=== PATIENT | female | born 1960 | race American Indian/Alaskan Native ===

== ENCOUNTER 2016-12-20 12:32 | Inpatient (IN) | payer MEDICAID ==
[2016-12-15 09:45] VITALS: BMI 27.6
[2016-12-20] MEDS: Insulin Regular 100 units/ml SC SCH (21:01)
[2016-12-20 22:29] VITALS: RESP 20
[2016-12-21] MEDS: Insulin Regular 100 units/ml SC SCH ×4 (06:30→22:24)
[2016-12-21] MEDS: Pantoprazole 20 mg EC Tab PO SCH (09:33)
[2016-12-21] MEDS: Cholestyramine 4 gm/Pkt UD PO SCH ×2 (09:34→16:59)
[2016-12-22] MEDS: Insulin Regular 100 units/ml SC SCH ×4 (07:07→21:48)
[2016-12-22] MEDS: Pantoprazole 20 mg EC Tab PO SCH (09:09)
[2016-12-22] MEDS: Cholestyramine 4 gm/Pkt UD PO SCH ×2 (09:10→17:00)
[2016-12-23] MEDS: Insulin Regular 100 units/ml SC SCH ×4 (07:02→21:55)
[2016-12-23] MEDS: Pantoprazole 20 mg EC Tab PO SCH (09:22)
[2016-12-23] MEDS: Cholestyramine 4 gm/Pkt UD PO SCH ×2 (09:22→17:02)
[2016-12-23 19:57] VITALS: O2SAT 100
[2016-12-24] MEDS: Insulin Regular 100 units/ml SC SCH ×4 (06:38→21:37)
[2016-12-24] MEDS: Pantoprazole 20 mg EC Tab PO SCH (08:13)
[2016-12-24] MEDS: Cholestyramine 4 gm/Pkt UD PO SCH ×2 (08:13→16:28)
--- NOTE | 2016-12-24 09:26 | CP.PCM.HP ---
History of Present Illness - History of Present Illness History of Present Illness: pt admitted for phys therapy for waekness secondary to hep c cirrhosis and high ammonia. at present. sitting up in bed w/o complaints, asking to be dc home. no f/c, n/v/d. Present on Admission - Present on Admission Any Indicators Present on Admission: Yes History of Uncontrolled Diabetes: Yes Past Patient History - Past Medical History & Family History Past Medical History?: Yes - Past Social History Smoking Status: Heavy Smoker > 10 Cigarettes Daily - CARDIAC Hx Hypercholesterolemia: Yes Hx Hypertension: Yes - PULMONARY Hx Chronic Obstructive Pulmonary Disease (COPD): Yes Other/Comment: Heavy smoker X 2 packs / da - NEUROLOGICAL Hx Neurological Disorder: No - HEENT Hx HEENT Problems: No Other/Comment: Wears corrective Lenses - RENAL Hx Chronic Kidney Disease: Yes ("RENAL INSUFFICENCY") Hx Dialysis: No - ENDOCRINE/METABOLIC Hx Diabetes Mellitus Type 2: Yes - HEMATOLOGICAL/ONCOLOGICAL Hx Blood Disorders: No Hx AIDS: No Hx Human Immunodeficiency Virus (HIV): No - INTEGUMENTARY Hx Dermatological Problems: Yes Other/Comment: "RASH DUE TO LIVER DISEASE" - MUSCULOSKELETAL/RHEUMATOLOGICAL Hx Musculoskeletal Disorders: No Hx Falls: No - GASTROINTESTINAL Hx Gastrointestinal Disorders: Yes ("LIVER DISEASE") Hx Liver Failure: Yes (Hep C, Liver Cirrhosis) Other/Comment: 09/09/14-EGD DONE-POST DX: ESOPHAGEAL VARICES - GENITOURINARY/GYNECOLOGICAL Hx Genitourinary Disorders: No Hx Urinary Tract Infection: Yes - PSYCHIATRIC Hx Emotional Abuse: No Hx Physical Abuse: No Hx Substance Use: No - SURGICAL HISTORY Hx Surgeries: Yes Other/Comment: RIGHT EYE STYE , Colonoscopy - ANESTHESIA Hx Anesthesia: Yes Hx Anesthesia Reactions: No Hx Malignant Hyperthermia: No Meds Allergies/Adverse Reactions: Allergies Allergy/AdvReac Type Severity Reaction Status Date / Time No Known Allergies Allergy Verified 12/20/16 18:41 Physical Exam - Constitutional Appears: Well, Non-toxic, No Acute Distress - Head Exam Head Exam: ATRAUMATIC, NORMAL INSPECTION, NORMOCEPHALIC - Eye Exam Eye Exam: EOMI, Normal appearance, PERRL Pupil Exam: NORMAL ACCOMODATION, PERRL - ENT Exam ENT Exam: Mucous Membranes Moist, Normal Exam - Neck Exam Neck exam: Positive for: Normal Inspection - Respiratory Exam Respiratory Exam: Clear to Auscultation Bilateral, NORMAL BREATHING PATTERN - Cardiovascular Exam Cardiovascular Exam: REGULAR RHYTHM - GI/Abdominal Exam GI & Abdominal Exam: Normal Bowel Sounds, Soft. absent: Tenderness - Extremities Exam Extremities exam: Positive for: full ROM, normal capillary refill, normal inspection, pedal pulses present - Back Exam Back exam: NORMAL INSPECTION - Neurological Exam Neurological exam: Alert, CN II-XII Intact, Normal Gait, Oriented x3, Reflexes Normal - Psychiatric Exam Psychiatric exam: Normal Affect, Normal Mood - Skin Skin Exam: Dry, Intact, Normal Color, Warm Results - Vital Signs Recent Vital Signs: Last Vital Signs Temp 97.7 F 12/24/16 08:26 Pulse 85 12/24/16 08:26 Resp 20 12/24/16 08:26 BP 100/40 L 12/24/16 08:26 Pulse Ox 100 12/24/16 08:26 - Labs Labs: Laboratory Results - last 24 hr 12/23/16 12/23/16 12/23/16 11:34 16:16 20:37 POC Glucose (mg/dL) 198 H 144 H 193 H 12/24/16 05:24 POC Glucose (mg/dL) 95 Assessment & Plan (1) Ieqvy-bh-yjbevhl kidney injury Assessment and Plan: f/u b/w cont meds chronic condition control Status: Acute (2) DVT prophylaxis Assessment and Plan: scd and ae hose reeval pt/ptt/inr before any anticoag Status: Acute (3) Hepatorenal syndrome Assessment and Plan: cont meds, consults appriciated Status: Acute (4) Liver cirrhosis Assessment and Plan: cont meds, check ammonia and hep panel today xifaxin Status: Acute (5) Weakness Assessment and Plan: tcu admission pt/ot improving Status: Acute Decision To Admit - Pt Status Changed To: Hospital Disposition Of: Inpatient - Admit Certification Admit to Inpatient:: After my assessment, the patient will require hospitalization for at least two midnights. This is because of the severity of symptoms shown, intensity of services needed, and/or the medical risk in this patient being treated as an outpatient. - . Bed Request Type: Transitional Care Unit Admitting Physician: Emelyn Veras
[2016-12-24 10:27] LABS: BASO # 0.1 K/uL (0.0-0.2); BASO % 0.9 % (0.0-2.0); EOS # 0.1 K/uL (0.0-0.7); EOS % 1.6 % (0.0-4.0); HEMATOCRIT 28.6 % (34.0-47.0); LYMPH # 1.5 K/uL (1.0-4.3); LYMPH % 25.5 % (20.0-40.0); MEAN CELL VOLUME 94.5 fl (81.0-99.0); MEAN CORPUSCULAR HEMOGLOBIN 32.1 pg (27.0-31.0); MEAN PLATELET VOLUME 10.2 fl (7.2-11.7); MONO # 0.9 K/uL (0.0-0.8); MONO % 15.5 % (0.0-10.0); NEUT # 3.3 K/uL (1.8-7.0); NEUT % 56.5 % (50.0-75.0); NRBC % 0.1 % (0.0-0.0); RED CELL DISTRIBUTION WIDTH 21.6 % (11.5-14.5); WHITE BLOOD COUNT 5.9 K/uL (4.8-10.8)
[2016-12-24 10:33] LABS: PARTIAL THROMBOPLASTIN TIME 41.3 Seconds (25.6-37.1)
[2016-12-24 12:10] LABS: ALB/GLOB RATIO 0.5 (1.0-2.1); CALCIUM 8.7 mg/dL (8.4-10.2); POTASSIUM 3.8 MMOL/L (3.6-5.0); TOTAL PROTEIN 8.8 G/DL (6.3-8.2)
[2016-12-25] MEDS: Insulin Regular 100 units/ml SC SCH ×4 (06:46→22:00)
[2016-12-25] MEDS: Pantoprazole 20 mg EC Tab PO SCH (10:09)
[2016-12-25] MEDS: Cholestyramine 4 gm/Pkt UD PO SCH ×2 (10:11→16:53)
[2016-12-26] MEDS: Insulin Regular 100 units/ml SC SCH ×4 (06:49→21:40)
--- NOTE | 2016-12-26 07:49 | CP.PCM.PN ---
Subjective - Date & Time of Evaluation Date of Evaluation: 12/26/16 Time of Evaluation: 07:48 - Subjective Subjective: pt in bed, no compalints/distress/weakness. per rn pt was weak and "didn't feel good yesterday" pt denies these complaints at present. no f/c, n/v/d. bp noted to be low normal. Objective - Vital Signs/Intake and Output Vital Signs (last 24 hours): Temp Pulse Resp BP Pulse Ox 97.7 F 95 H 20 97/53 L 100 12/25/16 20:10 12/25/16 20:10 12/25/16 20:10 12/25/16 20:10 12/25/16 20:10 - Medications Medications: Current Medications Cholestyramine Resin (Questran) 4 gm PO BID [facility] Last Admin: 12/25/16 16:53 Dose: 4 gm Famotidine (Pepcid) 20 mg PO Q12 [facility] Last Admin: 12/25/16 21:17 Dose: 20 mg Hydroxyzine HCl (Atarax) 25 mg PO Q6 PRN PRN Reason: Itching / Pruritus Last Admin: 12/26/16 06:50 Dose: 25 mg Insulin Human Regular (Humulin R) 0 units SC ACHS [facility] PRN Reason: Protocol Last Admin: 12/26/16 06:49 Dose: Not Given Lactulose (Enulose) 20 gm PO TID [facility] Last Admin: 12/25/16 16:55 Dose: Not Given Nicotine (Nicoderm Cq) 1 patch TD DAILY [facility] Last Admin: 12/25/16 10:11 Dose: 1 patch Pantoprazole Sodium (Protonix Ec Tab) 20 mg PO DAILY [facility] Last Admin: 12/25/16 10:09 Dose: 20 mg Rifaximin (Xifaxan) 550 mg PO BID [facility] PRN Reason: Protocol Last Admin: 12/25/16 16:53 Dose: 550 mg Sodium Bicarbonate (Sodium Bicarbonate Tab) 1,300 mg PO BID [facility] Last Admin: 12/25/16 16:53 Dose: 1,300 mg Ursodiol (Actigall) 300 mg PO BID [facility] Last Admin: 12/25/16 16:56 Dose: 300 mg Zinc Sulfate (Zinc Sulfate 220 Mg Cap) 220 mg PO DAILY [facility] Last Admin: 12/25/16 10:11 Dose: 220 mg Zolpidem Tartrate (Ambien) 5 mg PO HS PRN PRN Reason: Insomnia Last Admin: 12/24/16 00:11 Dose: 5 mg - Labs Labs: 12/24/16 09:40 12/24/16 09:40 PT 20.1 Seconds (9.8-13.1) H 12/24/16 09:40 INR 1.8 (0.9-1.2) H 12/24/16 09:40 APTT 41.3 Seconds (25.6-37.1) H 12/24/16 09:40 - Constitutional Appears: Well, Non-toxic, No Acute Distress - Head Exam Head Exam: ATRAUMATIC, NORMAL INSPECTION, NORMOCEPHALIC - Eye Exam Eye Exam: EOMI, Normal appearance, PERRL Pupil Exam: NORMAL ACCOMODATION, PERRL - ENT Exam ENT Exam: Mucous Membranes Moist, Normal Exam - Neck Exam Neck Exam: Full ROM, Normal Inspection. absent: Lymphadenopathy - Respiratory Exam Respiratory Exam: Clear to Ausculation Bilateral, NORMAL BREATHING PATTERN - Cardiovascular Exam Cardiovascular Exam: REGULAR RHYTHM, RRR, +S1, +S2. absent: Murmur - GI/Abdominal Exam GI & Abdominal Exam: Soft, Normal Bowel Sounds. absent: Tenderness - Extremities Exam Extremities Exam: Full ROM, Normal Capillary Refill, Normal Inspection. absent : Joint Swelling, Pedal Edema - Back Exam Back Exam: NORMAL INSPECTION - Neurological Exam Neurological Exam: Alert, Awake, CN II-XII Intact, Normal Gait, Oriented x3 - Psychiatric Exam Psychiatric exam: Normal Affect, Normal Mood - Skin Skin Exam: Dry, Intact, Normal Color, Warm Assessment and Plan (1) Xzdjb-du-eyxslwm kidney injury Status: Acute (2) DVT prophylaxis Status: Acute (3) Hepatorenal syndrome Status: Acute (4) Liver cirrhosis Status: Acute (5) Weakness Status: Acute - Assessment and Plan (Free Text) Assessment: (1) Hnevk-an-pbvuebk kidney injury Assessment and Plan: f/u b/w cont meds chronic condition control Status: Acute (2) DVT prophylaxis Assessment and Plan: scd and ae hose reeval pt/ptt/inr before any anticoag Status: Acute (3) Hepatorenal syndrome Assessment and Plan: cont meds, consults appriciated Status: Acute (4) Liver cirrhosis Assessment and Plan: cont meds, check ammonia and hep panel today xifaxin Status: Acute (5) Weakness Assessment and Plan: tcu admission pt/ot improving Status: Acute 6-low bp ?? r/t immobility, advise pt oob, work w/ pt/ot. will monitor pt for dc tomorrow.
[2016-12-26] MEDS: Cholestyramine 4 gm/Pkt UD PO SCH ×2 (09:30→16:40)
[2016-12-26] MEDS: Pantoprazole 20 mg EC Tab PO SCH (09:30)
[2016-12-27] MEDS: Insulin Regular 100 units/ml SC SCH (07:59)
[2016-12-27 08:13] VITALS: BP 97/53; PULSE 95; TEMP 97.2
[2016-12-27] MEDS: Pantoprazole 20 mg EC Tab PO SCH (09:37)
[2016-12-27] MEDS: Cholestyramine 4 gm/Pkt UD PO SCH (09:38)
--- NOTE | 2016-12-30 10:44 | CP.PCM.DIS ---
Provider - Provider Date of Admission: 12/20/16 18:41 Attending physician: Emelyn Veras MD Time Spent in preparation of Discharge (in minutes): 15 Diagnosis - Discharge Diagnosis (1) Ccxjo-dm-sxeqvvl kidney injury Status: Acute (2) DVT prophylaxis Status: Acute (3) Hepatorenal syndrome Status: Acute (4) Liver cirrhosis Status: Acute (5) Weakness Status: Acute Hospital Course - Lab Results Lab Results: Most Recent Lab Values WBC 5.9 K/uL (4.8-10.8) 12/24/16 09:40 RBC 3.03 Mil/uL (3.80-5.20) L 12/24/16 09:40 Hgb 9.7 g/dL (12.0-16.0) L 12/24/16 09:40 Hct 28.6 % (34.0-47.0) L 12/24/16 09:40 MCV 94.5 fl (81.0-99.0) 12/24/16 09:40 MCH 32.1 pg (27.0-31.0) H 12/24/16 09:40 MCHC 34.0 g/dL (33.0-37.0) 12/24/16 09:40 RDW 21.6 % (11.5-14.5) H 12/24/16 09:40 Plt Count 114 K/uL (130-400) L 12/24/16 09:40 MPV 10.2 fl (7.2-11.7) 12/24/16 09:40 Neut % (Auto) 56.5 % (50.0-75.0) 12/24/16 09:40 Lymph % (Auto) 25.5 % (20.0-40.0) 12/24/16 09:40 [place] % (Auto) 15.5 % (0.0-10.0) H 12/24/16 09:40 Eos % (Auto) 1.6 % (0.0-4.0) 12/24/16 09:40 Baso % (Auto) 0.9 % (0.0-2.0) 12/24/16 09:40 Neut # 3.3 K/uL (1.8-7.0) 12/24/16 09:40 Lymph # 1.5 K/uL (1.0-4.3) 12/24/16 09:40 [place] # 0.9 K/uL (0.0-0.8) H 12/24/16 09:40 Eos # 0.1 K/uL (0.0-0.7) 12/24/16 09:40 Baso # 0.1 K/uL (0.0-0.2) 12/24/16 09:40 PT 20.1 Seconds (9.8-13.1) H 12/24/16 09:40 INR 1.8 (0.9-1.2) H 12/24/16 09:40 APTT 41.3 Seconds (25.6-37.1) H 12/24/16 09:40 Sodium 140 mmol/l (132-148) 12/24/16 09:40 Potassium 3.8 MMOL/L (3.6-5.0) 12/24/16 09:40 Chloride 114 mmol/L (98-107) H 12/24/16 09:40 Carbon Dioxide 15 mmol/L (22-30) L 12/24/16 09:40 Anion Gap 15 (10-20) 12/24/16 09:40 BUN 29 mg/dl (7-17) H 12/24/16 09:40 Creatinine 2.8 mg/dL (0.7-1.2) H 12/24/16 09:40 Est GFR ( Amer) 21 12/24/16 09:40 Est GFR (Non-Af Amer) 17 12/24/16 09:40 POC Glucose (mg/dL) 162 mg/dL (65-110) H 12/27/16 10:43 Random Glucose 193 mg/dL (65-105) H 12/24/16 09:40 Calcium 8.7 mg/dL (8.4-10.2) 12/24/16 09:40 Total Bilirubin 21.0 mg/dl (0.2-1.3) H 12/24/16 09:40 AST 97 U/L (14-36) H 12/24/16 09:40 ALT 67 U/L (9-52) H 12/24/16 09:40 Alkaline Phosphatase 318 U/L (38-126) H 12/24/16 09:40 Ammonia 71 umo/L (11-51) H D 12/24/16 09:40 Total Protein 8.8 G/DL (6.3-8.2) H 12/24/16 09:40 Albumin 3.0 g/dL (3.5-5.0) L 12/24/16 09:40 Globulin 5.8 gm/dL (2.2-3.9) H 12/24/16 09:40 Albumin/Globulin Ratio 0.5 (1.0-2.1) L 12/24/16 09:40 Hepatitis C Antibody Negative (NEGATIVE) 12/24/16 09:40 HCV RNA (PCR) IUs/ml <15 not detected IU/mL (<15) 12/24/16 09:40 HCV RNA PCR log IUs/ml <1.18 not detected Log IU/mL (<1.18) 12/24/16 09:40 Discharge Exam - Head Exam Head Exam: ATRAUMATIC, NORMAL INSPECTION, NORMOCEPHALIC Discharge Plan - Discharge Medications Prescriptions: Cholestyramine [Questran] 4 gm PO BID #60 packet Famotidine [Pepcid] 20 mg PO BID #60 tab hydrOXYzine HCl [Atarax] 25 mg PO Q6 PRN #60 tab PRN Reason: Itching / Pruritus Lactulose [Enulose] 20 gm PO QID #250 ml Sodium Bicarbonate Tab 1,300 mg PO BID #30 tab Ursodiol [Actigall] 1 cap PO BID #60 cap Zinc [Zinc Sulfate 220 mg Cap] 220 mg PO DAILY #30 cap - Follow Up Plan Condition: GOOD Disposition: HOME/ ROUTINE Instructions: Cirrhosis (DC), Chronic Kidney Disease (DC), Fall Prevention (DC) Additional Instructions: discharge patient home today. followup with pmd in one week, call for appointment. final dx-acute on chronic liver and kidney disease, weakness f/u rmg, rted prn, meds pe rmed rec
== END 2016-12-27 12:10 | disposition home or self-care (01) | DRG 316 ==
LOC: H.TCU 18:41
PROVIDERS: ADMIT Family Medicine; ATTEND Family Medicine
PROC: F07Z9FZ Gait Training/Functional Ambulation Treatment using Assistive, Adaptive, Supportive or Protective Equipment (ICD-10-PCS; principal; 2016-12-20)
PROC: F08Z4FZ Home Management Treatment using Assistive, Adaptive, Supportive or Protective Equipment (ICD-10-PCS; 2016-12-20)
PROC: F07M6FZ Therapeutic Exercise Treatment of Musculoskeletal System - Whole Body using Assistive, Adaptive, Supportive or Protective Equipment (ICD-10-PCS; 2016-12-20)
DX: N17.9 Acute kidney failure, unspecified (principal); K76.7 Hepatorenal syndrome; E11.22 Type 2 diabetes mellitus with diabetic chronic kidney disease; K74.60 Unspecified cirrhosis of liver; B19.20 Unspecified viral hepatitis C without hepatic coma; N18.4 Chronic kidney disease, stage 4 (severe); I12.9 Hypertensive chronic kidney disease with stage 1 through stage 4 chronic kidney disease, or unspecified chronic kidney disease; R53.1 Weakness; J44.9 Chronic obstructive pulmonary disease, unspecified; E78.00 Pure hypercholesterolemia, unspecified; F17.210 Nicotine dependence, cigarettes, uncomplicated; Z87.440 Personal history of urinary (tract) infections

== ENCOUNTER 2017-01-04 14:12 | Inpatient (IN) | payer MEDICAID ==
[2017-01-04 14:12] VITALS: BMI 27.6
[2017-01-04 15:26] LABS: BASO % 0.3 % (0.0-2.0); EOS # 0.1 K/uL (0.0-0.7); EOS % 0.9 % (0.0-4.0); HEMATOCRIT 27.1 % (34.0-47.0); LYMPH # 1.5 K/uL (1.0-4.3); LYMPH % 15.7 % (20.0-40.0); MEAN CELL VOLUME 94.8 fl (81.0-99.0); MEAN CORPUSCULAR HEMOGLOBIN 32.4 pg (27.0-31.0); MEAN CORPUSCULAR HGB CONC 34.2 g/dL (33.0-37.0); MEAN PLATELET VOLUME 10.5 fl (7.2-11.7); MONO # 1.4 K/uL (0.0-0.8); MONO % 15.2 % (0.0-10.0); NEUT # 6.4 K/uL (1.8-7.0); NEUT % 67.9 % (50.0-75.0); NRBC % 0.7 % (0.0-0.0); RED CELL DISTRIBUTION WIDTH 21.4 % (11.5-14.5); WHITE BLOOD COUNT 9.5 K/uL (4.8-10.8)
[2017-01-04 15:35] LABS: PARTIAL THROMBOPLASTIN TIME 41.3 Seconds (25.6-37.1)
--- NOTE | 2017-01-04 15:39 | ED PDOC ---
HPI: Altered Mental Status Time Seen by Provider: 01/04/17 14:25 Chief Complaint (Nursing): Altered Mental Status Chief Complaint (Provider): Altered mental status History Per: Patient History/Exam Limitations: None Onset/Duration Of Symptoms: Days (x7) Current Symptoms Are (Timing): Still Present Additional Complaint(s): Jennifer Maxwell is a 56 year old female with a past medical history of altered mental status brought to the ED by family for an evaluation of deteriorating health occurring since her discharge from this hospital last week. The patient' s family state the patient has not been eating and is incoherent. PMD: TBD Past Medical History Reviewed: Historical Data, Nursing Documentation, Vital Signs Vital Signs: Last Vital Signs Temp 98.3 F 01/04/17 14:15 Pulse 89 01/04/17 14:15 Resp 19 01/04/17 14:15 BP 105/42 L 01/04/17 14:15 Pulse Ox 100 01/04/17 14:15 - Medical History PMH: COPD, HTN, Hypercholesterolemia, Chronic Kidney Disease ("RENAL INSUFFICENCY") Denies: HIV - Surgical History Surgical History: Endoscopy - Family History Family History: States: No Known Family Hx - Home Medications Home Medications: Ambulatory Orders Medication Instructions Recorded Sodium Bicarbonate 1,300 mg PO BID 05/16/15 Omeprazole 20 mg PO DAILY 12/15/16 Zinc Sulfate 1 cap PO DAILY 12/15/16 Zolpidem Tartrate 1 tab PO HS PRN 12/15/16 rifAXIMin [Xifaxan] 550 mg PO BID 30 Days tab 12/20/16 Cholestyramine [Questran] 4 gm PO BID #60 packet 12/27/16 Famotidine [Pepcid] 20 mg PO BID #60 tab 12/27/16 Lactulose [Enulose] 20 gm PO QID #250 ml 12/27/16 Sodium Bicarbonate Tab 1,300 mg PO BID #30 tab 12/27/16 Ursodiol [Actigall] 1 cap PO BID #60 cap 12/27/16 Zinc [Zinc Sulfate 220 mg Cap] 220 mg PO DAILY #30 cap 12/27/16 hydrOXYzine HCl [Atarax] 25 mg PO Q6 PRN #60 tab 12/27/16 - Allergies Allergies/Adverse Reactions: Allergies Allergy/AdvReac Type Severity Reaction Status Date / Time No Known Allergies Allergy Verified 12/20/16 18:41 Review of Systems Review Of Systems: ROS cannot be obtained secondary to pt's inabilty to answer questions. (family states patient is not eating and is incoherent. ros cannot be obtained due to patient's clinical condition) Physical Exam - Reviewed Nursing Documentation Reviewed: Yes Vital Signs Reviewed: Yes - Physical Exam Appears: Positive for: Non-toxic Head Exam: Positive for: ATRAUMATIC, NORMOCEPHALIC Skin: Positive for: Normal Color, Warm, Dry Eye Exam: Positive for: Scleral icterus ENT: Positive for: Pharynx Is (mucous membranes are dry) Neck: Positive for: Normal Cardiovascular/Chest: Positive for: Regular Rate, Rhythm, Chest Non Tender Respiratory: Positive for: Normal Breath Sounds. Negative for: Respiratory Distress Gastrointestinal/Abdominal: Positive for: Normal Exam, Soft. Negative for: Tenderness Extremity: Positive for: Normal ROM (patient is able to move all extremities ). Negative for: Deformity Neurologic/Psych: Positive for: Other (patient is nonverbal; opens her eyes to verbal stimuli) - Laboratory Results Result Diagrams: 01/08/17 05:10 01/08/17 05:10 - ECG O2 Sat by Pulse Oximetry: 100 (RA) Pulse Ox Interpretation: Normal - Critical Care Total Time (In Min): 60 Medical Decision Making Medical Decision Making: Time: 14:25 Impression: Progressive altered mental status Plan: * ED EKG * Ammonia * CMP * Troponin I * CBC (With differential) * PTT * Prothrombin Time * Glucose, Blood, POC * Urinalysis * CT Head w/o contrast * [RAD] Chest Portable * Reevaluation Accession No. : [id number] Patient Name / ID : GRIFFIN MUSA E / [id number] Exam Date : 01/04/2017 16:46:27 ( Approved ) Study Comment : Sex / Age : F / 56Y Creator : Shoaib Jordan MD Dictator : Shoaib Jordan MD Palletizer Operator : Family Services Assistant : Shoaib Jordan MD Approver2 : Report Date : 01/05/2017 07:06:20 My Comment : HISTORY: AMS COMPARISON: No prior. FINDINGS: LUNGS: Limited by body habitus. No gross consolidation. PLEURA: No significant pleural effusion identified, no pneumothorax apparent. CARDIOVASCULAR: Normal. OSSEOUS STRUCTURES: No significant abnormalities. VISUALIZED UPPER ABDOMEN: Normal. OTHER FINDINGS: None. IMPRESSION: Limited by body habitus. No gross consolidation. Accession No. : [id number] Patient Name / ID : GRIFFIN MUSA E / [id number] Exam Date : 01/04/2017 15:47:21 ( Approved ) Study Comment : Sex / Age : F / 56Y Creator : Shoaib Jordan MD Dictator : Shoaib Joradn MD Palletizer Operator : Family Services Assistant : Shoaib Jordan MD Approver2 : Report Date : 01/04/2017 16:29:49 My Comment : PROCEDURE: CT HEAD WITHOUT CONTRAST. HISTORY: AMS COMPARISON: None available. TECHNIQUE: Axial computed tomography images were obtained through the head/brain without intravenous contrast. Radiation dose: Total exam DLP = 1713 mGy-cm. This CT exam was performed using one or more of the following dose reduction techniques: Automated exposure control, adjustment of the mA and/or kV according to patient size, and/or use of iterative reconstruction technique. FINDINGS: HEMORRHAGE: No intracranial hemorrhage. BRAIN: No mass effect or edema. No atrophy or chronic microvascular ischemic changes. VENTRICLES: Unremarkable. No hydrocephalus. CALVARIUM: Unremarkable. PARANASAL SINUSES: Unremarkable as visualized. No significant inflammatory changes. MASTOID AIR CELLS: Unremarkable as visualized. No inflammatory changes. OTHER FINDINGS: None. IMPRESSION: Normal CT of the Head. Scribe Attestation: Documented by Iwona Mcdermott, acting as a scribe for Nadeen Moreira MD. Provider Scribe Attestation: All medical record entries made by the Scribe were at my direction and personally dictated by me. I have reviewed the chart and agree that the record accurately reflects my personal performance of the history, physical exam, medical decision making, and the department course for this patient. I have also personally directed, reviewed, and agree with the discharge instructions and disposition. Disposition - Clinical Impression Clinical Impression: ARF (acute renal failure), Dehydration, Cirrhosis - Patient ED Disposition Is Patient to be Admitted: Yes - Disposition Disposition Time: 19:16 Condition: CRITICAL - Pt Status Changed To: Hospital Disposition Of: Inpatient - Admit Certification Admit to Inpatient:: After my assessment, the patient will require hospitalization for at least two midnights. This is because of the severity of symptoms shown, intensity of services needed, and/or the medical risk in this patient being treated as an outpatient. - POA Present On Arrival: None
[2017-01-04 15:54] LABS: TROPONIN I 0.028 ng/mL (0.00-0.120)
[2017-01-04 16:21] LABS: ALB/GLOB RATIO 0.5 (1.0-2.1); BILIRUBIN,TOTAL 21.3 mg/dl (0.2-1.3); CALCIUM 8.5 mg/dL (8.4-10.2); POTASSIUM 4.8 MMOL/L (3.6-5.0); TOTAL PROTEIN 8.7 G/DL (6.3-8.2)
--- NOTE | 2017-01-04 16:31 | CT ---
PROCEDURE: CT HEAD WITHOUT CONTRAST. HISTORY: AMS COMPARISON: None available. TECHNIQUE: Axial computed tomography images were obtained through the head/brain without intravenous contrast. Radiation dose: Total exam DLP = 1713 mGy-cm. This CT exam was performed using one or more of the following dose reduction techniques: Automated exposure control, adjustment of the mA and/or kV according to patient size, and/or use of iterative reconstruction technique. FINDINGS: HEMORRHAGE: No intracranial hemorrhage. BRAIN: No mass effect or edema. No atrophy or chronic microvascular ischemic changes. VENTRICLES: Unremarkable. No hydrocephalus. CALVARIUM: Unremarkable. PARANASAL SINUSES: Unremarkable as visualized. No significant inflammatory changes. MASTOID AIR CELLS: Unremarkable as visualized. No inflammatory changes. OTHER FINDINGS: None. IMPRESSION: Normal CT of the Head.
[2017-01-04] MEDS ORDERED: Sodium Chloride 0.9% 1,000 ML IV STA (16:57)
[2017-01-04 17:14] LABS: ABG ALLEN TEST YES; ARTERIAL BLOOD GAS PH 7.31 (7.35-7.45); ARTERIAL BLOOD GAS PO2 113 mm/Hg (80-100)
--- NOTE | 2017-01-04 18:59 | CP.PCM.CON ---
History of Present Illness - History of Present Illness History of Present Illness: Initial Nephrology Consultation: Assessment: critical Acute Kidney Injury (N17.9) possible causes include type 1 hepato-renal syndrome , ATN Anemia, liver failure, jaundice, coagulopathy, hepatosplenomegaly lactic acidosis, HAGMA acute hepatic +uremic metabolic encephalopathy Obesity left adrenal nodule Hypernatremia Plan renal replacement therapy indicated at this time. d/w family and they agreed. discussed pros/cons, risks involved. Will plan for HD today as ordered. d/w ER, to obtain temp dialysis access Hypertension control with meds as ordered. No ACEI/ARB due to GEGE Monitor Input/Output, daily weights and renal function with basic metabolic panel consider transfer to tertiary care center for liver evaluation will start empiric treatment with octreotide SQ and midodrine (PO) or Vasopressin (IV) Check urine analysis, spot protein/creatinine renal sonogram. CPK, uric acid. Dose meds/antibiotics for reduced GFR<10. Avoid fleets enema/magnesium based laxatives. Avoid nephrotoxins/NSAIDs/ iodinated contrast (unless needed emergently) Glycemic control Further work up/management as per primary team prognosis poor Thanks for allowing me to participate in care of your patient. Will follow patient with you. Please call if any Qs. d/w family and team Dr Narayan Sanchez Office: [phone] Chief Complaint; AMS HPI: Pt is a 56 y/o F with hx of hypertension, chronic liver disease and cirrhosis, recently admitted for hepatic enceph also found to have cr 2.5-2.8 was brought back to hospital for AMS x couple of days and found to have severe GEGE and hepatic dysfunction with bilirubin 21 pt unable to provide any hx. ROS: unable to obtain from pt Physical Examination: General Appearance: ill appearing, AMS Vitals reviewed and noted as below Head; Atraumatic, normocephalic ENT: no ulcers no thrush. Tongue is midline/dry. Oropharynx: no rash or ulcers. EYES: Pupils are equal, round and sluggish to light accommodation. Eye muscles and extraocular movement intact. Sclera is anicteric. Neck; supple no lymphadenopathy, no thyromegaly or bruit Lungs: Normal respiratory rate/effort. Breath sounds bilateral equal and clear anteriorly Heart: Normal rate. s1s2 normal. No rub or gallop. Extremities: no edema. No varicose veins Neurological: Patient is not communicating and comatose Skin: Warm and dry. Normal turgor. No rash. Palpitation: Normal elasticity for age Abdomen: Abdomen is soft. Bowel sounds +. There is no abdominal tenderness, no guarding/rigidity no organomegaly appreciated as she is obese Psych: unable MSK: no joint tenderness or swelling. Digits and nails normal, no deformity : kidney or bladder not palpable Labs/imaging/EKG reviewed. Past medical history, past surgical history, family history, social history, allergy reviewed and noted as below Family hx: no hx of CKD. Rest non-contributory Past Patient History - Infectious Disease Hx of Infectious Diseases: None - Past Medical History & Family History Past Medical History?: Yes - Past Social History Smoking Status: Heavy Smoker > 10 Cigarettes Daily - CARDIAC Hx Hypercholesterolemia: Yes Hx Hypertension: Yes - PULMONARY Hx Chronic Obstructive Pulmonary Disease (COPD): Yes - NEUROLOGICAL Hx Neurological Disorder: No - HEENT Hx HEENT Problems: No Other/Comment: Wears corrective Lenses - RENAL Hx Chronic Kidney Disease: Yes ("RENAL INSUFFICENCY") - ENDOCRINE/METABOLIC Hx Diabetes Mellitus Type 2: Yes - HEMATOLOGICAL/ONCOLOGICAL Hx Human Immunodeficiency Virus (HIV): No - INTEGUMENTARY Hx Dermatological Problems: Yes Other/Comment: "RASH DUE TO LIVER DISEASE" - MUSCULOSKELETAL/RHEUMATOLOGICAL Hx Musculoskeletal Disorders: No Hx Falls: No - GASTROINTESTINAL Hx Gastrointestinal Disorders: Yes ("LIVER DISEASE") Hx Liver Failure: Yes (Hep C, Liver Cirrhosis) Other/Comment: 09/09/14-EGD DONE-POST DX: ESOPHAGEAL VARICES - GENITOURINARY/GYNECOLOGICAL Hx Genitourinary Disorders: No Hx Urinary Tract Infection: Yes - PSYCHIATRIC Hx Emotional Abuse: No Hx Physical Abuse: No Hx Substance Use: No - SURGICAL HISTORY Hx Surgeries: Yes Other/Comment: RIGHT EYE STYE , Colonoscopy - ANESTHESIA Hx Anesthesia: Yes Hx Anesthesia Reactions: No Hx Malignant Hyperthermia: No Meds Allergies/Adverse Reactions: Allergies Allergy/AdvReac Type Severity Reaction Status Date / Time No Known Allergies Allergy Verified 12/20/16 18:41 - Medications Medications: Current Medications Cholestyramine Resin (Questran) 4 gm PO BID HUDSON Famotidine (Pepcid) 20 mg PO BID HUDSON Hydroxyzine HCl (Atarax) 25 mg PO Q6 PRN PRN Reason: Itching / Pruritus Sodium Chloride (Sodium Chloride 0.9%) 1,000 mls @ 125 mls/hr IV .Q8H STA Stop: 01/05/17 00:56 Last Admin: 01/04/17 17:00 Dose: 125 mls/hr Sodium Chloride (Sodium Chloride 0.9%) 1,000 mls @ 100 mls/hr IV .Q10H HUDSON Stop: 01/05/17 18:40 Lactulose (Enulose) 20 gm PO QID HUDSON Pantoprazole Sodium (Protonix Ec Tab) 40 mg PO DAILY HUDSON Rifaximin (Xifaxan) 550 mg PO BID HUDSON PRN Reason: Protocol Sodium Bicarbonate (Sodium Bicarbonate Tab) 1,300 mg PO BID HUDSON Ursodiol (Actigall) 300 mg PO BID HUDSON Zinc Sulfate (Zinc Sulfate 220 Mg Cap) 220 mg PO DAILY HUDSON Results - Vital Signs Recent Vital Signs: Last Vital Signs Temp 98.3 F 01/04/17 14:15 Pulse 89 01/04/17 14:15 Resp 19 01/04/17 14:15 BP 105/42 L 01/04/17 14:15 Pulse Ox 100 01/04/17 15:43 - Labs Result Diagrams: 01/04/17 15:15 01/04/17 15:15 Labs: Laboratory Results - last 24 hr 01/04/17 01/04/17 01/04/17 15:15 15:15 15:15 WBC 9.5 D RBC 2.85 L Hgb 9.3 L Hct 27.1 L MCV 94.8 MCH 32.4 H MCHC 34.2 RDW 21.4 H Plt Count 147 MPV 10.5 Neut % (Auto) 67.9 Lymph % (Auto) 15.7 L [place] % (Auto) 15.2 H Eos % (Auto) 0.9 Baso % (Auto) 0.3 Neut # 6.4 Lymph # 1.5 [place] # 1.4 H Eos # 0.1 Baso # 0.0 PT INR APTT pCO2 pO2 HCO3 ABG pH ABG Total CO2 ABG O2 Saturation ABG Base Excess [place] Test ABG Potassium A-a O2 Difference Glucose Lactate FiO2 Sodium 148 Potassium 4.8 Chloride 119 H Carbon Dioxide 12 L Anion Gap 22 H BUN 83 H Creatinine 9.0 H* Est GFR ( Amer) 5 Est GFR (Non-Af Amer) 5 Random Glucose 101 Calcium 8.5 Total Bilirubin 21.3 H AST 83 H ALT 61 H Alkaline Phosphatase 268 H Ammonia 100 H* D Troponin I 0.0280 Total Protein 8.7 H Albumin 3.0 L Globulin 5.7 H Albumin/Globulin Ratio 0.5 L Arterial Blood Potassium 01/04/17 01/04/17 15:15 16:26 WBC RBC Hgb Hct MCV MCH MCHC RDW Plt Count MPV Neut % (Auto) Lymph % (Auto) [place] % (Auto) Eos % (Auto) Baso % (Auto) Neut # Lymph # [place] # Eos # Baso # PT 24.1 H INR 2.1 H APTT 41.3 H pCO2 24 L pO2 113 H HCO3 15.0 L ABG pH 7.31 L ABG Total CO2 12.8 L ABG O2 Saturation 100.0 H ABG Base Excess -12.7 L [place] Test Yes ABG Potassium 4.2 A-a O2 Difference 7.0 Glucose 99 Lactate 3.4 H FiO2 21.0 Sodium 143.0 Potassium Chloride 118.0 H Carbon Dioxide Anion Gap BUN Creatinine Est GFR ( Amer) Est GFR (Non-Af Amer) Random Glucose Calcium Total Bilirubin AST ALT Alkaline Phosphatase Ammonia Troponin I Total Protein Albumin Globulin Albumin/Globulin Ratio Arterial Blood Potassium 4.2
--- NOTE | 2017-01-04 19:17 | PCM.SURG1 ---
Surgeon's Initial Post Op Note - Surgeon's Notes Surgeon: Dr Cannon (Dr Moreira) Bread Racker: none Type of Anesthesia: Local Pre-Operative Diagnosis: renal failure Operative Findings: open patent right femoral vein Post-Operative Diagnosis: as above Operation Performed: insertion of right femoral dialysis catheter under ultrasound guidance Specimen/Specimens Removed: none Estimated Blood Loss: EBL {In ML}: 10 Blood Products Given: N/A Drains Used: No Drains Post-Op Condition: Fair Date of Surgery/Procedure: 01/04/17 Time of Surgery/Procedure: 19:17
--- NOTE | 2017-01-04 19:51 | CP.PCM.CON ---
History of Present Illness - History of Present Illness History of Present Illness: CC/Reason for ICU: acute on chronic kidney and liver failure; requiring urgent HD History largely from ER staff and family as patient AMS HPI: This is a 56 y/o female with CKD (baseline Cr appears to be ~2.8) and liver disease who was just discharged from the hospital last Friday; she had previously been in for confusion and weakness. She is brought back by her family members today who say that she has become progressively weaker and more confused again over the past 3-4 days. They deny f/c/n/v/d. Patient is not able to provide much history. ROS: cannot be performed is confused MHx: Hep C/liver disease, HTN, DM2, HLD, CKD SHx: cannot obtain Allergies: NKDA Medications: As per med rec Family Hx: Prior documentation shows kidney disease in family Social Hx: Lives at home, smokes tobacco -- likely 1 ppd, no significant EtOH use noted Surrogate: Son, Hakeem Maxwell Past Patient History - Infectious Disease Hx of Infectious Diseases: None - Past Medical History & Family History Past Medical History?: Yes - Past Social History Smoking Status: Heavy Smoker > 10 Cigarettes Daily - CARDIAC Hx Hypercholesterolemia: Yes Hx Hypertension: Yes - PULMONARY Hx Chronic Obstructive Pulmonary Disease (COPD): Yes - NEUROLOGICAL Hx Neurological Disorder: No - HEENT Hx HEENT Problems: No Other/Comment: Wears corrective Lenses - RENAL Hx Chronic Kidney Disease: Yes ("RENAL INSUFFICENCY") - ENDOCRINE/METABOLIC Hx Diabetes Mellitus Type 2: Yes - HEMATOLOGICAL/ONCOLOGICAL Hx Human Immunodeficiency Virus (HIV): No - INTEGUMENTARY Hx Dermatological Problems: Yes Other/Comment: "RASH DUE TO LIVER DISEASE" - MUSCULOSKELETAL/RHEUMATOLOGICAL Hx Musculoskeletal Disorders: No Hx Falls: No - GASTROINTESTINAL Hx Gastrointestinal Disorders: Yes ("LIVER DISEASE") Hx Liver Failure: Yes (Hep C, Liver Cirrhosis) Other/Comment: 09/09/14-EGD DONE-POST DX: ESOPHAGEAL VARICES - GENITOURINARY/GYNECOLOGICAL Hx Genitourinary Disorders: No Hx Urinary Tract Infection: Yes - PSYCHIATRIC Hx Emotional Abuse: No Hx Physical Abuse: No Hx Substance Use: No - SURGICAL HISTORY Hx Surgeries: Yes Other/Comment: RIGHT EYE STYE , Colonoscopy - ANESTHESIA Hx Anesthesia: Yes Hx Anesthesia Reactions: No Hx Malignant Hyperthermia: No Meds Allergies/Adverse Reactions: Allergies Allergy/AdvReac Type Severity Reaction Status Date / Time No Known Allergies Allergy Verified 12/20/16 18:41 - Medications Medications: Current Medications Cholestyramine Resin (Questran) 4 gm PO BID HUDSON Famotidine (Pepcid) 20 mg PO BID HUDSON Hydroxyzine HCl (Atarax) 25 mg PO Q6 PRN PRN Reason: Itching / Pruritus Sodium Chloride (Sodium Chloride 0.9%) 1,000 mls @ 125 mls/hr IV .Q8H STA Stop: 01/05/17 00:56 Last Admin: 01/04/17 17:00 Dose: 125 mls/hr Sodium Chloride (Sodium Chloride 0.9%) 1,000 mls @ 100 mls/hr IV .Q10H HUDSON Stop: 01/05/17 18:40 Lactulose (Enulose) 20 gm PO QID HUDSON Midodrine (Proamatine) 10 mg PO TID HUDSON Octreotide Acetate (Sandostatin) 20 mcg SC Q8 HUDSON Pantoprazole Sodium (Protonix Ec Tab) 40 mg PO DAILY HUDSON Rifaximin (Xifaxan) 550 mg PO BID HUDSON PRN Reason: Protocol Sodium Bicarbonate (Sodium Bicarbonate Tab) 1,300 mg PO BID HUDSON Ursodiol (Actigall) 300 mg PO BID HUDSON Zinc Sulfate (Zinc Sulfate 220 Mg Cap) 220 mg PO DAILY HUDSON Physical Exam - Constitutional Appears: No Acute Distress - Head Exam Head Exam: ATRAUMATIC, NORMOCEPHALIC - Eye Exam Eye Exam: EOMI, PERRL Additional comments: b/l scleral icterus - ENT Exam ENT Exam: Mucous Membranes Moist - Neck Exam Neck exam: Positive for: Full Rom - Respiratory Exam Respiratory Exam: Clear to Auscultation Bilateral, NORMAL BREATHING PATTERN - Cardiovascular Exam Cardiovascular Exam: REGULAR RHYTHM, +S1, +S2 - GI/Abdominal Exam GI & Abdominal Exam: Normal Bowel Sounds, Soft - Extremities Exam Extremities exam: Positive for: pedal edema - Neurological Exam Additional comments: Confused, can move all limbs spontaneously - Skin Skin Exam: Dry, Warm Results - Vital Signs Recent Vital Signs: Last Vital Signs Temp 98.3 F 01/04/17 14:15 Pulse 82 01/04/17 18:10 Resp 14 01/04/17 18:10 BP 101/62 01/04/17 18:10 Pulse Ox 97 01/04/17 18:10 - Labs Result Diagrams: 01/04/17 15:15 01/04/17 15:15 Labs: Laboratory Results - last 24 hr 01/04/17 01/04/17 01/04/17 15:15 15:15 15:15 WBC 9.5 D RBC 2.85 L Hgb 9.3 L Hct 27.1 L MCV 94.8 MCH 32.4 H MCHC 34.2 RDW 21.4 H Plt Count 147 MPV 10.5 Neut % (Auto) 67.9 Lymph % (Auto) 15.7 L [place] % (Auto) 15.2 H Eos % (Auto) 0.9 Baso % (Auto) 0.3 Neut # 6.4 Lymph # 1.5 [place] # 1.4 H Eos # 0.1 Baso # 0.0 PT INR APTT pCO2 pO2 HCO3 ABG pH ABG Total CO2 ABG O2 Saturation ABG Base Excess [place] Test ABG Potassium A-a O2 Difference Glucose Lactate FiO2 Sodium 148 Potassium 4.8 Chloride 119 H Carbon Dioxide 12 L Anion Gap 22 H BUN 83 H Creatinine 9.0 H* Est GFR ( Amer) 5 Est GFR (Non-Af Amer) 5 Random Glucose 101 Calcium 8.5 Total Bilirubin 21.3 H AST 83 H ALT 61 H Alkaline Phosphatase 268 H Ammonia 100 H* D Troponin I 0.0280 Total Protein 8.7 H Albumin 3.0 L Globulin 5.7 H Albumin/Globulin Ratio 0.5 L Arterial Blood Potassium 01/04/17 01/04/17 15:15 16:26 WBC RBC Hgb Hct MCV MCH MCHC RDW Plt Count MPV Neut % (Auto) Lymph % (Auto) [place] % (Auto) Eos % (Auto) Baso % (Auto) Neut # Lymph # [place] # Eos # Baso # PT 24.1 H INR 2.1 H APTT 41.3 H pCO2 24 L pO2 113 H HCO3 15.0 L ABG pH 7.31 L ABG Total CO2 12.8 L ABG O2 Saturation 100.0 H ABG Base Excess -12.7 L [place] Test Yes ABG Potassium 4.2 A-a O2 Difference 7.0 Glucose 99 Lactate 3.4 H FiO2 21.0 Sodium 143.0 Potassium Chloride 118.0 H Carbon Dioxide Anion Gap BUN Creatinine Est GFR ( Amer) Est GFR (Non-Af Amer) Random Glucose Calcium Total Bilirubin AST ALT Alkaline Phosphatase Ammonia Troponin I Total Protein Albumin Globulin Albumin/Globulin Ratio Arterial Blood Potassium 4.2 - EKG Data EKG comments: Pending - Imaging and Cardiology CT scan - head Status: Image reviewed by me (WNL), Report reviewed by me Chest x-ray Status: Image reviewed by me (Poor quality film, appears to have vol o/l) US - abdomen Status: Report reviewed by me (Patient with no acute findings; chronic findings as per report) Assessment & Plan (1) Ojhkx-[id number] kidney injury Assessment and Plan: 56 y/o female with multiple chronic conditions being admitted for acute worsening of CKD with likely uremic encephalopathy and worsening liver function , likely HRS1. 1) AoCKD -Consult done by nephrology -Line placed, and plan for HD this evening -Continue renal medications -Dose medications renally -Patient started on octreotide and midodrine as per renal 2) Hepatic failure/enceph -Continue to trend liver function -Consider imaging to check for signs of obstruction -Continue Rifaximin and other liver medications 3) DM2 -- does not appear to be on any medications; accucheck q6h only for now, SSI as necessary 4) DVT PPx -- SCDs only for now given coagulopathy and recent procedure (line placement) Status: Acute (2) Hepatorenal syndrome Status: Acute (3) Liver cirrhosis Status: Acute (4) Weakness Status: Acute (5) DM2 (diabetes mellitus, type 2) Status: Acute (6) DVT prophylaxis Status: Acute
--- NOTE | 2017-01-04 20:23 | US ---
EXAM: US Retroperitoneal Limited, Renal CLINICAL HISTORY: 56 years old, female; Pain; Abdominal pain; Additional info: [place] TECHNIQUE: Real-time ultrasound of the retroperitoneum (limited) with image documentation. COMPARISON: US - RENAL 2016-12-16 11:55 FINDINGS: Right kidney: Normal echogenicity. No mass. No calculi. No hydronephrosis. Left kidney: Normal echogenicity. No mass. No calculi. No hydronephrosis. Bladder: Unremarkable. Free fluid: Small free fluid within abdomen and pelvis. IMPRESSION: 1.No acute findings. 2.Non-acute findings are described above.
[2017-01-04 22:02] LABS: RBC URINE 547 /hpf (0-3); TRANSITIONAL EPITHIAL 7 /hpf (0-3); URINE BACTERIA MANY (<OCC); URINE BILIRUBIN MODERATE (NEGATIVE); URINE COLOR RED (YELLOW); URINE GLUCOSE (UA) NEG (Normal); URINE KETONE NEGATIVE (NEGATIVE); URINE PROTEIN 100 mg/dL (NEGATIVE); WBC CLUMPS MANY /hpf; WBC URINE 3534 /hpf (0-5)
[2017-01-04 22:03] LABS: URINE BLOOD LARGE (NEGATIVE)
[2017-01-04 22:04] LABS: URINE LEUKOCYTE ESTERASE LARGE Leu/uL (Negative)
[2017-01-04 23:33] LABS: URIC ACID 11.8 mg/Dl (2.2-7.5)
[2017-01-05] MEDS: Sodium Chloride 0.9% 1,000 ML IV SCH ×2 (00:45→06:02)
[2017-01-05] MEDS ORDERED: Sodium Chloride 0.9% 250 ML IV ONE (02:33)
[2017-01-05] MEDS ORDERED: Sodium Chloride 0.9% 500 ML IV ONE (06:13)
[2017-01-05 06:14] LABS: BASO % 0.5 % (0.0-2.0); EOS # 0.1 K/uL (0.0-0.7); EOS % 1.6 % (0.0-4.0); HEMATOCRIT 25.1 % (34.0-47.0); LYMPH # 1.4 K/uL (1.0-4.3); LYMPH % 21.6 % (20.0-40.0); MEAN CELL VOLUME 94.5 fl (81.0-99.0); MEAN CORPUSCULAR HGB CONC 33.9 g/dL (33.0-37.0); MONO # 0.9 K/uL (0.0-0.8); MONO % 13.8 % (0.0-10.0); NEUT # 4.2 K/uL (1.8-7.0); NEUT % 62.5 % (50.0-75.0); NRBC % 1.7 % (0.0-0.0); WHITE BLOOD COUNT 6.7 K/uL (4.8-10.8)
[2017-01-05] MEDS ORDERED: Sodium Chloride 0.9% 1,000 ML IV SCH (06:15)
[2017-01-05 06:29] LABS: ALB/GLOB RATIO 0.5 (1.0-2.1); BILIRUBIN,TOTAL 18.8 mg/dl (0.2-1.3); CALCIUM 7.8 mg/dL (8.4-10.2); MAGNESIUM 2.5 MG/DL (1.6-2.3); PHOSPHOROUS 6.5 mg/dl (2.5-4.5); POTASSIUM 4.1 MMOL/L (3.6-5.0); TOTAL PROTEIN 7.6 G/DL (6.3-8.2)
[2017-01-05] MEDS: Dextrose 5%/0.45% NS 1,000 ML IV SCH (06:41)
--- NOTE | 2017-01-05 07:07 | RAD ---
HISTORY: AMS COMPARISON: No prior. FINDINGS: LUNGS: Limited by body habitus. No gross consolidation. PLEURA: No significant pleural effusion identified, no pneumothorax apparent. CARDIOVASCULAR: Normal. OSSEOUS STRUCTURES: No significant abnormalities. VISUALIZED UPPER ABDOMEN: Normal. OTHER FINDINGS: None. IMPRESSION: Limited by body habitus. No gross consolidation.
--- NOTE | 2017-01-05 07:41 | CP.CCUPN ---
CCU Subjective - Physician Review Events Since Last Encounter (Free Text): 01/05/17 07:38 Patient awake, lethargic, no fever, no vomiting, no pressors, events reviewed CCU Objective - Vital Signs / Intake & Output Vital Signs (Last 4 hours): Vital Signs Pulse Resp BP Pulse Ox 01/05/17 05:00 85 12 91/49 L 100 01/05/17 04:00 79 14 114/52 L 100 Intake and Output (Last 8hrs): Intake & Output 01/04/17 01/05/17 01/05/17 22:59 06:59 14:59 Intake Total 500 Balance 500 Intake: IV 250 Intake, Piggyback 250 Oral 0 - Physical Exam Head: Positive for: Atraumatic, Normocephalic Pupils: Positive for: PERRL Conjunctiva: Positive for: Normal Mouth: Positive for: Moist Mucous Membranes Nose (External): Positive for: Atraumatic Nose (Internal): Positive for: Normal Inspection Neck: Positive for: Normal Range of Motion Respiratory/Chest: Positive for: Clear to Auscultation Cardiovascular: Positive for: Regular Rate and Rhythm Abdomen: Positive for: Normal Bowel Sounds Upper Extremity: Positive for: Normal Inspection Lower Extremity: Positive for: Normal Inspection Neurological: Positive for: Other (lethargic) - Medications Active Medications: Active Medications Generic Name Dose Route Start Last Admin Trade Name Freq PRN Reason Stop Dose Admin Cholestyramine Resin 4 gm 01/05/17 09:00 Questran PO BID HUDSON Famotidine 20 mg 01/05/17 09:00 Pepcid PO BID HUDSON Hydroxyzine HCl 25 mg 01/04/17 18:38 Atarax PO Q6 PRN Itching / Pruritus Dextrose/Sodium Chloride 1,000 mls @ 60 mls/hr 01/05/17 06:15 01/05/17 06:41 Dextrose 5%/0.45% Ns 1000 Ml IV 01/06/17 06:14 60 mls/hr .[id number] HUDSON Administration Sodium Chloride 1,000 mls @ 40 mls/hr 01/05/17 06:15 01/05/17 06:45 Sodium Chloride 0.9% IV 01/05/17 18:40 40 mls/hr .[id number] HUDSON Administration Lactulose 20 gm 01/04/17 22:00 01/04/17 22:55 Enulose PO Not Given QID [facility] Midodrine 10 mg 01/04/17 20:00 01/04/17 20:45 Proamatine PO 10 mg TID HUDSON Administration Octreotide Acetate 20 mcg 01/04/17 19:00 01/05/17 01:02 Sandostatin SC 20 mcg Q8 HUDSON Administration Pantoprazole Sodium 40 mg 01/05/17 09:00 Protonix Ec Tab PO DAILY [facility] Rifaximin 550 mg 01/05/17 09:00 Xifaxan PO BID [facility] Protocol Sodium Bicarbonate 1,300 mg 01/05/17 09:00 Sodium Bicarbonate Tab PO BID [facility] Ursodiol 300 mg 01/05/17 09:00 Actigall PO BID [facility] Zinc Sulfate 220 mg 01/05/17 09:00 Zinc Sulfate 220 Mg Cap PO DAILY [facility] - Patient Studies Lab Studies: Lab Studies 01/05/17 01/05/17 01/05/17 Range/Units 06:08 05:30 05:30 WBC (4.8-10.8) K/uL RBC (3.80-5.20) Mil/uL Hgb (12.0-16.0) g/dL Hct (34.0-47.0) % MCV (81.0-99.0) fl MCH (27.0-31.0) pg MCHC (33.0-37.0) g/dL RDW (11.5-14.5) % Plt Count (130-400) K/uL MPV (7.2-11.7) fl Neut % (Auto) (50.0-75.0) % Lymph % (Auto) (20.0-40.0) % Petroleum % (Auto) (0.0-10.0) % Eos % (Auto) (0.0-4.0) % Baso % (Auto) (0.0-2.0) % Neut # (1.8-7.0) K/uL Lymph # (1.0-4.3) K/uL Petroleum # (0.0-0.8) K/uL Eos # (0.0-0.7) K/uL Baso # (0.0-0.2) K/uL PT (9.8-13.1) Seconds INR (0.9-1.2) APTT (25.6-37.1) Seconds pCO2 (35-45) mm/Hg pO2 (80-100) mm/Hg HCO3 (21-28) mmol/L ABG pH (7.35-7.45) ABG Total CO2 (22-28) mmol/L ABG O2 Saturation (95-98) % ABG Base Excess (-2.0-3.0) mmol/L [place] Test ABG Potassium (3.6-5.2) mmol/L A-a O2 Difference mm/Hg Glucose (65-105) mg/dL Lactate (0.7-2.1) mmol/L FiO2 % Sodium (132-148) mmol/l Potassium (3.6-5.0) MMOL/L Chloride (98-107) mmol/L Carbon Dioxide (22-30) mmol/L Anion Gap (10-20) BUN (7-17) mg/dl Creatinine (0.7-1.2) mg/dl Est GFR ( Amer) Est GFR (Non-Af Amer) POC Glucose (mg/dL) 56 L (65-110) mg/dL Random Glucose (65-105) mg/dL Lactic Acid 2.7 H (0.7-2.1) MMOL/L Uric Acid (2.2-7.5) mg/Dl Calcium (8.4-10.2) mg/dL Phosphorus (2.5-4.5) mg/dl Magnesium (1.6-2.3) MG/DL Total Bilirubin (0.2-1.3) mg/dl AST (14-36) U/L ALT (9-52) U/L Alkaline Phosphatase (38-126) U/L Ammonia 100 H* (11-51) umo/L Total Creatine Kinase (30-135) U/L Troponin I (0.00-0.120) ng/mL Total Protein (6.3-8.2) G/DL Albumin (3.5-5.0) g/dL Globulin (2.2-3.9) gm/dL Albumin/Globulin Ratio (1.0-2.1) Arterial Blood Potassium (3.6-5.2) mmol/L Urine Color (YELLOW) Urine Clarity (Clear) Urine pH (5.0-8.0) Ur Specific [place] (1.003-1.030) Urine Protein (NEGATIVE) mg/dL Urine Glucose (UA) (Normal) mg/dL Urine Ketones (NEGATIVE) mg/dL Urine Blood (NEGATIVE) Urine Nitrate (NEGATIVE) Urine Bilirubin (NEGATIVE) Urine Urobilinogen (0.2-1.0) mg/dL Ur Leukocyte Esterase (Negative) Jorge/uL Urine RBC (Auto) (0-3) /hpf Urine WBC Clumps (Auto) (NONE) /hpf Urine Microscopic WBC (0-5) /hpf Ur Squamous Epith Cells (0-5) /hpf Ur Transition Epith Cell (0-3) /hpf Urine Bacteria (<OCC) 01/05/17 01/05/17 01/04/17 Range/Units 05:30 05:30 23:10 WBC 6.7 (4.8-10.8) K/uL RBC 2.65 L (3.80-5.20) Mil/uL Hgb 8.5 L (12.0-16.0) g/dL Hct 25.1 L (34.0-47.0) % MCV 94.5 (81.0-99.0) fl MCH 32.0 H (27.0-31.0) pg MCHC 33.9 (33.0-37.0) g/dL RDW 21.0 H (11.5-14.5) % Plt Count (130-400) K/uL MPV 9.0 (7.2-11.7) fl Neut % (Auto) 62.5 (50.0-75.0) % Lymph % (Auto) 21.6 (20.0-40.0) % Petroleum % (Auto) 13.8 H (0.0-10.0) % Eos % (Auto) 1.6 (0.0-4.0) % Baso % (Auto) 0.5 (0.0-2.0) % Neut # 4.2 (1.8-7.0) K/uL Lymph # 1.4 (1.0-4.3) K/uL Petroleum # 0.9 H (0.0-0.8) K/uL Eos # 0.1 (0.0-0.7) K/uL Baso # 0.0 (0.0-0.2) K/uL PT (9.8-13.1) Seconds INR (0.9-1.2) APTT (25.6-37.1) Seconds pCO2 (35-45) mm/Hg pO2 (80-100) mm/Hg HCO3 (21-28) mmol/L ABG pH (7.35-7.45) ABG Total CO2 (22-28) mmol/L ABG O2 Saturation (95-98) % ABG Base Excess (-2.0-3.0) mmol/L [place] Test ABG Potassium (3.6-5.2) mmol/L A-a O2 Difference mm/Hg Glucose (65-105) mg/dL Lactate (0.7-2.1) mmol/L FiO2 % Sodium 147 (132-148) mmol/l Potassium 4.1 (3.6-5.0) MMOL/L Chloride 115 H (98-107) mmol/L Carbon Dioxide 18 L (22-30) mmol/L Anion Gap 18 (10-20) BUN 63 H (7-17) mg/dl Creatinine 7.2 H (0.7-1.2) mg/dl Est GFR ( Amer) 7 Est GFR (Non-Af Amer) 6 POC Glucose (mg/dL) (65-110) mg/dL Random Glucose 64 L (65-105) mg/dL Lactic Acid (0.7-2.1) MMOL/L Uric Acid 11.8 H (2.2-7.5) mg/Dl Calcium 7.8 L (8.4-10.2) mg/dL Phosphorus 6.5 H (2.5-4.5) mg/dl Magnesium 2.5 H (1.6-2.3) MG/DL Total Bilirubin 18.8 H (0.2-1.3) mg/dl AST 81 H (14-36) U/L ALT 62 H (9-52) U/L Alkaline Phosphatase 222 H (38-126) U/L Ammonia (11-51) umo/L Total Creatine Kinase 500 H (30-135) U/L Troponin I (0.00-0.120) ng/mL Total Protein 7.6 (6.3-8.2) G/DL Albumin 2.5 L (3.5-5.0) g/dL Globulin 5.1 H (2.2-3.9) gm/dL Albumin/Globulin Ratio 0.5 L (1.0-2.1) Arterial Blood Potassium (3.6-5.2) mmol/L Urine Color (YELLOW) Urine Clarity (Clear) Urine pH (5.0-8.0) Ur Specific [place] (1.003-1.030) Urine Protein (NEGATIVE) mg/dL Urine Glucose (UA) (Normal) mg/dL Urine Ketones (NEGATIVE) mg/dL Urine Blood (NEGATIVE) Urine Nitrate (NEGATIVE) Urine Bilirubin (NEGATIVE) Urine Urobilinogen (0.2-1.0) mg/dL Ur Leukocyte Esterase (Negative) Jorge/uL Urine RBC (Auto) (0-3) /hpf Urine WBC Clumps (Auto) (NONE) /hpf Urine Microscopic WBC (0-5) /hpf Ur Squamous Epith Cells (0-5) /hpf Ur Transition Epith Cell (0-3) /hpf Urine Bacteria (<OCC) 01/04/17 01/04/17 01/04/17 Range/Units 21:48 16:26 15:15 WBC (4.8-10.8) K/uL RBC (3.80-5.20) Mil/uL Hgb (12.0-16.0) g/dL Hct (34.0-47.0) % MCV (81.0-99.0) fl MCH (27.0-31.0) pg MCHC (33.0-37.0) g/dL RDW (11.5-14.5) % Plt Count (130-400) K/uL MPV (7.2-11.7) fl Neut % (Auto) (50.0-75.0) % Lymph % (Auto) (20.0-40.0) % Petroleum % (Auto) (0.0-10.0) % Eos % (Auto) (0.0-4.0) % Baso % (Auto) (0.0-2.0) % Neut # (1.8-7.0) K/uL Lymph # (1.0-4.3) K/uL Petroleum # (0.0-0.8) K/uL Eos # (0.0-0.7) K/uL Baso # (0.0-0.2) K/uL PT 24.1 H (9.8-13.1) Seconds INR 2.1 H (0.9-1.2) APTT 41.3 H (25.6-37.1) Seconds pCO2 24 L (35-45) mm/Hg pO2 113 H (80-100) mm/Hg HCO3 15.0 L (21-28) mmol/L ABG pH 7.31 L (7.35-7.45) ABG Total CO2 12.8 L (22-28) mmol/L ABG O2 Saturation 100.0 H (95-98) % ABG Base Excess -12.7 L (-2.0-3.0) mmol/L [place] Test Yes ABG Potassium 4.2 (3.6-5.2) mmol/L A-a O2 Difference 7.0 mm/Hg Glucose 99 (65-105) mg/dL Lactate 3.4 H (0.7-2.1) mmol/L FiO2 21.0 % Sodium 143.0 (132-148) mmol/l Potassium (3.6-5.0) MMOL/L Chloride 118.0 H (98-107) mmol/L Carbon Dioxide (22-30) mmol/L Anion Gap (10-20) BUN (7-17) mg/dl Creatinine (0.7-1.2) mg/dl Est GFR ( Amer) Est GFR (Non-Af Amer) POC Glucose (mg/dL) (65-110) mg/dL Random Glucose (65-105) mg/dL Lactic Acid (0.7-2.1) MMOL/L Uric Acid (2.2-7.5) mg/Dl Calcium (8.4-10.2) mg/dL Phosphorus (2.5-4.5) mg/dl Magnesium (1.6-2.3) MG/DL Total Bilirubin (0.2-1.3) mg/dl AST (14-36) U/L ALT (9-52) U/L Alkaline Phosphatase (38-126) U/L Ammonia (11-51) umo/L Total Creatine Kinase (30-135) U/L Troponin I (0.00-0.120) ng/mL Total Protein (6.3-8.2) G/DL Albumin (3.5-5.0) g/dL Globulin (2.2-3.9) gm/dL Albumin/Globulin Ratio (1.0-2.1) Arterial Blood Potassium 4.2 (3.6-5.2) mmol/L Urine Color Red (YELLOW) Urine Clarity Turbid (Clear) Urine pH 5.0 (5.0-8.0) Ur Specific [place] 1.015 (1.003-1.030) Urine Protein 100 (NEGATIVE) mg/dL Urine Glucose (UA) Neg (Normal) mg/dL Urine Ketones Negative (NEGATIVE) mg/dL Urine Blood Large (NEGATIVE) Urine Nitrate Negative (NEGATIVE) Urine Bilirubin Moderate (NEGATIVE) Urine Urobilinogen 4.0 H (0.2-1.0) mg/dL Ur Leukocyte Esterase Large (Negative) Jorge/uL Urine RBC (Auto) 547 H (0-3) /hpf Urine WBC Clumps (Auto) Many H (NONE) /hpf Urine Microscopic WBC 3534 H (0-5) /hpf Ur Squamous Epith Cells 2 (0-5) /hpf Ur Transition Epith Cell 7 H (0-3) /hpf Urine Bacteria Many H (<OCC) 01/04/17 01/04/17 01/04/17 Range/Units 15:15 15:15 15:15 WBC 9.5 D (4.8-10.8) K/uL RBC 2.85 L (3.80-5.20) Mil/uL Hgb 9.3 L (12.0-16.0) g/dL Hct 27.1 L (34.0-47.0) % MCV 94.8 (81.0-99.0) fl MCH 32.4 H (27.0-31.0) pg MCHC 34.2 (33.0-37.0) g/dL RDW 21.4 H (11.5-14.5) % Plt Count 147 (130-400) K/uL MPV 10.5 (7.2-11.7) fl Neut % (Auto) 67.9 (50.0-75.0) % Lymph % (Auto) 15.7 L (20.0-40.0) % Petroleum % (Auto) 15.2 H (0.0-10.0) % Eos % (Auto) 0.9 (0.0-4.0) % Baso % (Auto) 0.3 (0.0-2.0) % Neut # 6.4 (1.8-7.0) K/uL Lymph # 1.5 (1.0-4.3) K/uL Petroleum # 1.4 H (0.0-0.8) K/uL Eos # 0.1 (0.0-0.7) K/uL Baso # 0.0 (0.0-0.2) K/uL PT (9.8-13.1) Seconds INR (0.9-1.2) APTT (25.6-37.1) Seconds pCO2 (35-45) mm/Hg pO2 (80-100) mm/Hg HCO3 (21-28) mmol/L ABG pH (7.35-7.45) ABG Total CO2 (22-28) mmol/L ABG O2 Saturation (95-98) % ABG Base Excess (-2.0-3.0) mmol/L [place] Test ABG Potassium (3.6-5.2) mmol/L A-a O2 Difference mm/Hg Glucose (65-105) mg/dL Lactate (0.7-2.1) mmol/L FiO2 % Sodium 148 (132-148) mmol/l Potassium 4.8 (3.6-5.0) MMOL/L Chloride 119 H (98-107) mmol/L Carbon Dioxide 12 L (22-30) mmol/L Anion Gap 22 H (10-20) BUN 83 H (7-17) mg/dl Creatinine 9.0 H* (0.7-1.2) mg/dl Est GFR ( Amer) 5 Est GFR (Non-Af Amer) 5 POC Glucose (mg/dL) (65-110) mg/dL Random Glucose 101 (65-105) mg/dL Lactic Acid (0.7-2.1) MMOL/L Uric Acid (2.2-7.5) mg/Dl Calcium 8.5 (8.4-10.2) mg/dL Phosphorus (2.5-4.5) mg/dl Magnesium (1.6-2.3) MG/DL Total Bilirubin 21.3 H (0.2-1.3) mg/dl AST 83 H (14-36) U/L ALT 61 H (9-52) U/L Alkaline Phosphatase 268 H (38-126) U/L Ammonia 100 H* D (11-51) umo/L Total Creatine Kinase (30-135) U/L Troponin I 0.0280 (0.00-0.120) ng/mL Total Protein 8.7 H (6.3-8.2) G/DL Albumin 3.0 L (3.5-5.0) g/dL Globulin 5.7 H (2.2-3.9) gm/dL Albumin/Globulin Ratio 0.5 L (1.0-2.1) Arterial Blood Potassium (3.6-5.2) mmol/L Urine Color (YELLOW) Urine Clarity (Clear) Urine pH (5.0-8.0) Ur Specific [place] (1.003-1.030) Urine Protein (NEGATIVE) mg/dL Urine Glucose (UA) (Normal) mg/dL Urine Ketones (NEGATIVE) mg/dL Urine Blood (NEGATIVE) Urine Nitrate (NEGATIVE) Urine Bilirubin (NEGATIVE) Urine Urobilinogen (0.2-1.0) mg/dL Ur Leukocyte Esterase (Negative) Jorge/uL Urine RBC (Auto) (0-3) /hpf Urine WBC Clumps (Auto) (NONE) /hpf Urine Microscopic WBC (0-5) /hpf Ur Squamous Epith Cells (0-5) /hpf Ur Transition Epith Cell (0-3) /hpf Urine Bacteria (<OCC) 01/04/ Range/Units 15:01 WBC (4.8-10.8) K/uL RBC (3.80-5.20) Mil/uL Hgb (12.0-16.0) g/dL Hct (34.0-47.0) % MCV (81.0-99.0) fl MCH (27.0-31.0) pg MCHC (33.0-37.0) g/dL RDW (11.5-14.5) % Plt Count (130-400) K/uL MPV (7.2-11.7) fl Neut % (Auto) (50.0-75.0) % Lymph % (Auto) (20.0-40.0) % Petroleum % (Auto) (0.0-10.0) % Eos % (Auto) (0.0-4.0) % Baso % (Auto) (0.0-2.0) % Neut # (1.8-7.0) K/uL Lymph # (1.0-4.3) K/uL Petroleum # (0.0-0.8) K/uL Eos # (0.0-0.7) K/uL Baso # (0.0-0.2) K/uL PT (9.8-13.1) Seconds INR (0.9-1.2) APTT (25.6-37.1) Seconds pCO2 (35-45) mm/Hg pO2 (80-100) mm/Hg HCO3 (21-28) mmol/L ABG pH (7.35-7.45) ABG Total CO2 (22-28) mmol/L ABG O2 Saturation (95-98) % ABG Base Excess (-2.0-3.0) mmol/L [place] Test ABG Potassium (3.6-5.2) mmol/L A-a O2 Difference mm/Hg Glucose (65-105) mg/dL Lactate (0.7-2.1) mmol/L FiO2 % Sodium (132-148) mmol/l Potassium (3.6-5.0) MMOL/L Chloride (98-107) mmol/L Carbon Dioxide (22-30) mmol/L Anion Gap (10-20) BUN (7-17) mg/dl Creatinine (0.7-1.2) mg/dl Est GFR ( Amer) Est GFR (Non-Af Amer) POC Glucose (mg/dL) 99 (65-110) mg/dL Random Glucose (65-105) mg/dL Lactic Acid (0.7-2.1) MMOL/L Uric Acid (2.2-7.5) mg/Dl Calcium (8.4-10.2) mg/dL Phosphorus (2.5-4.5) mg/dl Magnesium (1.6-2.3) MG/DL Total Bilirubin (0.2-1.3) mg/dl AST (14-36) U/L ALT (9-52) U/L Alkaline Phosphatase (38-126) U/L Ammonia (11-51) umo/L Total Creatine Kinase (30-135) U/L Troponin I (0.00-0.120) ng/mL Total Protein (6.3-8.2) G/DL Albumin (3.5-5.0) g/dL Globulin (2.2-3.9) gm/dL Albumin/Globulin Ratio (1.0-2.1) Arterial Blood Potassium (3.6-5.2) mmol/L Urine Color (YELLOW) Urine Clarity (Clear) Urine pH (5.0-8.0) Ur Specific [place] (1.003-1.030) Urine Protein (NEGATIVE) mg/dL Urine Glucose (UA) (Normal) mg/dL Urine Ketones (NEGATIVE) mg/dL Urine Blood (NEGATIVE) Urine Nitrate (NEGATIVE) Urine Bilirubin (NEGATIVE) Urine Urobilinogen (0.2-1.0) mg/dL Ur Leukocyte Esterase (Negative) Jorge/uL Urine RBC (Auto) (0-3) /hpf Urine WBC Clumps (Auto) (NONE) /hpf Urine Microscopic WBC (0-5) /hpf Ur Squamous Epith Cells (0-5) /hpf Ur Transition Epith Cell (0-3) /hpf Urine Bacteria (<OCC) Laboratory Results - last 24 hr 01/04/17 01/04/17 01/04/17 15:01 15:15 15:15 WBC 9.5 D RBC 2.85 L Hgb 9.3 L Hct 27.1 L MCV 94.8 MCH 32.4 H MCHC 34.2 RDW 21.4 H Plt Count 147 MPV 10.5 Neut % (Auto) 67.9 Lymph % (Auto) 15.7 L Petroleum % (Auto) 15.2 H Eos % (Auto) 0.9 Baso % (Auto) 0.3 Neut # 6.4 Lymph # 1.5 Petroleum # 1.4 H Eos # 0.1 Baso # 0.0 PT INR APTT pCO2 pO2 HCO3 ABG pH ABG Total CO2 ABG O2 Saturation ABG Base Excess [place] Test ABG Potassium A-a O2 Difference Glucose Lactate FiO2 Sodium Potassium Chloride Carbon Dioxide Anion Gap BUN Creatinine Est GFR ( Amer) Est GFR (Non-Af Amer) POC Glucose (mg/dL) 99 Random Glucose Lactic Acid Uric Acid Calcium Phosphorus Magnesium Total Bilirubin AST ALT Alkaline Phosphatase Ammonia 100 H* D Total Creatine Kinase Troponin I Total Protein Albumin Globulin Albumin/Globulin Ratio Arterial Blood Potassium Urine Color Urine Clarity Urine pH Ur Specific [place] Urine Protein Urine Glucose (UA) Urine Ketones Urine Blood Urine Nitrate Urine Bilirubin Urine Urobilinogen Ur Leukocyte Esterase Urine RBC (Auto) Urine WBC Clumps (Auto) Urine Microscopic WBC Ur Squamous Epith Cells Ur Transition Epith Cell Urine Bacteria 01/04/17 01/04/17 01/04/17 15:15 15:15 16:26 WBC RBC Hgb Hct MCV MCH MCHC RDW Plt Count MPV Neut % (Auto) Lymph % (Auto) Petroleum % (Auto) Eos % (Auto) Baso % (Auto) Neut # Lymph # Petroleum # Eos # Baso # PT 24.1 H INR 2.1 H APTT 41.3 H pCO2 24 L pO2 113 H HCO3 15.0 L ABG pH 7.31 L ABG Total CO2 12.8 L ABG O2 Saturation 100.0 H ABG Base Excess -12.7 L [place] Test Yes ABG Potassium 4.2 A-a O2 Difference 7.0 Glucose 99 Lactate 3.4 H FiO2 21.0 Sodium 148 143.0 Potassium 4.8 Chloride 119 H 118.0 H Carbon Dioxide 12 L Anion Gap 22 H BUN 83 H Creatinine 9.0 H* Est GFR ( Amer) 5 Est GFR (Non-Af Amer) 5 POC Glucose (mg/dL) Random Glucose 101 Lactic Acid Uric Acid Calcium 8.5 Phosphorus Magnesium Total Bilirubin 21.3 H AST 83 H ALT 61 H Alkaline Phosphatase 268 H Ammonia Total Creatine Kinase Troponin I 0.0280 Total Protein 8.7 H Albumin 3.0 L Globulin 5.7 H Albumin/Globulin Ratio 0.5 L Arterial Blood Potassium 4.2 Urine Color Urine Clarity Urine pH Ur Specific [place] Urine Protein Urine Glucose (UA) Urine Ketones Urine Blood Urine Nitrate Urine Bilirubin Urine Urobilinogen Ur Leukocyte Esterase Urine RBC (Auto) Urine WBC Clumps (Auto) Urine Microscopic WBC Ur Squamous Epith Cells Ur Transition Epith Cell Urine Bacteria 01/04/17 01/04/17 01/05/17 21:48 23:10 05:30 WBC 6.7 RBC 2.65 L Hgb 8.5 L Hct 25.1 L MCV 94.5 MCH 32.0 H MCHC 33.9 RDW 21.0 H Plt Count MPV 9.0 Neut % (Auto) 62.5 Lymph % (Auto) 21.6 Petroleum % (Auto) 13.8 H Eos % (Auto) 1.6 Baso % (Auto) 0.5 Neut # 4.2 Lymph # 1.4 Petroleum # 0.9 H Eos # 0.1 Baso # 0.0 PT INR APTT pCO2 pO2 HCO3 ABG pH ABG Total CO2 ABG O2 Saturation ABG Base Excess [place] Test ABG Potassium A-a O2 Difference Glucose Lactate FiO2 Sodium Potassium Chloride Carbon Dioxide Anion Gap BUN Creatinine Est GFR ( Amer) Est GFR (Non-Af Amer) POC Glucose (mg/dL) Random Glucose Lactic Acid Uric Acid 11.8 H Calcium Phosphorus Magnesium Total Bilirubin AST ALT Alkaline Phosphatase Ammonia Total Creatine Kinase 500 H Troponin I Total Protein Albumin Globulin Albumin/Globulin Ratio Arterial Blood Potassium Urine Color Red Urine Clarity Turbid Urine pH 5.0 Ur Specific [place] 1.015 Urine Protein 100 Urine Glucose (UA) Neg Urine Ketones Negative Urine Blood Large Urine Nitrate Negative Urine Bilirubin Moderate Urine Urobilinogen 4.0 H Ur Leukocyte Esterase Large Urine RBC (Auto) 547 H Urine WBC Clumps (Auto) Many H Urine Microscopic WBC 3534 H Ur Squamous Epith Cells 2 Ur Transition Epith Cell 7 H Urine Bacteria Many H 01/05/17 01/05/17 01/05/17 05:30 05:30 05:30 WBC RBC Hgb Hct MCV MCH MCHC RDW Plt Count MPV Neut % (Auto) Lymph % (Auto) Petroleum % (Auto) Eos % (Auto) Baso % (Auto) Neut # Lymph # Petroleum # Eos # Baso # PT INR APTT pCO2 pO2 HCO3 ABG pH ABG Total CO2 ABG O2 Saturation ABG Base Excess [place] Test ABG Potassium A-a O2 Difference Glucose Lactate FiO2 Sodium 147 Potassium 4.1 Chloride 115 H Carbon Dioxide 18 L Anion Gap 18 BUN 63 H Creatinine 7.2 H Est GFR ( Amer) 7 Est GFR (Non-Af Amer) 6 POC Glucose (mg/dL) Random Glucose 64 L Lactic Acid 2.7 H Uric Acid Calcium 7.8 L Phosphorus 6.5 H Magnesium 2.5 H Total Bilirubin 18.8 H AST 81 H ALT 62 H Alkaline Phosphatase 222 H Ammonia 100 H* Total Creatine Kinase Troponin I Total Protein 7.6 Albumin 2.5 L Globulin 5.1 H Albumin/Globulin Ratio 0.5 L Arterial Blood Potassium Urine Color Urine Clarity Urine pH Ur Specific [place] Urine Protein Urine Glucose (UA) Urine Ketones Urine Blood Urine Nitrate Urine Bilirubin Urine Urobilinogen Ur Leukocyte Esterase Urine RBC (Auto) Urine WBC Clumps (Auto) Urine Microscopic WBC Ur Squamous Epith Cells Ur Transition Epith Cell Urine Bacteria 01/05/17 06:08 WBC RBC Hgb Hct MCV MCH MCHC RDW Plt Count MPV Neut % (Auto) Lymph % (Auto) Petroleum % (Auto) Eos % (Auto) Baso % (Auto) Neut # Lymph # Petroleum # Eos # Baso # PT INR APTT pCO2 pO2 HCO3 ABG pH ABG Total CO2 ABG O2 Saturation ABG Base Excess [place] Test ABG Potassium A-a O2 Difference Glucose Lactate FiO2 Sodium Potassium Chloride Carbon Dioxide Anion Gap BUN Creatinine Est GFR ( Amer) Est GFR (Non-Af Amer) POC Glucose (mg/dL) 56 L Random Glucose Lactic Acid Uric Acid Calcium Phosphorus Magnesium Total Bilirubin AST ALT Alkaline Phosphatase Ammonia Total Creatine Kinase Troponin I Total Protein Albumin Globulin Albumin/Globulin Ratio Arterial Blood Potassium Urine Color Urine Clarity Urine pH Ur Specific [place] Urine Protein Urine Glucose (UA) Urine Ketones Urine Blood Urine Nitrate Urine Bilirubin Urine Urobilinogen Ur Leukocyte Esterase Urine RBC (Auto) Urine WBC Clumps (Auto) Urine Microscopic WBC Ur Squamous Epith Cells Ur Transition Epith Cell Urine Bacteria EKG/Cardiology Studies: Cardiology / EKG Studies 01/04/17 15:01 EKG [ELECTROCARDIOGRAM] Stat Comment: Mode Of Transportation: PORTABLE Reason For Exam: SOB Fingerstick Blood Sugar Results: 56 Critical Care Progress Note - Nutrition Nutrition: Nutrition Category Date Time Status NPO Diet [DIET] Diets 01/04/17 Dinner Active Assessment/Plan - Assessment and Plan (Free Text) Assessment: A/P Respiratory failure, renal failure, liver cirrhosis/failure, encephalopathy, DM , COPD, anemia - O2 supplement - Pulmonary toilets - Dialysis as per renal - GI follow up - Continue meds - Poor prognosis critical care 40 min
[2017-01-05] MEDS ORDERED: Chlorhexidine Gluconate 1 APPL/PKT TP ONE (07:59)
[2017-01-05] MEDS ORDERED: Cholestyramine 4 gm/Pkt UD PO SCH (09:00)
[2017-01-05] MEDS ORDERED: Pantoprazole 40 mg EC Tab PO SCH (09:00)
[2017-01-05 09:41] LABS: ABG ALLEN TEST YES; ARTERIAL BLOOD GAS HCO3 17.8 mmol/L (21-28); ARTERIAL BLOOD GAS O2 CAPACITY 11.2 mL/dL (16-24); ARTERIAL BLOOD GAS O2 CONTENT 10.4 ML/dL (15-23); ARTERIAL BLOOD GAS PH 7.29 (7.35-7.45); ARTERIAL BLOOD GAS PO2 55 mm/Hg (80-100); CARBOXYHEMOGLOBIN 3.4 % (0.5-1.5); HHB 6.8 % (0.0-5.0); METHEMOGLOBIN 0.8 % (0.0-3.0)
--- NOTE | 2017-01-05 09:44 | RAD ---
PROCEDURE: CHEST RADIOGRAPH, 1 VIEW HISTORY: ng placement COMPARISON: None available. FINDINGS: LUNGS: Mild bilateral interstitial infiltrates. PLEURA: No pneumothorax or pleural fluid seen. CARDIOVASCULAR: Normal. OSSEOUS STRUCTURES: No significant abnormalities. VISUALIZED UPPER ABDOMEN: Normal. OTHER FINDINGS: NG tube tip below the diaphragm. IMPRESSION: NG tube tip below the diaphragm. Bilateral infiltrates.
--- NOTE | 2017-01-05 10:16 | CP.PCM.HP ---
History of Present Illness - History of Present Illness History of Present Illness: pt admitted for ams, lethargy, acute on ckd, liver failure. all labs and imaging noted. case d/c w/ dr pagan. pt is lethargic and nonresponsive at present. no f/c, n/v/d. minimal brown urine in gr case d/c w/ daughter/son for approx 45 min. they want to thinka bout code status and dc w/ all family. blood and urine c/s ordered. anbx to be startedby icu attending nephro conslut appriciated. gi consult ordered. Present on Admission - Present on Admission Any Indicators Present on Admission: Yes History of Uncontrolled Diabetes: Yes Review of Systems - Review of Systems Systems not reviewed;Unavailable: Acuity of Condition, Altered Mental Status Past Patient History - Infectious Disease Hx of Infectious Diseases: None - Past Medical History & Family History Past Medical History?: Yes - Past Social History Smoking Status: Heavy Smoker > 10 Cigarettes Daily - CARDIAC Hx Hypercholesterolemia: Yes Hx Hypertension: Yes - PULMONARY Hx Chronic Obstructive Pulmonary Disease (COPD): Yes - NEUROLOGICAL Hx Neurological Disorder: No - HEENT Hx HEENT Problems: No - RENAL Hx Chronic Kidney Disease: Yes ("RENAL INSUFFICENCY") - ENDOCRINE/METABOLIC Hx Diabetes Mellitus Type 2: Yes - HEMATOLOGICAL/ONCOLOGICAL Hx Human Immunodeficiency Virus (HIV): No - INTEGUMENTARY Hx Dermatological Problems: Yes - MUSCULOSKELETAL/RHEUMATOLOGICAL Hx Musculoskeletal Disorders: No Hx Falls: No - GASTROINTESTINAL Hx Gastrointestinal Disorders: Yes ("LIVER DISEASE") Hx Liver Failure: Yes (Hep C, Liver Cirrhosis) Other/Comment: 09/09/14-EGD DONE-POST DX: ESOPHAGEAL VARICES - GENITOURINARY/GYNECOLOGICAL Hx Genitourinary Disorders: No - PSYCHIATRIC Hx Emotional Abuse: No Hx Physical Abuse: No Hx Substance Use: No - SURGICAL HISTORY Hx Surgeries: Yes Other/Comment: RIGHT EYE STYE , Colonoscopy - ANESTHESIA Hx Anesthesia: Yes Hx Anesthesia Reactions: No Hx Malignant Hyperthermia: No Meds Allergies/Adverse Reactions: Allergies Allergy/AdvReac Type Severity Reaction Status Date / Time No Known Allergies Allergy Verified 12/20/16 18:41 Physical Exam - Constitutional Appears: No Acute Distress, Older Than Stated Age, Chronically Ill - Head Exam Head Exam: ATRAUMATIC, NORMAL INSPECTION, NORMOCEPHALIC - Eye Exam Eye Exam: EOMI, Normal appearance, PERRL Pupil Exam: NORMAL ACCOMODATION, PERRL - ENT Exam ENT Exam: Mucous Membranes Moist, Normal Exam - Neck Exam Neck exam: Positive for: Normal Inspection - Respiratory Exam Respiratory Exam: Clear to Auscultation Bilateral, NORMAL BREATHING PATTERN - Cardiovascular Exam Cardiovascular Exam: REGULAR RHYTHM, RRR, +S1, +S2 - GI/Abdominal Exam GI & Abdominal Exam: Normal Bowel Sounds, Soft. absent: Tenderness - Extremities Exam Extremities exam: Positive for: full ROM, normal capillary refill, normal inspection, pedal pulses present - Back Exam Back exam: NORMAL INSPECTION - Neurological Exam Neurological exam: Abnormal Gait, Reflexes Normal - Skin Skin Exam: Dry, Intact, Normal Color, Warm Results - Vital Signs Recent Vital Signs: Last Vital Signs Temp 98.9 F 01/05/17 08:00 Pulse 74 01/05/17 10:00 Resp 21 01/05/17 10:00 BP 120/56 L 01/05/17 10:00 Pulse Ox 100 01/05/17 10:00 - Labs Result Diagrams: 01/05/17 05:30 01/05/17 05:30 Labs: Laboratory Results - last 24 hr 01/04/17 01/04/17 01/04/17 15:01 15:15 15:15 WBC 9.5 D RBC 2.85 L Hgb 9.3 L Hct 27.1 L MCV 94.8 MCH 32.4 H MCHC 34.2 RDW 21.4 H Plt Count 147 MPV 10.5 Neut % (Auto) 67.9 Lymph % (Auto) 15.7 L [place] % (Auto) 15.2 H Eos % (Auto) 0.9 Baso % (Auto) 0.3 Neut # 6.4 Lymph # 1.5 [place] # 1.4 H Eos # 0.1 Baso # 0.0 PT INR APTT pCO2 pO2 HCO3 ABG pH ABG Total CO2 ABG O2 Saturation ABG O2 Content ABG Base Excess ABG Hemoglobin ABG Carboxyhemoglobin POC ABG HHb (Measured) ABG Methemoglobin ABG O2 Capacity [place] Test ABG Potassium A-a O2 Difference Hgb O2 Saturation Glucose Lactate FiO2 Sodium Potassium Chloride Carbon Dioxide Anion Gap BUN Creatinine Est GFR ( Amer) Est GFR (Non-Af Amer) POC Glucose (mg/dL) 99 Random Glucose Lactic Acid Uric Acid Calcium Phosphorus Magnesium Total Bilirubin AST ALT Alkaline Phosphatase Ammonia 100 H* D Total Creatine Kinase Troponin I Total Protein Albumin Globulin Albumin/Globulin Ratio Arterial Blood Potassium Urine Color Urine Clarity Urine pH Ur Specific [place] Urine Protein Urine Glucose (UA) Urine Ketones Urine Blood Urine Nitrate Urine Bilirubin Urine Urobilinogen Ur Leukocyte Esterase Urine RBC (Auto) Urine WBC Clumps (Auto) Urine Microscopic WBC Ur Squamous Epith Cells Ur Transition Epith Cell Urine Bacteria 01/04/17 01/04/17 01/04/17 15:15 15:15 16:26 WBC RBC Hgb Hct MCV MCH MCHC RDW Plt Count MPV Neut % (Auto) Lymph % (Auto) [place] % (Auto) Eos % (Auto) Baso % (Auto) Neut # Lymph # [place] # Eos # Baso # PT 24.1 H INR 2.1 H APTT 41.3 H pCO2 24 L pO2 113 H HCO3 15.0 L ABG pH 7.31 L ABG Total CO2 12.8 L ABG O2 Saturation 100.0 H ABG O2 Content ABG Base Excess -12.7 L ABG Hemoglobin ABG Carboxyhemoglobin POC ABG HHb (Measured) ABG Methemoglobin ABG O2 Capacity [place] Test Yes ABG Potassium 4.2 A-a O2 Difference 7.0 Hgb O2 Saturation Glucose 99 Lactate 3.4 H FiO2 21.0 Sodium 148 143.0 Potassium 4.8 Chloride 119 H 118.0 H Carbon Dioxide 12 L Anion Gap 22 H BUN 83 H Creatinine 9.0 H* Est GFR ( Amer) 5 Est GFR (Non-Af Amer) 5 POC Glucose (mg/dL) Random Glucose 101 Lactic Acid Uric Acid Calcium 8.5 Phosphorus Magnesium Total Bilirubin 21.3 H AST 83 H ALT 61 H Alkaline Phosphatase 268 H Ammonia Total Creatine Kinase Troponin I 0.0280 Total Protein 8.7 H Albumin 3.0 L Globulin 5.7 H Albumin/Globulin Ratio 0.5 L Arterial Blood Potassium 4.2 Urine Color Urine Clarity Urine pH Ur Specific [place] Urine Protein Urine Glucose (UA) Urine Ketones Urine Blood Urine Nitrate Urine Bilirubin Urine Urobilinogen Ur Leukocyte Esterase Urine RBC (Auto) Urine WBC Clumps (Auto) Urine Microscopic WBC Ur Squamous Epith Cells Ur Transition Epith Cell Urine Bacteria 01/04/17 01/04/17 01/05/17 21:48 23:10 05:30 WBC 6.7 RBC 2.65 L Hgb 8.5 L Hct 25.1 L MCV 94.5 MCH 32.0 H MCHC 33.9 RDW 21.0 H Plt Count 100 L D MPV 9.0 Neut % (Auto) 62.5 Lymph % (Auto) 21.6 [place] % (Auto) 13.8 H Eos % (Auto) 1.6 Baso % (Auto) 0.5 Neut # 4.2 Lymph # 1.4 [place] # 0.9 H Eos # 0.1 Baso # 0.0 PT INR APTT pCO2 pO2 HCO3 ABG pH ABG Total CO2 ABG O2 Saturation ABG O2 Content ABG Base Excess ABG Hemoglobin ABG Carboxyhemoglobin POC ABG HHb (Measured) ABG Methemoglobin ABG O2 Capacity [place] Test ABG Potassium A-a O2 Difference Hgb O2 Saturation Glucose Lactate FiO2 Sodium Potassium Chloride Carbon Dioxide Anion Gap BUN Creatinine Est GFR ( Amer) Est GFR (Non-Af Amer) POC Glucose (mg/dL) Random Glucose Lactic Acid Uric Acid 11.8 H Calcium Phosphorus Magnesium Total Bilirubin AST ALT Alkaline Phosphatase Ammonia Total Creatine Kinase 500 H Troponin I Total Protein Albumin Globulin Albumin/Globulin Ratio Arterial Blood Potassium Urine Color Red Urine Clarity Turbid Urine pH 5.0 Ur Specific [place] 1.015 Urine Protein 100 Urine Glucose (UA) Neg Urine Ketones Negative Urine Blood Large Urine Nitrate Negative Urine Bilirubin Moderate Urine Urobilinogen 4.0 H Ur Leukocyte Esterase Large Urine RBC (Auto) 547 H Urine WBC Clumps (Auto) Many H Urine Microscopic WBC 3534 H Ur Squamous Epith Cells 2 Ur Transition Epith Cell 7 H Urine Bacteria Many H 01/05/17 01/05/17 01/05/17 05:30 05:30 05:30 WBC RBC Hgb Hct MCV MCH MCHC RDW Plt Count MPV Neut % (Auto) Lymph % (Auto) [place] % (Auto) Eos % (Auto) Baso % (Auto) Neut # Lymph # [place] # Eos # Baso # PT INR APTT pCO2 pO2 HCO3 ABG pH ABG Total CO2 ABG O2 Saturation ABG O2 Content ABG Base Excess ABG Hemoglobin ABG Carboxyhemoglobin POC ABG HHb (Measured) ABG Methemoglobin ABG O2 Capacity [place] Test ABG Potassium A-a O2 Difference Hgb O2 Saturation Glucose Lactate FiO2 Sodium 147 Potassium 4.1 Chloride 115 H Carbon Dioxide 18 L Anion Gap 18 BUN 63 H Creatinine 7.2 H Est GFR ( Amer) 7 Est GFR (Non-Af Amer) 6 POC Glucose (mg/dL) Random Glucose 64 L Lactic Acid 2.7 H Uric Acid Calcium 7.8 L Phosphorus 6.5 H Magnesium 2.5 H Total Bilirubin 18.8 H AST 81 H ALT 62 H Alkaline Phosphatase 222 H Ammonia 100 H* Total Creatine Kinase Troponin I Total Protein 7.6 Albumin 2.5 L Globulin 5.1 H Albumin/Globulin Ratio 0.5 L Arterial Blood Potassium Urine Color Urine Clarity Urine pH Ur Specific [place] Urine Protein Urine Glucose (UA) Urine Ketones Urine Blood Urine Nitrate Urine Bilirubin Urine Urobilinogen Ur Leukocyte Esterase Urine RBC (Auto) Urine WBC Clumps (Auto) Urine Microscopic WBC Ur Squamous Epith Cells Ur Transition Epith Cell Urine Bacteria 01/05/17 01/05/17 06:08 09:36 WBC RBC Hgb Hct MCV MCH MCHC RDW Plt Count MPV Neut % (Auto) Lymph % (Auto) [place] % (Auto) Eos % (Auto) Baso % (Auto) Neut # Lymph # [place] # Eos # Baso # PT INR APTT pCO2 35 pO2 55 L HCO3 17.8 L ABG pH 7.29 L ABG Total CO2 17.9 L ABG O2 Saturation 92.9 L ABG O2 Content 10.4 L ABG Base Excess -9.0 L ABG Hemoglobin 8.3 L ABG Carboxyhemoglobin 3.4 H POC ABG HHb (Measured) 6.8 H ABG Methemoglobin 0.8 ABG O2 Capacity 11.2 L [place] Test Yes ABG Potassium A-a O2 Difference 51.0 Hgb O2 Saturation 89.0 L Glucose Lactate FiO2 21.0 Sodium Potassium Chloride Carbon Dioxide Anion Gap BUN Creatinine Est GFR ( Amer) Est GFR (Non-Af Amer) POC Glucose (mg/dL) 56 L Random Glucose Lactic Acid Uric Acid Calcium Phosphorus Magnesium Total Bilirubin AST ALT Alkaline Phosphatase Ammonia Total Creatine Kinase Troponin I Total Protein Albumin Globulin Albumin/Globulin Ratio Arterial Blood Potassium Urine Color Urine Clarity Urine pH Ur Specific [place] Urine Protein Urine Glucose (UA) Urine Ketones Urine Blood Urine Nitrate Urine Bilirubin Urine Urobilinogen Ur Leukocyte Esterase Urine RBC (Auto) Urine WBC Clumps (Auto) Urine Microscopic WBC Ur Squamous Epith Cells Ur Transition Epith Cell Urine Bacteria Assessment & Plan (1) [id number] kidney injury Assessment and Plan: neprho dialysis started in er bicarb Status: Acute (2) DVT prophylaxis Assessment and Plan: scd nad ae hose no anticoag r/t liver dz Status: Acute (3) Hepatorenal syndrome Assessment and Plan: nephro/gi consult hypotension noted dialysis as per nephro Status: Acute (4) Liver cirrhosis Assessment and Plan: gi will d/c possible xfer w/ liver transfer w/ fellow at [facility] Status: Acute (5) UTI (urinary tract infection) Assessment and Plan: zosyn ?? sepsis contributing to ams. pending urine and blood c/s Status: Acute (6) Hypotension Assessment and Plan: levophed and vasopressin ivf support icu care Status: Acute - Assessment and Plan (Free Text) Assessment: approx 45 min spent in direct care of patient nad d/c care plan w/ family family unsure of code status at is time aware of poor prognosis and grave situation case d/c w/ abdulkadir reynolds Decision To Admit - Pt Status Changed To: Hospital Disposition Of: Inpatient - Admit Certification Admit to Inpatient:: After my assessment, the patient will require hospitalization for at least two midnights. This is because of the severity of symptoms shown, intensity of services needed, and/or the medical risk in this patient being treated as an outpatient. - . Bed Request Type: Intensive Care Admitting Physician: Emelyn Veras
--- NOTE | 2017-01-05 14:17 | CARD ---
APPROVED REPORT EKG Measurement Heart [id number] [id number] <Conclusion> Accelerated Junctional rhythm Prolonged QT Abnormal ECG
--- NOTE | 2017-01-05 16:29 | CP.PCM.PN ---
Subjective - Date & Time of Evaluation Date of Evaluation: 01/05/17 Time of Evaluation: 16:25 - Subjective Subjective: Follow up Nephrology Consultation: Assessment: critical Acute Kidney Injury (N17.9) possible causes include type 1 hepato-renal syndrome , ATN Shock Anemia, liver failure, jaundice, coagulopathy, hepatosplenomegaly lactic acidosis, HAGMA acute hepatic +uremic metabolic encephalopathy Obesity left adrenal nodule Hypernatremia Plan dialysis done 01/04 and 01/05 done but complicated by hypotension. pt not tolerating dialysis so far. she is on levophed. will re-assess tomorrow and then decide on further dialysis. No ACEI/ARB due to GEGE. maintain hemodynamics stable Monitor Input/Output, daily weights and renal function with basic metabolic panel suggest transfer to tertiary care center for liver evaluation/management continue with treatment with octreotide SQ and switch midodrine (PO) to Vasopressin (IV) Dose meds/antibiotics for reduced GFR<10. Avoid fleets enema/magnesium based laxatives. Avoid nephrotoxins/NSAIDs/ iodinated contrast (unless needed emergently) Glycemic control Further work up/management as per primary team prognosis poor Thanks for allowing me to participate in care of your patient. Will follow patient with you. Please call if any Qs. d/w family and team Dr Narayan Sanchez Office: [phone] Chief Complaint; AMS HPI: Pt is a 56 y/o F with hx of hypertension, chronic liver disease and cirrhosis, recently admitted for hepatic enceph also found to have cr 2.5-2.8 was brought back to hospital for AMS x couple of days and found to have severe GEGE and hepatic dysfunction with bilirubin 21 pt unable to provide any hx. ROS: unable to obtain from pt Physical Examination: General Appearance: ill appearing, AMS Vitals reviewed and noted as below Head; Atraumatic, normocephalic ENT: no ulcers no thrush. Tongue is midline/dry. Oropharynx: no rash or ulcers. EYES: Pupils are equal, round and sluggish to light accommodation. Eye muscles and extraocular movement intact. Sclera is anicteric. Neck; supple no lymphadenopathy, no thyromegaly or bruit Lungs: Normal respiratory rate/effort. Breath sounds bilateral equal and clear anteriorly Heart: Normal rate. s1s2 normal. No rub or gallop. Extremities: no edema. No varicose veins Neurological: Patient is not communicating and comatose Skin: Warm and dry. Normal turgor. No rash. Palpitation: Normal elasticity for age Abdomen: Abdomen is soft. Bowel sounds +. There is no abdominal tenderness, no guarding/rigidity no organomegaly appreciated as she is obese Psych: unable MSK: no joint tenderness or swelling. Digits and nails normal, no deformity : kidney or bladder not palpable Labs/imaging/EKG reviewed. Past medical history, past surgical history, family history, social history, allergy reviewed and noted as below Family hx: no hx of CKD. Rest non-contributory Objective - Vital Signs/Intake and Output Vital Signs (last 24 hours): Temp Pulse Resp BP Pulse Ox 96.1 F L 83 14 76/30 L 100 01/05/17 12:00 01/05/17 15:00 01/05/17 15:00 01/05/17 15:00 01/05/17 15:00 Intake and Output: 01/05/17 01/05/17 06:59 18:59 Intake Total 1100 1724 Balance 1100 1724 - Medications Medications: Current Medications Hydroxyzine HCl (Atarax) 25 mg PO Q6 PRN PRN Reason: Itching / Pruritus Dextrose/Sodium Chloride (Dextrose 5%/0.45% Ns 1000 Ml) 1,000 mls @ 60 mls/hr IV [id number] [facility] Stop: 01/06/17 06:14 Last Admin: 01/05/17 06:41 Dose: 60 mls/hr Sodium Chloride (Sodium Chloride 0.9%) 1,000 mls @ 40 mls/hr IV .Q24H [facility] Stop: 01/05/17 18:40 Last Admin: 01/05/17 06:45 Dose: 40 mls/hr Piperacillin Sod/Tazobactam (Sod 2.25 gm/ Sodium Chloride) 100 mls @ 100 mls/ hr IVPB Q8 [facility] PRN Reason: Protocol Last Admin: 01/05/17 15:05 Dose: 100 mls/hr Norepinephrine Bitartrate 4 mg (/ Dextrose) 254 mls @ 9.52 mls/hr IV .Q24H [facility] ; 2.5 MCG/MIN PRN Reason: Protocol Last Titration: 01/05/17 15:35 Dose: 5 mcg/min, 19.05 mls/hr Vasopressin 100 units/ Sodium (Chloride) 105 mls @ 1.89 mls/hr IV .Q24H [facility]; 0.03 UNITS/MIN PRN Reason: Protocol Lactulose (Enulose) 20 gm PO QID [facility] Last Admin: 01/05/17 12:41 Dose: 20 gm Octreotide Acetate (Sandostatin) 20 mcg SC Q8 [facility] Last Admin: 01/05/17 10:23 Dose: 20 mcg Pantoprazole Sodium (Protonix Inj) 40 mg IVP DAILY [facility] Rifaximin (Xifaxan) 550 mg PO BID [facility] PRN Reason: Protocol Last Admin: 01/05/17 09:47 Dose: 550 mg Sodium Bicarbonate (Sodium Bicarbonate Tab) 1,300 mg PO BID [facility] Last Admin: 01/05/17 09:47 Dose: 1,300 mg Ursodiol (Actigall) 300 mg PO BID [facility] Last Admin: 01/05/17 09:54 Dose: 300 mg Zinc Sulfate (Zinc Sulfate 220 Mg Cap) 220 mg PO DAILY [facility] Last Admin: 01/05/17 09:52 Dose: 220 mg - Labs Labs: 01/05/17 05:30 01/05/17 05:30 PT 24.1 Seconds (9.8-13.1) H 01/04/17 15:15 INR 2.1 (0.9-1.2) H 01/04/17 15:15 APTT 41.3 Seconds (25.6-37.1) H 01/04/17 15:15
[2017-01-06] MEDS: Dextrose 5%/0.45% NS 1,000 ML IV SCH (02:22)
[2017-01-06 06:02] LABS: ALB/GLOB RATIO 0.5 (1.0-2.1); POTASSIUM 4.4 MMOL/L (3.6-5.0); TOTAL PROTEIN 8.3 G/DL (6.3-8.2)
[2017-01-06 06:29] LABS: BASO % 0.2 % (0.0-2.0); EOS # 0.1 K/uL (0.0-0.7); EOS % 0.8 % (0.0-4.0); HEMATOCRIT 27.2 % (34.0-47.0); LYMPH # 1.5 K/uL (1.0-4.3); LYMPH % 14.6 % (20.0-40.0); MEAN CORPUSCULAR HEMOGLOBIN 32.7 pg (27.0-31.0); MEAN CORPUSCULAR HGB CONC 34.4 g/dL (33.0-37.0); MEAN PLATELET VOLUME 10.1 fl (7.2-11.7); MONO # 1.5 K/uL (0.0-0.8); MONO % 15.1 % (0.0-10.0); NEUT # 7.1 K/uL (1.8-7.0); NEUT % 69.3 % (50.0-75.0); NRBC % 3.5 % (0.0-0.0); RED CELL DISTRIBUTION WIDTH 21.5 % (11.5-14.5); WHITE BLOOD COUNT 10.3 K/uL (4.8-10.8)
--- NOTE | 2017-01-06 08:20 | CP.PCM.PN ---
Subjective - Date & Time of Evaluation Date of Evaluation: 01/06/17 Time of Evaluation: 08:19 - Subjective Subjective: pt still obtunded but opens eyes to name. on vasopressin/levophed. tolerated 500ml of dialysis last night. no f/c, n/v/d. wbc today 10. case d/c w/ dr mata today. d/c w/ son and updated on condition. Objective - Vital Signs/Intake and Output Vital Signs (last 24 hours): Temp Pulse Resp BP Pulse Ox 98.7 F 89 16 123/83 100 01/06/17 04:00 01/06/17 08:00 01/06/17 08:00 01/06/17 08:00 01/06/17 08:00 Intake and Output: 01/06/17 01/06/17 06:59 18:59 Intake Total 548 Balance 548 - Medications Medications: Current Medications Hydroxyzine HCl (Atarax) 25 mg PO Q6 PRN PRN Reason: Itching / Pruritus Norepinephrine Bitartrate 4 mg (/ Dextrose) 254 mls @ 9.52 mls/hr IV .Q24H [facility] ; 2.5 MCG/MIN PRN Reason: Protocol Last Titration: 01/06/17 06:11 Dose: 24.61 mcg/min, 93.8 mls/hr Vasopressin 100 units/ Sodium (Chloride) 105 mls @ 1.89 mls/hr IV .Q24H [facility]; 0.03 UNITS/MIN PRN Reason: Protocol Last Admin: 01/05/17 17:16 Dose: 0.03 units/min, 1.89 mls/hr Piperacillin Sod/Tazobactam (Sod 2.25 gm/ Sodium Chloride) 100 mls @ 100 mls/ hr IVPB Q8@0700,1500,2300 [facility] PRN Reason: Protocol Last Admin: 01/06/17 06:09 Dose: 100 mls/hr Lactulose (Enulose) 20 gm PO QID [facility] Last Admin: 01/05/17 21:00 Dose: 20 gm Octreotide Acetate (Sandostatin) 20 mcg SC Q8 [facility] Last Admin: 01/06/17 01:41 Dose: 20 mcg Pantoprazole Sodium (Protonix Inj) 40 mg IVP DAILY [facility] Rifaximin (Xifaxan) 550 mg PO BID [facility] PRN Reason: Protocol Last Admin: 01/05/17 16:40 Dose: 550 mg Sodium Bicarbonate (Sodium Bicarbonate Tab) 1,300 mg PO BID [facility] Last Admin: 01/05/17 16:40 Dose: 1,300 mg Ursodiol (Actigall) 300 mg PO BID [facility] Last Admin: 01/05/17 16:41 Dose: 300 mg Zinc Sulfate (Zinc Sulfate 220 Mg Cap) 220 mg PO DAILY [facility] Last Admin: 01/05/17 09:52 Dose: 220 mg - Labs Labs: 01/06/17 04:30 01/06/17 04:30 PT 24.1 Seconds (9.8-13.1) H 01/04/17 15:15 INR 2.1 (0.9-1.2) H 01/04/17 15:15 APTT 41.3 Seconds (25.6-37.1) H 01/04/17 15:15 - Constitutional Appears: Well, Non-toxic, No Acute Distress - Head Exam Head Exam: ATRAUMATIC, NORMAL INSPECTION, NORMOCEPHALIC - Eye Exam Eye Exam: EOMI, Normal appearance, PERRL Pupil Exam: NORMAL ACCOMODATION, PERRL - ENT Exam ENT Exam: Mucous Membranes Moist, Normal Exam - Neck Exam Neck Exam: Full ROM, Normal Inspection. absent: Lymphadenopathy - Respiratory Exam Respiratory Exam: Clear to Ausculation Bilateral, NORMAL BREATHING PATTERN - Cardiovascular Exam Cardiovascular Exam: REGULAR RHYTHM, RRR, +S1, +S2. absent: Murmur - GI/Abdominal Exam GI & Abdominal Exam: Soft, Normal Bowel Sounds. absent: Tenderness - Extremities Exam Extremities Exam: Full ROM, Normal Capillary Refill, Normal Inspection. absent : Joint Swelling, Pedal Edema - Back Exam Back Exam: NORMAL INSPECTION - Neurological Exam Neurological Exam: Alert, Awake, CN II-XII Intact, Normal Gait, Oriented x3 - Psychiatric Exam Psychiatric exam: Normal Affect, Normal Mood - Skin Skin Exam: Dry, Intact, Normal Color, Warm Assessment and Plan (1) [id number] kidney injury Status: Acute (2) DVT prophylaxis Status: Acute (3) Hepatorenal syndrome Status: Acute (4) Liver cirrhosis Status: Acute (5) UTI (urinary tract infection) Status: Acute (6) Hypotension Status: Acute - Assessment and Plan (Free Text) Assessment: (1) [id number] kidney injury Assessment and Plan: neprho dialysis started in er bicarb Status: Acute (2) DVT prophylaxis Assessment and Plan: scd nad ae hose no anticoag r/t liver dz Status: Acute (3) Hepatorenal syndrome Assessment and Plan: nephro/gi consult hypotension noted dialysis as per nephro Status: Acute (4) Liver cirrhosis Assessment and Plan: gi will d/c possible xfer w/ [facility] transfer w[facility] Status: Acute (5) UTI (urinary tract infection) Assessment and Plan: zosyn ?? sepsis contributing to ams. pending urine and blood c/s ID consult Status: Acute (6) Hypotension Assessment and Plan: levophed and vasopressin ivf support icu care prognosis poor 30 min spent w/ pt/family
--- NOTE | 2017-01-06 09:08 | CP.PCM.PN ---
Subjective - Date & Time of Evaluation Date of Evaluation: 01/06/17 Time of Evaluation: 09:06 - Subjective Subjective: Patient is obtunded no history could be taken. Patient had short dialysis yesterday with difficulties because of the low blood pressure despite vasopressors. Lab review old. Intake and output noted. Objective - Vital Signs/Intake and Output Vital Signs (last 24 hours): Temp Pulse Resp BP Pulse Ox 99.3 F 87 16 89/88 L 99 01/06/17 08:00 01/06/17 08:00 01/06/17 08:00 01/06/17 08:00 01/06/17 08:00 Intake and Output: 01/06/17 01/06/17 06:59 18:59 Intake Total 548 Balance 548 - Medications Medications: Current Medications Hydroxyzine HCl (Atarax) 25 mg PO Q6 PRN PRN Reason: Itching / Pruritus Norepinephrine Bitartrate 4 mg (/ Dextrose) 254 mls @ 9.52 mls/hr IV .Q24H [facility] ; 2.5 MCG/MIN PRN Reason: Protocol Last Titration: 01/06/17 06:11 Dose: 24.61 mcg/min, 93.8 mls/hr Vasopressin 100 units/ Sodium (Chloride) 105 mls @ 1.89 mls/hr IV .Q24H [facility]; 0.03 UNITS/MIN PRN Reason: Protocol Last Admin: 01/05/17 17:16 Dose: 0.03 units/min, 1.89 mls/hr Piperacillin Sod/Tazobactam (Sod 2.25 gm/ Sodium Chloride) 100 mls @ 100 mls/ hr IVPB Q8@0700,1500,2300 [facility] PRN Reason: Protocol Last Admin: 01/06/17 06:09 Dose: 100 mls/hr Lactulose (Enulose) 20 gm PO QID [facility] Last Admin: 01/06/17 08:34 Dose: 20 gm Octreotide Acetate (Sandostatin) 20 mcg SC Q8 [facility] Last Admin: 01/06/17 08:36 Dose: 20 mcg Pantoprazole Sodium (Protonix Inj) 40 mg IVP DAILY [facility] Last Admin: 01/06/17 08:35 Dose: 40 mg Rifaximin (Xifaxan) 550 mg PO BID [facility] PRN Reason: Protocol Last Admin: 01/06/17 08:43 Dose: 550 mg Sodium Bicarbonate (Sodium Bicarbonate Tab) 1,300 mg PO BID [facility] Last Admin: 01/06/17 08:38 Dose: 1,300 mg Ursodiol (Actigall) 300 mg PO BID [facility] Last Admin: 01/06/17 08:34 Dose: 300 mg Zinc Sulfate (Zinc Sulfate 220 Mg Cap) 220 mg PO DAILY [facility] Last Admin: 01/06/17 08:43 Dose: 220 mg - Labs Labs: 01/06/17 04:30 01/06/17 04:30 PT 24.1 Seconds (9.8-13.1) H 01/04/17 15:15 INR 2.1 (0.9-1.2) H 01/04/17 15:15 APTT 41.3 Seconds (25.6-37.1) H 01/04/17 15:15 - Constitutional Appears: Confused, Chronically Ill - Eye Exam Eye Exam: Scleral icterus - ENT Exam ENT Exam: Mucous Membranes Moist - Respiratory Exam Respiratory Exam: NORMAL BREATHING PATTERN. absent: Chest Wall Tenderness, Rales - Cardiovascular Exam Cardiovascular Exam: absent: JVD, Rubs - GI/Abdominal Exam GI & Abdominal Exam: Soft, Normal Bowel Sounds - Extremities Exam Extremities Exam: absent: Calf Tenderness - Back Exam Back Exam: absent: CVA tenderness (L), CVA tenderness (R) - Neurological Exam Neurological Exam: Altered Assessment and Plan (1) DM2 (diabetes mellitus, type 2) Status: Acute (2) Hypotension Status: Acute (3) Bbemh-iy-okwhucc kidney injury Assessment & Plan: Acute Kidney Injury (N17.9) possible causes include type 1 hepato-renal syndrome , ATN Shock Anemia, liver failure, jaundice, coagulopathy, hepatosplenomegaly lactic acidosis, acute hepatic +uremic metabolic encephalopathy Obesity left adrenal nodule Hypernatremia corrected serum sodium 141 today. Serum creatinine 5.9 We will schedule for dialysis for tomorrow since she has dialysis yesterday with a great difficulties because of the hypotension Serum bilirubin rising up to 20+ Liver function worsening. Prognosis critical Continue vasopressors. Status: Acute (4) Hepatorenal syndrome Status: Acute (5) Liver cirrhosis Status: Acute
--- NOTE | 2017-01-06 12:49 | CP.PCM.CON ---
History of Present Illness - History of Present Illness History of Present Illness: 56 y/o female with CKD (baseline Cr appears to be ~2.8) and liver disease who was just discharged from the hospital last Friday; she had previously been in for confusion and weakness. She is brought back by her family members today who say that she has become progressively weaker and more confused again over the past 3-4 days. They deny f/c/n/v/d. Referred for ID eval currently in hepato-renal failure ROS: cannot be performed is confused MHx: Hep C/liver disease, HTN, DM2, HLD, CKD SHx: cannot obtain Allergies: NKDA Medications: As per med rec Family Hx: kidney disease in family Social Hx: Lives at home, smokes tobacco -- likely 1 ppd, no significant EtOH use noted Review of Systems - Review of Systems Systems not reviewed;Unavailable: Altered Mental Status - Constitutional Constitutional: As Per HPI - EENT Eyes: As Per HPI Ears: As Per HPI Nose/Mouth/Throat: As Per HPI - Breasts Breasts: As Per HPI - Cardiovascular Cardiovascular: As Per HPI - Respiratory Respiratory: As Per HPI - Gastrointestinal Gastrointestinal: As Per HPI - Genitourinary Genitourinary: As Per HPI - Reproductive: Female Reproductive:Female: As Per HPI - Menstruation Menstruation: As Per HPI - Musculoskeletal Musculoskeletal: As Per HPI - Integumentary Integumentary: As Per HPI - Neurological Neurological: As Per HPI - Psychiatric Psychiatric: As Per HPI - Endocrine Endocrine: As Per HPI - Hematologic/Lymphatic Hematologic: As Per HPI Past Patient History - Infectious Disease Hx of Infectious Diseases: None - Past Medical History & Family History Past Medical History?: Yes - Past Social History Smoking Status: Heavy Smoker > 10 Cigarettes Daily - CARDIAC Hx Hypercholesterolemia: Yes Hx Hypertension: Yes - PULMONARY Hx Chronic Obstructive Pulmonary Disease (COPD): Yes - NEUROLOGICAL Hx Neurological Disorder: No - HEENT Hx HEENT Problems: No - RENAL Hx Chronic Kidney Disease: Yes ("RENAL INSUFFICENCY") - ENDOCRINE/METABOLIC Hx Diabetes Mellitus Type 2: Yes - HEMATOLOGICAL/ONCOLOGICAL Hx Human Immunodeficiency Virus (HIV): No - INTEGUMENTARY Hx Dermatological Problems: Yes - MUSCULOSKELETAL/RHEUMATOLOGICAL Hx Musculoskeletal Disorders: No Hx Falls: No - GASTROINTESTINAL Hx Gastrointestinal Disorders: Yes ("LIVER DISEASE") Hx Liver Failure: Yes (Hep C, Liver Cirrhosis) Other/Comment: 09/09/14-EGD DONE-POST DX: ESOPHAGEAL VARICES - GENITOURINARY/GYNECOLOGICAL Hx Genitourinary Disorders: No - PSYCHIATRIC Hx Emotional Abuse: No Hx Physical Abuse: No Hx Substance Use: No - SURGICAL HISTORY Hx Surgeries: Yes Other/Comment: RIGHT EYE STYE , Colonoscopy - ANESTHESIA Hx Anesthesia: Yes Hx Anesthesia Reactions: No Hx Malignant Hyperthermia: No Meds Allergies/Adverse Reactions: Allergies Allergy/AdvReac Type Severity Reaction Status Date / Time No Known Allergies Allergy Verified 12/20/16 18:41 - Medications Medications: Current Medications Hydroxyzine HCl (Atarax) 25 mg PO Q6 PRN PRN Reason: Itching / Pruritus Norepinephrine Bitartrate 4 mg (/ Dextrose) 254 mls @ 9.52 mls/hr IV .Q24H [facility] ; 2.5 MCG/MIN PRN Reason: Protocol Last Titration: 01/06/17 06:11 Dose: 24.61 mcg/min, 93.8 mls/hr Vasopressin 100 units/ Sodium (Chloride) 105 mls @ 1.89 mls/hr IV .Q24H [facility]; 0.03 UNITS/MIN PRN Reason: Protocol Last Admin: 01/05/17 17:16 Dose: 0.03 units/min, 1.89 mls/hr Piperacillin Sod/Tazobactam (Sod 2.25 gm/ Sodium Chloride) 100 mls @ 100 mls/ hr IVPB Q8@0700,1500,2300 [facility] PRN Reason: Protocol Last Admin: 01/06/17 06:09 Dose: 100 mls/hr Lactulose (Enulose) 20 gm PO QID [facility] Last Admin: 01/06/17 08:34 Dose: 20 gm Octreotide Acetate (Sandostatin) 20 mcg SC Q8 [facility] Last Admin: 01/06/17 08:36 Dose: 20 mcg Pantoprazole Sodium (Protonix Inj) 40 mg IVP DAILY [facility] Last Admin: 01/06/17 08:35 Dose: 40 mg Rifaximin (Xifaxan) 550 mg PO BID [facility] PRN Reason: Protocol Last Admin: 01/06/17 08:43 Dose: 550 mg Sodium Bicarbonate (Sodium Bicarbonate Tab) 1,300 mg PO BID [facility] Last Admin: 01/06/17 08:38 Dose: 1,300 mg Ursodiol (Actigall) 300 mg PO BID [facility] Last Admin: 01/06/17 08:34 Dose: 300 mg Zinc Sulfate (Zinc Sulfate 220 Mg Cap) 220 mg PO DAILY [facility] Last Admin: 01/06/17 08:43 Dose: 220 mg Physical Exam - Constitutional Appears: Confused, Chronically Ill - Head Exam Head Exam: NORMOCEPHALIC - Eye Exam Eye Exam: Conjunctival injection, PERRL, Scleral icterus Pupil Exam: NORMAL ACCOMODATION - ENT Exam ENT Exam: Mucous Membranes Dry, Normal External Ear Exam - Neck Exam Neck exam: Negative for: Lymphadenopathy - Respiratory Exam Respiratory Exam: Decreased Breath Sounds, Rhonchi - Cardiovascular Exam Cardiovascular Exam: REGULAR RHYTHM, +S1, +S2 - GI/Abdominal Exam GI & Abdominal Exam: Diminished Bowel Sounds, Soft. absent: Tenderness - Rectal Exam Rectal Exam: Deferred - Exam Exam: NORMAL INSPECTION - Extremities Exam Extremities exam: Positive for: pedal edema, pedal pulses present. Negative for : calf tenderness, tenderness - Back Exam Back exam: absent: CVA tenderness (L), CVA tenderness (R), paraspinal tenderness - Neurological Exam Neurological exam: Altered - Psychiatric Exam Psychiatric exam: Depressed - Skin Skin Exam: Dry Results - Vital Signs Recent Vital Signs: Last Vital Signs Temp 97.3 F L 01/06/17 12:00 Pulse 85 01/06/17 12:00 Resp 17 01/06/17 12:00 BP 85/46 L 01/06/17 12:00 Pulse Ox 100 01/06/17 12:00 - Labs Result Diagrams: 01/06/17 04:30 01/06/17 04:30 Labs: Laboratory Results - last 24 hr 01/04/17 01/04/17 01/05/17 23:10 23:10 16:53 WBC RBC Hgb Hct MCV MCH MCHC RDW Plt Count MPV Neut % (Auto) Lymph % (Auto) [place] % (Auto) Eos % (Auto) Baso % (Auto) Neut # Lymph # [place] # Eos # Baso # Sodium Potassium Chloride Carbon Dioxide Anion Gap BUN Creatinine Est GFR ( Amer) Est GFR (Non-Af Amer) POC Glucose (mg/dL) 86 Random Glucose Lactic Acid Calcium Total Bilirubin AST ALT Alkaline Phosphatase Total Protein Albumin Globulin Albumin/Globulin Ratio Hep Bs Antigen Negative Hep Bs Antibody Positive 01/06/17 01/06/17 01/06/17 04:30 04:30 04:30 WBC 10.3 D RBC 2.86 L Hgb 9.4 L Hct 27.2 L MCV 95.0 MCH 32.7 H MCHC 34.4 RDW 21.5 H Plt Count 101 L MPV 10.1 Neut % (Auto) 69.3 Lymph % (Auto) 14.6 L [place] % (Auto) 15.1 H Eos % (Auto) 0.8 Baso % (Auto) 0.2 Neut # 7.1 H Lymph # 1.5 [place] # 1.5 H Eos # 0.1 Baso # 0.0 Sodium 141 Potassium 4.4 Chloride 109 H Carbon Dioxide 19 L Anion Gap 17 BUN 44 H Creatinine 5.9 H Est GFR ( Amer) 9 Est GFR (Non-Af Amer) 7 POC Glucose (mg/dL) Random Glucose 155 H Lactic Acid 3.2 H Calcium 8.0 L Total Bilirubin 20.0 H AST 119 H D ALT 74 H Alkaline Phosphatase 243 H Total Protein 8.3 H Albumin 2.8 L Globulin 5.5 H Albumin/Globulin Ratio 0.5 L Hep Bs Antigen Hep Bs Antibody 01/06/17 01/06/17 05:16 11:16 WBC RBC Hgb Hct MCV MCH MCHC RDW Plt Count MPV Neut % (Auto) Lymph % (Auto) [place] % (Auto) Eos % (Auto) Baso % (Auto) Neut # Lymph # [place] # Eos # Baso # Sodium Potassium Chloride Carbon Dioxide Anion Gap BUN Creatinine Est GFR ( Amer) Est GFR (Non-Af Amer) POC Glucose (mg/dL) 174 H 193 H Random Glucose Lactic Acid Calcium Total Bilirubin AST ALT Alkaline Phosphatase Total Protein Albumin Globulin Albumin/Globulin Ratio Hep Bs Antigen Hep Bs Antibody Assessment & Plan (1) DM2 (diabetes mellitus, type 2) Status: Acute (2) Hypotension Status: Acute (3) UTI (urinary tract infection) Status: Acute (4) Ccoot-hb-yepcuwk kidney injury Status: Acute (5) Hepatorenal syndrome Status: Acute (6) Liver cirrhosis Status: Acute - Assessment and Plan (Free Text) Assessment: hepatorenal syndrome uti r/o pyelo cirrhosis poor prognosis
[2017-01-06] MEDS: Cefepime 1 GM in Sodium Chloride 0.9% 100 ML IVPB SCH (13:39)
--- NOTE | 2017-01-06 19:16 | PN ---
DATE: 01/06/2017 CRITICAL CARE PROGRESS NOTE LOCATION: Patient in room 426, ICU. TIME SPENT: 35 minutes. SUBJECTIVE: Patient is seen, examined at the bedside. Case discussed in multidisciplinary ICU team. Events since admission noted. A 56-year-old female with history significant for [id number] chronic liver disease/cirrhosis; chronic kidney disease; diabetes type 2; anemia of chronic disease; status post hemodialysis x2 days; reduced blood pressure, on vasopressin and Levophed; remains lethargic, but opens eyes on calling her name; not able to sustain in conversation. PHYSICAL EXAMINATION: VITAL SIGNS: Temperature 97.3, heart rate 85, blood pressure 85/46, respiratory rate 20, saturating 100% on 2 L nasal cannula. HEAD, EYES, EARS, NOSE AND THROAT: Pupils are reactive. Sclerae are icteric. Conjunctivae pale. NECK: Supple, short. HEART: Rhythm are regular. S1, S2 normal. ABDOMEN: Bowel sounds present x4 quadrants, distended. No tenderness. EXTREMITIES: Trace edema. NEUROLOGIC: Lethargic. Moves all 4 extremities. LABORATORY DATA: WBC 10.3, hemoglobin 9.4, hematocrit 27.2, platelet count 101, neutrophils 69, lymphocytes 14.6, monocytes 15.1. PT 24.1, INR 2.1, PTT 41.3. ABG: pH 7.29, pCO2 of 35, pO2 of 35, oxygen saturation 92.9% on FiO2 of 21%, currently on 2 L nasal cannula. SMA-7: Sodium 141, potassium 4.4, chloride 109, CO2 of 19, blood urea nitrogen 44, creatinine 5.9, random glucose 155, lactic acid at 3.2, calcium 8. Total bilirubin 20, AST 119, ALT 74, alkaline phosphatase 243, total protein 8.3, albumin 2.8. Urinalysis: Wbc many, rbc 547, microscopic wbc 3534. Serology: Hepatitis B surface antigen negative. Hepatitis B surface antibody positive. MICROBIOLOGY: Urine culture positive for gram-negative rods. IMAGING: Chest x-ray: NG tube below the diaphragm. Bilateral infiltrates. IMPRESSION AND PLAN: 1. Neurologic: Hepatic metabolic septic encephalopathy, but wakeful. CT head negative for any acute event. 2. Pulmonary: Bilateral infiltrates, suspect volume overload versus pneumonia. 3. Cardiac: Hypotension, on vasopressin and Levophed, IV hydration. 4. Gastrointestinal: Suspected hepatorenal syndrome, status post dialysis x2 days. Appreciate renal followup. Dialysis is complicated with hypotension. 5. Infectious Disease: Urinary tract infection. Suspected pneumonia in the lung. Antibiotic as per Infectious Disease consult. 6. Renal: Worsening renal function, lactic acid 3.2. 7. Endocrine: Hyperglycemia, improved. Continue with cefepime 1 g IV daily, Atarax 25 mg p.o. q. 6 p.r.n., lactulose 20 g p.o. q.i.d., norepinephrine 4 mg in 54 mL at 2.5 mcg per minute, Sandostatin 20 _mcg subcu q. 8 hours, Protonix 40 IV daily, Zosyn at 2.25 g IV q. 8 hours, Xifaxan 550 mg NGT b.i.d., sodium bicarbonate 1300 mg_ p.o./NGT b.i.d., Actigall 300 mg p.o. b.i.d., vasopressin 100 units in 105 at 1.89 mL per hour, zinc sulfate 220 mg p.o. daily. Prognosis remains guarded. Discussed with Dr. Carranza. Dr. Carranza is trying to get in touch with Gastrointestinal fellow at [facility] for possible transfer to consider about the liver transplant. Chico Vazquez MD MTDD
[2017-01-06] MEDS: Norepinephrine 8 MG in Dextrose 5% In Water 500 ML IV SCH (21:54)
[2017-01-07 07:05] LABS: BASO % 0.4 % (0.0-2.0); EOS # 0.2 K/uL (0.0-0.7); EOS % 1.8 % (0.0-4.0); HEMATOCRIT 25.4 % (34.0-47.0); LYMPH # 1.3 K/uL (1.0-4.3); LYMPH % 11.2 % (20.0-40.0); MEAN CELL VOLUME 95.2 fl (81.0-99.0); MEAN CORPUSCULAR HEMOGLOBIN 32.1 pg (27.0-31.0); MEAN CORPUSCULAR HGB CONC 33.7 g/dL (33.0-37.0); MEAN PLATELET VOLUME 10.2 fl (7.2-11.7); MONO % 17.9 % (0.0-10.0); NEUT # 7.8 K/uL (1.8-7.0); NEUT % 68.7 % (50.0-75.0); NRBC % 8.5 % (0.0-0.0); RED CELL DISTRIBUTION WIDTH 21.3 % (11.5-14.5); WHITE BLOOD COUNT 11.3 K/uL (4.8-10.8)
[2017-01-07 07:39] LABS: ALB/GLOB RATIO 0.5 (1.0-2.1); BILIRUBIN,TOTAL 20.2 mg/dl (0.2-1.3); CALCIUM 7.7 mg/dL (8.4-10.2); POTASSIUM 4.1 MMOL/L (3.6-5.0); TOTAL PROTEIN 7.8 G/DL (6.3-8.2)
--- NOTE | 2017-01-07 07:59 | CP.PCM.PN ---
Subjective - Date & Time of Evaluation Date of Evaluation: 01/07/17 Time of Evaluation: 07:56 - Subjective Subjective: pt remains obtunded. opens eyes to name but immediately closes them. no f/c, n/v /d. wbc now 11. all labs noted. excessive time spent yesterday d/c case w/ multiple specialists for possible transfer. remains on levophed/vasopressin. all consults appriciated Objective - Vital Signs/Intake and Output Vital Signs (last 24 hours): Temp Pulse Resp BP Pulse Ox 98.6 F 86 21 92/43 L 100 01/07/17 04:00 01/07/17 06:00 01/07/17 06:00 01/07/17 06:00 01/07/17 06:00 Intake and Output: 01/07/17 01/07/17 06:59 18:59 Intake Total 508 Output Total 0 Balance 508 - Medications Medications: Current Medications Hydroxyzine HCl (Atarax) 25 mg PO Q6 PRN PRN Reason: Itching / Pruritus Vasopressin 100 units/ Sodium (Chloride) 105 mls @ 1.89 mls/hr IV .Q24H [facility]; 0.03 UNITS/MIN PRN Reason: Protocol Last Admin: 01/06/17 17:14 Dose: 0.03 units/min, 1.89 mls/hr Piperacillin Sod/Tazobactam (Sod 2.25 gm/ Sodium Chloride) 100 mls @ 100 mls/ hr IVPB Q8@0700,1500,2300 [facility] PRN Reason: Protocol Last Admin: 01/07/17 06:26 Dose: 100 mls/hr Cefepime HCl 1 gm/ Sodium (Chloride) 100 mls @ 100 mls/hr IVPB DAILY [facility] PRN Reason: Protocol Last Admin: 01/06/17 13:39 Dose: 100 mls/hr Norepinephrine Bitartrate 8 mg (/ Dextrose) 508 mls @ 9.52 mls/hr IV .Q24H [facility] ; 2.5 MCG/MIN PRN Reason: Protocol Last Titration: 01/07/17 02:34 Dose: Infused Lactulose (Enulose) 20 gm PO QID [facility] Last Admin: 01/06/17 21:56 Dose: 20 gm Octreotide Acetate (Sandostatin) 20 mcg SC Q8 [facility] Last Admin: 01/07/17 00:51 Dose: 20 mcg Pantoprazole Sodium (Protonix Inj) 40 mg IVP DAILY [facility] Last Admin: 01/06/17 08:35 Dose: 40 mg Rifaximin (Xifaxan) 550 mg PO BID [facility] PRN Reason: Protocol Last Admin: 01/06/17 17:15 Dose: 550 mg Sodium Bicarbonate (Sodium Bicarbonate Tab) 1,300 mg PO BID [facility] Last Admin: 01/06/17 17:14 Dose: 1,300 mg Ursodiol (Actigall) 300 mg PO BID [facility] Last Admin: 01/06/17 17:12 Dose: 300 mg Zinc Sulfate (Zinc Sulfate 220 Mg Cap) 220 mg PO DAILY [facility] Last Admin: 01/06/17 08:43 Dose: 220 mg - Labs Labs: 01/07/17 06:55 01/07/17 06:55 PT 24.1 Seconds (9.8-13.1) H 01/04/17 15:15 INR 2.1 (0.9-1.2) H 01/04/17 15:15 APTT 41.3 Seconds (25.6-37.1) H 01/04/17 15:15 - Constitutional Appears: Non-toxic, No Acute Distress, Confused, Chronically Ill - Head Exam Head Exam: ATRAUMATIC, NORMAL INSPECTION, NORMOCEPHALIC - Eye Exam Eye Exam: EOMI, Normal appearance, PERRL Pupil Exam: NORMAL ACCOMODATION, PERRL - ENT Exam ENT Exam: Mucous Membranes Moist, Normal Exam - Neck Exam Neck Exam: Full ROM, Normal Inspection. absent: Lymphadenopathy - Respiratory Exam Respiratory Exam: Clear to Ausculation Bilateral, NORMAL BREATHING PATTERN - Cardiovascular Exam Cardiovascular Exam: REGULAR RHYTHM, RRR, +S1, +S2. absent: Murmur - GI/Abdominal Exam GI & Abdominal Exam: Soft, Normal Bowel Sounds. absent: Tenderness - Extremities Exam Extremities Exam: Full ROM, Normal Capillary Refill, Normal Inspection. absent : Joint Swelling, Pedal Edema - Back Exam Back Exam: NORMAL INSPECTION - Neurological Exam Neurological Exam: CN II-XII Intact - Psychiatric Exam Psychiatric exam: Normal Affect, Normal Mood - Skin Skin Exam: Dry, Intact, Normal Color, Warm Assessment and Plan (1) [id number] kidney injury Status: Acute (2) DVT prophylaxis Status: Acute (3) Hepatorenal syndrome Status: Acute (4) Liver cirrhosis Status: Acute (5) UTI (urinary tract infection) Status: Acute (6) Hypotension Status: Acute - Assessment and Plan (Free Text) Assessment: (1) Chpaj-yw-jftzaln kidney injury Assessment and Plan: neprho dialysis started in er bicarb Status: Acute (2) DVT prophylaxis Assessment and Plan: scd nad ae hose no anticoag r/t liver dz Status: Acute (3) Hepatorenal syndrome Assessment and Plan: nephro/gi consult hypotension noted dialysis as per nephro Status: Acute (4) Liver cirrhosis Assessment and Plan: gi will d/c possible xfer w/ liver transfer w/ fellow at [facility], excessive time spentyester01/07 dc care w/ all specialist and team at [facility] Status: Acute (5) UTI (urinary tract infection) Assessment and Plan: zosyn ?? sepsis contributing to ams. pending urine and blood c/s ID consult Status: Acute (6) Hypotension Assessment and Plan: levophed and vasopressin ivf support icu care prognosis poor
[2017-01-07] MEDS ORDERED: Chlorhexidine Gluconate 1 APPL/PKT TP ONE (08:47)
--- NOTE | 2017-01-07 09:09 | CON ---
REFERRING PHYSICIAN: Dr. Veras, specifically the PADillon CHIEF COMPLAINT: This is an unfortunate 56-year-old -British woman with a known history of liver disease and cirrhosis who was readmitted last night with increasing somnolence and unresponsiveness who was referred for GI evaluation. At the time of evaluation, she was lying in the ICU receiving hemodialysis for the first time and the patient is not responsive to verbal stimuli at all; however, she is responsive to tactile or painful stimuli. Her course had deteriorated recently. She is deeply jaundiced and has an elevated ammonia level. MEDICATIONS: Her medications were all reviewed here in the chart. ALLERGIES: SHE HAS NO KNOWN DRUG ALLERGIES. PAST MEDICAL HISTORY: Liver disease, specifically cirrhosis and obesity. SURGICAL HISTORY: Unknown. FAMILY HISTORY: Noncontributory. SOCIAL HISTORY: Unknown at this time to me. PHYSICAL EXAMINATION: GENERAL: She is a well-developed, obese black woman who was responsive only to tactile and painful stimuli. VITAL SIGNS: Right now her blood pressure is systolic in the 70s with a diastolic in the low 40s. Her heart rate is 81. Her oxygen saturations is 100%. Respiratory rate is about 16. She has an NG tube in place. ABDOMEN: Soft, obese with good bowel sounds. There is no appreciable tenderness. She did not respond any type of pressure or palpation. LABORATORY DATA: Her labs were reviewed. She has marked abnormalities with diminished platelet count, elevated INR. Bilirubin 20 and abnormal BUN and creatinine. IMPRESSION AND PLAN: An unfortunate 56-year-old woman who is cirrhotic, who appears to have liver failure now with markedly elevated bilirubin, abnormal hepatic enzymes, increasing BUN and creatinine, seems consistent with hepatorenal syndrome on top of hepatic encephalopathy with ammonia of over 100. At this point in time, we would continue with the lactulose through the NG tube. I have discontinued the Pepcid and the Protonix orally, just started her on Protonix 40 mg intravenous once daily. I know that Dillon Marx is trying to contact the transplant team at the [facility] where this patient has been seen in the past to question whether or not she is a candidate for transportation and if so for transfer to that. In the meantime, we will continue with the present care. If she continues to deteriorate, we will need to intubate the patient. Of note is that she was just started on Levophed during dialysis and she is maintaining her blood pressure where it was but still quite low at 70/42. We will follow along with you and give her as much supportive care as we can at this point in time. Desmond Simpson, MDDD: 01/05/2017 13:45:38
--- NOTE | 2017-01-07 09:41 | CP.PCM.PN ---
Subjective - Date & Time of Evaluation Date of Evaluation: 01/07/17 Time of Evaluation: 09:39 - Subjective Subjective: Patient remained obtunded and jaundice Vital sign noted with the low blood pressure in the range of less than 100 systolic. Objective - Vital Signs/Intake and Output Vital Signs (last 24 hours): Temp Pulse Resp BP Pulse Ox 98.1 F 90 17 97/39 L 98 01/07/17 08:00 01/07/17 08:00 01/07/17 08:00 01/07/17 08:00 01/07/17 08:00 Intake and Output: 01/07/17 01/07/17 06:59 18:59 Intake Total 508 Output Total 0 Balance 508 - Medications Medications: Current Medications Hydroxyzine HCl (Atarax) 25 mg PO Q6 PRN PRN Reason: Itching / Pruritus Vasopressin 100 units/ Sodium (Chloride) 105 mls @ 1.89 mls/hr IV .Q24H [facility]; 0.03 UNITS/MIN PRN Reason: Protocol Last Admin: 01/06/17 17:14 Dose: 0.03 units/min, 1.89 mls/hr Piperacillin Sod/Tazobactam (Sod 2.25 gm/ Sodium Chloride) 100 mls @ 100 mls/ hr IVPB Q8@0700,1500,2300 [facility] PRN Reason: Protocol Last Admin: 01/07/17 06:26 Dose: 100 mls/hr Cefepime HCl 1 gm/ Sodium (Chloride) 100 mls @ 100 mls/hr IVPB DAILY [facility] PRN Reason: Protocol Last Admin: 01/06/17 13:39 Dose: 100 mls/hr Norepinephrine Bitartrate 8 mg (/ Dextrose) 508 mls @ 9.52 mls/hr IV .Q24H [facility] ; 2.5 MCG/MIN PRN Reason: Protocol Last Titration: 01/07/17 02:34 Dose: Infused Lactulose (Enulose) 20 gm PO QID [facility] Last Admin: 01/06/17 21:56 Dose: 20 gm Octreotide Acetate (Sandostatin) 20 mcg SC Q8 [facility] Last Admin: 01/07/17 00:51 Dose: 20 mcg Pantoprazole Sodium (Protonix Inj) 40 mg IVP DAILY [facility] Last Admin: 01/06/17 08:35 Dose: 40 mg Rifaximin (Xifaxan) 550 mg PO BID [facility] PRN Reason: Protocol Last Admin: 01/06/17 17:15 Dose: 550 mg Sodium Bicarbonate (Sodium Bicarbonate Tab) 1,300 mg PO BID [facility] Last Admin: 01/06/17 17:14 Dose: 1,300 mg Ursodiol (Actigall) 300 mg PO BID [facility] Last Admin: 01/06/17 17:12 Dose: 300 mg Zinc Sulfate (Zinc Sulfate 220 Mg Cap) 220 mg PO DAILY [facility] Last Admin: 01/06/17 08:43 Dose: 220 mg - Labs Labs: 01/07/17 06:55 01/07/17 06:55 PT 24.1 Seconds (9.8-13.1) H 01/04/17 15:15 INR 2.1 (0.9-1.2) H 01/04/17 15:15 APTT 41.3 Seconds (25.6-37.1) H 01/04/17 15:15 - Constitutional Appears: No Acute Distress - ENT Exam ENT Exam: Mucous Membranes Moist - Respiratory Exam Respiratory Exam: NORMAL BREATHING PATTERN. absent: Chest Wall Tenderness - Cardiovascular Exam Cardiovascular Exam: absent: JVD, Rubs - GI/Abdominal Exam GI & Abdominal Exam: Soft, Normal Bowel Sounds - Extremities Exam Extremities Exam: absent: Calf Tenderness - Back Exam Back Exam: absent: CVA tenderness (L), CVA tenderness (R) - Neurological Exam Neurological Exam: Altered - Psychiatric Exam Psychiatric exam: Flat Affect - Skin Skin Exam: absent: Cyanosis Assessment and Plan (1) DM2 (diabetes mellitus, type 2) Status: Acute (2) Hypotension Status: Acute (3) Cuxij-gd-ahlnqfh kidney injury Assessment & Plan: Acute kidney failure superimposed on chronic kidney disease perhaps related to hepatorenal syndrome. Patient remained jaundice although serum ammonia level decreasing. Liver enzyme noted. Patient scheduled to have dialysis shortly Arrangement has been made Order was given To support blood pressure albumin if needed. Also vasopressor. Continue monitoring Discussed with the primary care team. Status: Acute (4) Hepatorenal syndrome Status: Acute (5) Liver cirrhosis Status: Acute
[2017-01-07] MEDS: Cefepime 1 GM in Sodium Chloride 0.9% 100 ML IVPB SCH (09:58)
[2017-01-07] MEDS ORDERED: Albumin Human 25% (12.5 gm/50 ml) IV ONE (10:32)
[2017-01-07] MEDS: Dextrose 5%/0.45% NS 1,000 ML IV SCH (10:45)
--- NOTE | 2017-01-07 11:06 | CP.PCM.PN ---
Subjective - Date & Time of Evaluation Date of Evaluation: 01/07/17 Time of Evaluation: 08:00 - Subjective Subjective: obtunded on pressors unresponsive afebrile Objective - Vital Signs/Intake and Output Vital Signs (last 24 hours): Temp Pulse Resp BP Pulse Ox 98.1 F 90 17 97/39 L 98 01/07/17 08:00 01/07/17 08:00 01/07/17 08:00 01/07/17 08:00 01/07/17 08:00 Intake and Output: 01/07/17 01/07/17 06:59 18:59 Intake Total 508 Output Total 0 Balance 508 - Medications Medications: Current Medications Albumin Human (Albumin Human 25% (12.5 Gm/50 Ml)) 12.5 gm IV ONCE ONE Stop: 01/07/17 10:33 Hydroxyzine HCl (Atarax) 25 mg PO Q6 PRN PRN Reason: Itching / Pruritus Vasopressin 100 units/ Sodium (Chloride) 105 mls @ 1.89 mls/hr IV .Q24H [facility]; 0.03 UNITS/MIN PRN Reason: Protocol Last Admin: 01/06/17 17:14 Dose: 0.03 units/min, 1.89 mls/hr Piperacillin Sod/Tazobactam (Sod 2.25 gm/ Sodium Chloride) 100 mls @ 100 mls/ hr IVPB Q8@0700,1500,2300 [facility] PRN Reason: Protocol Last Admin: 01/07/17 06:26 Dose: 100 mls/hr Cefepime HCl 1 gm/ Sodium (Chloride) 100 mls @ 100 mls/hr IVPB DAILY [facility] PRN Reason: Protocol Last Admin: 01/07/17 09:58 Dose: 100 mls/hr Norepinephrine Bitartrate 8 mg (/ Dextrose) 508 mls @ 9.52 mls/hr IV .Q24H [facility] ; 2.5 MCG/MIN PRN Reason: Protocol Last Titration: 01/07/17 02:34 Dose: Infused Dextrose/Sodium Chloride (Dextrose 5%/0.45% Ns 1000 Ml) 1,000 mls @ 60 mls/hr IV .[id number] [facility] Stop: 01/08/17 10:34 Lactulose (Enulose) 20 gm PO QID [facility] Last Admin: 01/07/17 10:00 Dose: 20 gm Octreotide Acetate (Sandostatin) 20 mcg SC Q8 [facility] Last Admin: 01/07/17 10:01 Dose: 20 mcg Pantoprazole Sodium (Protonix Inj) 40 mg IVP DAILY [facility] Last Admin: 01/07/17 10:01 Dose: 40 mg Rifaximin (Xifaxan) 550 mg PO BID [facility] PRN Reason: Protocol Last Admin: 01/07/17 10:00 Dose: 550 mg Sodium Bicarbonate (Sodium Bicarbonate Tab) 1,300 mg PO BID [facility] Last Admin: 01/07/17 10:00 Dose: 1,300 mg Ursodiol (Actigall) 300 mg PO BID [facility] Last Admin: 01/07/17 10:00 Dose: 300 mg Zinc Sulfate (Zinc Sulfate 220 Mg Cap) 220 mg PO DAILY [facility] Last Admin: 01/07/17 10:01 Dose: 220 mg - Labs Labs: 01/07/17 06:55 01/07/17 06:55 PT 24.1 Seconds (9.8-13.1) H 01/04/17 15:15 INR 2.1 (0.9-1.2) H 01/04/17 15:15 APTT 41.3 Seconds (25.6-37.1) H 01/04/17 15:15 - Constitutional Appears: Non-toxic, Chronically Ill - Head Exam Head Exam: NORMOCEPHALIC - Eye Exam Eye Exam: Scleral icterus - ENT Exam ENT Exam: Mucous Membranes Dry - Neck Exam Neck Exam: absent: Lymphadenopathy - Respiratory Exam Respiratory Exam: Decreased Breath Sounds, Rhonchi - Cardiovascular Exam Cardiovascular Exam: REGULAR RHYTHM - GI/Abdominal Exam GI & Abdominal Exam: Distended, Soft - Rectal Exam Rectal Exam: Deferred - Exam Exam: NORMAL INSPECTION Assessment and Plan (1) DM2 (diabetes mellitus, type 2) Status: Acute (2) Hypotension Status: Acute (3) UTI (urinary tract infection) Status: Acute (4) Udzwm-jo-iqkpyhu kidney injury Status: Acute (5) Hepatorenal syndrome Status: Acute (6) Liver cirrhosis Status: Acute
--- NOTE | 2017-01-07 12:41 | PCM.SURG1 ---
Surgeon's Initial Post Op Note - Surgeon's Notes Surgeon: Dr Zhang PGY1 Protein Specialist: Dr Cannon PGY3 Type of Anesthesia: Local Pre-Operative Diagnosis: renal failure, hypotension Operative Findings: see below Post-Operative Diagnosis: as above Operation Performed: attempted right IJ insertion (unable to pass guidewire). left femoral TLC insertion. both procedures w/ ultrasound guidance Specimen/Specimens Removed: none Estimated Blood Loss: EBL {In ML}: 15 Blood Products Given: N/A Drains Used: No Drains Post-Op Condition: Poor Date of Surgery/Procedure: 01/07/17 Time of Surgery/Procedure: 12:41
[2017-01-07] MEDS: Norepinephrine 8 MG in Dextrose 5% In Water 500 ML IV SCH ×2 (13:11→23:02)
--- NOTE | 2017-01-07 13:13 | CP.PCM.PN ---
Subjective - Date & Time of Evaluation Date of Evaluation: 01/06/17 Time of Evaluation: 16:30 - Subjective Subjective: still lethargic Objective - Vital Signs/Intake and Output Vital Signs (last 24 hours): Temp Pulse Resp BP Pulse Ox 99.1 F 87 15 111/47 L 100 01/07/17 12:00 01/07/17 12:00 01/07/17 12:00 01/07/17 12:00 01/07/17 12:00 Intake and Output: 01/07/17 01/07/17 06:59 18:59 Intake Total 508 Output Total 0 Balance 508 - Medications Medications: Current Medications Hydroxyzine HCl (Atarax) 25 mg PO Q6 PRN PRN Reason: Itching / Pruritus Vasopressin 100 units/ Sodium (Chloride) 105 mls @ 1.89 mls/hr IV .Q24H [facility]; 0.03 UNITS/MIN PRN Reason: Protocol Last Admin: 01/06/17 17:14 Dose: 0.03 units/min, 1.89 mls/hr Piperacillin Sod/Tazobactam (Sod 2.25 gm/ Sodium Chloride) 100 mls @ 100 mls/ hr IVPB Q8@0700,1500,2300 [facility] PRN Reason: Protocol Last Admin: 01/07/17 06:26 Dose: 100 mls/hr Cefepime HCl 1 gm/ Sodium (Chloride) 100 mls @ 100 mls/hr IVPB DAILY [facility] PRN Reason: Protocol Last Admin: 01/07/17 09:58 Dose: 100 mls/hr Norepinephrine Bitartrate 8 mg (/ Dextrose) 508 mls @ 9.52 mls/hr IV .Q24H [facility] ; 2.5 MCG/MIN PRN Reason: Protocol Last Titration: 01/07/17 02:34 Dose: Infused Dextrose/Sodium Chloride (Dextrose 5%/0.45% Ns 1000 Ml) 1,000 mls @ 60 mls/hr IV .[id number] [facility] Stop: 01/08/17 10:34 Lactulose (Enulose) 20 gm PO BID PRN PRN Reason: Constipation Octreotide Acetate (Sandostatin) 20 mcg SC Q8 [facility] Last Admin: 01/07/17 10:01 Dose: 20 mcg Pantoprazole Sodium (Protonix Inj) 40 mg IVP DAILY [facility] Last Admin: 01/07/17 10:01 Dose: 40 mg Rifaximin (Xifaxan) 550 mg PO BID [facility] PRN Reason: Protocol Last Admin: 01/07/17 10:00 Dose: 550 mg Sodium Bicarbonate (Sodium Bicarbonate Tab) 1,300 mg PO BID [facility] Last Admin: 01/07/17 10:00 Dose: 1,300 mg Ursodiol (Actigall) 300 mg PO BID [facility] Last Admin: 01/07/17 10:00 Dose: 300 mg Zinc Sulfate (Zinc Sulfate 220 Mg Cap) 220 mg PO DAILY [facility] Last Admin: 01/07/17 10:01 Dose: 220 mg - Labs Labs: 01/07/17 06:55 01/07/17 06:55 PT 24.1 Seconds (9.8-13.1) H 01/04/17 15:15 INR 2.1 (0.9-1.2) H 01/04/17 15:15 APTT 41.3 Seconds (25.6-37.1) H 01/04/17 15:15 - Respiratory Exam Respiratory Exam: NORMAL BREATHING PATTERN - Cardiovascular Exam Cardiovascular Exam: REGULAR RHYTHM - GI/Abdominal Exam GI & Abdominal Exam: Soft, Normal Bowel Sounds Assessment and Plan - Assessment and Plan (Free Text) Assessment: 56 yo female with hepatic encephalopathy renal function worse, concern for HRS continue lactulose and xifaxan robles culture to look for source of infection [facility] notified prognosis guarded
[2017-01-07 13:16] LABS: ABG ALLEN TEST YES; ARTERIAL BLOOD GAS HCO3 19.4 mmol/L (21-28); ARTERIAL BLOOD GAS O2 CAPACITY 11.9 mL/dL (16-24); ARTERIAL BLOOD GAS PO2 72 mm/Hg (80-100); ARTERIAL BLOOD HGB O2 SAT 96.1 % (95.0-98.0); CARBOXYHEMOGLOBIN 3.6 % (0.5-1.5); HHB -0.7 % (0.0-5.0)
--- NOTE | 2017-01-07 13:33 | CP.PCM.PN ---
Subjective - Date & Time of Evaluation Date of Evaluation: 01/07/17 Time of Evaluation: 13:30 - Subjective Subjective: responds to name Objective - Vital Signs/Intake and Output Vital Signs (last 24 hours): Temp Pulse Resp BP Pulse Ox 99.1 F 87 15 111/47 L 100 01/07/17 12:00 01/07/17 12:00 01/07/17 12:00 01/07/17 12:00 01/07/17 12:00 Intake and Output: 01/07/17 01/07/17 06:59 18:59 Intake Total 508 Output Total 0 Balance 508 - Medications Medications: Current Medications Hydroxyzine HCl (Atarax) 25 mg PO Q6 PRN PRN Reason: Itching / Pruritus Vasopressin 100 units/ Sodium (Chloride) 105 mls @ 1.89 mls/hr IV .Q24H [facility]; 0.03 UNITS/MIN PRN Reason: Protocol Last Admin: 01/06/17 17:14 Dose: 0.03 units/min, 1.89 mls/hr Piperacillin Sod/Tazobactam (Sod 2.25 gm/ Sodium Chloride) 100 mls @ 100 mls/ hr IVPB Q8@0700,1500,2300 [facility] PRN Reason: Protocol Last Admin: 01/07/17 06:26 Dose: 100 mls/hr Cefepime HCl 1 gm/ Sodium (Chloride) 100 mls @ 100 mls/hr IVPB DAILY [facility] PRN Reason: Protocol Last Admin: 01/07/17 09:58 Dose: 100 mls/hr Norepinephrine Bitartrate 8 mg (/ Dextrose) 508 mls @ 9.52 mls/hr IV .Q24H [facility] ; 2.5 MCG/MIN PRN Reason: Protocol Last Admin: 01/07/17 13:11 Dose: 30 mcg/min, 114.3 mls/hr Dextrose/Sodium Chloride (Dextrose 5%/0.45% Ns 1000 Ml) 1,000 mls @ 60 mls/hr IV .[id number] [facility] Stop: 01/08/17 10:34 Last Admin: 01/07/17 10:45 Dose: 60 mls/hr Lactulose (Enulose) 20 gm PO BID [facility] Octreotide Acetate (Sandostatin) 20 mcg SC Q8 [facility] Last Admin: 01/07/17 10:01 Dose: 20 mcg Pantoprazole Sodium (Protonix Inj) 40 mg IVP DAILY [facility] Last Admin: 01/07/17 10:01 Dose: 40 mg Rifaximin (Xifaxan) 550 mg PO BID [facility] PRN Reason: Protocol Last Admin: 01/07/17 10:00 Dose: 550 mg Sodium Bicarbonate (Sodium Bicarbonate Tab) 1,300 mg PO BID [facility] Last Admin: 01/07/17 10:00 Dose: 1,300 mg Ursodiol (Actigall) 300 mg PO BID [facility] Last Admin: 01/07/17 10:00 Dose: 300 mg Zinc Sulfate (Zinc Sulfate 220 Mg Cap) 220 mg PO DAILY [facility] Last Admin: 01/07/17 10:01 Dose: 220 mg - Labs Labs: 01/07/17 06:55 01/07/17 06:55 PT 24.1 Seconds (9.8-13.1) H 01/04/17 15:15 INR 2.1 (0.9-1.2) H 01/04/17 15:15 APTT 41.3 Seconds (25.6-37.1) H 01/04/17 15:15 - Respiratory Exam Respiratory Exam: NORMAL BREATHING PATTERN - Cardiovascular Exam Cardiovascular Exam: REGULAR RHYTHM - GI/Abdominal Exam GI & Abdominal Exam: Soft, Normal Bowel Sounds Assessment and Plan - Assessment and Plan (Free Text) Assessment: 56 yo female with decompesated cirrhosis/hepatic encephalopathy more responsive today continue lactulose and xifaxan UTI
--- NOTE | 2017-01-07 14:47 | RAD ---
PROCEDURE: CHEST RADIOGRAPH, 1 VIEW HISTORY: attempted right IJ placement COMPARISON: Portable chest 01/05/2017. FINDINGS: LUNGS: Opacification of the bilateral feels is felt on the basis of worsening pulmonary venous congestion rather than interstitial or alveolar infiltrates. Alveolar-type infiltrate or atelectasis not excluded the right base medially. None is clearly identified on the left. Cardiac size remains enlarged but is stable. PLEURA: No pneumothorax or pleural fluid seen. CARDIOVASCULAR: Normal. OSSEOUS STRUCTURES: No significant abnormalities. VISUALIZED UPPER ABDOMEN: Nasogastric tube is identified placed terminating at the stomach and coiling back to the esophagogastric junction. OTHER FINDINGS: None. IMPRESSION: Persistent CHF potentially slightly increased. Underlying patchy density at the right base is not completely excluded medially. No additional definite infiltrate.
--- NOTE | 2017-01-07 19:57 | PN ---
DATE: 01/07/2017 CRITICAL CARE PROGRESS NOTE LOCATION: Patient in ICU, bed 426. TIME SPENT: 45 minutes. SUBJECTIVE: Patient is seen and evaluated at the bedside. Case discussed in multidisciplinary ICU team rounds. Events since admission are noted. A 56-year-old female with history significant for hepatitis C-related to chronic liver disease/cirrhosis, chronic kidney disease, diabetes mellitus type 2, anemia of chronic disease status post hemodialysis x 3. Hypotensive, on vasopressin and Levophed. Remains lethargic, but opens eyes on calling her name. Not able to sustain in conversation. PHYSICAL EXAMINATION: VITAL SIGNS: Temperature 99.1, heart rate 87, respiratory rate 18, on oxygen 2 liters nasal cannula, saturating 100%. Blood pressure 94/40, on vasopressin and Levophed. HEAD, EYES, EARS, NOSE AND THROAT: Pupils 2 to 3 mm midline, reactive to light and accommodation. Sclerae icteric. NECK: Supple. HEART: Rhythm regular. S1, S2 normal. ABDOMEN: Bowel sounds present times all 4 quadrants. Distended. No tenderness. EXTREMITIES: With trace edema. NEUROLOGIC: Lethargic. Moves all 4 extremities. LABORATORY DATA: WBC 11.3, hemoglobin 8.6, hematocrit 25.4, platelet count 92. Neutrophils 68.7, lymphocytes 11.2, monocytes 17.9. PT 24.1, INR 2.1, PTT 41.3. ABG: pH of 7.30, pCO2 of 38, pO2 of 72, saturation 100.7, on FiO2 at 28%, 2 liters nasal cannula. SMA-7: Sodium 137, potassium 4.1, chloride 105, CO2 of 20, blood urea nitrogen 51, creatinine 7.1, estimated GFR about 7, random glucose 142, calcium 7.7; total bilirubin 20.2, AST 113, ALT 80, alkaline phosphatase 215. Ammonia level 30. Total protein 7.8, albumin 2.5. Microbiology: Urine culture positive for E-coli. Chest x-ray: Done this morning, persistent CHF potentially slightly increased, underlying patchy density at the right base, not completely excluded. IMPRESSION: 1. Neurological: Metabolic septic encephalopathy, but wakeful. Initial CT negative for any acute event. 2. Pulmonary: Bilateral infiltrates, suspected volume overload versus pneumonia. Saturating over 94% on 2 liters nasal cannula. Continue to monitor respiratory status. 3. Cardiac: Hypertension, on vasopressin and Levophed. Continue IV hydration as per renal consult. 4. Gastrointestinal: Suspected hepatorenal syndrome, renal failure status post dialysis today. Dialysis is challenged by persistent hypotension. 6. Infectious disease: Urinary tract infection with Escherichia coli. Suspected pneumonia in the lung. Antibiotic as per Infectious Disease consult, on cefepime 1 g IV daily, Zosyn 2.25 g IV q. 8 hours,Xifaxan 550 mg p.o. daily. 7. Renal: Severe metabolic acidosis, on sodium bicarbonate. 8. Continue deep venous thrombosis prophylaxis with sequential compression device. 9. Status post left femoral triple-lumen catheter, uncomplicated and no blood loss, both lines infusing well. Chico Vazquez MD
[2017-01-08] MEDS: Norepinephrine 8 MG in Dextrose 5% In Water 500 ML IV SCH ×5 (03:52→22:25)
[2017-01-08] MEDS: Dextrose 5%/0.45% NS 1,000 ML IV SCH (03:57)
[2017-01-08 06:00] LABS: BASO % 0.4 % (0.0-2.0); EOS # 0.2 K/uL (0.0-0.7); EOS % 1.8 % (0.0-4.0); HEMATOCRIT 23.2 % (34.0-47.0); LYMPH # 1.1 K/uL (1.0-4.3); LYMPH % 10.9 % (20.0-40.0); MEAN CELL VOLUME 95.7 fl (81.0-99.0); MEAN CORPUSCULAR HEMOGLOBIN 32.8 pg (27.0-31.0); MEAN CORPUSCULAR HGB CONC 34.3 g/dL (33.0-37.0); MEAN PLATELET VOLUME 10.7 fl (7.2-11.7); MONO # 2.1 K/uL (0.0-0.8); MONO % 20.7 % (0.0-10.0); NEUT # 6.8 K/uL (1.8-7.0); NEUT % 66.2 % (50.0-75.0); NRBC % 7.5 % (0.0-0.0); PLATELET COUNT 76 K/uL (130-400); RED CELL DISTRIBUTION WIDTH 20.6 % (11.5-14.5); WHITE BLOOD COUNT 10.3 K/uL (4.8-10.8)
[2017-01-08 06:03] LABS: ALB/GLOB RATIO 0.5 (1.0-2.1); BILIRUBIN,TOTAL 21.8 mg/dl (0.2-1.3); CALCIUM 7.6 mg/dL (8.4-10.2); POTASSIUM 3.4 MMOL/L (3.6-5.0); TOTAL PROTEIN 7.5 G/DL (6.3-8.2)
--- NOTE | 2017-01-08 08:02 | CP.PCM.PN ---
Subjective - Date & Time of Evaluation Date of Evaluation: 01/08/17 Time of Evaluation: 08:00 - Subjective Subjective: pt more awake/alert. per family answering simple questions. lowgrade temp noted. no n/v/d. bw noted. wbc 10. cmp/bili elevated levophed/vasopressin cont. e coli in urine, bc negative. case d/c w/ dr rosales Objective - Vital Signs/Intake and Output Vital Signs (last 24 hours): Temp Pulse Resp BP Pulse Ox 100.5 F H 96 H 18 106/58 L 97 01/08/17 04:00 01/08/17 06:00 01/08/17 06:00 01/08/17 06:00 01/08/17 06:00 Intake and Output: 01/08/17 01/08/17 06:59 18:59 Intake Total 2608 Output Total 1800 Balance 808 - Medications Medications: Current Medications Hydroxyzine HCl (Atarax) 25 mg PO Q6 PRN PRN Reason: Itching / Pruritus Vasopressin 100 units/ Sodium (Chloride) 105 mls @ 1.89 mls/hr IV .Q24H [facility]; 0.03 UNITS/MIN PRN Reason: Protocol Last Admin: 01/06/17 17:14 Dose: 0.03 units/min, 1.89 mls/hr Piperacillin Sod/Tazobactam (Sod 2.25 gm/ Sodium Chloride) 100 mls @ 100 mls/ hr IVPB Q8@0700,1500,2300 [facility] PRN Reason: Protocol Last Admin: 01/08/17 06:23 Dose: 100 mls/hr Cefepime HCl 1 gm/ Sodium (Chloride) 100 mls @ 100 mls/hr IVPB DAILY [facility] PRN Reason: Protocol Last Admin: 01/07/17 09:58 Dose: 100 mls/hr Dextrose/Sodium Chloride (Dextrose 5%/0.45% Ns 1000 Ml) 1,000 mls @ 60 mls/hr IV .[id number] [facility] Stop: 01/08/17 10:34 Last Admin: 01/08/17 03:57 Dose: 60 mls/hr Norepinephrine Bitartrate 8 mg (/ Dextrose) 508 mls @ 114.3 mls/hr IV .[id number] [facility]; 30 MCG/MIN PRN Reason: Protocol Last Admin: 01/08/17 03:52 Dose: 30 mcg/min, 114.3 mls/hr Lactulose (Enulose) 20 gm PO BID [facility] Last Admin: 01/07/17 17:22 Dose: 20 gm Octreotide Acetate (Sandostatin) 20 mcg SC Q8 [facility] Last Admin: 01/08/17 00:18 Dose: 20 mcg Pantoprazole Sodium (Protonix Inj) 40 mg IVP DAILY [facility] Last Admin: 01/07/17 10:01 Dose: 40 mg Rifaximin (Xifaxan) 550 mg PO BID [facility] PRN Reason: Protocol Last Admin: 01/07/17 17:22 Dose: 550 mg Sodium Bicarbonate (Sodium Bicarbonate Tab) 1,300 mg PO BID [facility] Last Admin: 01/07/17 17:21 Dose: 1,300 mg Ursodiol (Actigall) 300 mg PO BID [facility] Last Admin: 01/07/17 17:22 Dose: 300 mg Zinc Sulfate (Zinc Sulfate 220 Mg Cap) 220 mg PO DAILY [facility] Last Admin: 01/07/17 10:01 Dose: 220 mg - Labs Labs: 01/08/17 05:10 01/08/17 05:10 PT 24.1 Seconds (9.8-13.1) H 01/04/17 15:15 INR 2.1 (0.9-1.2) H 01/04/17 15:15 APTT 41.3 Seconds (25.6-37.1) H 01/04/17 15:15 - Constitutional Appears: Non-toxic, No Acute Distress, Chronically Ill - Head Exam Head Exam: ATRAUMATIC, NORMAL INSPECTION, NORMOCEPHALIC - Eye Exam Eye Exam: EOMI, Normal appearance, PERRL Pupil Exam: NORMAL ACCOMODATION, PERRL - ENT Exam ENT Exam: Mucous Membranes Moist, Normal Exam - Neck Exam Neck Exam: Full ROM, Normal Inspection. absent: Lymphadenopathy - Respiratory Exam Respiratory Exam: Clear to Ausculation Bilateral, NORMAL BREATHING PATTERN - Cardiovascular Exam Cardiovascular Exam: REGULAR RHYTHM, RRR, +S1, +S2. absent: Murmur - GI/Abdominal Exam GI & Abdominal Exam: Soft, Normal Bowel Sounds. absent: Tenderness - Extremities Exam Extremities Exam: Full ROM, Normal Capillary Refill, Normal Inspection. absent : Joint Swelling, Pedal Edema - Back Exam Back Exam: NORMAL INSPECTION - Neurological Exam Neurological Exam: Alert, Altered, Awake, CN II-XII Intact - Psychiatric Exam Psychiatric exam: Normal Affect, Normal Mood - Skin Skin Exam: Dry, Intact, Normal Color, Warm Assessment and Plan (1) [id number] kidney injury Status: Acute (2) DVT prophylaxis Status: Acute (3) Hepatorenal syndrome Status: Acute (4) Liver cirrhosis Status: Acute (5) UTI (urinary tract infection) Status: Acute (6) Hypotension Status: Acute - Assessment and Plan (Free Text) Assessment: (1) Zffht-fl-gyoxgxj kidney injury Assessment and Plan: neprho dialysis started in er bicarb Status: Acute (2) DVT prophylaxis Assessment and Plan: scd nad ae hose no anticoag r/t liver dz Status: Acute (3) Hepatorenal syndrome Assessment and Plan: nephro/gi consult hypotension noted dialysis as per nephro Status: Acute (4) Liver cirrhosis Assessment and Plan: gi will d/c possible xfer w/ liver transfer w/ fellow at [facility], excessive time spentyester01/07 dc care w/ all specialist and team at [facility] Status: Acute (5) UTI (urinary tract infection) Assessment and Plan: zosyn ?? sepsis contributing to ams. pending urine and blood c/s ID consult now febrile. c/s noted. case d/cw/ ID who will adjust anbx Status: Acute (6) Hypotension Assessment and Plan: levophed and vasopressin ivf support icu care prognosis poor
[2017-01-08] MEDS: Cefepime 1 GM in Sodium Chloride 0.9% 100 ML IVPB SCH (08:58)
[2017-01-08] MEDS ORDERED: Lidocaine 1% Inj (20ml) ONE (09:45)
--- NOTE | 2017-01-08 11:30 | CP.PCM.PN ---
Subjective - Date & Time of Evaluation Date of Evaluation: 01/08/17 Time of Evaluation: 11:28 - Subjective Subjective: Patient is more awake. Patient asking for food today. Family member at the bedside Review lab. Objective - Vital Signs/Intake and Output Vital Signs (last 24 hours): Temp Pulse Resp BP Pulse Ox 98.5 F 80 20 96/44 L 90 L 01/08/17 08:00 01/08/17 08:00 01/08/17 08:00 01/08/17 08:00 01/08/17 08:00 Intake and Output: 01/08/17 01/08/17 06:59 18:59 Intake Total 2608 701 Output Total 1800 Balance 808 701 - Medications Medications: Current Medications Hydroxyzine HCl (Atarax) 25 mg PO Q6 PRN PRN Reason: Itching / Pruritus Vasopressin 100 units/ Sodium (Chloride) 105 mls @ 1.89 mls/hr IV .Q24H [facility]; 0.03 UNITS/MIN PRN Reason: Protocol Last Admin: 01/06/17 17:14 Dose: 0.03 units/min, 1.89 mls/hr Piperacillin Sod/Tazobactam (Sod 2.25 gm/ Sodium Chloride) 100 mls @ 100 mls/ hr IVPB Q8@0700,1500,2300 [facility] PRN Reason: Protocol Last Admin: 01/08/17 06:23 Dose: 100 mls/hr Cefepime HCl 1 gm/ Sodium (Chloride) 100 mls @ 100 mls/hr IVPB DAILY [facility] PRN Reason: Protocol Last Admin: 01/08/17 08:58 Dose: 100 mls/hr Norepinephrine Bitartrate 8 mg (/ Dextrose) 508 mls @ 114.3 mls/hr IV .Q4H27M [facility]; 30 MCG/MIN PRN Reason: Protocol Last Admin: 01/08/17 08:55 Dose: 30 mcg/min, 114.3 mls/hr Lactulose (Enulose) 20 gm PO BID [facility] Last Admin: 01/08/17 08:53 Dose: 20 gm Octreotide Acetate (Sandostatin) 20 mcg SC Q8 [facility] Last Admin: 01/08/17 00:18 Dose: 20 mcg Pantoprazole Sodium (Protonix Inj) 40 mg IVP DAILY [facility] Last Admin: 01/08/17 08:59 Dose: 40 mg Rifaximin (Xifaxan) 550 mg PO BID [facility] PRN Reason: Protocol Last Admin: 01/08/17 09:01 Dose: 550 mg Sodium Bicarbonate (Sodium Bicarbonate Tab) 1,300 mg PO BID [facility] Last Admin: 01/08/17 09:00 Dose: 1,300 mg Ursodiol (Actigall) 300 mg PO BID [facility] Last Admin: 01/08/17 08:54 Dose: 300 mg Zinc Sulfate (Zinc Sulfate 220 Mg Cap) 220 mg PO DAILY [facility] Last Admin: 01/07/17 10:01 Dose: 220 mg - Labs Labs: 01/08/17 05:10 01/08/17 05:10 PT 24.1 Seconds (9.8-13.1) H 01/04/17 15:15 INR 2.1 (0.9-1.2) H 01/04/17 15:15 APTT 41.3 Seconds (25.6-37.1) H 01/04/17 15:15 - Constitutional Appears: No Acute Distress - Eye Exam Eye Exam: Scleral icterus - ENT Exam ENT Exam: Mucous Membranes Moist - Neck Exam Neck Exam: absent: Lymphadenopathy - Respiratory Exam Respiratory Exam: NORMAL BREATHING PATTERN. absent: Chest Wall Tenderness, Rales - Cardiovascular Exam Cardiovascular Exam: absent: JVD, Rubs - GI/Abdominal Exam GI & Abdominal Exam: Soft, Normal Bowel Sounds - Extremities Exam Extremities Exam: absent: Calf Tenderness - Back Exam Back Exam: absent: CVA tenderness (L), CVA tenderness (R) - Neurological Exam Neurological Exam: Altered - Skin Skin Exam: absent: Cyanosis Assessment and Plan (1) DM2 (diabetes mellitus, type 2) Status: Acute (2) Hypotension Status: Acute (3) [id number] kidney injury Assessment & Plan: Acute kidney injury with hepatorenal syndrome. Patient is requiring dialysis she completed dialysis yesterday afternoon . Serum bilirubin continued to rise about over 21. Liver enzyme abnormalities Patient still have right femoral catheter data. And we are trying to remove the femoral catheter to be replaced with subclavian permacath or temporal artery catheter for dialysis however because of the coagulopathy patient need fresh frozen plasma before the procedures to be done on the subclavian. Hypokalemia we will give potassium chloride 1 dose now. Hepatic encephalopathy improving. I spoke to the family member on her condition. Continual hemodialysis for tomorrow. And to give albumin on dialysis. Status: Acute (4) Hepatorenal syndrome Status: Acute (5) Liver cirrhosis Status: Acute
[2017-01-08 12:07] LABS: EOSINOPHIL 1 % (0-7); NEUTROPHIL 69 % (42-75); NUCLEATED RED BLOOD CELL 6 % (0-0); TOTAL CELLS COUNTED 100
[2017-01-08] MEDS: Potassium CL 10 MEQ/50 ML 50 ML IVPB SCH ×2 (13:03→15:00)
[2017-01-08] MEDS ORDERED: Sodium Chloride 3% for Inhalation 4 ML VIAL.NEB IH PRN (13:59)
--- NOTE | 2017-01-08 14:00 | CP.PCM.PN ---
Subjective - Date & Time of Evaluation Date of Evaluation: 01/08/17 Time of Evaluation: 09:00 - Subjective Subjective: MORE ALERT LESS SOB LOW GRADE FEVER Objective - Vital Signs/Intake and Output Vital Signs (last 24 hours): Temp Pulse Resp BP Pulse Ox 98.3 F 91 H 15 113/75 95 01/08/17 12:00 01/08/17 12:00 01/08/17 12:00 01/08/17 12:00 01/08/17 12:00 Intake and Output: 01/08/17 01/08/17 06:59 18:59 Intake Total 2608 1209 Output Total 1800 Balance 808 1209 - Medications Medications: Current Medications Hydroxyzine HCl (Atarax) 25 mg PO Q6 PRN PRN Reason: Itching / Pruritus Vasopressin 100 units/ Sodium (Chloride) 105 mls @ 1.89 mls/hr IV .Q24H [facility]; 0.03 UNITS/MIN PRN Reason: Protocol Last Admin: 01/06/17 17:14 Dose: 0.03 units/min, 1.89 mls/hr Piperacillin Sod/Tazobactam (Sod 2.25 gm/ Sodium Chloride) 100 mls @ 100 mls/ hr IVPB Q8@0700,1500,2300 [facility] PRN Reason: Protocol Last Admin: 01/08/17 06:23 Dose: 100 mls/hr Cefepime HCl 1 gm/ Sodium (Chloride) 100 mls @ 100 mls/hr IVPB DAILY [facility] PRN Reason: Protocol Last Admin: 01/08/17 08:58 Dose: 100 mls/hr Norepinephrine Bitartrate 8 mg (/ Dextrose) 508 mls @ 114.3 mls/hr IV .Q4H27M [facility]; 30 MCG/MIN PRN Reason: Protocol Last Admin: 01/08/17 13:09 Dose: 30 mcg/min, 114.3 mls/hr Potassium Chloride (Potassium Cl 10meq/50ml Sterile Water) 50 mls @ 50 mls/hr IVPB Q1 [facility] Stop: 01/08/17 13:59 Last Admin: 01/08/17 13:03 Dose: 50 mls/hr Lactulose (Enulose) 20 gm PO BID [facility] Last Admin: 01/08/17 08:53 Dose: 20 gm Octreotide Acetate (Sandostatin) 20 mcg SC Q8 [facility] Last Admin: 01/08/17 00:18 Dose: 20 mcg Pantoprazole Sodium (Protonix Inj) 40 mg IVP DAILY [facility] Last Admin: 01/08/17 08:59 Dose: 40 mg Rifaximin (Xifaxan) 550 mg PO BID [facility] PRN Reason: Protocol Last Admin: 01/08/17 09:01 Dose: 550 mg Sodium Bicarbonate (Sodium Bicarbonate Tab) 1,300 mg PO BID [facility] Last Admin: 01/08/17 09:00 Dose: 1,300 mg Ursodiol (Actigall) 300 mg PO BID [facility] Last Admin: 01/08/17 08:54 Dose: 300 mg Zinc Sulfate (Zinc Sulfate 220 Mg Cap) 220 mg PO DAILY [facility] Last Admin: 01/07/17 10:01 Dose: 220 mg - Labs Labs: 01/08/17 05:10 01/08/17 05:10 PT 24.1 Seconds (9.8-13.1) H 01/04/17 15:15 INR 2.1 (0.9-1.2) H 01/04/17 15:15 APTT 41.3 Seconds (25.6-37.1) H 01/04/17 15:15 - Constitutional Appears: Non-toxic, Confused, Chronically Ill - Head Exam Head Exam: NORMOCEPHALIC - Eye Exam Eye Exam: absent: Scleral icterus - ENT Exam ENT Exam: Mucous Membranes Dry - Neck Exam Neck Exam: absent: Lymphadenopathy - Respiratory Exam Respiratory Exam: Decreased Breath Sounds, Rhonchi - Cardiovascular Exam Cardiovascular Exam: REGULAR RHYTHM, +S1, +S2 - GI/Abdominal Exam GI & Abdominal Exam: Distended, Soft - Rectal Exam Rectal Exam: Deferred - Exam Exam: NORMAL INSPECTION - Extremities Exam Extremities Exam: Pedal Edema. absent: Calf Tenderness, Tenderness - Back Exam Back Exam: absent: CVA tenderness (L), CVA tenderness (R) - Neurological Exam Neurological Exam: Alert, Altered, Awake, CN II-XII Intact Neuro motor strength exam: Left Upper Extremity: 3, Right Upper Extremity: 3, Left Lower Extremity: 3, Right Lower Extremity: 3 - Psychiatric Exam Psychiatric exam: Depressed - Skin Skin Exam: Dry Assessment and Plan (1) DM2 (diabetes mellitus, type 2) Status: Acute (2) Hypotension Status: Acute (3) UTI (urinary tract infection) Status: Acute (4) [id number] kidney injury Status: Acute (5) Hepatorenal syndrome Status: Acute (6) Liver cirrhosis Status: Acute - Assessment and Plan (Free Text) Assessment: RECULTURED STAT VANCO GIVEN X 1
--- NOTE | 2017-01-08 14:47 | CP.CCUPN ---
CCU Subjective - Physician Review Subjective (Free Text): Events reviewed, definitively more awake today and responsive to simple commands. Remains on Levophed at 30 mcg/min and Vasopressin infusion. Underwent 3rd course of HD (1.5L removed) overnight. PICC line cancelled today by IR due to presence of advanced stage CKD. Other vitals and I/O's reviewed. Low grade fever spike to 100.5F overnight. No urine output noted. ROS: No other pertinent negs or positives on 10+ system review. PMSFH: All Nursing and physician documentation reviewed to date; no new pertinent info noted relevant to current medical problems. IMPRESSION / MAJOR PROBLEMS NOW: 1. Acute Resp insuff 2 RML Pneumonia 2. Cirrhosis with hepatic encephalopathy 3. GEGE 2 ATN / Hepatorenal syndrome, now HD-dependent 4. Chronic disease Anemia / Thrombocytopenia PLAN: 1. Improved neuromental status may have precluded need for oral intubation for airway protection. 2. Empiric abx coverage noted with Cefepime / Zosyn / Vanco. So far, urine growth with E.coli. 3. Levophed weans as BP tolerates. Vasopressin at fixed dose. 4. On Octreotide 20 mcg SQ Q8h: will increase to 100mcg q8h, add Midodrine and Albumin now. 5. As per Dr. Marx: [facility] will not take patient unless weaned off vasopressors. CCU Objective - Vital Signs / Intake & Output Vital Signs (Last 4 hours): Vital Signs Temp Pulse Resp BP Pulse Ox 01/08/17 12:00 98.3 F 91 H 15 113/75 95 Intake and Output (Last 8hrs): Intake & Output 01/07/17 01/08/17 01/08/17 22:59 06:59 14:59 Intake Total 1500 1908 1209 Output Total 125 1800 Balance 1544 356 9940 Weight 258 lb Intake: IV 992 256 3897 Intake, Piggyback 1020 920 Output: Urine 0 Urine, Voided 0 Stool 125 400 Ultrafiltrate 1400 - Physical Exam Physical Exam Limitations: Positive for: Altered Mental Status Head: Positive for: Atraumatic, Normocephalic Pupils: Positive for: PERRL Conjunctiva: Positive for: Normal, Icteric Mouth: Positive for: Moist Mucous Membranes Neck: Positive for: Normal Range of Motion. Negative for: JVD Respiratory/Chest: Positive for: Clear to Auscultation, Decreased Breath Sounds Cardiovascular: Positive for: Regular Rate and Rhythm Abdomen: Positive for: Distention, Normal Bowel Sounds. Negative for: Tenderness, Mass/Organomegaly Lower Extremity: Positive for: NORMAL PULSES. Negative for: CALF TENDERNESS, Cyanosis Neurological: Positive for: Motor Func Grossly Intact, Normal Sensory Function Skin: Positive for: Warm, Dry. Negative for: Rashes Psychiatric: Positive for: Lethargic - Medications Active Medications: Active Medications Generic Name Dose Route Start Last Admin Trade Name Freq PRN Reason Stop Dose Admin Albumin Human 25 gm 01/08/17 16:00 Albumin Human 25% (12.5 Gm/50 Ml) IV 01/09/17 10:01 Q6 [facility] Hydroxyzine HCl 25 mg 01/04/17 18:38 Atarax PO Q6 PRN Itching / Pruritus Vasopressin 100 units/ Sodium 105 mls @ 1.89 mls/hr 01/05/17 16:30 01/06/17 17:14 Chloride IV 0.03 units/min .Q24H [facility] 1.89 mls/hr Protocol Administration 0.03 UNITS/MIN Piperacillin Sod/Tazobactam 100 mls @ 100 mls/hr 01/05/17 23:00 01/08/17 06: 23 Sod 2.25 gm/ Sodium Chloride IVPB 100 mls/hr Q8@0700,1500,2300 [facility] Administration Protocol Cefepime HCl 1 gm/ Sodium 100 mls @ 100 mls/hr 01/06/17 13:00 01/08/17 08:58 Chloride IVPB 100 mls/hr DAILY [facility] Administration Protocol Norepinephrine Bitartrate 8 mg 508 mls @ 114.3 mls/hr 01/07/17 22:45 13:09 / Dextrose IV 30 mcg/min .Q4H27M [facility] 114.3 mls/hr Protocol Administration 30 MCG/MIN Vancomycin HCl 1 gm/ Sodium 250 mls @ 166.667 mls/hr 01/08/17 14:30 Chloride IVPB 01/08/17 15:59 ONCE ONE Protocol Lactulose 20 gm 01/07/17 17:00 01/08/17 08:53 Enulose PO 20 gm BID [facility] Administration Midodrine 7.5 mg 01/08/17 17:00 Proamatine PO TID [facility] Octreotide Acetate 100 mcg 01/08/17 14:45 Sandostatin SC Q8 [facility] Pantoprazole Sodium 40 mg 01/06/17 09:00 01/08/17 08:59 Protonix Inj IVP 40 mg DAILY [facility] Administration Rifaximin 550 mg 01/05/17 09:00 01/08/17 09:01 Xifaxan PO 550 mg BID [facility] Administration Protocol Sodium Bicarbonate 1,300 mg 01/05/17 09:00 01/08/17 09:00 Sodium Bicarbonate Tab PO 1,300 mg BID [facility] Administration Zinc Sulfate 220 mg 01/05/17 09:00 01/07/17 10:01 Zinc Sulfate 220 Mg Cap PO 220 mg DAILY [facility] Administration - Patient Studies Lab Studies: Microbiology Studies 01/05/17 10:30 Blood Culture - Preliminary Blood NO GROWTH AFTER 3 DAYS Lab Studies 01/08/17 01/08/17 01/08/17 Range/Units 11:39 05:10 05:10 WBC 10.3 (4.8-10.8) K/uL RBC 2.43 L (3.80-5.20) Mil/uL Hgb 8.0 L (12.0-16.0) g/dL Hct 23.2 L (34.0-47.0) % MCV 95.7 (81.0-99.0) fl MCH 32.8 H (27.0-31.0) pg MCHC 34.3 (33.0-37.0) g/dL RDW 20.6 H (11.5-14.5) % Plt Count 76 L (130-400) K/uL MPV 10.7 (7.2-11.7) fl Neut % (Auto) 66.2 (50.0-75.0) % Lymph % (Auto) 10.9 L (20.0-40.0) % [place] % (Auto) 20.7 H (0.0-10.0) % Eos % (Auto) 1.8 (0.0-4.0) % Baso % (Auto) 0.4 (0.0-2.0) % Neut # 6.8 (1.8-7.0) K/uL Lymph # 1.1 (1.0-4.3) K/uL [place] # 2.1 H (0.0-0.8) K/uL Eos # 0.2 (0.0-0.7) K/uL Baso # 0.0 (0.0-0.2) K/uL Neutrophils % (Manual) 69 (42-75) % Lymphocytes % (Manual) 14 L (20-50) % Monocytes % (Manual) 16 H (0-10) % Eosinophils % (Manual) 1 (0-7) % Nucleated RBC % 6 H (0-0) % Toxic Granulation Present Platelet Estimate Decreased L (NORMAL) Hypochromasia (manual) Slight Anisocytosis (manual) Moderate Sodium 133 (132-148) mmol/l Potassium 3.4 L (3.6-5.0) MMOL/L Chloride 98 (98-107) mmol/L Carbon Dioxide 22 (22-30) mmol/L Anion Gap 16 (10-20) BUN 34 H (7-17) mg/dl Creatinine 5.4 H (0.7-1.2) mg/dl Est GFR ( Amer) 10 Est GFR (Non-Af Amer) 8 POC Glucose (mg/dL) 157 H (65-110) mg/dL Random Glucose 152 H (65-105) mg/dL Calcium 7.6 L (8.4-10.2) mg/dL Total Bilirubin 21.8 H (0.2-1.3) mg/dl AST 129 H (14-36) U/L ALT 71 H (9-52) U/L Alkaline Phosphatase 190 H (38-126) U/L Total Protein 7.5 (6.3-8.2) G/DL Albumin 2.6 L (3.5-5.0) g/dL Globulin 5.0 H (2.2-3.9) gm/dL Albumin/Globulin Ratio 0.5 L (1.0-2.1) 01/08/17 01/07/17 01/07/17 Range/Units 04:29 21:51 17:11 WBC (4.8-10.8) K/uL RBC (3.80-5.20) Mil/uL Hgb (12.0-16.0) g/dL Hct (34.0-47.0) % MCV (81.0-99.0) fl MCH (27.0-31.0) pg MCHC (33.0-37.0) g/dL RDW (11.5-14.5) % Plt Count (130-400) K/uL MPV (7.2-11.7) fl Neut % (Auto) (50.0-75.0) % Lymph % (Auto) (20.0-40.0) % [place] % (Auto) (0.0-10.0) % Eos % (Auto) (0.0-4.0) % Baso % (Auto) (0.0-2.0) % Neut # (1.8-7.0) K/uL Lymph # (1.0-4.3) K/uL [place] # (0.0-0.8) K/uL Eos # (0.0-0.7) K/uL Baso # (0.0-0.2) K/uL Neutrophils % (Manual) (42-75) % Lymphocytes % (Manual) (20-50) % Monocytes % (Manual) (0-10) % Eosinophils % (Manual) (0-7) % Nucleated RBC % (0-0) % Toxic Granulation Platelet Estimate (NORMAL) Hypochromasia (manual) Anisocytosis (manual) Sodium (132-148) mmol/l Potassium (3.6-5.0) MMOL/L Chloride (98-107) mmol/L Carbon Dioxide (22-30) mmol/L Anion Gap (10-20) BUN (7-17) mg/dl Creatinine (0.7-1.2) mg/dl Est GFR ( Amer) Est GFR (Non-Af Amer) POC Glucose (mg/dL) 172 H 156 H 183 H (65-110) mg/dL Random Glucose (65-105) mg/dL Calcium (8.4-10.2) mg/dL Total Bilirubin (0.2-1.3) mg/dl AST (14-36) U/L ALT (9-52) U/L Alkaline Phosphatase (38-126) U/L Total Protein (6.3-8.2) G/DL Albumin (3.5-5.0) g/dL Globulin (2.2-3.9) gm/dL Albumin/Globulin Ratio (1.0-2.1) Laboratory Results - last 24 hr 01/07/17 01/07/17 01/08/17 17:11 21:51 04:29 WBC RBC Hgb Hct MCV MCH MCHC RDW Plt Count MPV Neut % (Auto) Lymph % (Auto) [place] % (Auto) Eos % (Auto) Baso % (Auto) Neut # Lymph # [place] # Eos # Baso # Neutrophils % (Manual) Lymphocytes % (Manual) Monocytes % (Manual) Eosinophils % (Manual) Nucleated RBC % Toxic Granulation Platelet Estimate Hypochromasia (manual) Anisocytosis (manual) Sodium Potassium Chloride Carbon Dioxide Anion Gap BUN Creatinine Est GFR ( Amer) Est GFR (Non-Af Amer) POC Glucose (mg/dL) 183 H 156 H 172 H Random Glucose Calcium Total Bilirubin AST ALT Alkaline Phosphatase Total Protein Albumin Globulin Albumin/Globulin Ratio 01/08/17 01/08/17 01/08/17 05:10 05:10 11:39 WBC 10.3 RBC 2.43 L Hgb 8.0 L Hct 23.2 L MCV 95.7 MCH 32.8 H MCHC 34.3 RDW 20.6 H Plt Count 76 L MPV 10.7 Neut % (Auto) 66.2 Lymph % (Auto) 10.9 L [place] % (Auto) 20.7 H Eos % (Auto) 1.8 Baso % (Auto) 0.4 Neut # 6.8 Lymph # 1.1 [place] # 2.1 H Eos # 0.2 Baso # 0.0 Neutrophils % (Manual) 69 Lymphocytes % (Manual) 14 L Monocytes % (Manual) 16 H Eosinophils % (Manual) 1 Nucleated RBC % 6 H Toxic Granulation Present Platelet Estimate Decreased L Hypochromasia (manual) Slight Anisocytosis (manual) Moderate Sodium 133 Potassium 3.4 L Chloride 98 Carbon Dioxide 22 Anion Gap 16 BUN 34 H Creatinine 5.4 H Est GFR ( Amer) 10 Est GFR (Non-Af Amer) 8 POC Glucose (mg/dL) 157 H Random Glucose 152 H Calcium 7.6 L Total Bilirubin 21.8 H AST 129 H ALT 71 H Alkaline Phosphatase 190 H Total Protein 7.5 Albumin 2.6 L Globulin 5.0 H Albumin/Globulin Ratio 0.5 L Fingerstick Blood Sugar Results: 172 Review of Systems - Review of Systems All systems: reviewed and no additional remarkable complaints except (as above) Critical Care Progress Note - Nutrition Nutrition: Nutrition Category Date Time Status Liquid Diet [DIET] Diets 01/08/17 Lunch Active
--- NOTE | 2017-01-08 15:07 | PCM.IRP ---
Chief Complaint: IR consulted to place permacath. Tunneled catheters should not be placed in patients in the ICU due to increased infection risk. If there are concerns about infection with respect to the temporary groin HD cath, a new non-tunneled HD cath can be placed in the contralateral groin or via either jugular vein until the patient is transferred out of the ICU and does not display signs of active/ongoing infection. Please call IR with any questions. Objective - Vital Signs/Intake and Output Vital Signs (last 24 hours): Vital Signs - 24 hr 01/07/17 01/07/17 01/07/17 16:00 17:00 18:00 Temperature 97.2 F L Pulse Rate 87 90 83 Respiratory 15 17 17 Rate Blood Pressure 97/45 L 107/50 L 101/69 O2 Sat by Pulse 100 100 100 Oximetry 01/07/17 01/07/17 01/07/17 20:00 21:00 22:00 Temperature 97.2 F L Pulse Rate 87 94 H 93 H Respiratory 17 18 19 Rate Blood Pressure 106/44 L 99/64 L 94/54 L O2 Sat by Pulse 100 100 100 Oximetry 01/07/17 01/08/17 01/08/17 23:00 00:00 01:00 Temperature 98.5 F Pulse Rate 94 H 91 H 97 H Respiratory 19 22 20 Rate Blood Pressure 106/45 L 109/45 L 106/51 L O2 Sat by Pulse 100 100 100 Oximetry 01/08/17 01/08/17 01/08/17 02:00 03:00 04:00 Temperature 100.5 F H Pulse Rate 94 H 92 H 93 H Respiratory 18 21 17 Rate Blood Pressure 99/45 L 104/45 L 101/41 L O2 Sat by Pulse 100 100 98 Oximetry 01/08/17 01/08/17 01/08/17 05:00 06:00 08:00 Temperature 98.5 F Pulse Rate 89 96 H 80 Respiratory 20 18 20 Rate Blood Pressure 107/42 L 106/58 L 96/44 L O2 Sat by Pulse 94 L 97 90 L Oximetry 01/08/17 12:00 Temperature 98.3 F Pulse Rate 91 H Respiratory 15 Rate Blood Pressure 113/75 O2 Sat by Pulse 95 Oximetry Intake and Output (last 12 hours): Intake & Output 01/07/17 01/08/17 01/08/17 18:59 06:59 18:59 Intake Total 2300 2608 1209 Output Total 125 1800 Balance 2175 808 1209 Weight 258 lb 4.8 oz 258 lb Intake: IV 720 1228 1209 Intake, Piggyback 1580 1380 Output: Urine 0 Urine, Voided 0 Stool 125 400 Ultrafiltrate 1400 - Medications Medications: Current Medications Albumin Human (Albumin Human 25% (12.5 Gm/50 Ml)) 25 gm IV Q6 [facility] Stop: 01/09/17 10:01 Hydroxyzine HCl (Atarax) 25 mg PO Q6 PRN PRN Reason: Itching / Pruritus Vasopressin 100 units/ Sodium (Chloride) 105 mls @ 1.89 mls/hr IV .Q24H [facility]; 0.03 UNITS/MIN PRN Reason: Protocol Last Admin: 01/06/17 17:14 Dose: 0.03 units/min, 1.89 mls/hr Piperacillin Sod/Tazobactam (Sod 2.25 gm/ Sodium Chloride) 100 mls @ 100 mls/ hr IVPB Q8@0700,1500,2300 [facility] PRN Reason: Protocol Last Admin: 01/08/17 06:23 Dose: 100 mls/hr Cefepime HCl 1 gm/ Sodium (Chloride) 100 mls @ 100 mls/hr IVPB DAILY [facility] PRN Reason: Protocol Last Admin: 01/08/17 08:58 Dose: 100 mls/hr Norepinephrine Bitartrate 8 mg (/ Dextrose) 508 mls @ 114.3 mls/hr IV .Q4H27M [facility]; 30 MCG/MIN PRN Reason: Protocol Last Admin: 01/08/17 13:09 Dose: 30 mcg/min, 114.3 mls/hr Vancomycin HCl 1 gm/ Sodium (Chloride) 250 mls @ 166.667 mls/hr IVPB ONCE ONE PRN Reason: Protocol Stop: 01/08/17 15:59 Lactulose (Enulose) 20 gm PO BID [facility] Last Admin: 01/08/17 08:53 Dose: 20 gm Midodrine (Proamatine) 7.5 mg PO TID [facility] Octreotide Acetate (Sandostatin) 100 mcg SC Q8 [facility] Pantoprazole Sodium (Protonix Inj) 40 mg IVP DAILY [facility] Last Admin: 01/08/17 08:59 Dose: 40 mg Rifaximin (Xifaxan) 550 mg PO BID [facility] PRN Reason: Protocol Last Admin: 01/08/17 09:01 Dose: 550 mg Sodium Bicarbonate (Sodium Bicarbonate Tab) 1,300 mg PO BID [facility] Last Admin: 01/08/17 09:00 Dose: 1,300 mg Zinc Sulfate (Zinc Sulfate 220 Mg Cap) 220 mg PO DAILY [facility] Last Admin: 01/07/17 10:01 Dose: 220 mg - Labs Labs (last 24 hours): Laboratory Results - last 24 hr 01/07/17 01/07/17 01/08/17 17:11 21:51 04:29 WBC RBC Hgb Hct MCV MCH MCHC RDW Plt Count MPV Neut % (Auto) Lymph % (Auto) [place] % (Auto) Eos % (Auto) Baso % (Auto) Neut # Lymph # [place] # Eos # Baso # Neutrophils % (Manual) Lymphocytes % (Manual) Monocytes % (Manual) Eosinophils % (Manual) Nucleated RBC % Toxic Granulation Platelet Estimate Hypochromasia (manual) Anisocytosis (manual) Sodium Potassium Chloride Carbon Dioxide Anion Gap BUN Creatinine Est GFR ( Amer) Est GFR (Non-Af Amer) POC Glucose (mg/dL) 183 H 156 H 172 H Random Glucose Calcium Total Bilirubin AST ALT Alkaline Phosphatase Total Protein Albumin Globulin Albumin/Globulin Ratio 01/08/17 01/08/17 01/08/17 05:10 05:10 11:39 WBC 10.3 RBC 2.43 L Hgb 8.0 L Hct 23.2 L MCV 95.7 MCH 32.8 H MCHC 34.3 RDW 20.6 H Plt Count 76 L MPV 10.7 Neut % (Auto) 66.2 Lymph % (Auto) 10.9 L Carbon % (Auto) 20.7 H Eos % (Auto) 1.8 Baso % (Auto) 0.4 Neut # 6.8 Lymph # 1.1 Carbon # 2.1 H Eos # 0.2 Baso # 0.0 Neutrophils % (Manual) 69 Lymphocytes % (Manual) 14 L Monocytes % (Manual) 16 H Eosinophils % (Manual) 1 Nucleated RBC % 6 H Toxic Granulation Present Platelet Estimate Decreased L Hypochromasia (manual) Slight Anisocytosis (manual) Moderate Sodium 133 Potassium 3.4 L Chloride 98 Carbon Dioxide 22 Anion Gap 16 BUN 34 H Creatinine 5.4 H Est GFR ( Amer) 10 Est GFR (Non-Af Amer) 8 POC Glucose (mg/dL) 157 H Random Glucose 152 H Calcium 7.6 L Total Bilirubin 21.8 H AST 129 H ALT 71 H Alkaline Phosphatase 190 H Total Protein 7.5 Albumin 2.6 L Globulin 5.0 H Albumin/Globulin Ratio 0.5 L
[2017-01-08] MEDS: Albumin Human 25% (12.5 gm/50 ml) IV SCH ×2 (16:35→21:44)
[2017-01-08] MEDS ORDERED: Dextrose 5%/0.45% NS 1,000 ML IV SCH (22:45)
[2017-01-09] MEDS ORDERED: HYDROmorphone 0.5 mg/0.5 ml ISec IVP STA (02:17)
[2017-01-09] MEDS: Albumin Human 25% (12.5 gm/50 ml) IV SCH ×2 (03:39→09:02)
[2017-01-09 06:17] LABS: BASO # 0.1 K/uL (0.0-0.2); BASO % 0.5 % (0.0-2.0); EOS # 0.3 K/uL (0.0-0.7); EOS % 2.4 % (0.0-4.0); LYMPH # 1.6 K/uL (1.0-4.3); LYMPH % 14.3 % (20.0-40.0); MEAN CORPUSCULAR HEMOGLOBIN 32.8 pg (27.0-31.0); MEAN CORPUSCULAR HGB CONC 34.1 g/dL (33.0-37.0); MEAN PLATELET VOLUME 10.9 fl (7.2-11.7); MONO # 2.3 K/uL (0.0-0.8); MONO % 20.7 % (0.0-10.0); NEUT # 6.9 K/uL (1.8-7.0); NEUT % 62.1 % (50.0-75.0); NRBC % 1.9 % (0.0-0.0); RED CELL DISTRIBUTION WIDTH 20.9 % (11.5-14.5); WHITE BLOOD COUNT 11.1 K/uL (4.8-10.8)
[2017-01-09 06:44] LABS: ALB/GLOB RATIO 0.6 (1.0-2.1); BILIRUBIN,TOTAL 27.8 mg/dl (0.2-1.3); MAGNESIUM 1.9 MG/DL (1.6-2.3); PHOSPHOROUS 5.3 mg/dl (2.5-4.5); POTASSIUM 3.5 MMOL/L (3.6-5.0); TOTAL PROTEIN 7.9 G/DL (6.3-8.2)
[2017-01-09 06:52] LABS: PARTIAL THROMBOPLASTIN TIME 67.2 Seconds (25.6-37.1)
[2017-01-09] MEDS ORDERED: Phytonadione 10 mg/ml Inj (Adult) IVPB ONE (07:37)
--- NOTE | 2017-01-09 08:20 | CP.PCM.PN ---
Subjective - Date & Time of Evaluation Date of Evaluation: 01/09/17 Time of Evaluation: 08:18 - Subjective Subjective: Patient is more awake. Patient started to eat liquid diet. Multiple responsive The sister at the bedside. Objective - Vital Signs/Intake and Output Vital Signs (last 24 hours): Temp Pulse Resp BP Pulse Ox 98.6 F 85 18 95/36 L 100 01/09/17 04:00 01/09/17 06:00 01/09/17 06:00 01/09/17 05:00 01/09/17 06:00 Intake and Output: 01/09/17 01/09/17 06:59 18:59 Intake Total 2160 254 Output Total 10 Balance 2150 254 - Medications Medications: Current Medications Albumin Human (Albumin Human 25% (12.5 Gm/50 Ml)) 25 gm IV Q6 [facility] Stop: 01/09/17 10:01 Last Admin: 01/09/17 03:39 Dose: 25 gm Hydroxyzine HCl (Atarax) 25 mg PO Q6 PRN PRN Reason: Itching / Pruritus Vasopressin 100 units/ Sodium (Chloride) 105 mls @ 1.89 mls/hr IV .Q24H [facility]; 0.03 UNITS/MIN PRN Reason: Protocol Last Admin: 01/06/17 17:14 Dose: 0.03 units/min, 1.89 mls/hr Piperacillin Sod/Tazobactam (Sod 2.25 gm/ Sodium Chloride) 100 mls @ 100 mls/ hr IVPB Q8@0700,1500,2300 [facility] PRN Reason: Protocol Last Admin: 01/09/17 06:03 Dose: 100 mls/hr Cefepime HCl 1 gm/ Sodium (Chloride) 100 mls @ 100 mls/hr IVPB DAILY [facility] PRN Reason: Protocol Last Admin: 01/08/17 08:58 Dose: 100 mls/hr Norepinephrine Bitartrate 4 mg (/ Dextrose) 254 mls @ 114.3 mls/hr IV .Q2H14M [facility]; 30 MCG/MIN PRN Reason: Protocol Last Admin: 01/09/17 07:28 Dose: 30 mcg/min, 114.3 mls/hr Lactulose (Enulose) 20 gm PO BID [facility] Last Admin: 01/08/17 16:54 Dose: 20 gm Midodrine (Proamatine) 7.5 mg PO TID [facility] Last Admin: 01/08/17 16:55 Dose: 7.5 mg Octreotide Acetate (Sandostatin) 100 mcg SC Q8 [facility] Last Admin: 01/09/17 00:25 Dose: 100 mcg Pantoprazole Sodium (Protonix Inj) 40 mg IVP DAILY [facility] Last Admin: 01/08/17 08:59 Dose: 40 mg Phytonadione (Vitamin K Inj) 10 mg IVPB ONCE ONE Stop: 01/09/17 07:38 Rifaximin (Xifaxan) 550 mg PO BID [facility] PRN Reason: Protocol Last Admin: 01/08/17 18:05 Dose: 550 mg Sodium Bicarbonate (Sodium Bicarbonate Tab) 1,300 mg PO BID [facility] Last Admin: 01/08/17 18:04 Dose: 1,300 mg Zinc Sulfate (Zinc Sulfate 220 Mg Cap) 220 mg PO DAILY [facility] Last Admin: 01/08/17 18:05 Dose: 220 mg - Labs Labs: 01/09/17 05:00 01/09/17 05:00 PT 52.4 Seconds (9.8-13.1) H* 01/09/17 05:00 INR 4.6 (0.9-1.2) H 01/09/17 05:00 APTT 67.2 Seconds (25.6-37.1) H 01/09/17 05:00 - Constitutional Appears: No Acute Distress - ENT Exam ENT Exam: Mucous Membranes Moist - Respiratory Exam Respiratory Exam: NORMAL BREATHING PATTERN. absent: Chest Wall Tenderness, Rhonchi - Cardiovascular Exam Cardiovascular Exam: REGULAR RHYTHM. absent: JVD, Rubs - GI/Abdominal Exam GI & Abdominal Exam: Soft, Normal Bowel Sounds - Extremities Exam Extremities Exam: absent: Calf Tenderness - Back Exam Back Exam: absent: CVA tenderness (L), CVA tenderness (R) - Neurological Exam Neurological Exam: Awake - Psychiatric Exam Additional comments: She is much better awake and conscious Assessment and Plan (1) DM2 (diabetes mellitus, type 2) Status: Acute (2) Hypotension Status: Acute (3) [id number] kidney injury Status: Acute (4) Hepatorenal syndrome Assessment & Plan: Patient with hepatorenal syndrome and acute renal failure. Requiring hemodialysis. Scheduled to have it shortly. Hyponatremia serum sodium coming down to 129. DC IV fluids Anemia hemoglobin 7.2 suggestive gave one unit of blood transfusion on dialysis. Hypotension continue to give midodrine and also the blood transfusion on dialysis as we mentioned above and also albumin on dialysis if need to be. Discussed with the ICU nurse. Dialysis orders are in place. Status: Acute (5) Liver cirrhosis Status: Acute
--- NOTE | 2017-01-09 08:33 | CP.PCM.PN ---
Subjective - Date & Time of Evaluation Date of Evaluation: 01/09/17 Time of Evaluation: 08:27 - Subjective Subjective: pt more alert, asking for food. sbp 100-105. max dose of vasopressin/levophed. d/c case at length w/ sister in person and daughter via phone. bw noted, hgb now 7.2, inr 4.2 na 129, k 3.5. dn not willing to accept at this time r/t 2x pressors. no f/c,n/v/d. no obv bleeding. resps evena nd unlabored. Objective - Vital Signs/Intake and Output Vital Signs (last 24 hours): Temp Pulse Resp BP Pulse Ox 97.9 F 86 19 100/51 L 100 01/09/17 08:00 01/09/17 08:00 01/09/17 08:00 01/09/17 08:00 01/09/17 08:00 Intake and Output: 01/09/17 01/09/17 06:59 18:59 Intake Total 2160 254 Output Total 10 Balance 2150 254 - Medications Medications: Current Medications Albumin Human (Albumin Human 25% (12.5 Gm/50 Ml)) 25 gm IV Q6 [facility] Stop: 01/09/17 10:01 Last Admin: 01/09/17 03:39 Dose: 25 gm Hydroxyzine HCl (Atarax) 25 mg PO Q6 PRN PRN Reason: Itching / Pruritus Vasopressin 100 units/ Sodium (Chloride) 105 mls @ 1.89 mls/hr IV .Q24H [facility]; 0.03 UNITS/MIN PRN Reason: Protocol Last Admin: 01/06/17 17:14 Dose: 0.03 units/min, 1.89 mls/hr Piperacillin Sod/Tazobactam (Sod 2.25 gm/ Sodium Chloride) 100 mls @ 100 mls/ hr IVPB Q8@0700,1500,2300 [facility] PRN Reason: Protocol Last Admin: 01/09/17 06:03 Dose: 100 mls/hr Cefepime HCl 1 gm/ Sodium (Chloride) 100 mls @ 100 mls/hr IVPB DAILY [facility] PRN Reason: Protocol Last Admin: 01/08/17 08:58 Dose: 100 mls/hr Norepinephrine Bitartrate 4 mg (/ Dextrose) 254 mls @ 114.3 mls/hr IV .Q2H14M [facility]; 30 MCG/MIN PRN Reason: Protocol Last Admin: 01/09/17 07:28 Dose: 30 mcg/min, 114.3 mls/hr Lactulose (Enulose) 20 gm PO BID [facility] Last Admin: 01/08/17 16:54 Dose: 20 gm Midodrine (Proamatine) 7.5 mg PO TID [facility] Last Admin: 01/08/17 16:55 Dose: 7.5 mg Octreotide Acetate (Sandostatin) 100 mcg SC Q8 [facility] Last Admin: 01/09/17 00:25 Dose: 100 mcg Pantoprazole Sodium (Protonix Inj) 40 mg IVP DAILY [facility] Last Admin: 01/08/17 08:59 Dose: 40 mg Phytonadione (Vitamin K Inj) 10 mg IVPB ONCE ONE Stop: 01/09/17 07:38 Rifaximin (Xifaxan) 550 mg PO BID [facility] PRN Reason: Protocol Last Admin: 01/08/17 18:05 Dose: 550 mg Sodium Bicarbonate (Sodium Bicarbonate Tab) 1,300 mg PO BID [facility] Last Admin: 01/08/17 18:04 Dose: 1,300 mg Zinc Sulfate (Zinc Sulfate 220 Mg Cap) 220 mg PO DAILY [facility] Last Admin: 01/08/17 18:05 Dose: 220 mg - Labs Labs: 01/09/17 05:00 01/09/17 05:00 PT 52.4 Seconds (9.8-13.1) H* 01/09/17 05:00 INR 4.6 (0.9-1.2) H 01/09/17 05:00 APTT 67.2 Seconds (25.6-37.1) H 01/09/17 05:00 - Constitutional Appears: No Acute Distress, Confused, Chronically Ill - Head Exam Head Exam: ATRAUMATIC, NORMAL INSPECTION, NORMOCEPHALIC - Eye Exam Eye Exam: EOMI, Normal appearance, PERRL Pupil Exam: NORMAL ACCOMODATION, PERRL - ENT Exam ENT Exam: Mucous Membranes Moist, Normal Exam - Neck Exam Neck Exam: Full ROM, Normal Inspection. absent: Lymphadenopathy - Respiratory Exam Respiratory Exam: Clear to Ausculation Bilateral, NORMAL BREATHING PATTERN - Cardiovascular Exam Cardiovascular Exam: REGULAR RHYTHM, RRR, +S1, +S2. absent: Murmur - GI/Abdominal Exam GI & Abdominal Exam: Soft, Normal Bowel Sounds. absent: Tenderness - Extremities Exam Extremities Exam: Full ROM, Normal Capillary Refill, Normal Inspection. absent : Joint Swelling, Pedal Edema - Back Exam Back Exam: NORMAL INSPECTION - Neurological Exam Neurological Exam: Alert, Awake, CN II-XII Intact, Normal Gait, Oriented x3 - Psychiatric Exam Psychiatric exam: Normal Affect, Normal Mood - Skin Skin Exam: Dry, Intact, Normal Color, Warm Assessment and Plan (1) [id number] kidney injury Status: Acute (2) DVT prophylaxis Status: Acute (3) Hepatorenal syndrome Status: Acute (4) Liver cirrhosis Status: Acute (5) UTI (urinary tract infection) Status: Acute (6) Hypotension Status: Acute - Assessment and Plan (Free Text) Assessment: (1) Zhyio-kz-zgkrswi kidney injury Assessment and Plan: neprho dialysis started in er bicarb Status: Acute (2) DVT prophylaxis Assessment and Plan: scd nad ae hose no anticoag r/t liver dz inr 4.2 Status: Acute (3) Hepatorenal syndrome Assessment and Plan: nephro/gi consult hypotension noted dialysis as per nephro Status: Acute (4) Liver cirrhosis Assessment and Plan: gi will d/c possible xfer w/ liver transfer w/ fellow at [facility], excessive time spentyester01/07 dc care w/ all specialist and team at [facility] Status: Acute (5) UTI (urinary tract infection) Assessment and Plan: zosyn ?? sepsis contributing to ams. pending urine and blood c/s ID consult now febrile. c/s noted. case d/cw/ ID who will adjust anbx Status: Acute (6) Hypotension Assessment and Plan: levophed and vasopressin ivf support icu care [id number], consent from sister after verbal from daughter Elissa, 2 units prbc 8-coagulopathy r/t liver dz-ffp 2 units q6h x 24h, vit k, heme/onc prognosis poor
[2017-01-09] MEDS ORDERED: Phytonadione 10 MG in Dextrose 5% In Water 50 ML IV ONE (08:45)
[2017-01-09] MEDS ORDERED: Phytonadione 10 MG in Dextrose 5% In Water 50 ML IV SCH (09:00)
--- NOTE | 2017-01-09 09:48 | CP.PCM.CON ---
History of Present Illness - History of Present Illness History of Present Illness: 56 year old female with a history of DM, COPD, CKD, liver cirrhosis complicated by encephelopathy, hepatorenal syndrome, coaguloapthy, anemia and coagulopathy. The patient is slightly confused and further history is per her daughter. She is unaware of abnormal bleeding and bruising in the past. She notes she has been chronically ill and having issues with encephalopathy on and off. Review of her medical records shows her H/H and platelet count are downtrending. Her PT/PTT have continued to prolong. The patient is scheduled for FFP and PRBC transfusion. Past medical history: DM, COPD, CKD, liver cirrhosis complicated by encephelopathy, hepatorenal syndrome, coaguloapthy, anemia and coagulopathy Past surgical history: Foot surgery Family history: Denies hematologic and oncologic problems Social history: Former tobacco abuse, denies alcohol abuse. Allergies: NKA Review of systems: All remaining review of systems including HEENT, cardiovascular, respiratory, gastrointestinal, genitourinary, musculoskeletal, dermatologic, neurologic, and psychiatric are negative unless mentioned in the HPI. Past Patient History - Infectious Disease Hx of Infectious Diseases: None - Past Medical History & Family History Past Medical History?: Yes - Past Social History Smoking Status: Heavy Smoker > 10 Cigarettes Daily - CARDIAC Hx Hypercholesterolemia: Yes Hx Hypertension: Yes - PULMONARY Hx Chronic Obstructive Pulmonary Disease (COPD): Yes - NEUROLOGICAL Hx Neurological Disorder: No - HEENT Hx HEENT Problems: No - RENAL Hx Chronic Kidney Disease: Yes ("RENAL INSUFFICENCY") - ENDOCRINE/METABOLIC Hx Diabetes Mellitus Type 2: Yes - HEMATOLOGICAL/ONCOLOGICAL Hx Human Immunodeficiency Virus (HIV): No - INTEGUMENTARY Hx Dermatological Problems: Yes - MUSCULOSKELETAL/RHEUMATOLOGICAL Hx Musculoskeletal Disorders: No Hx Falls: No - GASTROINTESTINAL Hx Gastrointestinal Disorders: Yes ("LIVER DISEASE") Hx Liver Failure: Yes (Hep C, Liver Cirrhosis) Other/Comment: 09/09/14-EGD DONE-POST DX: ESOPHAGEAL VARICES - GENITOURINARY/GYNECOLOGICAL Hx Genitourinary Disorders: No - PSYCHIATRIC Hx Emotional Abuse: No Hx Physical Abuse: No Hx Substance Use: No - SURGICAL HISTORY Hx Surgeries: Yes Other/Comment: RIGHT EYE STYE , Colonoscopy - ANESTHESIA Hx Anesthesia: Yes Hx Anesthesia Reactions: No Hx Malignant Hyperthermia: No Meds Allergies/Adverse Reactions: Allergies Allergy/AdvReac Type Severity Reaction Status Date / Time No Known Allergies Allergy Verified 12/20/16 18:41 - Medications Medications: Current Medications Albumin Human (Albumin Human 25% (12.5 Gm/50 Ml)) 25 gm IV Q6 [facility] Stop: 01/09/17 10:01 Last Admin: 01/09/17 09:02 Dose: 25 gm Hydroxyzine HCl (Atarax) 25 mg PO Q6 PRN PRN Reason: Itching / Pruritus Vasopressin 100 units/ Sodium (Chloride) 105 mls @ 1.89 mls/hr IV .Q24H [facility]; 0.03 UNITS/MIN PRN Reason: Protocol Last Admin: 01/06/17 17:14 Dose: 0.03 units/min, 1.89 mls/hr Piperacillin Sod/Tazobactam (Sod 2.25 gm/ Sodium Chloride) 100 mls @ 100 mls/ hr IVPB Q8@0700,1500,2300 [facility] PRN Reason: Protocol Last Admin: 01/09/17 06:03 Dose: 100 mls/hr Cefepime HCl 1 gm/ Sodium (Chloride) 100 mls @ 100 mls/hr IVPB DAILY [facility] PRN Reason: Protocol Last Admin: 01/08/17 08:58 Dose: 100 mls/hr Norepinephrine Bitartrate 4 mg (/ Dextrose) 254 mls @ 114.3 mls/hr IV .Q2H14M [facility]; 30 MCG/MIN PRN Reason: Protocol Last Admin: 01/09/17 07:28 Dose: 30 mcg/min, 114.3 mls/hr Lactulose (Enulose) 20 gm PO BID [facility] Last Admin: 01/09/17 08:45 Dose: 20 gm Midodrine (Proamatine) 7.5 mg PO TID [facility] Last Admin: 01/09/17 08:46 Dose: 7.5 mg Octreotide Acetate (Sandostatin) 100 mcg SC Q8 [facility] Last Admin: 01/09/17 00:25 Dose: 100 mcg Pantoprazole Sodium (Protonix Inj) 40 mg IVP DAILY [facility] Last Admin: 01/09/17 08:46 Dose: 40 mg Rifaximin (Xifaxan) 550 mg PO BID [facility] PRN Reason: Protocol Last Admin: 01/09/17 08:46 Dose: 550 mg Sodium Bicarbonate (Sodium Bicarbonate Tab) 1,300 mg PO BID [facility] Last Admin: 01/09/17 08:46 Dose: 1,300 mg Zinc Sulfate (Zinc Sulfate 220 Mg Cap) 220 mg PO DAILY [facility] Last Admin: 01/09/17 08:47 Dose: 220 mg Physical Exam - Head Exam Head Exam: ATRAUMATIC - Eye Exam Eye Exam: Normal appearance - ENT Exam ENT Exam: Mucous Membranes Dry - Respiratory Exam Respiratory Exam: NORMAL BREATHING PATTERN - Cardiovascular Exam Cardiovascular Exam: +S1, +S2 - GI/Abdominal Exam GI & Abdominal Exam: Normal Bowel Sounds - Extremities Exam Extremities exam: Positive for: pedal edema - Neurological Exam Neurological exam: Altered - Psychiatric Exam Psychiatric exam: Flat Affect - Skin Skin Exam: Warm Results - Vital Signs Recent Vital Signs: Last Vital Signs Temp 97.9 F 01/09/17 08:00 Pulse 86 01/09/17 08:00 Resp 19 01/09/17 08:00 BP 100/51 L 01/09/17 08:00 Pulse Ox 100 01/09/17 08:00 - Labs Result Diagrams: 01/09/17 05:00 01/09/17 05:00 Labs: Laboratory Results - last 24 hr 01/08/17 01/08/17 01/08/17 05:10 11:39 17:10 WBC RBC Hgb Hct MCV MCH MCHC RDW Plt Count MPV Neut % (Auto) Lymph % (Auto) Mathews % (Auto) Eos % (Auto) Baso % (Auto) Neut # Lymph # Mathews # Eos # Baso # Neutrophils % (Manual) 69 Lymphocytes % (Manual) 14 L Monocytes % (Manual) 16 H Eosinophils % (Manual) 1 Nucleated RBC % 6 H Toxic Granulation Present Platelet Estimate Decreased L Hypochromasia (manual) Slight Anisocytosis (manual) Moderate PT INR APTT Sodium Potassium Chloride Carbon Dioxide Anion Gap BUN Creatinine Est GFR ( Amer) Est GFR (Non-Af Amer) POC Glucose (mg/dL) 157 H 202 H Random Glucose Serum Osmolality Calcium Phosphorus Magnesium Total Bilirubin AST ALT Alkaline Phosphatase Total Protein Albumin Globulin Albumin/Globulin Ratio Urine Osmolality 01/08/17 01/09/17 01/09/17 21:31 05:00 05:00 WBC 11.1 H RBC 2.19 L Hgb 7.2 L Hct 21.0 L MCV 96.0 MCH 32.8 H MCHC 34.1 RDW 20.9 H Plt Count 72 L MPV 10.9 Neut % (Auto) 62.1 Lymph % (Auto) 14.3 L Mathews % (Auto) 20.7 H Eos % (Auto) 2.4 Baso % (Auto) 0.5 Neut # 6.9 Lymph # 1.6 Mathews # 2.3 H Eos # 0.3 Baso # 0.1 Neutrophils % (Manual) Lymphocytes % (Manual) Monocytes % (Manual) Eosinophils % (Manual) Nucleated RBC % Toxic Granulation Platelet Estimate Hypochromasia (manual) Anisocytosis (manual) PT 52.4 H* INR 4.6 H APTT 67.2 H Sodium Potassium Chloride Carbon Dioxide Anion Gap BUN Creatinine Est GFR ( Amer) Est GFR (Non-Af Amer) POC Glucose (mg/dL) 179 H Random Glucose Serum Osmolality Calcium Phosphorus Magnesium Total Bilirubin AST ALT Alkaline Phosphatase Total Protein Albumin Globulin Albumin/Globulin Ratio Urine Osmolality 01/09/17 01/09/17 01/09/17 05:00 05:00 06:07 WBC RBC Hgb Hct MCV MCH MCHC RDW Plt Count MPV Neut % (Auto) Lymph % (Auto) Mathews % (Auto) Eos % (Auto) Baso % (Auto) Neut # Lymph # Mathews # Eos # Baso # Neutrophils % (Manual) Lymphocytes % (Manual) Monocytes % (Manual) Eosinophils % (Manual) Nucleated RBC % Toxic Granulation Platelet Estimate Hypochromasia (manual) Anisocytosis (manual) PT INR APTT Sodium 129 L Potassium 3.5 L Chloride 96 L Carbon Dioxide 21 L Anion Gap 16 BUN 44 H Creatinine 6.4 H Est GFR ( Amer) 8 Est GFR (Non-Af Amer) 7 POC Glucose (mg/dL) 141 H Random Glucose 153 H Serum Osmolality 284 Calcium 8.0 L Phosphorus 5.3 H Magnesium 1.9 Total Bilirubin 27.8 H AST 95 H D ALT 63 H Alkaline Phosphatase 145 H D Total Protein 7.9 Albumin 3.0 L Globulin 4.9 H Albumin/Globulin Ratio 0.6 L Urine Osmolality 01/09/17 08:40 WBC RBC Hgb Hct MCV MCH MCHC RDW Plt Count MPV Neut % (Auto) Lymph % (Auto) Mathews % (Auto) Eos % (Auto) Baso % (Auto) Neut # Lymph # Mathews # Eos # Baso # Neutrophils % (Manual) Lymphocytes % (Manual) Monocytes % (Manual) Eosinophils % (Manual) Nucleated RBC % Toxic Granulation Platelet Estimate Hypochromasia (manual) Anisocytosis (manual) PT INR APTT Sodium Potassium Chloride Carbon Dioxide Anion Gap BUN Creatinine Est GFR ( Amer) Est GFR (Non-Af Amer) POC Glucose (mg/dL) Random Glucose Serum Osmolality Calcium Phosphorus Magnesium Total Bilirubin AST ALT Alkaline Phosphatase Total Protein Albumin Globulin Albumin/Globulin Ratio Urine Osmolality 286 L Assessment & Plan (1) Coagulopathy Assessment and Plan: liver disease agree with FFP given melanotic stool if worsens, can consider adding cryopercipitate Status: Acute (2) Anemia Assessment and Plan: will check ferritin, retic count, b12, folate to further characterize melanotic stool noted in rectal tube anemia of CKD transfusion support PRN Status: Acute (3) Thrombocytopenia Assessment and Plan: secondary to liver disease splenic sequestration will have platelet dysfunction from uremia Status: Acute (4) Leukocytosis Assessment and Plan: on antibiotics Thank you for this interesting consult. Status: Acute
--- NOTE | 2017-01-09 09:53 | CP.PCM.PN ---
Subjective - Date & Time of Evaluation Date of Evaluation: 01/09/17 Time of Evaluation: 09:48 - Subjective Subjective: Dialysis note Patient was seen again and hemodialysis started. Many mom but over the family at around. Patient is more awake as noted in my progress note Dialysis via catheter in the femoral. Vital sign noted was low blood pressure and 1 unit of packed says to be given shortly on dialysis Ultrafiltration approximately 1500 mL as tolerated Sodium is 138 Potassium bath 2 mEq Bicarbonate 34 Patient is tolerating the treatment Chest no rales Heart no rubs Abdomen soft Extremity no edema Patient is jaundice The impression and plan Continue hemodialysis. Acute kidney injury superimposed on chronic kidney disease with hepatorenal syndrome. See my progress note. Objective - Vital Signs/Intake and Output Vital Signs (last 24 hours): Temp Pulse Resp BP Pulse Ox 97.9 F 86 19 100/51 L 100 01/09/17 08:00 01/09/17 08:00 01/09/17 08:00 01/09/17 08:00 01/09/17 08:00 Intake and Output: 01/09/17 01/09/17 06:59 18:59 Intake Total 2160 254 Output Total 10 Balance 2150 254 - Medications Medications: Current Medications Albumin Human (Albumin Human 25% (12.5 Gm/50 Ml)) 25 gm IV Q6 [facility] Stop: 01/09/17 10:01 Last Admin: 01/09/17 09:02 Dose: 25 gm Hydroxyzine HCl (Atarax) 25 mg PO Q6 PRN PRN Reason: Itching / Pruritus Vasopressin 100 units/ Sodium (Chloride) 105 mls @ 1.89 mls/hr IV .Q24H [facility]; 0.03 UNITS/MIN PRN Reason: Protocol Last Admin: 01/06/17 17:14 Dose: 0.03 units/min, 1.89 mls/hr Piperacillin Sod/Tazobactam (Sod 2.25 gm/ Sodium Chloride) 100 mls @ 100 mls/ hr IVPB Q8@0700,1500,2300 [facility] PRN Reason: Protocol Last Admin: 01/09/17 06:03 Dose: 100 mls/hr Cefepime HCl 1 gm/ Sodium (Chloride) 100 mls @ 100 mls/hr IVPB DAILY [facility] PRN Reason: Protocol Last Admin: 01/08/17 08:58 Dose: 100 mls/hr Norepinephrine Bitartrate 4 mg (/ Dextrose) 254 mls @ 114.3 mls/hr IV .Q2H14M [facility]; 30 MCG/MIN PRN Reason: Protocol Last Admin: 01/09/17 07:28 Dose: 30 mcg/min, 114.3 mls/hr Lactulose (Enulose) 20 gm PO BID [facility] Last Admin: 01/09/17 08:45 Dose: 20 gm Midodrine (Proamatine) 7.5 mg PO TID [facility] Last Admin: 01/09/17 08:46 Dose: 7.5 mg Octreotide Acetate (Sandostatin) 100 mcg SC Q8 [facility] Last Admin: 01/09/17 00:25 Dose: 100 mcg Pantoprazole Sodium (Protonix Inj) 40 mg IVP DAILY [facility] Last Admin: 01/09/17 08:46 Dose: 40 mg Rifaximin (Xifaxan) 550 mg PO BID [facility] PRN Reason: Protocol Last Admin: 01/09/17 08:46 Dose: 550 mg Sodium Bicarbonate (Sodium Bicarbonate Tab) 1,300 mg PO BID [facility] Last Admin: 01/09/17 08:46 Dose: 1,300 mg Zinc Sulfate (Zinc Sulfate 220 Mg Cap) 220 mg PO DAILY [facility] Last Admin: 01/09/17 08:47 Dose: 220 mg - Labs Labs: 01/09/17 05:00 01/09/17 05:00 PT 52.4 Seconds (9.8-13.1) H* 01/09/17 05:00 INR 4.6 (0.9-1.2) H 01/09/17 05:00 APTT 67.2 Seconds (25.6-37.1) H 01/09/17 05:00 Assessment and Plan (1) DM2 (diabetes mellitus, type 2) Status: Acute (2) Hypotension Status: Acute (3) Hliun-yj-iizpqfo kidney injury Status: Acute (4) Hepatorenal syndrome Status: Acute (5) Liver cirrhosis Status: Acute
--- NOTE | 2017-01-09 11:00 | CP.PCM.PN ---
Subjective - Date & Time of Evaluation Date of Evaluation: 01/09/17 Time of Evaluation: 11:00 - Subjective Subjective: almost at baseline mental status Objective - Vital Signs/Intake and Output Vital Signs (last 24 hours): Temp Pulse Resp BP Pulse Ox 97.9 F 86 19 100/51 L 100 01/09/17 08:00 01/09/17 08:00 01/09/17 08:00 01/09/17 08:00 01/09/17 08:00 Intake and Output: 01/09/17 01/09/17 06:59 18:59 Intake Total 2160 508 Output Total 10 Balance 2150 508 - Medications Medications: Current Medications Hydroxyzine HCl (Atarax) 25 mg PO Q6 PRN PRN Reason: Itching / Pruritus Vasopressin 100 units/ Sodium (Chloride) 105 mls @ 1.89 mls/hr IV .Q24H [facility]; 0.03 UNITS/MIN PRN Reason: Protocol Last Admin: 01/06/17 17:14 Dose: 0.03 units/min, 1.89 mls/hr Piperacillin Sod/Tazobactam (Sod 2.25 gm/ Sodium Chloride) 100 mls @ 100 mls/ hr IVPB Q8@0700,1500,2300 [facility] PRN Reason: Protocol Last Admin: 01/09/17 06:03 Dose: 100 mls/hr Cefepime HCl 1 gm/ Sodium (Chloride) 100 mls @ 100 mls/hr IVPB DAILY [facility] PRN Reason: Protocol Last Admin: 01/08/17 08:58 Dose: 100 mls/hr Norepinephrine Bitartrate 4 mg (/ Dextrose) 254 mls @ 114.3 mls/hr IV .Q2H14M [facility]; 30 MCG/MIN PRN Reason: Protocol Last Admin: 01/09/17 10:20 Dose: 30 mcg/min, 114.3 mls/hr Lactulose (Enulose) 20 gm PO BID [facility] Last Admin: 01/09/17 08:45 Dose: 20 gm Midodrine (Proamatine) 7.5 mg PO TID [facility] Last Admin: 01/09/17 08:46 Dose: 7.5 mg Octreotide Acetate (Sandostatin) 100 mcg SC Q8 [facility] Last Admin: 01/09/17 00:25 Dose: 100 mcg Pantoprazole Sodium (Protonix Inj) 40 mg IVP DAILY [facility] Last Admin: 01/09/17 08:46 Dose: 40 mg Rifaximin (Xifaxan) 550 mg PO BID [facility] PRN Reason: Protocol Last Admin: 01/09/17 08:46 Dose: 550 mg Sodium Bicarbonate (Sodium Bicarbonate Tab) 1,300 mg PO BID [facility] Last Admin: 01/09/17 08:46 Dose: 1,300 mg Zinc Sulfate (Zinc Sulfate 220 Mg Cap) 220 mg PO DAILY [facility] Last Admin: 01/09/17 08:47 Dose: 220 mg - Labs Labs: 01/09/17 05:00 01/09/17 05:00 PT 52.4 Seconds (9.8-13.1) H* 01/09/17 05:00 INR 4.6 (0.9-1.2) H 01/09/17 05:00 APTT 67.2 Seconds (25.6-37.1) H 01/09/17 05:00 - Head Exam Head Exam: NORMAL INSPECTION - Eye Exam Eye Exam: Scleral icterus - Respiratory Exam Respiratory Exam: NORMAL BREATHING PATTERN - Cardiovascular Exam Cardiovascular Exam: REGULAR RHYTHM - GI/Abdominal Exam GI & Abdominal Exam: Soft, Normal Bowel Sounds Assessment and Plan - Assessment and Plan (Free Text) Assessment: 56 yo female with decompensated cirrhosis now hepatic encephalopathy, resolving continue lactulose, xifaxan vit K 10 daily for 3 days HD per renal
[2017-01-09] MEDS: Cefepime 1 GM in Sodium Chloride 0.9% 100 ML IVPB SCH (11:31)
--- NOTE | 2017-01-09 14:43 | CP.CCUPN ---
CCU Subjective - Physician Review Subjective (Free Text): Events reviewed, remains awake today and responsive to simple commands. Remains on Levophed at 30 mcg/min and Vasopressin infusion. Undergoing 4th course of HD (1.5L removal ) today. PICC line cancelled today by IR due to presence of advanced stage CKD. No active bleeding noted. Other vitals and I/O's reviewed. No fever spikes overnight. No urine output noted. SBP levels 95 113. MAP still in mid 60s and no sustained higher levels. ROS: No other pertinent negs or positives on 10+ system review. PMSFH: All Nursing and physician documentation reviewed to date; no new pertinent info noted relevant to current medical problems. IMPRESSION / MAJOR PROBLEMS NOW: 1. Acute Resp insuff 2 RML Pneumonia 2. Cirrhosis with hepatic encephalopathy 3. GEGE 2 ATN / Hepatorenal syndrome, now HD-dependent 4. Chronic disease Anemia / Thrombocytopenia/ Coagulopathy PLAN: 1. Improved neuromental status may have precluded need for oral intubation for airway protection. 2. Empiric abx coverage noted with Cefepime / Zosyn / Vanco. So far, urine growth with E.coli. 3. Levophed weans as BP tolerates. Vasopressin at fixed dose. 4. Octreotide increased to 100mcg q8h, added Midodrine and Albumin. 5. As per Dr. Marx: [facility] will not take patient unless weaned off vasopressors. May be losing option to transfer to [facility] as vasopressor weans may be prolonged. 6. FFP today. CCU Objective - Vital Signs / Intake & Output Vital Signs (Last 4 hours): Vital Signs Temp Pulse Resp BP Pulse Ox 01/09/17 13:24 112/55 L 01/09/17 12:00 98.1 F 88 17 105/50 L 90 L Intake and Output (Last 8hrs): Intake & Output 01/08/17 01/09/17 01/09/17 22:59 06:59 14:59 Intake Total 2728 1167 762 Output Total 200 10 Balance 2528 1157 762 Intake: IV 2178 967 762 Intake, Piggyback 250 100 Oral 200 Albumin 100 100 Output: Urine 0 10 Urine, Voided 0 10 Stool 200 - Physical Exam Head: Positive for: Atraumatic, Normocephalic Pupils: Positive for: PERRL Conjunctiva: Positive for: Normal, Icteric Mouth: Positive for: Moist Mucous Membranes Nose (External): Positive for: Atraumatic Nose (Internal): Positive for: Normal Inspection Neck: Positive for: Normal Range of Motion. Negative for: JVD Respiratory/Chest: Positive for: Clear to Auscultation, Decreased Breath Sounds Cardiovascular: Positive for: Regular Rate and Rhythm Abdomen: Positive for: Distention, Normal Bowel Sounds. Negative for: Tenderness, Mass/Organomegaly Upper Extremity: Positive for: Normal Inspection Lower Extremity: Positive for: NORMAL PULSES. Negative for: CALF TENDERNESS, Cyanosis Neurological: Positive for: Motor Func Grossly Intact, Normal Sensory Function Skin: Positive for: Warm, Dry. Negative for: Rashes Psychiatric: Positive for: Lethargic - Medications Active Medications: Active Medications Generic Name Dose Route Start Last Admin Trade Name Freq PRN Reason Stop Dose Admin Hydroxyzine HCl 25 mg 01/04/17 18:38 Atarax PO Q6 PRN Itching / Pruritus Vasopressin 100 units/ Sodium 105 mls @ 1.89 mls/hr 01/05/17 16:30 01/09/17 13:24 Chloride IV 0.03 units/min .Q24H HUDSON 1.89 mls/hr Protocol Administration 0.03 UNITS/MIN Piperacillin Sod/Tazobactam 100 mls @ 100 mls/hr 01/05/17 23:00 01/09/17 06: 03 Sod 2.25 gm/ Sodium Chloride IVPB 100 mls/hr Q8@0700,1500,2300 [facility] Administration Protocol Cefepime HCl 1 gm/ Sodium 100 mls @ 100 mls/hr 01/06/17 13:00 01/09/17 11:31 Chloride IVPB 100 mls/hr DAILY [facility] Administration Protocol Norepinephrine Bitartrate 4 mg 254 mls @ 114.3 mls/hr 01/09/17 02:16 13:21 / Dextrose IV 30 mcg/min .Q2H14M [facility]DSON 114.3 mls/hr Protocol Administration 30 MCG/MIN Phytonadione 10 mg/ Dextrose 51 mls @ 102 mls/hr 01/10/17 09:00 IV 01/12/17 09:29 DAILY [facility] Lactulose 20 gm 01/07/17 17:00 01/09/17 08:45 Enulose PO 20 gm BID [facility] Administration Midodrine 7.5 mg 01/08/17 17:00 01/09/17 13:26 Proamatine PO 7.5 mg TID [facility] Administration Octreotide Acetate 100 mcg 01/08/17 14:45 01/09/17 11:32 Sandostatin SC 100 mcg Q8 [facility] Administration Pantoprazole Sodium 40 mg 01/06/17 09:00 01/09/17 08:46 Protonix Inj IVP 40 mg DAILY [facility] Administration Rifaximin 550 mg 01/05/17 09:00 01/09/17 08:46 Xifaxan PO 550 mg BID [facility] Administration Protocol Sodium Bicarbonate 1,300 mg 01/05/17 09:00 01/09/17 08:46 Sodium Bicarbonate Tab PO 1,300 mg BID [facility] Administration Zinc Sulfate 220 mg 01/05/17 09:00 01/09/17 08:47 Zinc Sulfate 220 Mg Cap PO 220 mg DAILY [facility]ON Administration - Patient Studies Lab Studies: Microbiology Studies 01/05/17 10:30 Blood Culture - Preliminary Blood NO GROWTH AFTER 4 DAYS Lab Studies 01/09/17 01/09/17 01/09/17 Range/Units 11:13 08:40 08:36 WBC (4.8-10.8) K/uL RBC (3.80-5.20) Mil/uL Hgb (12.0-16.0) g/dL Hct (34.0-47.0) % MCV (81.0-99.0) fl MCH (27.0-31.0) pg MCHC (33.0-37.0) g/dL RDW (11.5-14.5) % Plt Count (130-400) K/uL MPV (7.2-11.7) fl Neut % (Auto) (50.0-75.0) % Lymph % (Auto) (20.0-40.0) % Blanco % (Auto) (0.0-10.0) % Eos % (Auto) (0.0-4.0) % Baso % (Auto) (0.0-2.0) % Neut # (1.8-7.0) K/uL Lymph # (1.0-4.3) K/uL Blanco # (0.0-0.8) K/uL Eos # (0.0-0.7) K/uL Baso # (0.0-0.2) K/uL PT (9.8-13.1) Seconds INR (0.9-1.2) APTT (25.6-37.1) Seconds Sodium (132-148) mmol/l Potassium (3.6-5.0) MMOL/L Chloride (98-107) mmol/L Carbon Dioxide (22-30) mmol/L Anion Gap (10-20) BUN (7-17) mg/dl Creatinine (0.7-1.2) mg/dl Est GFR ( Amer) Est GFR (Non-Af Amer) POC Glucose (mg/dL) 139 H (65-110) mg/dL Random Glucose (65-105) mg/dL Serum Osmolality (272-300) mosm/kg Calcium (8.4-10.2) mg/dL Phosphorus (2.5-4.5) mg/dl Magnesium (1.6-2.3) MG/DL Total Bilirubin (0.2-1.3) mg/dl AST (14-36) U/L ALT (9-52) U/L Alkaline Phosphatase (38-126) U/L Total Protein (6.3-8.2) G/DL Albumin (3.5-5.0) g/dL Globulin (2.2-3.9) gm/dL Albumin/Globulin Ratio (1.0-2.1) Urine Osmolality 286 L (300-1000) mosm/kg Blood Type A POSITIVE Antibody Screen Negative Crossmatch See Detail BBK History Checked Patient has bt 01/09/17 01/09/17 01/09/17 Range/Units 06:07 05:00 05:00 WBC (4.8-10.8) K/uL RBC (3.80-5.20) Mil/uL Hgb (12.0-16.0) g/dL Hct (34.0-47.0) % MCV (81.0-99.0) fl MCH (27.0-31.0) pg MCHC (33.0-37.0) g/dL RDW (11.5-14.5) % Plt Count (130-400) K/uL MPV (7.2-11.7) fl Neut % (Auto) (50.0-75.0) % Lymph % (Auto) (20.0-40.0) % Blanco % (Auto) (0.0-10.0) % Eos % (Auto) (0.0-4.0) % Baso % (Auto) (0.0-2.0) % Neut # (1.8-7.0) K/uL Lymph # (1.0-4.3) K/uL Blanco # (0.0-0.8) K/uL Eos # (0.0-0.7) K/uL Baso # (0.0-0.2) K/uL PT (9.8-13.1) Seconds INR (0.9-1.2) APTT (25.6-37.1) Seconds Sodium 129 L (132-148) mmol/l Potassium 3.5 L (3.6-5.0) MMOL/L Chloride 96 L (98-107) mmol/L Carbon Dioxide 21 L (22-30) mmol/L Anion Gap 16 (10-20) BUN 44 H (7-17) mg/dl Creatinine 6.4 H (0.7-1.2) mg/dl Est GFR ( Amer) 8 Est GFR (Non-Af Amer) 7 POC Glucose (mg/dL) 141 H (65-110) mg/dL Random Glucose 153 H (65-105) mg/dL Serum Osmolality 284 (272-300) mosm/kg Calcium 8.0 L (8.4-10.2) mg/dL Phosphorus 5.3 H (2.5-4.5) mg/dl Magnesium 1.9 (1.6-2.3) MG/DL Total Bilirubin 27.8 H (0.2-1.3) mg/dl AST 95 H D (14-36) U/L ALT 63 H (9-52) U/L Alkaline Phosphatase 145 H D (38-126) U/L Total Protein 7.9 (6.3-8.2) G/DL Albumin 3.0 L (3.5-5.0) g/dL Globulin 4.9 H (2.2-3.9) gm/dL Albumin/Globulin Ratio 0.6 L (1.0-2.1) Urine Osmolality (300-1000) mosm/kg Blood Type Antibody Screen Crossmatch BBK History Checked 01/09/17 01/09/17 01/08/17 Range/Units 05:00 05:00 21:31 WBC 11.1 H (4.8-10.8) K/uL RBC 2.19 L (3.80-5.20) Mil/uL Hgb 7.2 L (12.0-16.0) g/dL Hct 21.0 L (34.0-47.0) % MCV 96.0 (81.0-99.0) fl MCH 32.8 H (27.0-31.0) pg MCHC 34.1 (33.0-37.0) g/dL RDW 20.9 H (11.5-14.5) % Plt Count 72 L (130-400) K/uL MPV 10.9 (7.2-11.7) fl Neut % (Auto) 62.1 (50.0-75.0) % Lymph % (Auto) 14.3 L (20.0-40.0) % Blanco % (Auto) 20.7 H (0.0-10.0) % Eos % (Auto) 2.4 (0.0-4.0) % Baso % (Auto) 0.5 (0.0-2.0) % Neut # 6.9 (1.8-7.0) K/uL Lymph # 1.6 (1.0-4.3) K/uL Blanco # 2.3 H (0.0-0.8) K/uL Eos # 0.3 (0.0-0.7) K/uL Baso # 0.1 (0.0-0.2) K/uL PT 52.4 H* (9.8-13.1) Seconds INR 4.6 H (0.9-1.2) APTT 67.2 H (25.6-37.1) Seconds Sodium (132-148) mmol/l Potassium (3.6-5.0) MMOL/L Chloride (98-107) mmol/L Carbon Dioxide (22-30) mmol/L Anion Gap (10-20) BUN (7-17) mg/dl Creatinine (0.7-1.2) mg/dl Est GFR ( Amer) Est GFR (Non-Af Amer) POC Glucose (mg/dL) 179 H (65-110) mg/dL Random Glucose (65-105) mg/dL Serum Osmolality (272-300) mosm/kg Calcium (8.4-10.2) mg/dL Phosphorus (2.5-4.5) mg/dl Magnesium (1.6-2.3) MG/DL Total Bilirubin (0.2-1.3) mg/dl AST (14-36) U/L ALT (9-52) U/L Alkaline Phosphatase (38-126) U/L Total Protein (6.3-8.2) G/DL Albumin (3.5-5.0) g/dL Globulin (2.2-3.9) gm/dL Albumin/Globulin Ratio (1.0-2.1) Urine Osmolality (300-1000) mosm/kg Blood Type Antibody Screen Crossmatch BBK History Checked 01/08/17 Range/Units 17:10 WBC (4.8-10.8) K/uL RBC (3.80-5.20) Mil/uL Hgb (12.0-16.0) g/dL Hct (34.0-47.0) % MCV (81.0-99.0) fl MCH (27.0-31.0) pg MCHC (33.0-37.0) g/dL RDW (11.5-14.5) % Plt Count (130-400) K/uL MPV (7.2-11.7) fl Neut % (Auto) (50.0-75.0) % Lymph % (Auto) (20.0-40.0) % Blanco % (Auto) (0.0-10.0) % Eos % (Auto) (0.0-4.0) % Baso % (Auto) (0.0-2.0) % Neut # (1.8-7.0) K/uL Lymph # (1.0-4.3) K/uL Blanco # (0.0-0.8) K/uL Eos # (0.0-0.7) K/uL Baso # (0.0-0.2) K/uL PT (9.8-13.1) Seconds INR (0.9-1.2) APTT (25.6-37.1) Seconds Sodium (132-148) mmol/l Potassium (3.6-5.0) MMOL/L Chloride (98-107) mmol/L Carbon Dioxide (22-30) mmol/L Anion Gap (10-20) BUN (7-17) mg/dl Creatinine (0.7-1.2) mg/dl Est GFR ( Amer) Est GFR (Non-Af Amer) POC Glucose (mg/dL) 202 H (65-110) mg/dL Random Glucose (65-105) mg/dL Serum Osmolality (272-300) mosm/kg Calcium (8.4-10.2) mg/dL Phosphorus (2.5-4.5) mg/dl Magnesium (1.6-2.3) MG/DL Total Bilirubin (0.2-1.3) mg/dl AST (14-36) U/L ALT (9-52) U/L Alkaline Phosphatase (38-126) U/L Total Protein (6.3-8.2) G/DL Albumin (3.5-5.0) g/dL Globulin (2.2-3.9) gm/dL Albumin/Globulin Ratio (1.0-2.1) Urine Osmolality (300-1000) mosm/kg Blood Type Antibody Screen Crossmatch BBK History Checked Laboratory Results - last 24 hr 01/08/17 01/08/17 01/09/17 17:10 21:31 05:00 WBC 11.1 H RBC 2.19 L Hgb 7.2 L Hct 21.0 L MCV 96.0 MCH 32.8 H MCHC 34.1 RDW 20.9 H Plt Count 72 L MPV 10.9 Neut % (Auto) 62.1 Lymph % (Auto) 14.3 L Blanco % (Auto) 20.7 H Eos % (Auto) 2.4 Baso % (Auto) 0.5 Neut # 6.9 Lymph # 1.6 Blanco # 2.3 H Eos # 0.3 Baso # 0.1 PT INR APTT Sodium Potassium Chloride Carbon Dioxide Anion Gap BUN Creatinine Est GFR ( Amer) Est GFR (Non-Af Amer) POC Glucose (mg/dL) 202 H 179 H Random Glucose Serum Osmolality Calcium Phosphorus Magnesium Total Bilirubin AST ALT Alkaline Phosphatase Total Protein Albumin Globulin Albumin/Globulin Ratio Urine Osmolality Blood Type Antibody Screen Crossmatch BBK History Checked 01/09/17 01/09/17 01/09/17 05:00 05:00 05:00 WBC RBC Hgb Hct MCV MCH MCHC RDW Plt Count MPV Neut % (Auto) Lymph % (Auto) Blanco % (Auto) Eos % (Auto) Baso % (Auto) Neut # Lymph # Blanco # Eos # Baso # PT 52.4 H* INR 4.6 H APTT 67.2 H Sodium 129 L Potassium 3.5 L Chloride 96 L Carbon Dioxide 21 L Anion Gap 16 BUN 44 H Creatinine 6.4 H Est GFR ( Amer) 8 Est GFR (Non-Af Amer) 7 POC Glucose (mg/dL) Random Glucose 153 H Serum Osmolality 284 Calcium 8.0 L Phosphorus 5.3 H Magnesium 1.9 Total Bilirubin 27.8 H AST 95 H D ALT 63 H Alkaline Phosphatase 145 H D Total Protein 7.9 Albumin 3.0 L Globulin 4.9 H Albumin/Globulin Ratio 0.6 L Urine Osmolality Blood Type Antibody Screen Crossmatch BBK History Checked 01/09/17 01/09/17 01/09/17 06:07 08:36 08:40 WBC RBC Hgb Hct MCV MCH MCHC RDW Plt Count MPV Neut % (Auto) Lymph % (Auto) Blanco % (Auto) Eos % (Auto) Baso % (Auto) Neut # Lymph # Blanco # Eos # Baso # PT INR APTT Sodium Potassium Chloride Carbon Dioxide Anion Gap BUN Creatinine Est GFR ( Amer) Est GFR (Non-Af Amer) POC Glucose (mg/dL) 141 H Random Glucose Serum Osmolality Calcium Phosphorus Magnesium Total Bilirubin AST ALT Alkaline Phosphatase Total Protein Albumin Globulin Albumin/Globulin Ratio Urine Osmolality 286 L Blood Type A POSITIVE Antibody Screen Negative Crossmatch See Detail BBK History Checked Patient has bt 01/09/17 11:13 WBC RBC Hgb Hct MCV MCH MCHC RDW Plt Count MPV Neut % (Auto) Lymph % (Auto) Blanco % (Auto) Eos % (Auto) Baso % (Auto) Neut # Lymph # Blanco # Eos # Baso # PT INR APTT Sodium Potassium Chloride Carbon Dioxide Anion Gap BUN Creatinine Est GFR ( Amer) Est GFR (Non-Af Amer) POC Glucose (mg/dL) 139 H Random Glucose Serum Osmolality Calcium Phosphorus Magnesium Total Bilirubin AST ALT Alkaline Phosphatase Total Protein Albumin Globulin Albumin/Globulin Ratio Urine Osmolality Blood Type Antibody Screen Crossmatch BBK History Checked Fingerstick Blood Sugar Results: 141 Review of Systems - Review of Systems Systems not reviewed;Unavailable: Altered Mental Status Critical Care Progress Note - Nutrition Nutrition: Nutrition Category Date Time Status Renal Diet [DIET] Diets 01/09/17 Lunch Active
--- NOTE | 2017-01-09 16:48 | CP.PCM.PN ---
Subjective - Date & Time of Evaluation Date of Evaluation: 01/09/17 Time of Evaluation: 09:00 - Subjective Subjective: bed bound less encephalopathic less sob had HD today- tolerated well Objective - Vital Signs/Intake and Output Vital Signs (last 24 hours): Temp Pulse Resp BP Pulse Ox 97.9 F 83 15 108/45 L 93 L 01/09/17 16:00 01/09/17 16:00 01/09/17 16:00 01/09/17 16:00 01/09/17 16:00 Intake and Output: 01/09/17 01/09/17 06:59 18:59 Intake Total 2265 1098 Output Total 10 Balance 2255 1098 - Medications Medications: Current Medications Hydroxyzine HCl (Atarax) 25 mg PO Q6 PRN PRN Reason: Itching / Pruritus Vasopressin 100 units/ Sodium (Chloride) 105 mls @ 1.89 mls/hr IV .Q24H [facility]ON; 0.03 UNITS/MIN PRN Reason: Protocol Last Admin: 01/09/17 13:24 Dose: 0.03 units/min, 1.89 mls/hr Piperacillin Sod/Tazobactam (Sod 2.25 gm/ Sodium Chloride) 100 mls @ 100 mls/ hr IVPB Q8@0700,1500,2300 [facility] PRN Reason: Protocol Last Admin: 01/09/17 16:35 Dose: 100 mls/hr Cefepime HCl 1 gm/ Sodium (Chloride) 100 mls @ 100 mls/hr IVPB DAILY [facility] PRN Reason: Protocol Last Admin: 01/09/17 11:31 Dose: 100 mls/hr Norepinephrine Bitartrate 4 mg (/ Dextrose) 254 mls @ 114.3 mls/hr IV .Q2H14M [facility]; 30 MCG/MIN PRN Reason: Protocol Last Titration: 01/09/17 14:04 Dose: 25 mcg/min, 95.25 mls/hr Phytonadione 10 mg/ Dextrose 51 mls @ 102 mls/hr IV DAILY [facility] Stop: 01/12/17 09:29 Lactulose (Enulose) 20 gm PO BID [facility] Last Admin: 01/09/17 08:45 Dose: 20 gm Midodrine (Proamatine) 7.5 mg PO TID [facility] Last Admin: 01/09/17 13:26 Dose: 7.5 mg Octreotide Acetate (Sandostatin) 100 mcg SC Q8 [facility] Last Admin: 01/09/17 11:32 Dose: 100 mcg Pantoprazole Sodium (Protonix Inj) 40 mg IVP DAILY [facility] Last Admin: 01/09/17 08:46 Dose: 40 mg Rifaximin (Xifaxan) 550 mg PO BID [facility] PRN Reason: Protocol Last Admin: 01/09/17 08:46 Dose: 550 mg Sodium Bicarbonate (Sodium Bicarbonate Tab) 1,300 mg PO BID [facility] Last Admin: 01/09/17 08:46 Dose: 1,300 mg Zinc Sulfate (Zinc Sulfate 220 Mg Cap) 220 mg PO DAILY [facility] Last Admin: 01/09/17 08:47 Dose: 220 mg - Labs Labs: 01/09/17 05:00 01/09/17 05:00 PT 52.4 Seconds (9.8-13.1) H* 01/09/17 05:00 INR 4.6 (0.9-1.2) H 01/09/17 05:00 APTT 67.2 Seconds (25.6-37.1) H 01/09/17 05:00 - Constitutional Appears: Non-toxic, Chronically Ill - Head Exam Head Exam: NORMOCEPHALIC - Eye Exam Eye Exam: PERRL. absent: Scleral icterus - ENT Exam ENT Exam: Mucous Membranes Dry - Neck Exam Neck Exam: absent: Lymphadenopathy - Respiratory Exam Respiratory Exam: Decreased Breath Sounds - Cardiovascular Exam Cardiovascular Exam: REGULAR RHYTHM - GI/Abdominal Exam GI & Abdominal Exam: Distended, Soft - Rectal Exam Rectal Exam: Deferred - Exam Exam: NORMAL INSPECTION - Extremities Exam Extremities Exam: absent: Pedal Edema - Back Exam Back Exam: absent: CVA tenderness (L), CVA tenderness (R) Assessment and Plan (1) DM2 (diabetes mellitus, type 2) Status: Acute (2) Hypotension Status: Acute (3) UTI (urinary tract infection) Status: Acute (4) [id number] kidney injury Status: Acute (5) Hepatorenal syndrome Status: Acute (6) Liver cirrhosis Status: Acute
[2017-01-09] MEDS ORDERED: Norepinephrine 8 MG in Dextrose 5% In Water 500 ML IV ONE (20:09)
[2017-01-10] MEDS ORDERED: Norepinephrine 8 MG in Dextrose 5% In Water 500 ML IV ONE (01:01)
[2017-01-10 07:33] LABS: HEMATOCRIT 23.3 % (34.0-47.0); MEAN CELL VOLUME 94.3 fl (81.0-99.0); MEAN CORPUSCULAR HEMOGLOBIN 31.6 pg (27.0-31.0); MEAN CORPUSCULAR HGB CONC 33.5 g/dL (33.0-37.0); RED CELL DISTRIBUTION WIDTH 20.3 % (11.5-14.5); WHITE BLOOD COUNT 12.1 K/uL (4.8-10.8)
[2017-01-10 07:34] LABS: ALB/GLOB RATIO 0.7 (1.0-2.1); CALCIUM 8.6 mg/dL (8.4-10.2); POTASSIUM 3.4 MMOL/L (3.6-5.0); TOTAL PROTEIN 8.5 G/DL (6.3-8.2)
[2017-01-10 08:11] LABS: PARTIAL THROMBOPLASTIN TIME 48.8 Seconds (25.6-37.1)
[2017-01-10 08:39] LABS: BILIRUBIN,TOTAL 41.8 mg/dl (0.2-1.3)
[2017-01-10] MEDS ORDERED: Phytonadione 10 mg/ml Inj (Adult) IVPB ONE (09:00)
[2017-01-10] MEDS: Cefepime 1 GM in Sodium Chloride 0.9% 100 ML IVPB SCH (09:28)
--- NOTE | 2017-01-10 09:55 | CP.PCM.PN ---
Subjective - Date & Time of Evaluation Date of Evaluation: 01/10/17 Time of Evaluation: 09:53 - Subjective Subjective: pt remains alert and conversant, marilee small amts of po. no f/c, n/v/d. bw noted. hgb 7.8, plts 50s. pt rec'd prbc and ffp yesterday as well as vit k. melena in stool w/ stool guiac pending. [facility] will not accept while pt on pressors. vasopressin remiains, levophed 25mcg down from 30. family updated on all, approached about hospice, wishes to wait until next week Objective - Vital Signs/Intake and Output Vital Signs (last 24 hours): Temp Pulse Resp BP Pulse Ox 98.4 F 85 15 105/44 L 97 01/10/17 08:00 01/10/17 08:00 01/10/17 08:00 01/10/17 08:00 01/10/17 08:00 Intake and Output: 01/10/17 01/10/17 06:59 18:59 Intake Total 1955 Output Total 5 Balance 1950 - Medications Medications: Current Medications Hydroxyzine HCl (Atarax) 25 mg PO Q6 PRN PRN Reason: Itching / Pruritus Vasopressin 100 units/ Sodium (Chloride) 105 mls @ 1.89 mls/hr IV .Q24H [facility]; 0.03 UNITS/MIN PRN Reason: Protocol Last Admin: 01/09/17 13:24 Dose: 0.03 units/min, 1.89 mls/hr Piperacillin Sod/Tazobactam (Sod 2.25 gm/ Sodium Chloride) 100 mls @ 100 mls/ hr IVPB Q8@0700,1500,2300 [facility] PRN Reason: Protocol Last Admin: 01/10/17 06:10 Dose: 100 mls/hr Cefepime HCl 1 gm/ Sodium (Chloride) 100 mls @ 100 mls/hr IVPB DAILY [facility] PRN Reason: Protocol Last Admin: 01/10/17 09:28 Dose: 100 mls/hr Phytonadione 10 mg/ Dextrose 51 mls @ 102 mls/hr IV DAILY [facility] Stop: 01/12/17 09:29 Lactulose (Enulose) 20 gm PO BID [facility] Last Admin: 01/10/17 09:34 Dose: 20 gm Midodrine (Proamatine) 7.5 mg PO TID [facility] Last Admin: 01/10/17 09:34 Dose: 7.5 mg Octreotide Acetate (Sandostatin) 100 mcg SC Q8 [facility] Last Admin: 01/10/17 09:33 Dose: 100 mcg Pantoprazole Sodium (Protonix Inj) 40 mg IVP DAILY [facility] Last Admin: 01/10/17 09:34 Dose: 40 mg Rifaximin (Xifaxan) 550 mg PO BID [facility] PRN Reason: Protocol Last Admin: 01/10/17 09:35 Dose: 550 mg Sodium Bicarbonate (Sodium Bicarbonate Tab) 1,300 mg PO BID [facility] Last Admin: 01/10/17 09:34 Dose: 1,300 mg Zinc Sulfate (Zinc Sulfate 220 Mg Cap) 220 mg PO DAILY [facility] Last Admin: 01/10/17 09:35 Dose: 220 mg - Labs Labs: 01/10/17 07:07 01/10/17 07:07 PT 21.4 Seconds (9.8-13.1) H D 01/10/17 07:07 INR 1.9 (0.9-1.2) H D 01/10/17 07:07 APTT 48.8 Seconds (25.6-37.1) H D 01/10/17 07:07 - Constitutional Appears: Non-toxic, No Acute Distress, Chronically Ill - Head Exam Head Exam: ATRAUMATIC, NORMAL INSPECTION, NORMOCEPHALIC - Eye Exam Eye Exam: EOMI, PERRL, Scleral icterus Pupil Exam: NORMAL ACCOMODATION, PERRL - ENT Exam ENT Exam: Mucous Membranes Moist, Normal Exam - Neck Exam Neck Exam: Full ROM, Normal Inspection. absent: Lymphadenopathy - Respiratory Exam Respiratory Exam: Clear to Ausculation Bilateral, NORMAL BREATHING PATTERN - Cardiovascular Exam Cardiovascular Exam: REGULAR RHYTHM, RRR, +S1, +S2. absent: Murmur - GI/Abdominal Exam GI & Abdominal Exam: Soft, Normal Bowel Sounds. absent: Tenderness - Extremities Exam Extremities Exam: Full ROM, Normal Capillary Refill, Normal Inspection. absent : Joint Swelling, Pedal Edema - Back Exam Back Exam: NORMAL INSPECTION - Neurological Exam Neurological Exam: Abnormal Gait, Alert, Awake, CN II-XII Intact - Psychiatric Exam Psychiatric exam: Normal Affect, Normal Mood - Skin Skin Exam: Dry, Intact, Normal Color, Warm Assessment and Plan (1) [id number] kidney injury Assessment & Plan: nephro dialysis monitor bw/lytes Status: Acute (2) DVT prophylaxis Assessment & Plan: scd nad ae hose no anticoag r/t coagulopathy from liver dz Status: Acute (3) Hepatorenal syndrome Assessment & Plan: icu care gi, nephro Status: Acute (4) Liver cirrhosis Assessment & Plan: end stage ?? transfert o liver center when off pressors vs hospice Status: Acute (5) UTI (urinary tract infection) Assessment & Plan: cont all anbx-vanco, zosyn, cefepime, ID ?? sepsis Status: Acute (6) Hypotension Assessment & Plan: ?? r/t sepsis vs hepatorenal levophed, vasopressin titrat prn fluid support Status: Acute - Assessment and Plan (Free Text) Assessment: 30 min spent w/ pt/family d/c all care. hospice eval ??
--- NOTE | 2017-01-10 09:57 | CP.PCM.PN ---
Subjective - Date & Time of Evaluation Date of Evaluation: 01/10/17 Time of Evaluation: 09:30 - Subjective Subjective: More alert Objective - Vital Signs/Intake and Output Vital Signs (last 24 hours): Temp Pulse Resp BP Pulse Ox 98.4 F 85 15 105/44 L 97 01/10/17 08:00 01/10/17 08:00 01/10/17 08:00 01/10/17 08:00 01/10/17 08:00 Intake and Output: 01/10/17 01/10/17 06:59 18:59 Intake Total 1955 Output Total 5 Balance 1950 - Medications Medications: Current Medications Hydroxyzine HCl (Atarax) 25 mg PO Q6 PRN PRN Reason: Itching / Pruritus Vasopressin 100 units/ Sodium (Chloride) 105 mls @ 1.89 mls/hr IV .Q24H [facility]; 0.03 UNITS/MIN PRN Reason: Protocol Last Admin: 01/09/17 13:24 Dose: 0.03 units/min, 1.89 mls/hr Piperacillin Sod/Tazobactam (Sod 2.25 gm/ Sodium Chloride) 100 mls @ 100 mls/ hr IVPB Q8@0700,1500,2300 [facility] PRN Reason: Protocol Last Admin: 01/10/17 06:10 Dose: 100 mls/hr Cefepime HCl 1 gm/ Sodium (Chloride) 100 mls @ 100 mls/hr IVPB DAILY [facility] PRN Reason: Protocol Last Admin: 01/10/17 09:28 Dose: 100 mls/hr Phytonadione 10 mg/ Dextrose 51 mls @ 102 mls/hr IV DAILY [facility] Stop: 01/12/17 09:29 Lactulose (Enulose) 20 gm PO BID [facility] Last Admin: 01/10/17 09:34 Dose: 20 gm Midodrine (Proamatine) 7.5 mg PO TID [facility] Last Admin: 01/10/17 09:34 Dose: 7.5 mg Octreotide Acetate (Sandostatin) 100 mcg SC Q8 [facility] Last Admin: 01/10/17 09:33 Dose: 100 mcg Pantoprazole Sodium (Protonix Inj) 40 mg IVP DAILY [facility] Last Admin: 01/10/17 09:34 Dose: 40 mg Rifaximin (Xifaxan) 550 mg PO BID [facility] PRN Reason: Protocol Last Admin: 01/10/17 09:35 Dose: 550 mg Sodium Bicarbonate (Sodium Bicarbonate Tab) 1,300 mg PO BID [facility] Last Admin: 01/10/17 09:34 Dose: 1,300 mg Zinc Sulfate (Zinc Sulfate 220 Mg Cap) 220 mg PO DAILY [facility] Last Admin: 01/10/17 09:35 Dose: 220 mg - Labs Labs: 01/10/17 07:07 01/10/17 07:07 PT 21.4 Seconds (9.8-13.1) H D 01/10/17 07:07 INR 1.9 (0.9-1.2) H D 01/10/17 07:07 APTT 48.8 Seconds (25.6-37.1) H D 01/10/17 07:07 - Head Exam Head Exam: ATRAUMATIC - Eye Exam Eye Exam: Scleral icterus - ENT Exam ENT Exam: Mucous Membranes Dry - Respiratory Exam Respiratory Exam: NORMAL BREATHING PATTERN - Cardiovascular Exam Cardiovascular Exam: +S1, +S2 - GI/Abdominal Exam GI & Abdominal Exam: Normal Bowel Sounds Assessment and Plan (1) Coagulopathy Assessment & Plan: liver diseae, nutritional improved s/p FFP Status: Acute (2) Anemia Assessment & Plan: GI bleeding anemia of CKD; procrit per karli transfusion support PRN Status: Acute (3) Thrombocytopenia Assessment & Plan: liver disease, splenic sequestration Status: Acute (4) Leukocytosis Assessment & Plan: on antibiotics Status: Acute
--- NOTE | 2017-01-10 10:51 | US ---
HISTORY: eval for bile duct obstruction COMPARISON: Correlation made to CT scan of the abdomen pelvis dated 12/15/2016. TECHNIQUE: Sonographic evaluation of the abdomen. FINDINGS: LIVER: Measures 14.6 cm. Normal echogenicity of the liver parenchyma. No mass. No intrahepatic bile duct dilatation. GALLBLADDER: Tiny 4 millimeter echogenic focus adherent to the gallbladder wall, questionable polyp. No gallstones. COMMON BILE DUCT: Measures 4 mm. No stones. No dilatation. PANCREAS: Not well-visualized. RIGHT KIDNEY: Measures 11.6 x 4.6 x 4.5cm. Normal echogenicity. No calculus, mass, or hydronephrosis. LEFT KIDNEY: Measures 11.1 x 4.6 x 5.1cm. Normal echogenicity. No calculus, mass, or hydronephrosis. SPLEEN: Normal in size and contour. No mass. AORTA: No aneurysmal dilatation. IVC: Unremarkable. OTHER FINDINGS: Trace perihepatic ascites. IMPRESSION: No evidence of biliary ductal obstruction. Trace perihepatic ascites.
--- NOTE | 2017-01-10 11:10 | CP.CCUPN ---
CCU Subjective - Physician Review Subjective (Free Text): Events reviewed, remains awake today and responsive to simple commands. Remains on Levophed at 25 mcg/min and Vasopressin infusion. Undergoing another course of HD (1.5L removal ) yesterday. No active bleeding noted. Other vitals and I/O's reviewed. No fever spikes overnight. No urine output noted. Fluid balance 1.9L positive. ROS: No other pertinent negs or positives on 10+ system review. PMSFH: All Nursing and physician documentation reviewed to date; no new pertinent info noted relevant to current medical problems. IMPRESSION / MAJOR PROBLEMS NOW: 1. Acute Resp insuff 2 RML Pneumonia 2. Cirrhosis with hepatic encephalopathy 3. GEGE 2 ATN / Hepatorenal syndrome, now HD-dependent 4. Chronic disease Anemia / Thrombocytopenia/ Coagulopathy PLAN: 1. Check repeat CBC and coags today at 3PM to re-assess need for further PRBCs and FFP. There is black liquid stool coming from the Flexiseal incontinence bag collection sytem. 2. Levophed weans as BP tolerates. Vasopressin at fixed dose. 3. Empiric abx coverage noted with Cefepime / Zosyn / Vanco. So far, urine growth with E.coli. 4. Ongoing Octreotide 100mcg q8h, Midodrine and Albumin. 5. Improved neuromental status may have precluded need for oral intubation for airway protection. 6. As per Dr. Marx: [facility] will not take patient unless weaned off vasopressors. May be losing option to transfer to [facility] as vasopressor weans may be prolonged. CCU Objective - Vital Signs / Intake & Output Vital Signs (Last 4 hours): Vital Signs Temp Pulse Resp BP Pulse Ox 01/10/17 08:00 98.4 F 85 15 105/44 L 97 Intake and Output (Last 8hrs): Intake & Output 01/09/17 01/10/17 01/10/17 22:59 06:59 14:59 Intake Total 1542 1445 Output Total 500 5 Balance 1042 1440 Weight 264 lb Intake: IV 260 562 Intake, Piggyback 932 200 Oral 25 Blood Product 658 Other 350 Output: Urine 50 5 Urethral (Mcgregor) 5 Urine, Voided 50 Stool 450 Other: # Bowel Movements 200 - Physical Exam Head: Positive for: Atraumatic, Normocephalic Pupils: Positive for: PERRL Conjunctiva: Positive for: Normal, Icteric Mouth: Positive for: Moist Mucous Membranes Nose (External): Positive for: Atraumatic Nose (Internal): Positive for: Normal Inspection Neck: Positive for: Normal Range of Motion. Negative for: JVD Respiratory/Chest: Positive for: Clear to Auscultation, Decreased Breath Sounds Cardiovascular: Positive for: Regular Rate and Rhythm Abdomen: Positive for: Distention, Normal Bowel Sounds. Negative for: Tenderness, Mass/Organomegaly Upper Extremity: Positive for: Normal Inspection Lower Extremity: Positive for: NORMAL PULSES. Negative for: CALF TENDERNESS, Cyanosis Neurological: Positive for: Motor Func Grossly Intact, Normal Sensory Function Skin: Positive for: Warm, Dry. Negative for: Rashes Psychiatric: Positive for: Lethargic - Medications Active Medications: Active Medications Generic Name Dose Route Start Last Admin Trade Name Freq PRN Reason Stop Dose Admin Hydroxyzine HCl 25 mg 01/04/17 18:38 Atarax PO Q6 PRN Itching / Pruritus Vasopressin 100 units/ Sodium 105 mls @ 1.89 mls/hr 01/05/17 16:30 01/09/17 13:24 Chloride IV 0.03 units/min .Q24H [facility] 1.89 mls/hr Protocol Administration 0.03 UNITS/MIN Piperacillin Sod/Tazobactam 100 mls @ 100 mls/hr 01/05/17 23:00 01/10/17 06: 10 Sod 2.25 gm/ Sodium Chloride IVPB 100 mls/hr Q8@0700,1500,2300 [facility] Administration Protocol Cefepime HCl 1 gm/ Sodium 100 mls @ 100 mls/hr 01/06/17 13:00 01/10/17 09:28 Chloride IVPB 100 mls/hr DAILY [facility] Administration Protocol Phytonadione 10 mg/ Dextrose 51 mls @ 102 mls/hr 01/10/17 09:00 IV 01/12/17 09:29 DAILY [facility] Lactulose 20 gm 01/07/17 17:00 01/10/17 09:34 Enulose PO 20 gm BID [facility] Administration Midodrine 7.5 mg 01/08/17 17:00 01/10/17 09:34 Proamatine PO 7.5 mg TID [facility] Administration Octreotide Acetate 100 mcg 01/08/17 14:45 01/10/17 09:33 Sandostatin SC 100 mcg Q8 [facility] Administration Pantoprazole Sodium 40 mg 01/06/17 09:00 01/10/17 09:34 Protonix Inj IVP 40 mg DAILY [facility] Administration Rifaximin 550 mg 01/05/17 09:00 01/10/17 09:35 Xifaxan PO 550 mg BID [facility] Administration Protocol Sodium Bicarbonate 1,300 mg 01/05/17 09:00 01/10/17 09:34 Sodium Bicarbonate Tab PO 1,300 mg BID [facility] Administration Zinc Sulfate 220 mg 01/05/17 09:00 01/10/17 09:35 Zinc Sulfate 220 Mg Cap PO 220 mg DAILY [facility] Administration - Patient Studies Lab Studies: Microbiology Studies 01/09/17 Unknown Blood Culture - Preliminary Blood-Thru Central Line NO GROWTH AFTER 24 HOURS 01/05/17 10:30 Blood Culture - Preliminary Blood NO GROWTH AFTER 4 DAYS Lab Studies 01/10/17 01/10/17 01/10/17 Range/Units 07:07 07:07 07:07 WBC 12.1 H (4.8-10.8) K/uL RBC 2.47 L (3.80-5.20) Mil/uL Hgb 7.8 L (12.0-16.0) g/dL Hct 23.3 L (34.0-47.0) % MCV 94.3 (81.0-99.0) fl MCH 31.6 H (27.0-31.0) pg MCHC 33.5 (33.0-37.0) g/dL RDW 20.3 H (11.5-14.5) % Plt Count 52 L D (130-400) K/uL PT 21.4 H D (9.8-13.1) Seconds INR 1.9 H D (0.9-1.2) APTT 48.8 H D (25.6-37.1) Seconds Sodium 133 (132-148) mmol/l Potassium 3.4 L (3.6-5.0) MMOL/L Chloride 94 L (98-107) mmol/L Carbon Dioxide 25 (22-30) mmol/L Anion Gap 17 (10-20) BUN 36 H (7-17) mg/dl Creatinine 5.6 H (0.7-1.2) mg/dl Est GFR ( Amer) 9 Est GFR (Non-Af Amer) 8 POC Glucose (mg/dL) (65-110) mg/dL Random Glucose 153 H (65-105) mg/dL Calcium 8.6 (8.4-10.2) mg/dL Total Bilirubin 41.8 H (0.2-1.3) mg/dl AST 86 H (14-36) U/L ALT 58 H (9-52) U/L Alkaline Phosphatase 161 H (38-126) U/L Total Protein 8.5 H (6.3-8.2) G/DL Albumin 3.6 (3.5-5.0) g/dL Globulin 4.9 H (2.2-3.9) gm/dL Albumin/Globulin Ratio 0.7 L (1.0-2.1) Blood Type Antibody Screen Crossmatch BBK History Checked 01/10/17 01/09/17 01/09/17 Range/Units 05:45 21:31 17:01 WBC (4.8-10.8) K/uL RBC (3.80-5.20) Mil/uL Hgb (12.0-16.0) g/dL Hct (34.0-47.0) % MCV (81.0-99.0) fl MCH (27.0-31.0) pg MCHC (33.0-37.0) g/dL RDW (11.5-14.5) % Plt Count (130-400) K/uL PT (9.8-13.1) Seconds INR (0.9-1.2) APTT (25.6-37.1) Seconds Sodium (132-148) mmol/l Potassium (3.6-5.0) MMOL/L Chloride (98-107) mmol/L Carbon Dioxide (22-30) mmol/L Anion Gap (10-20) BUN (7-17) mg/dl Creatinine (0.7-1.2) mg/dl Est GFR ( Amer) Est GFR (Non-Af Amer) POC Glucose (mg/dL) 175 H 207 H 171 H (65-110) mg/dL Random Glucose (65-105) mg/dL Calcium (8.4-10.2) mg/dL Total Bilirubin (0.2-1.3) mg/dl AST (14-36) U/L ALT (9-52) U/L Alkaline Phosphatase (38-126) U/L Total Protein (6.3-8.2) G/DL Albumin (3.5-5.0) g/dL Globulin (2.2-3.9) gm/dL Albumin/Globulin Ratio (1.0-2.1) Blood Type Antibody Screen Crossmatch BBK History Checked 01/09/17 01/09/17 Range/Units 11:13 08:36 WBC (4.8-10.8) K/uL RBC (3.80-5.20) Mil/uL Hgb (12.0-16.0) g/dL Hct (34.0-47.0) % MCV (81.0-99.0) fl MCH (27.0-31.0) pg MCHC (33.0-37.0) g/dL RDW (11.5-14.5) % Plt Count (130-400) K/uL PT (9.8-13.1) Seconds INR (0.9-1.2) APTT (25.6-37.1) Seconds Sodium (132-148) mmol/l Potassium (3.6-5.0) MMOL/L Chloride (98-107) mmol/L Carbon Dioxide (22-30) mmol/L Anion Gap (10-20) BUN (7-17) mg/dl Creatinine (0.7-1.2) mg/dl Est GFR ( Amer) Est GFR (Non-Af Amer) POC Glucose (mg/dL) 139 H (65-110) mg/dL Random Glucose (65-105) mg/dL Calcium (8.4-10.2) mg/dL Total Bilirubin (0.2-1.3) mg/dl AST (14-36) U/L ALT (9-52) U/L Alkaline Phosphatase (38-126) U/L Total Protein (6.3-8.2) G/DL Albumin (3.5-5.0) g/dL Globulin (2.2-3.9) gm/dL Albumin/Globulin Ratio (1.0-2.1) Blood Type A POSITIVE Antibody Screen Negative Crossmatch See Detail BBK History Checked Patient has bt Laboratory Results - last 24 hr 01/09/17 01/09/17 01/09/17 08:36 11:13 17:01 WBC RBC Hgb Hct MCV MCH MCHC RDW Plt Count PT INR APTT Sodium Potassium Chloride Carbon Dioxide Anion Gap BUN Creatinine Est GFR ( Amer) Est GFR (Non-Af Amer) POC Glucose (mg/dL) 139 H 171 H Random Glucose Calcium Total Bilirubin AST ALT Alkaline Phosphatase Total Protein Albumin Globulin Albumin/Globulin Ratio Blood Type A POSITIVE Antibody Screen Negative Crossmatch See Detail BBK History Checked Patient has bt 01/09/17 01/10/17 01/10/17 21:31 05:45 07:07 WBC 12.1 H RBC 2.47 L Hgb 7.8 L Hct 23.3 L MCV 94.3 MCH 31.6 H MCHC 33.5 RDW 20.3 H Plt Count 52 L D PT INR APTT Sodium Potassium Chloride Carbon Dioxide Anion Gap BUN Creatinine Est GFR ( Amer) Est GFR (Non-Af Amer) POC Glucose (mg/dL) 207 H 175 H Random Glucose Calcium Total Bilirubin AST ALT Alkaline Phosphatase Total Protein Albumin Globulin Albumin/Globulin Ratio Blood Type Antibody Screen Crossmatch BBK History Checked 01/10/17 01/10/17 07:07 07:07 WBC RBC Hgb Hct MCV MCH MCHC RDW Plt Count PT 21.4 H D INR 1.9 H D APTT 48.8 H D Sodium 133 Potassium 3.4 L Chloride 94 L Carbon Dioxide 25 Anion Gap 17 BUN 36 H Creatinine 5.6 H Est GFR ( Amer) 9 Est GFR (Non-Af Amer) 8 POC Glucose (mg/dL) Random Glucose 153 H Calcium 8.6 Total Bilirubin 41.8 H AST 86 H ALT 58 H Alkaline Phosphatase 161 H Total Protein 8.5 H Albumin 3.6 Globulin 4.9 H Albumin/Globulin Ratio 0.7 L Blood Type Antibody Screen Crossmatch BBK History Checked Fingerstick Blood Sugar Results: 175 Review of Systems - Review of Systems All systems: reviewed and no additional remarkable complaints except (as above) Critical Care Progress Note - Nutrition Nutrition: Nutrition Category Date Time Status Renal Diet [DIET] Diets 01/09/17 Lunch Active
--- NOTE | 2017-01-10 11:36 | CARD ---
APPROVED REPORT EXAM: Two-dimensional and M-mode echocardiogram with Doppler and color Doppler. Other Information Quality : GoodRhythm : NSR INDICATION LV Function:SystolicDiastolic 2D DIMENSIONS IVSd1.09 (0.7-1.1cm)LVDd5.11 (3.9-5.9cm) LVOT Diameter2.09 (1.8-2.4cm)PWd1.09 (0.7-1.1cm) IVSs1.63 (0.8-1.2cm)LVDs2.41 (2.5-4.0cm) FS (%) 52.8 %PWs1.54 (0.8-1.2cm) M-Mode DIMENSIONS Left Atrium (MM)4.41 (2.5-4.0cm)IVSd1.06 (0.7-1.1cm) Aortic Root3.22 (2.2-3.7cm)LVDd5.69 (4.0-5.6cm) Aortic Cusp Exc.2.09 (1.5-2.0cm)PWd1.06 (0.7-1.1cm) IVSs1.56 cmFS (%) 52 % LVDs2.72 (2.0-3.8cm)PWs1.59 cm Mitral Valve E/A ratio0.0 TDI E/Lateral E'0.0E/Medial E'0.0 Pulmonary Valve PV Peak [id number]/s Tricuspid Valve TR Peak [id number] [id number] Peak Gr.34mmHg [id number] LEFT VENTRICLE The left ventricle is normal size. There is normal left ventricular wall thickness. The left ventricular function is normal. The left ventricular ejection fraction is within the normal range. The Ejection Fraction is 65-70%. There is normal LV segmental wall motion. The left ventricular diastolic function is normal. RIGHT VENTRICLE The right ventricle is normal size. There is normal right ventricular wall thickness. The right ventricular systolic function is normal. ATRIA The left atrium size is normal. The right atrium size is normal. AORTIC VALVE The aortic valve is normal in structure. No aortic regurgitation is present. There is no aortic valvular stenosis. MITRAL VALVE The mitral valve is normal in structure. There is no mitral valve stenosis. There is no mitral valve regurgitation noted. TRICUSPID VALVE The tricuspid valve is normal in structure. There is no tricuspid valve regurgitation noted. There is no tricuspid valve stenosis. PULMONIC VALVE The pulmonary valve is normal in structure. There is no pulmonic valvular regurgitation. GREAT VESSELS The aortic root is normal in size. The IVC is normal in size and collapses >50% with inspiration. PERICARDIAL EFFUSION The pericardium appears normal. <Conclusion> The left ventricle is normal size. The left ventricular function is normal. The left ventricular ejection fraction is within the normal range. The Ejection Fraction is 65-70%.
--- NOTE | 2017-01-10 12:08 | CP.PCM.PN ---
Subjective - Date & Time of Evaluation Date of Evaluation: 01/10/17 Time of Evaluation: 12:00 - Subjective Subjective: doing well Objective - Vital Signs/Intake and Output Vital Signs (last 24 hours): Temp Pulse Resp BP Pulse Ox 98.4 F 85 15 105/44 L 97 01/10/17 08:00 01/10/17 08:00 01/10/17 08:00 01/10/17 08:00 01/10/17 08:00 Intake and Output: 01/10/17 01/10/17 06:59 18:59 Intake Total 1955 Output Total 5 Balance 1950 - Medications Medications: Current Medications Hydroxyzine HCl (Atarax) 25 mg PO Q6 PRN PRN Reason: Itching / Pruritus Vasopressin 100 units/ Sodium (Chloride) 105 mls @ 1.89 mls/hr IV .Q24H [facility]; 0.03 UNITS/MIN PRN Reason: Protocol Last Admin: 01/09/17 13:24 Dose: 0.03 units/min, 1.89 mls/hr Piperacillin Sod/Tazobactam (Sod 2.25 gm/ Sodium Chloride) 100 mls @ 100 mls/ hr IVPB Q8@0700,1500,2300 [facility] PRN Reason: Protocol Last Admin: 01/10/17 06:10 Dose: 100 mls/hr Cefepime HCl 1 gm/ Sodium (Chloride) 100 mls @ 100 mls/hr IVPB DAILY [facility] PRN Reason: Protocol Last Admin: 01/10/17 09:28 Dose: 100 mls/hr Phytonadione 10 mg/ Dextrose 51 mls @ 102 mls/hr IV DAILY [facility] Stop: 01/12/17 09:29 Lactulose (Enulose) 20 gm PO BID [facility] Last Admin: 01/10/17 09:34 Dose: 20 gm Midodrine (Proamatine) 7.5 mg PO TID [facility] Last Admin: 01/10/17 09:34 Dose: 7.5 mg Octreotide Acetate (Sandostatin) 100 mcg SC Q8 [facility] Last Admin: 01/10/17 09:33 Dose: 100 mcg Pantoprazole Sodium (Protonix Inj) 40 mg IVP DAILY [facility] Last Admin: 01/10/17 09:34 Dose: 40 mg Rifaximin (Xifaxan) 550 mg PO BID [facility] PRN Reason: Protocol Last Admin: 01/10/17 09:35 Dose: 550 mg Sodium Bicarbonate (Sodium Bicarbonate Tab) 1,300 mg PO BID [facility] Last Admin: 01/10/17 09:34 Dose: 1,300 mg Zinc Sulfate (Zinc Sulfate 220 Mg Cap) 220 mg PO DAILY [facility] Last Admin: 01/10/17 09:35 Dose: 220 mg - Labs Labs: 01/10/17 07:07 01/10/17 07:07 PT 21.4 Seconds (9.8-13.1) H D 01/10/17 07:07 INR 1.9 (0.9-1.2) H D 01/10/17 07:07 APTT 48.8 Seconds (25.6-37.1) H D 01/10/17 07:07 - Respiratory Exam Respiratory Exam: NORMAL BREATHING PATTERN - Cardiovascular Exam Cardiovascular Exam: REGULAR RHYTHM - GI/Abdominal Exam GI & Abdominal Exam: Soft, Normal Bowel Sounds Assessment and Plan - Assessment and Plan (Free Text) Assessment: 56 yo female with hepatic encephalopathy doing better titrate lactulose to 3-4 bm daily
--- NOTE | 2017-01-10 12:30 | CP.PCM.PN ---
Subjective - Date & Time of Evaluation Date of Evaluation: 01/10/17 Time of Evaluation: 12:28 - Subjective Subjective: Patient is more awake. Although she is very jaundiced. She reported that eating better. No vomiting or diarrhea. No chest pain reported. No shortness of breath. Objective - Vital Signs/Intake and Output Vital Signs (last 24 hours): Temp Pulse Resp BP Pulse Ox 98.4 F 85 15 105/44 L 97 01/10/17 08:00 01/10/17 08:00 01/10/17 08:00 01/10/17 08:00 01/10/17 08:00 Intake and Output: 01/10/17 01/10/17 06:59 18:59 Intake Total 1955 Output Total 5 Balance 1950 - Medications Medications: Current Medications Hydroxyzine HCl (Atarax) 25 mg PO Q6 PRN PRN Reason: Itching / Pruritus Vasopressin 100 units/ Sodium (Chloride) 105 mls @ 1.89 mls/hr IV .Q24H [facility]; 0.03 UNITS/MIN PRN Reason: Protocol Last Admin: 01/09/17 13:24 Dose: 0.03 units/min, 1.89 mls/hr Piperacillin Sod/Tazobactam (Sod 2.25 gm/ Sodium Chloride) 100 mls @ 100 mls/ hr IVPB Q8@0700,1500,2300 [facility] PRN Reason: Protocol Last Admin: 01/10/17 06:10 Dose: 100 mls/hr Cefepime HCl 1 gm/ Sodium (Chloride) 100 mls @ 100 mls/hr IVPB DAILY [facility] PRN Reason: Protocol Last Admin: 01/10/17 09:28 Dose: 100 mls/hr Phytonadione 10 mg/ Dextrose 51 mls @ 102 mls/hr IV DAILY [facility] Stop: 01/12/17 09:29 Lactulose (Enulose) 20 gm PO BID [facility] Last Admin: 01/10/17 09:34 Dose: 20 gm Midodrine (Proamatine) 7.5 mg PO TID [facility] Last Admin: 01/10/17 09:34 Dose: 7.5 mg Octreotide Acetate (Sandostatin) 100 mcg SC Q8 [facility] Last Admin: 01/10/17 09:33 Dose: 100 mcg Pantoprazole Sodium (Protonix Inj) 40 mg IVP DAILY [facility] Last Admin: 01/10/17 09:34 Dose: 40 mg Rifaximin (Xifaxan) 550 mg PO BID [facility] PRN Reason: Protocol Last Admin: 01/10/17 09:35 Dose: 550 mg Sodium Bicarbonate (Sodium Bicarbonate Tab) 1,300 mg PO BID [facility] Last Admin: 01/10/17 09:34 Dose: 1,300 mg Zinc Sulfate (Zinc Sulfate 220 Mg Cap) 220 mg PO DAILY [facility] Last Admin: 01/10/17 09:35 Dose: 220 mg - Labs Labs: 01/10/17 07:07 01/10/17 07:07 PT 21.4 Seconds (9.8-13.1) H D 01/10/17 07:07 INR 1.9 (0.9-1.2) H D 01/10/17 07:07 APTT 48.8 Seconds (25.6-37.1) H D 01/10/17 07:07 - Constitutional Appears: No Acute Distress - ENT Exam ENT Exam: Mucous Membranes Moist - Respiratory Exam Respiratory Exam: absent: Chest Wall Tenderness - Cardiovascular Exam Cardiovascular Exam: absent: JVD, Rubs - GI/Abdominal Exam GI & Abdominal Exam: Soft, Normal Bowel Sounds - Extremities Exam Extremities Exam: absent: Calf Tenderness - Back Exam Back Exam: absent: CVA tenderness (L), CVA tenderness (R) - Neurological Exam Neurological Exam: Altered - Skin Skin Exam: absent: Cyanosis Assessment and Plan (1) DM2 (diabetes mellitus, type 2) Status: Acute (2) Hypotension Status: Acute (3) [id number] kidney injury Assessment & Plan: Hepatorenal syndrome with acute kidney injury superimposed. Patient receiving dialysis TTS Patient has lobular retinopathy was very high PT PTT Serum bilirubin continued to rise up to 40+ Hyponatremia improving after we discontinue IV fluid yesterday serum sodium up to 133. Patient plan to have dialysis tomorrow also I suggest to discontinue femoral catheter for dialysis and to be switch to subclavian iF possible with the coordination of the hematology regarding the coagulopathy. Anemia patient was transfused hemoglobin still low which she may need more blood transfusion perhaps tomorrow. Prognosis remained guarded. Status: Acute (4) Hepatorenal syndrome Status: Acute (5) Liver cirrhosis Status: Acute
--- NOTE | 2017-01-10 14:05 | CP.PCM.PN ---
Subjective - Date & Time of Evaluation Date of Evaluation: 01/10/17 Time of Evaluation: 08:00 - Subjective Subjective: awake alert responsive afeb nad Objective - Vital Signs/Intake and Output Vital Signs (last 24 hours): Temp Pulse Resp BP Pulse Ox 98.2 F 87 29 H 126/67 96 01/10/17 12:00 01/10/17 12:00 01/10/17 12:00 01/10/17 12:00 01/10/17 12:00 Intake and Output: 01/10/17 01/10/17 06:59 18:59 Intake Total 1955 685 Output Total 5 Balance 1950 685 - Medications Medications: Current Medications Hydroxyzine HCl (Atarax) 25 mg PO Q6 PRN PRN Reason: Itching / Pruritus Vasopressin 100 units/ Sodium (Chloride) 105 mls @ 1.89 mls/hr IV .Q24H [facility]; 0.03 UNITS/MIN PRN Reason: Protocol Last Admin: 01/09/17 13:24 Dose: 0.03 units/min, 1.89 mls/hr Piperacillin Sod/Tazobactam (Sod 2.25 gm/ Sodium Chloride) 100 mls @ 100 mls/ hr IVPB Q8@0700,1500,2300 [facility] PRN Reason: Protocol Last Admin: 01/10/17 06:10 Dose: 100 mls/hr Cefepime HCl 1 gm/ Sodium (Chloride) 100 mls @ 100 mls/hr IVPB DAILY [facility] PRN Reason: Protocol Last Admin: 01/10/17 09:28 Dose: 100 mls/hr Phytonadione 10 mg/ Dextrose 51 mls @ 102 mls/hr IV DAILY [facility] Stop: 01/12/17 09:29 Norepinephrine Bitartrate 8 mg (/ Dextrose) 258 mls @ 4.83 mls/hr IV .Q24H [facility] PRN Reason: 2.5 MCG/MIN Lactulose (Enulose) 20 gm PO BID [facility] Last Admin: 01/10/17 09:34 Dose: 20 gm Midodrine (Proamatine) 7.5 mg PO TID [facility] Last Admin: 01/10/17 09:34 Dose: 7.5 mg Octreotide Acetate (Sandostatin) 100 mcg SC Q8 [facility] Last Admin: 01/10/17 09:33 Dose: 100 mcg Pantoprazole Sodium (Protonix Inj) 40 mg IVP DAILY [facility] Last Admin: 01/10/17 09:34 Dose: 40 mg Rifaximin (Xifaxan) 550 mg PO BID [facility] PRN Reason: Protocol Last Admin: 01/10/17 09:35 Dose: 550 mg Sodium Bicarbonate (Sodium Bicarbonate Tab) 1,300 mg PO BID [facility] Last Admin: 01/10/17 09:34 Dose: 1,300 mg Zinc Sulfate (Zinc Sulfate 220 Mg Cap) 220 mg PO DAILY [facility] Last Admin: 01/10/17 09:35 Dose: 220 mg - Labs Labs: 01/10/17 07:07 01/10/17 07:07 PT 21.4 Seconds (9.8-13.1) H D 01/10/17 07:07 INR 1.9 (0.9-1.2) H D 01/10/17 07:07 APTT 48.8 Seconds (25.6-37.1) H D 01/10/17 07:07 - Constitutional Appears: Non-toxic, No Acute Distress, Chronically Ill - Head Exam Head Exam: ATRAUMATIC - Eye Exam Eye Exam: PERRL - ENT Exam ENT Exam: Mucous Membranes Dry - Neck Exam Neck Exam: absent: Lymphadenopathy - Respiratory Exam Respiratory Exam: Decreased Breath Sounds, Rhonchi - Cardiovascular Exam Cardiovascular Exam: REGULAR RHYTHM, +S1, +S2 - GI/Abdominal Exam GI & Abdominal Exam: Distended, Soft. absent: Tenderness - Rectal Exam Rectal Exam: Deferred - Exam Exam: NORMAL INSPECTION - Extremities Exam Extremities Exam: absent: Pedal Edema - Back Exam Back Exam: absent: CVA tenderness (L), CVA tenderness (R) - Neurological Exam Neurological Exam: Alert, Awake, Oriented x3 - Psychiatric Exam Psychiatric exam: Normal Mood - Skin Skin Exam: Dry Assessment and Plan (1) DM2 (diabetes mellitus, type 2) Status: Acute (2) Hypotension Status: Acute (3) UTI (urinary tract infection) Status: Acute (4) [id number] kidney injury Status: Acute (5) Hepatorenal syndrome Status: Acute (6) Liver cirrhosis Status: Acute
[2017-01-10] MEDS ORDERED: Vancomycin 1 GM in Dextrose 5% In Water 250 ML IVPB ONE (14:06)
[2017-01-10] MEDS: Phytonadione 10 MG in Dextrose 5% In Water 50 ML IV SCH (14:56)
[2017-01-10 16:15] LABS: BASO % 0.4 % (0.0-2.0); EOS # 0.2 K/uL (0.0-0.7); EOS % 1.5 % (0.0-4.0); LYMPH # 1.3 K/uL (1.0-4.3); LYMPH % 10.7 % (20.0-40.0); MEAN CELL VOLUME 93.5 fl (81.0-99.0); MEAN CORPUSCULAR HEMOGLOBIN 32.4 pg (27.0-31.0); MEAN CORPUSCULAR HGB CONC 34.6 g/dL (33.0-37.0); MEAN PLATELET VOLUME 10.2 fl (7.2-11.7); MONO # 3.5 K/uL (0.0-0.8); MONO % 28.7 % (0.0-10.0); NEUT # 7.2 K/uL (1.8-7.0); NEUT % 58.7 % (50.0-75.0); NRBC % 0.2 % (0.0-0.0); RED CELL DISTRIBUTION WIDTH 20.2 % (11.5-14.5); WHITE BLOOD COUNT 12.3 K/uL (4.8-10.8)
[2017-01-10 16:24] LABS: PARTIAL THROMBOPLASTIN TIME 41.9 Seconds (25.6-37.1)
[2017-01-11 07:37] LABS: HEMATOCRIT 22.2 % (34.0-47.0); MEAN CELL VOLUME 93.3 fl (81.0-99.0); MEAN CORPUSCULAR HEMOGLOBIN 33.2 pg (27.0-31.0); MEAN CORPUSCULAR HGB CONC 35.6 g/dL (33.0-37.0); WHITE BLOOD COUNT 12.3 K/uL (4.8-10.8)
[2017-01-11 08:09] LABS: ALB/GLOB RATIO 0.7 (1.0-2.1); CALCIUM 9.1 mg/dL (8.4-10.2); POTASSIUM 3.3 MMOL/L (3.6-5.0); TOTAL PROTEIN 8.4 G/DL (6.3-8.2)
[2017-01-11 08:19] LABS: BILIRUBIN,TOTAL 36.5 mg/dl (0.2-1.3)
[2017-01-11] MEDS: Cefepime 1 GM in Sodium Chloride 0.9% 100 ML IVPB SCH (08:39)
--- NOTE | 2017-01-11 08:40 | CP.CCUPN ---
CCU Subjective - Physician Review Subjective (Free Text): Remains awake today and responsive to simple commands and is interactive and conversant. Remains on Levophed at 25 mcg/min and Vasopressin infusion. Variable MAP levels from 58 to 7 1 over the last 24H. No active bleeding noted. Other vitals and I/O's reviewed. No fever spikes overnight. No urine output noted. Fluid balance 1.9L positive. ROS: No other pertinent negs or positives on 10+ system review. PMSFH: All Nursing and physician documentation reviewed to date; no new pertinent info noted relevant to current medical problems. IMPRESSION / MAJOR PROBLEMS NOW: 1. Acute Resp insuff 2 RML Pneumonia 2. Cirrhosis with hepatic encephalopathy 3. GEGE 2 ATN / Hepatorenal syndrome, now HD-dependent 4. Chronic disease Anemia / Thrombocytopenia/ Coagulopathy PLAN: 1. Slow tolerance to any weans from vasopressors. Levophed weans as BP tolerates. Vasopressin at fixed dose. 2. No overall improvement in renal function despite ongoing treatment with Octreotide 100mcg q8h, Midodrine and Albumin for HRS. 3. Empiric abx coverage noted with Cefepime / Zosyn / Vanco. So far, urine growth with E.coli. 4. HGb not low enough nor is there any active bleeding to warrant repeat PRBCs. 5. Improved neuromental status has precluded need for oral intubation for airway protection. CCU Objective - Vital Signs / Intake & Output Vital Signs (Last 4 hours): Vital Signs Temp Pulse Resp BP Pulse Ox 01/11/17 08:00 98.4 F 88 23 105/46 L 95 01/11/17 07:00 89 18 105/46 L 96 01/11/17 06:00 88 25 H 102/43 L 96 01/11/17 05:00 87 18 91/42 L 94 L Intake and Output (Last 8hrs): Intake & Output 01/10/17 01/11/17 01/11/17 22:59 06:59 14:59 Intake Total 1106 370 258 Output Total 250 Balance 1106 120 258 Weight 266 lb Intake: IV 446 270 258 Intake, Piggyback 150 100 Oral 210 Blood Product 300 Output: Urine 0 Urethral (Mcgregor) 0 Stool 250 - Physical Exam Head: Positive for: Atraumatic, Normocephalic Pupils: Positive for: PERRL Conjunctiva: Positive for: Normal, Icteric Mouth: Positive for: Moist Mucous Membranes Nose (External): Positive for: Atraumatic Nose (Internal): Positive for: Normal Inspection Neck: Positive for: Normal Range of Motion. Negative for: JVD Respiratory/Chest: Positive for: Clear to Auscultation, Decreased Breath Sounds Cardiovascular: Positive for: Regular Rate and Rhythm Abdomen: Positive for: Distention, Normal Bowel Sounds. Negative for: Tenderness, Mass/Organomegaly Upper Extremity: Positive for: Normal Inspection Lower Extremity: Positive for: NORMAL PULSES. Negative for: CALF TENDERNESS, Cyanosis Neurological: Positive for: Motor Func Grossly Intact, Normal Sensory Function Skin: Positive for: Warm, Dry. Negative for: Rashes Psychiatric: Positive for: Lethargic - Medications Active Medications: Active Medications Generic Name Dose Route Start Last Admin Trade Name Freq PRN Reason Stop Dose Admin Hydroxyzine HCl 25 mg 01/04/17 18:38 Atarax PO Q6 PRN Itching / Pruritus Vasopressin 100 units/ Sodium 105 mls @ 1.89 mls/hr 01/05/17 16:30 01/09/17 13:24 Chloride IV 0.03 units/min .Q24H [facility] 1.89 mls/hr Protocol Administration 0.03 UNITS/MIN Cefepime HCl 1 gm/ Sodium 100 mls @ 100 mls/hr 01/06/17 13:00 01/10/17 09:28 Chloride IVPB 100 mls/hr DAILY [facility] Administration Protocol Phytonadione 10 mg/ Dextrose 51 mls @ 102 mls/hr 01/10/17 09:00 01/10/17 14: 56 IV 01/12/17 09:29 102 mls/hr DAILY [facility] Administration Norepinephrine Bitartrate 8 mg 258 mls @ 48.37 mls/hr 01/10/17 20:09 08:34 / Dextrose IV 25 mcg/min .Q5H21M [facility] 48.37 mls/hr Protocol Administration 25 MCG/MIN Lactulose 20 gm 01/07/17 17:00 01/10/17 17:59 Enulose PO 20 gm BID [facility] Administration Midodrine 7.5 mg 01/08/17 17:00 01/10/17 18:00 Proamatine PO 7.5 mg TID [facility] Administration Octreotide Acetate 100 mcg 01/08/17 14:45 01/11/17 00:29 Sandostatin SC 100 mcg Q8 [facility] Administration Pantoprazole Sodium 40 mg 01/06/17 09:00 01/10/17 09:34 Protonix Inj IVP 40 mg DAILY [facility] Administration Rifaximin 550 mg 01/05/17 09:00 01/10/17 18:02 Xifaxan PO 550 mg BID [facility] Administration Protocol Sodium Bicarbonate 1,300 mg 01/05/17 09:00 01/10/17 18:01 Sodium Bicarbonate Tab PO 1,300 mg BID [facility] Administration Zinc Sulfate 220 mg 01/05/17 09:00 01/10/17 09:35 Zinc Sulfate 220 Mg Cap PO 220 mg DAILY [facility] Administration - Patient Studies Lab Studies: Microbiology Studies 01/05/17 10:30 Blood Culture - Final Blood NO GROWTH AFTER 5 DAYS Gram Stain - Final TEST NOT PERFORMED 01/09/17 Unknown Blood Culture - Preliminary Blood-Thru Central Line NO GROWTH AFTER 24 HOURS Lab Studies 01/11/17 01/11/17 01/11/17 Range/Units 05:46 05:20 05:20 WBC 12.3 H (4.8-10.8) K/uL RBC 2.37 L (3.80-5.20) Mil/uL Hgb 7.9 L (12.0-16.0) g/dL Hct 22.2 L (34.0-47.0) % MCV 93.3 (81.0-99.0) fl MCH 33.2 H (27.0-31.0) pg MCHC 35.6 (33.0-37.0) g/dL RDW 20.0 H (11.5-14.5) % Plt Count 51 L (130-400) K/uL MPV (7.2-11.7) fl Neut % (Auto) (50.0-75.0) % Lymph % (Auto) (20.0-40.0) % Roane % (Auto) (0.0-10.0) % Eos % (Auto) (0.0-4.0) % Baso % (Auto) (0.0-2.0) % Neut # (1.8-7.0) K/uL Lymph # (1.0-4.3) K/uL Roane # (0.0-0.8) K/uL Eos # (0.0-0.7) K/uL Baso # (0.0-0.2) K/uL PT (9.8-13.1) Seconds INR (0.9-1.2) APTT (25.6-37.1) Seconds Sodium 133 (132-148) mmol/l Potassium 3.3 L (3.6-5.0) MMOL/L Chloride 94 L (98-107) mmol/L Carbon Dioxide 25 (22-30) mmol/L Anion Gap 17 (10-20) BUN 45 H (7-17) mg/dl Creatinine 6.6 H (0.7-1.2) mg/dl Est GFR ( Amer) 8 Est GFR (Non-Af Amer) 6 POC Glucose (mg/dL) 138 H (65-110) mg/dL Random Glucose 136 H (65-105) mg/dL Calcium 9.1 (8.4-10.2) mg/dL Total Bilirubin 36.5 H (0.2-1.3) mg/dl AST 80 H (14-36) U/L ALT 52 (9-52) U/L Alkaline Phosphatase 160 H (38-126) U/L Total Protein 8.4 H (6.3-8.2) G/DL Albumin 3.4 L (3.5-5.0) g/dL Globulin 5.1 H (2.2-3.9) gm/dL Albumin/Globulin Ratio 0.7 L (1.0-2.1) Ur Random Sodium meq/L Ur Random Potassium mmol/L Stool Occult Blood (NEGATIVE) Random Vancomycin ug/mL 01/11/17 01/10/17 01/10/17 Range/Units 05:20 21:35 16:13 WBC (4.8-10.8) K/uL RBC (3.80-5.20) Mil/uL Hgb (12.0-16.0) g/dL Hct (34.0-47.0) % MCV (81.0-99.0) fl MCH (27.0-31.0) pg MCHC (33.0-37.0) g/dL RDW (11.5-14.5) % Plt Count (130-400) K/uL MPV (7.2-11.7) fl Neut % (Auto) (50.0-75.0) % Lymph % (Auto) (20.0-40.0) % Roane % (Auto) (0.0-10.0) % Eos % (Auto) (0.0-4.0) % Baso % (Auto) (0.0-2.0) % Neut # (1.8-7.0) K/uL Lymph # (1.0-4.3) K/uL Roane # (0.0-0.8) K/uL Eos # (0.0-0.7) K/uL Baso # (0.0-0.2) K/uL PT (9.8-13.1) Seconds INR (0.9-1.2) APTT (25.6-37.1) Seconds Sodium (132-148) mmol/l Potassium (3.6-5.0) MMOL/L Chloride (98-107) mmol/L Carbon Dioxide (22-30) mmol/L Anion Gap (10-20) BUN (7-17) mg/dl Creatinine (0.7-1.2) mg/dl Est GFR ( Amer) Est GFR (Non-Af Amer) POC Glucose (mg/dL) 149 H 154 H (65-110) mg/dL Random Glucose (65-105) mg/dL Calcium (8.4-10.2) mg/dL Total Bilirubin (0.2-1.3) mg/dl AST (14-36) U/L ALT (9-52) U/L Alkaline Phosphatase (38-126) U/L Total Protein (6.3-8.2) G/DL Albumin (3.5-5.0) g/dL Globulin (2.2-3.9) gm/dL Albumin/Globulin Ratio (1.0-2.1) Ur Random Sodium meq/L Ur Random Potassium mmol/L Stool Occult Blood (NEGATIVE) Random Vancomycin 27.1 ug/mL 01/10/17 01/10/17 01/10/17 Range/Units 16:04 16:04 11:43 WBC 12.3 H (4.8-10.8) K/uL RBC 2.35 L (3.80-5.20) Mil/uL Hgb 7.6 L (12.0-16.0) g/dL Hct 22.0 L (34.0-47.0) % MCV 93.5 (81.0-99.0) fl MCH 32.4 H (27.0-31.0) pg MCHC 34.6 (33.0-37.0) g/dL RDW 20.2 H (11.5-14.5) % Plt Count 48 L (130-400) K/uL MPV 10.2 (7.2-11.7) fl Neut % (Auto) 58.7 (50.0-75.0) % Lymph % (Auto) 10.7 L (20.0-40.0) % Roane % (Auto) 28.7 H (0.0-10.0) % Eos % (Auto) 1.5 (0.0-4.0) % Baso % (Auto) 0.4 (0.0-2.0) % Neut # 7.2 H (1.8-7.0) K/uL Lymph # 1.3 (1.0-4.3) K/uL Roane # 3.5 H (0.0-0.8) K/uL Eos # 0.2 (0.0-0.7) K/uL Baso # 0.0 (0.0-0.2) K/uL PT 18.7 H (9.8-13.1) Seconds INR 1.7 H (0.9-1.2) APTT 41.9 H D (25.6-37.1) Seconds Sodium (132-148) mmol/l Potassium (3.6-5.0) MMOL/L Chloride (98-107) mmol/L Carbon Dioxide (22-30) mmol/L Anion Gap (10-20) BUN (7-17) mg/dl Creatinine (0.7-1.2) mg/dl Est GFR ( Amer) Est GFR (Non-Af Amer) POC Glucose (mg/dL) 152 H (65-110) mg/dL Random Glucose (65-105) mg/dL Calcium (8.4-10.2) mg/dL Total Bilirubin (0.2-1.3) mg/dl AST (14-36) U/L ALT (9-52) U/L Alkaline Phosphatase (38-126) U/L Total Protein (6.3-8.2) G/DL Albumin (3.5-5.0) g/dL Globulin (2.2-3.9) gm/dL Albumin/Globulin Ratio (1.0-2.1) Ur Random Sodium meq/L Ur Random Potassium mmol/L Stool Occult Blood (NEGATIVE) Random Vancomycin ug/mL 01/10/17 01/10/17 01/09/17 Range/Units 07:07 07:07 10:35 WBC (4.8-10.8) K/uL RBC (3.80-5.20) Mil/uL Hgb (12.0-16.0) g/dL Hct (34.0-47.0) % MCV (81.0-99.0) fl MCH (27.0-31.0) pg MCHC (33.0-37.0) g/dL RDW (11.5-14.5) % Plt Count (130-400) K/uL MPV (7.2-11.7) fl Neut % (Auto) (50.0-75.0) % Lymph % (Auto) (20.0-40.0) % Roane % (Auto) (0.0-10.0) % Eos % (Auto) (0.0-4.0) % Baso % (Auto) (0.0-2.0) % Neut # (1.8-7.0) K/uL Lymph # (1.0-4.3) K/uL Roane # (0.0-0.8) K/uL Eos # (0.0-0.7) K/uL Baso # (0.0-0.2) K/uL PT (9.8-13.1) Seconds INR (0.9-1.2) APTT (25.6-37.1) Seconds Sodium (132-148) mmol/l Potassium (3.6-5.0) MMOL/L Chloride (98-107) mmol/L Carbon Dioxide (22-30) mmol/L Anion Gap (10-20) BUN (7-17) mg/dl Creatinine (0.7-1.2) mg/dl Est GFR ( Amer) Est GFR (Non-Af Amer) POC Glucose (mg/dL) (65-110) mg/dL Random Glucose (65-105) mg/dL Calcium (8.4-10.2) mg/dL Total Bilirubin 41.8 H (0.2-1.3) mg/dl AST (14-36) U/L ALT (9-52) U/L Alkaline Phosphatase (38-126) U/L Total Protein (6.3-8.2) G/DL Albumin (3.5-5.0) g/dL Globulin (2.2-3.9) gm/dL Albumin/Globulin Ratio (1.0-2.1) Ur Random Sodium 36 meq/L Ur Random Potassium 47.7 mmol/L Stool Occult Blood Positive H (NEGATIVE) Random Vancomycin ug/mL Laboratory Results - last 24 hr 01/09/17 01/10/17 01/10/17 10:35 07:07 07:07 WBC RBC Hgb Hct MCV MCH MCHC RDW Plt Count MPV Neut % (Auto) Lymph % (Auto) Roane % (Auto) Eos % (Auto) Baso % (Auto) Neut # Lymph # Roane # Eos # Baso # PT INR APTT Sodium Potassium Chloride Carbon Dioxide Anion Gap BUN Creatinine Est GFR ( Amer) Est GFR (Non-Af Amer) POC Glucose (mg/dL) Random Glucose Calcium Total Bilirubin 41.8 H AST ALT Alkaline Phosphatase Total Protein Albumin Globulin Albumin/Globulin Ratio Ur Random Sodium 36 Ur Random Potassium 47.7 Stool Occult Blood Positive H Random Vancomycin 01/10/17 01/10/17 01/10/17 11:43 16:04 16:04 WBC 12.3 H RBC 2.35 L Hgb 7.6 L Hct 22.0 L MCV 93.5 MCH 32.4 H MCHC 34.6 RDW 20.2 H Plt Count 48 L MPV 10.2 Neut % (Auto) 58.7 Lymph % (Auto) 10.7 L Roane % (Auto) 28.7 H Eos % (Auto) 1.5 Baso % (Auto) 0.4 Neut # 7.2 H Lymph # 1.3 Roane # 3.5 H Eos # 0.2 Baso # 0.0 PT 18.7 H INR 1.7 H APTT 41.9 H D Sodium Potassium Chloride Carbon Dioxide Anion Gap BUN Creatinine Est GFR ( Amer) Est GFR (Non-Af Amer) POC Glucose (mg/dL) 152 H Random Glucose Calcium Total Bilirubin AST ALT Alkaline Phosphatase Total Protein Albumin Globulin Albumin/Globulin Ratio Ur Random Sodium Ur Random Potassium Stool Occult Blood Random Vancomycin 01/10/17 01/10/17 01/11/17 16:13 21:35 05:20 WBC RBC Hgb Hct MCV MCH MCHC RDW Plt Count MPV Neut % (Auto) Lymph % (Auto) Roane % (Auto) Eos % (Auto) Baso % (Auto) Neut # Lymph # Roane # Eos # Baso # PT INR APTT Sodium Potassium Chloride Carbon Dioxide Anion Gap BUN Creatinine Est GFR ( Amer) Est GFR (Non-Af Amer) POC Glucose (mg/dL) 154 H 149 H Random Glucose Calcium Total Bilirubin AST ALT Alkaline Phosphatase Total Protein Albumin Globulin Albumin/Globulin Ratio Ur Random Sodium Ur Random Potassium Stool Occult Blood Random Vancomycin 27.1 01/11/17 01/11/17 01/11/17 05:20 05:20 05:46 WBC 12.3 H RBC 2.37 L Hgb 7.9 L Hct 22.2 L MCV 93.3 MCH 33.2 H MCHC 35.6 RDW 20.0 H Plt Count 51 L MPV Neut % (Auto) Lymph % (Auto) Roane % (Auto) Eos % (Auto) Baso % (Auto) Neut # Lymph # Roane # Eos # Baso # PT INR APTT Sodium 133 Potassium 3.3 L Chloride 94 L Carbon Dioxide 25 Anion Gap 17 BUN 45 H Creatinine 6.6 H Est GFR ( Amer) 8 Est GFR (Non-Af Amer) 6 POC Glucose (mg/dL) 138 H Random Glucose 136 H Calcium 9.1 Total Bilirubin 36.5 H AST 80 H ALT 52 Alkaline Phosphatase 160 H Total Protein 8.4 H Albumin 3.4 L Globulin 5.1 H Albumin/Globulin Ratio 0.7 L Ur Random Sodium Ur Random Potassium Stool Occult Blood Random Vancomycin Fingerstick Blood Sugar Results: 138 Review of Systems - Review of Systems All systems: reviewed and no additional remarkable complaints except (as above) Critical Care Progress Note - Nutrition Nutrition: Nutrition Category Date Time Status Renal Diet [DIET] Diets 01/09/17 Lunch Active
--- NOTE | 2017-01-11 10:28 | CP.PCM.PN ---
Subjective - Date & Time of Evaluation Date of Evaluation: 01/11/17 Time of Evaluation: 10:27 - Subjective Subjective: more somnolent today, case d/c w/ family at bedside and dr abraham. saima noted. for transfusion w/ dialysis. nof /c n/v/d. levophed now 22.5 mcg, vasopressin remains. Objective - Vital Signs/Intake and Output Vital Signs (last 24 hours): Temp Pulse Resp BP Pulse Ox 98.4 F 88 23 105/46 L 95 01/11/17 08:00 01/11/17 08:00 01/11/17 08:00 01/11/17 08:00 01/11/17 08:00 Intake and Output: 01/11/17 01/11/17 06:59 18:59 Intake Total 684 258 Output Total 250 Balance 434 258 - Medications Medications: Current Medications Albumin Human (Albumin Human 5% (12.5 Gm/250 Ml)) 25 gm IV DAILY [facility] Hydroxyzine HCl (Atarax) 25 mg PO Q6 PRN PRN Reason: Itching / Pruritus Vasopressin 100 units/ Sodium (Chloride) 105 mls @ 1.89 mls/hr IV .Q24H [facility]; 0.03 UNITS/MIN PRN Reason: Protocol Last Admin: 01/09/17 13:24 Dose: 0.03 units/min, 1.89 mls/hr Cefepime HCl 1 gm/ Sodium (Chloride) 100 mls @ 100 mls/hr IVPB DAILY [facility] PRN Reason: Protocol Last Admin: 01/11/17 08:39 Dose: 100 mls/hr Norepinephrine Bitartrate 8 mg (/ Dextrose) 258 mls @ 48.37 mls/hr IV .Q5H21M [facility]; 25 MCG/MIN PRN Reason: Protocol Last Admin: 01/11/17 08:34 Dose: 25 mcg/min, 48.37 mls/hr Lactulose (Enulose) 20 gm PO BID [facility] Last Admin: 01/11/17 08:39 Dose: 20 gm Midodrine (Proamatine) 7.5 mg PO TID [facility] Last Admin: 01/11/17 08:40 Dose: 7.5 mg Octreotide Acetate (Sandostatin) 100 mcg SC Q8 [facility] Last Admin: 01/11/17 08:47 Dose: 100 mcg Pantoprazole Sodium (Protonix Inj) 40 mg IVP DAILY [facility] Last Admin: 01/10/17 09:34 Dose: 40 mg Rifaximin (Xifaxan) 550 mg PO BID [facility] PRN Reason: Protocol Last Admin: 01/11/17 08:42 Dose: 550 mg Sodium Bicarbonate (Sodium Bicarbonate Tab) 1,300 mg PO BID [facility] Last Admin: 01/11/17 08:40 Dose: 1,300 mg Zinc Sulfate (Zinc Sulfate 220 Mg Cap) 220 mg PO DAILY [facility] Last Admin: 01/11/17 08:42 Dose: 220 mg - Labs Labs: 01/11/17 05:20 01/11/17 05:20 PT 18.7 Seconds (9.8-13.1) H 01/10/17 16:04 INR 1.7 (0.9-1.2) H 01/10/17 16:04 APTT 41.9 Seconds (25.6-37.1) H D 01/10/17 16:04 - Constitutional Appears: Non-toxic, No Acute Distress, Chronically Ill - Head Exam Head Exam: ATRAUMATIC, NORMAL INSPECTION, NORMOCEPHALIC - Eye Exam Eye Exam: EOMI, Normal appearance, PERRL Pupil Exam: NORMAL ACCOMODATION, PERRL - ENT Exam ENT Exam: Mucous Membranes Moist, Normal Exam - Neck Exam Neck Exam: Full ROM, Normal Inspection. absent: Lymphadenopathy - Respiratory Exam Respiratory Exam: Clear to Ausculation Bilateral, NORMAL BREATHING PATTERN - Cardiovascular Exam Cardiovascular Exam: REGULAR RHYTHM, RRR, +S1, +S2. absent: Murmur - GI/Abdominal Exam GI & Abdominal Exam: Soft, Normal Bowel Sounds. absent: Tenderness - Extremities Exam Extremities Exam: Full ROM, Normal Capillary Refill, Normal Inspection. absent : Joint Swelling, Pedal Edema - Back Exam Back Exam: NORMAL INSPECTION - Neurological Exam Neurological Exam: Abnormal Gait, Altered, CN II-XII Intact - Psychiatric Exam Psychiatric exam: Normal Affect, Normal Mood - Skin Skin Exam: Dry, Intact, Normal Color, Warm Assessment and Plan (1) [id number] kidney injury Status: Acute (2) DVT prophylaxis Status: Acute (3) Hepatorenal syndrome Status: Acute (4) Liver cirrhosis Status: Acute (5) UTI (urinary tract infection) Status: Acute (6) Hypotension Status: Acute - Assessment and Plan (Free Text) Assessment: (1) [id number] kidney injury Assessment & Plan: nephro dialysis monitor bw/lytes Status: Acute (2) DVT prophylaxis Assessment & Plan: scd nad ae hose no anticoag r/t coagulopathy from liver dz Status: Acute (3) Hepatorenal syndrome Assessment & Plan: icu care gi, nephro Status: Acute (4) Liver cirrhosis Assessment & Plan: end stage ?? transfert o liver center when off pressors vs hospice Status: Acute (5) UTI (urinary tract infection) Assessment & Plan: cont all anbx-vanco, zosyn, cefepime, ID ?? sepsis Status: Acute (6) Hypotension Assessment & Plan: ?? r/t sepsis vs hepatorenal levophed down to 22.5, vasopressin titrat prn fluid support [id number] dialysis case d/c w/ family at bedside
[2017-01-11] MEDS: Albumin Human 5% (12.5 gm/250 ml) IV SCH (10:33)
--- NOTE | 2017-01-11 13:15 | CP.PCM.PN ---
Subjective - Date & Time of Evaluation Date of Evaluation: 01/11/17 Time of Evaluation: 13:14 - Subjective Subjective: renal follow up note please call us at [phone] if any qs no events overnight Vitals reviewed nad lying in bed icterus + s1s2 present bilateral breath sounds equal abd soft BS+ skin jaundice + awake A&P: jane/HRS/DM/HYpotension/anemia/hypoantremia hd today per schedule lytes reviewed sodium improved anemia: stable, transfuse prn per icu team can discontinue the bicarb tabs now that she is HD dependent Objective - Vital Signs/Intake and Output Vital Signs (last 24 hours): Temp Pulse Resp BP Pulse Ox 97.5 F L 85 21 104/48 L 94 L 01/11/17 12:00 01/11/17 12:00 01/11/17 12:00 01/11/17 12:00 01/11/17 12:00 Intake and Output: 01/11/17 01/11/17 06:59 18:59 Intake Total 684 800 Output Total 250 Balance 434 800 - Medications Medications: Current Medications Albumin Human (Albumin Human 5% (12.5 Gm/250 Ml)) 25 gm IV DAILY [facility] Last Admin: 01/11/17 10:33 Dose: 25 gm Hydroxyzine HCl (Atarax) 25 mg PO Q6 PRN PRN Reason: Itching / Pruritus Vasopressin 100 units/ Sodium (Chloride) 105 mls @ 1.89 mls/hr IV .Q24H [facility]; 0.03 UNITS/MIN PRN Reason: Protocol Last Admin: 01/09/17 13:24 Dose: 0.03 units/min, 1.89 mls/hr Cefepime HCl 1 gm/ Sodium (Chloride) 100 mls @ 100 mls/hr IVPB DAILY [facility] PRN Reason: Protocol Last Admin: 01/11/17 08:39 Dose: 100 mls/hr Norepinephrine Bitartrate 8 mg (/ Dextrose) 258 mls @ 48.37 mls/hr IV .Q5H21M [facility]; 25 MCG/MIN PRN Reason: Protocol Last Admin: 01/11/17 08:34 Dose: 25 mcg/min, 48.37 mls/hr Lactulose (Enulose) 20 gm PO BID [facility] Last Admin: 01/11/17 08:39 Dose: 20 gm Midodrine (Proamatine) 7.5 mg PO TID [facility] Last Admin: 01/11/17 08:40 Dose: 7.5 mg Octreotide Acetate (Sandostatin) 100 mcg SC Q8 [facility] Last Admin: 01/11/17 08:47 Dose: 100 mcg Pantoprazole Sodium (Protonix Inj) 40 mg IVP DAILY [facility] Last Admin: 01/11/17 10:53 Dose: 40 mg Rifaximin (Xifaxan) 550 mg PO BID [facility] PRN Reason: Protocol Last Admin: 01/11/17 08:42 Dose: 550 mg Sodium Bicarbonate (Sodium Bicarbonate Tab) 1,300 mg PO BID [facility] Last Admin: 01/11/17 08:40 Dose: 1,300 mg Zinc Sulfate (Zinc Sulfate 220 Mg Cap) 220 mg PO DAILY [facility] Last Admin: 01/11/17 08:42 Dose: 220 mg - Labs Labs: 01/11/17 05:20 01/11/17 05:20 PT 18.7 Seconds (9.8-13.1) H 01/10/17 16:04 INR 1.7 (0.9-1.2) H 01/10/17 16:04 APTT 41.9 Seconds (25.6-37.1) H D 01/10/17 16:04
[2017-01-11] MEDS: Phytonadione 10 MG in Dextrose 5% In Water 50 ML IV SCH (15:57)
--- NOTE | 2017-01-11 16:56 | CP.PCM.PN ---
Subjective - Date & Time of Evaluation Date of Evaluation: 01/11/17 Time of Evaluation: 16:55 - Subjective Subjective: renal follow up note please call us at [phone] if any qs. Objective - Vital Signs/Intake and Output Vital Signs (last 24 hours): Temp Pulse Resp BP Pulse Ox 97.9 F 86 15 113/52 L 96 01/11/17 16:00 01/11/17 16:00 01/11/17 16:00 01/11/17 16:00 01/11/17 16:00 Intake and Output: 01/11/17 01/11/17 06:59 18:59 Intake Total 684 1550 Output Total 250 Balance 434 1550 - Medications Medications: Current Medications Albumin Human (Albumin Human 5% (12.5 Gm/250 Ml)) 25 gm IV DAILY [facility] Last Admin: 01/11/17 10:33 Dose: 25 gm Hydroxyzine HCl (Atarax) 25 mg PO Q6 PRN PRN Reason: Itching / Pruritus Vasopressin 100 units/ Sodium (Chloride) 105 mls @ 1.89 mls/hr IV .Q24H [facility]; 0.03 UNITS/MIN PRN Reason: Protocol Last Admin: 01/09/17 13:24 Dose: 0.03 units/min, 1.89 mls/hr Cefepime HCl 1 gm/ Sodium (Chloride) 100 mls @ 100 mls/hr IVPB DAILY [facility] PRN Reason: Protocol Last Admin: 01/11/17 08:39 Dose: 100 mls/hr Norepinephrine Bitartrate 8 mg (/ Dextrose) 258 mls @ 48.37 mls/hr IV .Q5H21M [facility]; 25 MCG/MIN PRN Reason: Protocol Last Admin: 01/11/17 16:36 Dose: 12.5 mcg/min, 24.18 mls/hr Lactulose (Enulose) 20 gm PO BID [facility] Last Admin: 01/11/17 16:28 Dose: 20 gm Midodrine (Proamatine) 7.5 mg PO TID [facility] Last Admin: 01/11/17 16:28 Dose: 7.5 mg Octreotide Acetate (Sandostatin) 100 mcg SC Q8 [facility] Last Admin: 01/11/17 16:32 Dose: 100 mcg Pantoprazole Sodium (Protonix Inj) 40 mg IVP DAILY [facility] Last Admin: 01/11/17 10:53 Dose: 40 mg Rifaximin (Xifaxan) 550 mg PO BID [facility] PRN Reason: Protocol Last Admin: 01/11/17 16:29 Dose: 550 mg Sodium Bicarbonate (Sodium Bicarbonate Tab) 1,300 mg PO BID [facility] Last Admin: 01/11/17 16:29 Dose: 1,300 mg Zinc Sulfate (Zinc Sulfate 220 Mg Cap) 220 mg PO DAILY [facility] Last Admin: 01/11/17 08:42 Dose: 220 mg - Labs Labs: 01/11/17 05:20 01/11/17 05:20 PT 18.7 Seconds (9.8-13.1) H 01/10/17 16:04 INR 1.7 (0.9-1.2) H 01/10/17 16:04 APTT 41.9 Seconds (25.6-37.1) H D 01/10/17 16:04
--- NOTE | 2017-01-11 20:35 | CP.PCM.PN ---
Subjective - Date & Time of Evaluation Date of Evaluation: 01/11/17 Time of Evaluation: 17:10 - Subjective Subjective: Appears comfortable Objective - Vital Signs/Intake and Output Vital Signs (last 24 hours): Temp Pulse Resp BP Pulse Ox 97.9 F 79 17 106/54 L 96 01/11/17 16:00 01/11/17 18:00 01/11/17 18:00 01/11/17 18:00 01/11/17 18:00 Intake and Output: 01/11/17 01/12/17 18:59 06:59 Intake Total 1694 Balance 1694 - Medications Medications: Current Medications Albumin Human (Albumin Human 5% (12.5 Gm/250 Ml)) 25 gm IV DAILY [facility] Last Admin: 01/11/17 10:33 Dose: 25 gm Hydroxyzine HCl (Atarax) 25 mg PO Q6 PRN PRN Reason: Itching / Pruritus Vasopressin 100 units/ Sodium (Chloride) 105 mls @ 1.89 mls/hr IV .Q24H [facility]; 0.03 UNITS/MIN PRN Reason: Protocol Last Admin: 01/09/17 13:24 Dose: 0.03 units/min, 1.89 mls/hr Cefepime HCl 1 gm/ Sodium (Chloride) 100 mls @ 100 mls/hr IVPB DAILY [facility] PRN Reason: Protocol Last Admin: 01/11/17 08:39 Dose: 100 mls/hr Norepinephrine Bitartrate 8 mg (/ Dextrose) 258 mls @ 48.37 mls/hr IV .Q5H21M [facility]; 25 MCG/MIN PRN Reason: Protocol Last Admin: 01/11/17 16:36 Dose: 12.5 mcg/min, 24.18 mls/hr Lactulose (Enulose) 20 gm PO BID [facility] Last Admin: 01/11/17 16:28 Dose: 20 gm Midodrine (Proamatine) 7.5 mg PO TID [facility] Last Admin: 01/11/17 16:28 Dose: 7.5 mg Octreotide Acetate (Sandostatin) 100 mcg SC Q8 [facility] Last Admin: 01/11/17 16:32 Dose: 100 mcg Pantoprazole Sodium (Protonix Inj) 40 mg IVP DAILY [facility] Last Admin: 01/11/17 10:53 Dose: 40 mg Rifaximin (Xifaxan) 550 mg PO BID [facility] PRN Reason: Protocol Last Admin: 01/11/17 16:29 Dose: 550 mg Sodium Bicarbonate (Sodium Bicarbonate Tab) 1,300 mg PO BID [facility] Last Admin: 01/11/17 16:29 Dose: 1,300 mg Zinc Sulfate (Zinc Sulfate 220 Mg Cap) 220 mg PO DAILY [facility] Last Admin: 01/11/17 08:42 Dose: 220 mg - Labs Labs: 01/11/17 05:20 01/11/17 05:20 PT 18.7 Seconds (9.8-13.1) H 01/10/17 16:04 INR 1.7 (0.9-1.2) H 01/10/17 16:04 APTT 41.9 Seconds (25.6-37.1) H D 01/10/17 16:04 - Head Exam Head Exam: ATRAUMATIC - Eye Exam Eye Exam: Scleral icterus - ENT Exam ENT Exam: Mucous Membranes Dry - Respiratory Exam Respiratory Exam: Decreased Breath Sounds - Cardiovascular Exam Cardiovascular Exam: +S1, +S2 - GI/Abdominal Exam GI & Abdominal Exam: Normal Bowel Sounds Assessment and Plan (1) Coagulopathy Assessment & Plan: liver disease s/p FFP and vit k Status: Acute (2) Anemia Assessment & Plan: GI bleeding H/H fairly stable transfusion support PRN Status: Acute (3) Thrombocytopenia Assessment & Plan: liver disease, splenic sequestration Status: Acute (4) Leukocytosis Assessment & Plan: on antibiotics Status: Acute
[2017-01-12 06:38] LABS: HEMATOCRIT 22.3 % (34.0-47.0); MEAN CELL VOLUME 95.3 fl (81.0-99.0); MEAN CORPUSCULAR HEMOGLOBIN 33.3 pg (27.0-31.0); MEAN CORPUSCULAR HGB CONC 34.9 g/dL (33.0-37.0); RED CELL DISTRIBUTION WIDTH 19.7 % (11.5-14.5); WHITE BLOOD COUNT 12.2 K/uL (4.8-10.8)
[2017-01-12 06:55] LABS: ALB/GLOB RATIO 0.7 (1.0-2.1); CALCIUM 9.2 mg/dL (8.4-10.2); POTASSIUM 3.4 MMOL/L (3.6-5.0); TOTAL PROTEIN 8.5 G/DL (6.3-8.2)
[2017-01-12 07:00] LABS: BILIRUBIN,TOTAL 37.1 mg/dl (0.2-1.3)
[2017-01-12] MEDS: Albumin Human 5% (12.5 gm/250 ml) IV SCH (09:00)
[2017-01-12] MEDS: Cefepime 1 GM in Sodium Chloride 0.9% 100 ML IVPB SCH (09:32)
--- NOTE | 2017-01-12 12:09 | CP.PCM.PN ---
Subjective - Date & Time of Evaluation Date of Evaluation: 01/12/17 Time of Evaluation: 12:09 - Subjective Subjective: pt very somnolent, c/o diffuse abd pain. no f/c, n/v/d. sbp low 90s, levophed now 12.5mcg, vasopressin 0.03 units. family at bedside. states abd pain started this am. not taking po. bw noted. hgb about the same despite transfusion. Objective - Vital Signs/Intake and Output Vital Signs (last 24 hours): Temp Pulse Resp BP Pulse Ox 97.3 F L 94 H 15 99/76 L 100 01/12/17 08:00 01/12/17 08:00 01/12/17 08:00 01/12/17 08:00 01/12/17 08:00 Intake and Output: 01/12/17 01/12/17 06:59 18:59 Intake Total 385 Output Total 50 Balance 335 - Medications Medications: Current Medications Hydroxyzine HCl (Atarax) 25 mg PO Q6 PRN PRN Reason: Itching / Pruritus Vasopressin 100 units/ Sodium (Chloride) 105 mls @ 1.89 mls/hr IV .Q24H [facility]; 0.03 UNITS/MIN PRN Reason: Protocol Last Admin: 01/11/17 21:20 Dose: 0.03 units/min, 1.89 mls/hr Cefepime HCl 1 gm/ Sodium (Chloride) 100 mls @ 100 mls/hr IVPB DAILY [facility] PRN Reason: Protocol Last Admin: 01/12/17 09:32 Dose: 100 mls/hr Norepinephrine Bitartrate 8 mg (/ Dextrose) 258 mls @ 43.53 mls/hr IV .Q5H56M [facility]; 22.5 MCG/MIN PRN Reason: Protocol Stop: 01/12/17 16:09 Last Admin: 01/12/17 11:22 Dose: 22.5 mcg/min, 43.53 mls/hr Lactulose (Enulose) 20 gm PO BID [facility] Last Admin: 01/12/17 09:32 Dose: 20 gm Midodrine (Proamatine) 7.5 mg PO TID [facility] Last Admin: 01/12/17 09:34 Dose: 7.5 mg Octreotide Acetate (Sandostatin) 100 mcg SC Q8 [facility] Last Admin: 01/12/17 11:23 Dose: 100 mcg Pantoprazole Sodium (Protonix Inj) 40 mg IVP DAILY [facility] Last Admin: 01/12/17 09:34 Dose: 40 mg Rifaximin (Xifaxan) 550 mg PO BID [facility] PRN Reason: Protocol Last Admin: 01/12/17 09:35 Dose: 550 mg Sodium Bicarbonate (Sodium Bicarbonate Tab) 1,300 mg PO BID [facility] Last Admin: 01/12/17 09:35 Dose: 1,300 mg Zinc Sulfate (Zinc Sulfate 220 Mg Cap) 220 mg PO DAILY [facility] Last Admin: 01/12/17 09:36 Dose: 220 mg - Labs Labs: 01/12/17 05:40 01/12/17 05:40 PT 18.7 Seconds (9.8-13.1) H 01/10/17 16:04 INR 1.7 (0.9-1.2) H 01/10/17 16:04 APTT 41.9 Seconds (25.6-37.1) H D 01/10/17 16:04 - Constitutional Appears: Non-toxic, Chronically Ill - Head Exam Head Exam: ATRAUMATIC, NORMAL INSPECTION, NORMOCEPHALIC - Eye Exam Eye Exam: EOMI, Normal appearance, PERRL Pupil Exam: NORMAL ACCOMODATION, PERRL - ENT Exam ENT Exam: Mucous Membranes Moist, Normal Exam - Neck Exam Neck Exam: Full ROM, Normal Inspection. absent: Lymphadenopathy - Respiratory Exam Respiratory Exam: Clear to Ausculation Bilateral, NORMAL BREATHING PATTERN - Cardiovascular Exam Cardiovascular Exam: REGULAR RHYTHM, RRR, +S1, +S2. absent: Murmur - GI/Abdominal Exam GI & Abdominal Exam: Soft, Normal Bowel Sounds. absent: Tenderness - Extremities Exam Extremities Exam: Full ROM, Normal Capillary Refill, Normal Inspection. absent : Joint Swelling, Pedal Edema - Back Exam Back Exam: NORMAL INSPECTION - Neurological Exam Neurological Exam: Alert, Awake, CN II-XII Intact, Normal Gait, Oriented x3 - Psychiatric Exam Psychiatric exam: Normal Affect, Normal Mood - Skin Skin Exam: Dry, Intact, Normal Color, Warm Assessment and Plan (1) Kusoq-ln-uygbnsj kidney injury Status: Acute (2) DVT prophylaxis Status: Acute (3) Hepatorenal syndrome Status: Acute (4) Liver cirrhosis Status: Acute (5) UTI (urinary tract infection) Status: Acute (6) Hypotension Status: Acute - Assessment and Plan (Free Text) Assessment: (1) Pyhae-ih-btmdnob kidney injury Assessment & Plan: nephro dialysis monitor bw/lytes Status: Acute (2) DVT prophylaxis Assessment & Plan: scd nad ae hose no anticoag r/t coagulopathy from liver dz Status: Acute (3) Hepatorenal syndrome Assessment & Plan: icu care gi, nephro Status: Acute (4) Liver cirrhosis Assessment & Plan: end stage ?? transfert o liver center when off pressors vs hospice coagulopathy prsent, pos stool guiac. got vitk, ffp, prbc Status: Acute (5) UTI (urinary tract infection) Assessment & Plan: cont all anbx-vanco, zosyn, cefepime, ID ?? sepsis Status: Acute (6) Hypotension Assessment & Plan: ?? r/t sepsis vs hepatorenal levophed down to 22.5, vasopressin titrat prn fluid support 7-anemia-/p prbc, heme/onc 8-abd pain-abd us, pain control, caution w/ somnolence. case d/c w/ family at bedside
--- NOTE | 2017-01-12 12:18 | CP.PCM.PN ---
Subjective - Date & Time of Evaluation Date of Evaluation: 01/12/17 Time of Evaluation: 09:00 - Subjective Subjective: weak/ lethargic bedridden denies abd pain' no fever Objective - Vital Signs/Intake and Output Vital Signs (last 24 hours): Temp Pulse Resp BP Pulse Ox 97.3 F L 94 H 15 99/76 L 100 01/12/17 08:00 01/12/17 08:00 01/12/17 08:00 01/12/17 08:00 01/12/17 08:00 Intake and Output: 01/12/17 01/12/17 06:59 18:59 Intake Total 385 Output Total 50 Balance 335 - Medications Medications: Current Medications Hydroxyzine HCl (Atarax) 25 mg PO Q6 PRN PRN Reason: Itching / Pruritus Vasopressin 100 units/ Sodium (Chloride) 105 mls @ 1.89 mls/hr IV .Q24H [facility]; 0.03 UNITS/MIN PRN Reason: Protocol Last Admin: 01/11/17 21:20 Dose: 0.03 units/min, 1.89 mls/hr Cefepime HCl 1 gm/ Sodium (Chloride) 100 mls @ 100 mls/hr IVPB DAILY [facility] PRN Reason: Protocol Last Admin: 01/12/17 09:32 Dose: 100 mls/hr Norepinephrine Bitartrate 8 mg (/ Dextrose) 258 mls @ 43.53 mls/hr IV .Q5H56M [facility]; 22.5 MCG/MIN PRN Reason: Protocol Stop: 01/12/17 16:09 Last Admin: 01/12/17 11:22 Dose: 22.5 mcg/min, 43.53 mls/hr Lactulose (Enulose) 20 gm PO BID [facility] Last Admin: 01/12/17 09:32 Dose: 20 gm Midodrine (Proamatine) 7.5 mg PO TID [facility] Last Admin: 01/12/17 09:34 Dose: 7.5 mg Octreotide Acetate (Sandostatin) 100 mcg SC Q8 [facility] Last Admin: 01/12/17 11:23 Dose: 100 mcg Pantoprazole Sodium (Protonix Inj) 40 mg IVP DAILY [facility] Last Admin: 01/12/17 09:34 Dose: 40 mg Rifaximin (Xifaxan) 550 mg PO BID [facility] PRN Reason: Protocol Last Admin: 01/12/17 09:35 Dose: 550 mg Sodium Bicarbonate (Sodium Bicarbonate Tab) 1,300 mg PO BID [facility] Last Admin: 01/12/17 09:35 Dose: 1,300 mg Zinc Sulfate (Zinc Sulfate 220 Mg Cap) 220 mg PO DAILY [facility] Last Admin: 01/12/17 09:36 Dose: 220 mg - Labs Labs: 01/12/17 05:40 01/12/17 05:40 PT 18.7 Seconds (9.8-13.1) H 01/10/17 16:04 INR 1.7 (0.9-1.2) H 01/10/17 16:04 APTT 41.9 Seconds (25.6-37.1) H D 01/10/17 16:04 - Constitutional Appears: Non-toxic, Chronically Ill - Head Exam Head Exam: ATRAUMATIC, NORMAL INSPECTION, NORMOCEPHALIC - Eye Exam Eye Exam: EOMI, PERRL. absent: Scleral icterus - ENT Exam ENT Exam: Mucous Membranes Dry - Neck Exam Neck Exam: absent: Lymphadenopathy - Respiratory Exam Respiratory Exam: Decreased Breath Sounds, Rhonchi - Cardiovascular Exam Cardiovascular Exam: REGULAR RHYTHM, +S1, +S2 - GI/Abdominal Exam GI & Abdominal Exam: Distended, Soft - Rectal Exam Rectal Exam: Deferred - Exam Exam: NORMAL INSPECTION - Extremities Exam Extremities Exam: Pedal Edema - Back Exam Back Exam: absent: CVA tenderness (L), CVA tenderness (R) - Neurological Exam Neurological Exam: Alert, Awake, CN II-XII Intact Assessment and Plan (1) DM2 (diabetes mellitus, type 2) Status: Acute (2) Hypotension Status: Acute (3) UTI (urinary tract infection) Status: Acute (4) Oyukk-lp-ecoysrw kidney injury Status: Acute (5) Hepatorenal syndrome Status: Acute (6) Liver cirrhosis Status: Acute
[2017-01-12 23:23] LABS: ABG ALLEN TEST YES; ARTERIAL BLOOD GAS HCO3 24.1 mmol/L (21-28); ARTERIAL BLOOD GAS O2 CAPACITY 11.2 mL/dL (16-24); ARTERIAL BLOOD GAS PH 7.34 (7.35-7.45); ARTERIAL BLOOD GAS PO2 68 mm/Hg (80-100); ARTERIAL BLOOD HGB O2 SAT 94.5 % (95.0-98.0); CARBOXYHEMOGLOBIN 2.5 % (0.5-1.5); HHB 1.9 % (0.0-5.0); METHEMOGLOBIN 1.1 % (0.0-3.0)
--- NOTE | 2017-01-13 04:44 | PN ---
DATE: 01/12/2017 LOCATION: The patient in ICU bed 426. SUBJECTIVE: Time spent 35 minutes. The patient is seen and evaluated at the bedside. Past medical, surgical, social history all reviewed. Nursing and physician documentation noted. Remains wakeful and responsive, able to follow simple commands. Remains on pressors, vasopressin and Levophed at 20 mcg per minute. PHYSICAL EXAMINATION: VITAL SIGNS: Temperature 98.5, heart rate 79, blood pressure 95/54, mean arterial pressure 67, saturation 100% on oxygen 2 L nasal cannula. Intake 2078, output 50. Positive balance 2028. Weight 263 pounds. HEAD, EYES, EARS, NOSE AND THROAT: Pupils reactive. Conjunctivae pale. Sclerae icteric. NECK: Short, supple. HEART: Rhythm regular. S1, S2 normal. ABDOMEN: Bowel sounds present with mild distention. No tenderness. EXTREMITIES: Trace edema. NEUROLOGIC: Lethargic but more responsive and able to involve in the conversation, moves all four extremities. LABORATORY DATA: WBC 12.2, hemoglobin 7.8, hematocrit 22.3, platelet count 54. PT 18.7, INR 1.7, PTT 41.9. SMA-7, sodium 136, potassium 3.4, chloride 96, CO2 of 26, blood urea nitrogen 32, creatinine 5.3, random glucose 170, calcium 9.2, total bilirubin 37.1, AST 86, ALT 51, alkaline phosphatase 193. Total protein 8.5, albumin 3.5. Stool occult blood positive. Vancomycin trough level 23.9. Serology, hepatitis B surface antibody positive. Microbiology, urine culture positive for E. coli. Echocardiogram done on 01/09, left ventricle is normal in size. Left ventricular function is normal, ventricular ejection fraction within the normal range estimated at 65% to 70%. No pericardial effusion. IMPRESSION: 1. Neurologic. Metabolic septic encephalopathy but more wakeful. Initial CT head negative for any acute event. 2. Pulmonary: Bilateral infiltrates, suspected volume overload versus pneumonia, right middle lobe, saturating over 94% on 2 L nasal cannula. Continue to monitor respiratory status. 3. Cardiac: Hypotension, was present on Levophed. IV hydration as per Renal consult. 4. Gastrointestinal: Hepatorenal syndrome in the setting of liver cirrhosis, hepatitis C infection, renal failure on hemodialysis. 5. Infectious Diseases: Urinary tract infection with Escherichia coli, suspected pneumonia right middle lobe. Continue antibiotic renally adjusted. 6. Renal: Severe metabolic acidosis, on sodium bicarbonate. 7. Deep venous thrombosis and gastrointestinal prophylaxis. Chico Vazquez MD
[2017-01-13 05:08] LABS: BASO % 0.1 % (0.0-2.0); EOS % 0.1 % (0.0-4.0); HEMATOCRIT 23.1 % (34.0-47.0); LYMPH # 0.7 K/uL (1.0-4.3); LYMPH % 6.1 % (20.0-40.0); MEAN CELL VOLUME 95.7 fl (81.0-99.0); MEAN CORPUSCULAR HEMOGLOBIN 32.9 pg (27.0-31.0); MEAN CORPUSCULAR HGB CONC 34.3 g/dL (33.0-37.0); MONO % 8.1 % (0.0-10.0); NEUT # 10.4 K/uL (1.8-7.0); NEUT % 85.6 % (50.0-75.0); NRBC % 0.5 % (0.0-0.0); RED CELL DISTRIBUTION WIDTH 19.9 % (11.5-14.5); WHITE BLOOD COUNT 12.2 K/uL (4.8-10.8)
[2017-01-13 05:10] LABS: PLATELET COUNT 65 K/uL (130-400)
[2017-01-13 05:14] LABS: PARTIAL THROMBOPLASTIN TIME 41.6 Seconds (25.6-37.1)
[2017-01-13 05:22] LABS: ALB/GLOB RATIO 0.7 (1.0-2.1); CALCIUM 9.5 mg/dL (8.4-10.2); POTASSIUM 4.1 MMOL/L (3.6-5.0); TOTAL PROTEIN 8.7 G/DL (6.3-8.2)
[2017-01-13 05:34] LABS: BILIRUBIN,TOTAL 39.1 mg/dl (0.2-1.3)
--- NOTE | 2017-01-13 08:18 | CP.PCM.PN ---
Subjective - Date & Time of Evaluation Date of Evaluation: 01/13/17 Time of Evaluation: 08:16 - Subjective Subjective: somnolent. hgb stable, labs all about the same. levophed had to be incr to 22.5mcg. no f/c, n/v/d. not arousable to tactile stimuli at this time. case d/c w/ dr mata Objective - Vital Signs/Intake and Output Vital Signs (last 24 hours): Temp Pulse Resp BP Pulse Ox 98.1 F 87 16 116/47 L 97 01/13/17 04:00 01/13/17 06:00 01/13/17 06:00 01/13/17 06:00 01/13/17 06:00 Intake and Output: 01/13/17 01/13/17 06:59 18:59 Intake Total 570 Output Total 205 Balance 365 - Medications Medications: Current Medications Hydroxyzine HCl (Atarax) 25 mg PO Q6 PRN PRN Reason: Itching / Pruritus Vasopressin 100 units/ Sodium (Chloride) 105 mls @ 1.89 mls/hr IV .Q24H [facility]; 0.03 UNITS/MIN PRN Reason: Protocol Last Admin: 01/11/17 21:20 Dose: 0.03 units/min, 1.89 mls/hr Cefepime HCl 1 gm/ Sodium (Chloride) 100 mls @ 100 mls/hr IVPB DAILY [facility] PRN Reason: Protocol Last Admin: 01/12/17 09:32 Dose: 100 mls/hr Norepinephrine Bitartrate 8 mg (/ Dextrose) 258 mls @ 48.37 mls/hr IV .Q5H21M [facility]; 25 MCG/MIN PRN Reason: Protocol Stop: 01/13/17 08:25 Lactulose (Enulose) 20 gm PO BID [facility] Last Admin: 01/12/17 20:52 Dose: 20 gm Midodrine (Proamatine) 7.5 mg PO TID [facility] Last Admin: 01/12/17 16:13 Dose: Not Given Octreotide Acetate (Sandostatin) 100 mcg SC Q8 [facility] Last Admin: 01/13/17 00:31 Dose: 100 mcg Pantoprazole Sodium (Protonix Inj) 40 mg IVP DAILY [facility] Last Admin: 01/12/17 09:34 Dose: 40 mg Rifaximin (Xifaxan) 550 mg PO BID [facility] PRN Reason: Protocol Last Admin: 01/12/17 16:14 Dose: Not Given Sodium Bicarbonate (Sodium Bicarbonate Tab) 1,300 mg PO BID [facility] Last Admin: 01/12/17 16:13 Dose: Not Given Zinc Sulfate (Zinc Sulfate 220 Mg Cap) 220 mg PO DAILY [facility] Last Admin: 01/12/17 09:36 Dose: 220 mg - Labs Labs: 01/13/17 04:20 01/13/17 04:20 PT 19.2 Seconds (9.8-13.1) H 01/13/17 04:20 INR 1.7 (0.9-1.2) H 01/13/17 04:20 APTT 41.6 Seconds (25.6-37.1) H 01/13/17 04:20 - Constitutional Appears: No Acute Distress, Chronically Ill - Head Exam Head Exam: ATRAUMATIC, NORMAL INSPECTION, NORMOCEPHALIC - Eye Exam Eye Exam: EOMI, Normal appearance, PERRL Pupil Exam: NORMAL ACCOMODATION, PERRL - ENT Exam ENT Exam: Mucous Membranes Moist, Normal Exam - Neck Exam Neck Exam: Full ROM, Normal Inspection. absent: Lymphadenopathy - Respiratory Exam Respiratory Exam: Clear to Ausculation Bilateral, NORMAL BREATHING PATTERN - Cardiovascular Exam Cardiovascular Exam: REGULAR RHYTHM, RRR, +S1, +S2. absent: Murmur - GI/Abdominal Exam GI & Abdominal Exam: Soft, Normal Bowel Sounds. absent: Tenderness - Extremities Exam Extremities Exam: Full ROM, Normal Capillary Refill, Normal Inspection. absent : Joint Swelling, Pedal Edema - Back Exam Back Exam: NORMAL INSPECTION - Neurological Exam Neurological Exam: Abnormal Gait, CN II-XII Intact - Psychiatric Exam Psychiatric exam: Normal Affect, Normal Mood - Skin Skin Exam: Dry, Intact, Normal Color, Warm Assessment and Plan (1) Xdcsp-[id number] kidney injury Status: Acute (2) DVT prophylaxis Status: Acute (3) Hepatorenal syndrome Status: Acute (4) Liver cirrhosis Status: Acute (5) UTI (urinary tract infection) Status: Acute (6) Hypotension Status: Acute - Assessment and Plan (Free Text) Assessment: (1) Teqqs-ai-apaquca kidney injury Assessment & Plan: nephro dialysis monitor bw/lytes Status: Acute (2) DVT prophylaxis Assessment & Plan: scd nad ae hose no anticoag r/t coagulopathy from liver dz Status: Acute (3) Hepatorenal syndrome Assessment & Plan: icu care gi, nephro Status: Acute (4) Liver cirrhosis Assessment & Plan: end stage ?? transfert o liver center when off pressors vs hospice coagulopathy present, pos stool guiac. got vitk, ffp, prbc no further obv bleeding, hgb stable Status: Acute (5) UTI (urinary tract infection) Assessment & Plan: cont all anbx-vanco, zosyn, cefepime, ID ?? sepsis Status: Acute (6) Hypotension Assessment & Plan: ?? r/t sepsis vs hepatorenal levophed down to 22.5, vasopressin titrat prn fluid support 7-anemia-/p prbc, heme/onc, hgb stable 8-abd pain-abd us, pain control, caution w/ somnolence. no pain at present, will d/c w/ family via phone
--- NOTE | 2017-01-13 09:17 | CP.PCM.PN ---
Subjective - Date & Time of Evaluation Date of Evaluation: 01/13/17 Time of Evaluation: 09:00 - Subjective Subjective: Confused today Objective - Vital Signs/Intake and Output Vital Signs (last 24 hours): Temp Pulse Resp BP Pulse Ox 97.7 F 88 12 97/53 L 97 01/13/17 08:00 01/13/17 08:00 01/13/17 08:00 01/13/17 08:00 01/13/17 08:00 Intake and Output: 01/13/17 01/13/17 06:59 18:59 Intake Total 570 Output Total 205 Balance 365 - Medications Medications: Current Medications Hydroxyzine HCl (Atarax) 25 mg PO Q6 PRN PRN Reason: Itching / Pruritus Vasopressin 100 units/ Sodium (Chloride) 105 mls @ 1.89 mls/hr IV .Q24H [facility]; 0.03 UNITS/MIN PRN Reason: Protocol Last Admin: 01/11/17 21:20 Dose: 0.03 units/min, 1.89 mls/hr Cefepime HCl 1 gm/ Sodium (Chloride) 100 mls @ 100 mls/hr IVPB DAILY [facility] PRN Reason: Protocol Last Admin: 01/12/17 09:32 Dose: 100 mls/hr Lactulose (Enulose) 20 gm PO BID [facility] Last Admin: 01/12/17 20:52 Dose: 20 gm Midodrine (Proamatine) 7.5 mg PO TID [facility] Last Admin: 01/12/17 16:13 Dose: Not Given Octreotide Acetate (Sandostatin) 100 mcg SC Q8 [facility] Last Admin: 01/13/17 00:31 Dose: 100 mcg Rifaximin (Xifaxan) 550 mg PO BID [facility] PRN Reason: Protocol Last Admin: 01/12/17 16:14 Dose: Not Given Zinc Sulfate (Zinc Sulfate 220 Mg Cap) 220 mg PO DAILY [facility] Last Admin: 01/12/17 09:36 Dose: 220 mg - Labs Labs: 01/13/17 04:20 01/13/17 04:20 PT 19.2 Seconds (9.8-13.1) H 01/13/17 04:20 INR 1.7 (0.9-1.2) H 01/13/17 04:20 APTT 41.6 Seconds (25.6-37.1) H 01/13/17 04:20 - Head Exam Head Exam: ATRAUMATIC - Eye Exam Eye Exam: Scleral icterus - ENT Exam ENT Exam: Mucous Membranes Dry - Respiratory Exam Respiratory Exam: NORMAL BREATHING PATTERN - Cardiovascular Exam Cardiovascular Exam: +S1, +S2 - GI/Abdominal Exam GI & Abdominal Exam: Normal Bowel Sounds - Extremities Exam Extremities Exam: Pedal Edema Assessment and Plan (1) Coagulopathy Assessment & Plan: liver disease s/p FFP Status: Acute (2) Anemia Assessment & Plan: GI blood loss anemia of CKD transfusion support PRN Status: Acute (3) Thrombocytopenia Assessment & Plan: secondary to liver disease Status: Acute (4) Leukocytosis Assessment & Plan: on antibiotics Status: Acute
--- NOTE | 2017-01-13 09:21 | CP.PCM.PN ---
Subjective - Date & Time of Evaluation Date of Evaluation: 01/13/17 Time of Evaluation: 09:19 - Subjective Subjective: Patient remained in intensive care unit. Patient is confused. Mental status: altered Very jaundice Objective - Vital Signs/Intake and Output Vital Signs (last 24 hours): Temp Pulse Resp BP Pulse Ox 97.7 F 88 12 97/53 L 97 01/13/17 08:00 01/13/17 08:00 01/13/17 08:00 01/13/17 08:00 01/13/17 08:00 Intake and Output: 01/13/17 01/13/17 06:59 18:59 Intake Total 570 Output Total 205 Balance 365 - Medications Medications: Current Medications Hydroxyzine HCl (Atarax) 25 mg PO Q6 PRN PRN Reason: Itching / Pruritus Vasopressin 100 units/ Sodium (Chloride) 105 mls @ 1.89 mls/hr IV .Q24H [facility]; 0.03 UNITS/MIN PRN Reason: Protocol Last Admin: 01/11/17 21:20 Dose: 0.03 units/min, 1.89 mls/hr Cefepime HCl 1 gm/ Sodium (Chloride) 100 mls @ 100 mls/hr IVPB DAILY [facility] PRN Reason: Protocol Last Admin: 01/12/17 09:32 Dose: 100 mls/hr Lactulose (Enulose) 20 gm PO BID [facility] Last Admin: 01/12/17 20:52 Dose: 20 gm Midodrine (Proamatine) 7.5 mg PO TID [facility] Last Admin: 01/12/17 16:13 Dose: Not Given Octreotide Acetate (Sandostatin) 100 mcg SC Q8 [facility] Last Admin: 01/13/17 00:31 Dose: 100 mcg Rifaximin (Xifaxan) 550 mg PO BID [facility] PRN Reason: Protocol Last Admin: 01/12/17 16:14 Dose: Not Given Zinc Sulfate (Zinc Sulfate 220 Mg Cap) 220 mg PO DAILY [facility] Last Admin: 01/12/17 09:36 Dose: 220 mg - Labs Labs: 01/13/17 04:20 01/13/17 04:20 PT 19.2 Seconds (9.8-13.1) H 01/13/17 04:20 INR 1.7 (0.9-1.2) H 01/13/17 04:20 APTT 41.6 Seconds (25.6-37.1) H 01/13/17 04:20 - Constitutional Appears: No Acute Distress - Eye Exam Eye Exam: Scleral icterus - ENT Exam ENT Exam: Mucous Membranes Moist - Respiratory Exam Respiratory Exam: absent: Chest Wall Tenderness - Cardiovascular Exam Cardiovascular Exam: absent: JVD, Rubs - GI/Abdominal Exam GI & Abdominal Exam: Soft, Normal Bowel Sounds - Extremities Exam Extremities Exam: absent: Calf Tenderness - Back Exam Back Exam: absent: CVA tenderness (L), CVA tenderness (R) - Neurological Exam Neurological Exam: Altered - Psychiatric Exam Psychiatric exam: Flat Affect Assessment and Plan (1) DM2 (diabetes mellitus, type 2) Status: Acute (2) Hypotension Status: Acute (3) Umkvg-by-ytdeeia kidney injury Assessment & Plan: Patient started with acute kidney injury which be no chronic kidney failure on dialysis. With hepatorenal syndrome. Liver cirrhosis with severe jaundice Scheduled for hemodialysis for tomorrow. DC sodium bicarbonate because she is dialysis dependent. As per primary team for the hepatorenal issues and hypotension patient remain on vasopressor. Status: Acute (4) Hepatorenal syndrome Status: Acute (5) Liver cirrhosis Status: Acute
[2017-01-13] MEDS: Cefepime 1 GM in Sodium Chloride 0.9% 100 ML IVPB SCH (09:54)
[2017-01-13 11:26] LABS: NEUTROPHIL 91 % (42-75); TOTAL CELLS COUNTED 100
[2017-01-14 06:40] LABS: BASO % 0.1 % (0.0-2.0); HEMATOCRIT 21.8 % (34.0-47.0); LYMPH # 1.3 K/uL (1.0-4.3); LYMPH % 9.8 % (20.0-40.0); MEAN CELL VOLUME 94.7 fl (81.0-99.0); MEAN CORPUSCULAR HEMOGLOBIN 33.5 pg (27.0-31.0); MEAN CORPUSCULAR HGB CONC 35.4 g/dL (33.0-37.0); MEAN PLATELET VOLUME 10.6 fl (7.2-11.7); MONO # 1.9 K/uL (0.0-0.8); MONO % 14.1 % (0.0-10.0); NEUT # 10.2 K/uL (1.8-7.0); NRBC % 1.8 % (0.0-0.0); RED CELL DISTRIBUTION WIDTH 20.5 % (11.5-14.5); WHITE BLOOD COUNT 13.4 K/uL (4.8-10.8)
[2017-01-14 07:12] LABS: ALB/GLOB RATIO 0.7 (1.0-2.1); CALCIUM 9.1 mg/dL (8.4-10.2); POTASSIUM 4.3 MMOL/L (3.6-5.0); TOTAL PROTEIN 8.6 G/DL (6.3-8.2)
[2017-01-14 07:20] LABS: BILIRUBIN,TOTAL 41.2 mg/dl (0.2-1.3)
--- NOTE | 2017-01-14 08:03 | PN ---
DATE: 01/13/2017 CRITICAL CARE PROGRESS NOTE LOCATION: Patient in ICU, bed 426. TIME SPENT: 35 minutes. SUBJECTIVE: Patient is seen and evaluated at the bedside. Past medical, surgical, social history reviewed. Nursing and physician documentation noted. Overnight, on pressors, vasopressin and Levophed. This morning, patient is alert, awake, but remains confused. Not able to involve in conversation in a meaningful way. No distress noted. PHYSICAL EXAMINATION: VITAL SIGNS: Temperature 97.5; heart rate 87, regular; blood pressure 97/43; mean arterial pressure 61; respiratory rate 15 to 24, thoracoabdominal; saturation 94 to 96, on oxygen supplement 2 liters nasal cannula. Intake of 570, output 205, positive balance of 365, status post hemodialysis on last Friday. HEAD, EYES, EARS, NOSE AND THROAT: Pupils reactive. Conjunctivae pale. Sclerae icteric. NECK: Supple. Oral mucosa dry. HEART: Rhythm regular. S1, S2 normal. ABDOMEN: Bowel sounds present. Mild distention. No tenderness. EXTREMITIES: Trace edema. NEUROLOGIC: Lethargic, but more responsive, nonverbal. Remains confused and agitated at times. CURRENT MEDICATIONS: Include cefepime 1 g IV daily, Skelaxin 550 mg twice daily,zinc sulfate 220 mg p.o. daily, vasopressin 100 units daily, Sandostatin 100 mcg subcu every 8 hours, midodrine 7.5 mg three times daily, lactulose 20 g p.o. twice daily, Atarax 25 mg p.o. q.6 p.r.n. LABORATORY DATA: WBC 12.2, hemoglobin 7.9, hematocrit of 23.1, platelet count 65, neutrophils 85.6, lymphocytes 6.1, monocytes 8.1. PT 19.2, INR 1.7, PTT 41.6. ABG: pH 7.34, pCO2 of 46, pO2 of 68, oxygen saturation 98% on FIO2 28%. SMA-7: Sodium 135, potassium 4.1, chloride of 95, CO2 of 23, blood urea nitrogen 42, creatinine 6.5, glucose random 176. Total bilirubin 39.1, AST 103, ALT 52, alkaline phosphatase 178, ammonia level 33. Total protein 8.7, albumin 3.6. Stool occult blood positive. Vancomycin trough level 23.9. Hepatitis B surface antigen negative, hepatitis B surface antibody positive. Microbiology: Urine culture positive for E. coli. IMPRESSION: 1. Neurological: Altered mental status secondary to septic metabolic encephalopathy. 2. Urine culture positive for Escherichia coli. Hepatorenal syndrome, on hemodialysis. 3. Pulmonary: Bilateral infiltrates, suspected volume overload versus pneumonia involving predominantly right middle lobe. Currently on oxygen 2 liters nasal cannula saturating over 94%. Continue to monitor respiratory status. 4. Cardiac: Hypotension related to sepsis, currently on Levophed and vasopressin. Continue IV hydration. 5. Gastrointestinal: History of hepatitis C infection related cirrhosis, mild ascites with abdominal distention. 6. Infectious Disease: Urinary tract infection with E. coli, suspected pneumonia, right middle lobe, on antibiotic, dose renally adjusted. 7. Renal: Severe metabolic acidosis, hepatorenal syndrome, on hemodialysis three times a week, on sodium bicarbonate. 8. Continue deep venous thrombosis, gastrointestinal prophylaxis. 9. Prognosis remains guarded. Primary physician discussed with patient's daughter and made do not resuscitate and advised hospice care. Hospice care consult is in progress. Chico Vazquez MD
--- NOTE | 2017-01-14 08:19 | CP.PCM.PN ---
Subjective - Date & Time of Evaluation Date of Evaluation: 01/14/17 Time of Evaluation: 08:14 - Subjective Subjective: pt remains as assessed. no distress. moaning/noncoherent. no f/c, n/v/d. bw noted. case d/c w/ daughter cyrus. Objective - Vital Signs/Intake and Output Vital Signs (last 24 hours): Temp Pulse Resp BP Pulse Ox 98.6 F 90 17 111/51 L 95 01/14/17 04:00 01/14/17 06:00 01/14/17 06:00 01/14/17 06:00 01/14/17 06:00 Intake and Output: 01/14/17 01/14/17 06:59 18:59 Intake Total 270 Output Total 350 Balance -80 - Medications Medications: Current Medications Hydroxyzine HCl (Atarax) 25 mg PO Q6 PRN PRN Reason: Itching / Pruritus Vasopressin 100 units/ Sodium (Chloride) 105 mls @ 1.89 mls/hr IV .Q24H [facility]; 0.03 UNITS/MIN PRN Reason: Protocol Last Admin: 01/11/17 21:20 Dose: 0.03 units/min, 1.89 mls/hr Cefepime HCl 1 gm/ Sodium (Chloride) 100 mls @ 100 mls/hr IVPB DAILY [facility] PRN Reason: Protocol Last Admin: 01/13/17 09:54 Dose: 100 mls/hr Norepinephrine Bitartrate 8 mg (/ Dextrose) 258 mls @ 43.53 mls/hr IV .Q5H56M ONE PRN Reason: 22.5 MCG/MIN Stop: 01/14/17 13:53 Lactulose (Enulose) 20 gm PO BID [facility] Last Admin: 01/13/17 17:43 Dose: 20 gm Midodrine (Proamatine) 7.5 mg PO TID [facility] Last Admin: 01/13/17 17:42 Dose: 7.5 mg Octreotide Acetate (Sandostatin) 100 mcg SC Q8 [facility] Last Admin: 01/14/17 01:43 Dose: 100 mcg Rifaximin (Xifaxan) 550 mg PO BID [facility] PRN Reason: Protocol Last Admin: 01/13/17 19:11 Dose: Not Given Zinc Sulfate (Zinc Sulfate 220 Mg Cap) 220 mg PO DAILY [facility] Last Admin: 01/13/17 09:00 Dose: Not Given - Labs Labs: 01/14/17 06:00 01/14/17 06:00 PT 19.2 Seconds (9.8-13.1) H 01/13/17 04:20 INR 1.7 (0.9-1.2) H 01/13/17 04:20 APTT 41.6 Seconds (25.6-37.1) H 01/13/17 04:20 - Constitutional Appears: No Acute Distress, Chronically Ill - Head Exam Head Exam: ATRAUMATIC, NORMAL INSPECTION, NORMOCEPHALIC - Eye Exam Eye Exam: EOMI, Normal appearance, PERRL Pupil Exam: NORMAL ACCOMODATION, PERRL - ENT Exam ENT Exam: Mucous Membranes Moist, Normal Exam - Neck Exam Neck Exam: Full ROM, Normal Inspection. absent: Lymphadenopathy - Respiratory Exam Respiratory Exam: Clear to Ausculation Bilateral, NORMAL BREATHING PATTERN - Cardiovascular Exam Cardiovascular Exam: REGULAR RHYTHM, +S1, +S2. absent: Murmur - GI/Abdominal Exam GI & Abdominal Exam: Soft, Normal Bowel Sounds. absent: Tenderness - Extremities Exam Extremities Exam: Full ROM, Normal Capillary Refill, Normal Inspection. absent : Joint Swelling, Pedal Edema - Back Exam Back Exam: NORMAL INSPECTION - Neurological Exam Neurological Exam: Abnormal Gait, Altered, Awake, CN II-XII Intact - Psychiatric Exam Psychiatric exam: Normal Affect, Normal Mood - Skin Skin Exam: Dry, Intact, Normal Color, Warm Assessment and Plan (1) [id number] kidney injury Status: Acute (2) DVT prophylaxis Status: Acute (3) Hepatorenal syndrome Status: Acute (4) Liver cirrhosis Status: Acute (5) UTI (urinary tract infection) Status: Acute (6) Hypotension Status: Acute - Assessment and Plan (Free Text) Assessment: (1) Sgiil-zd-[id number] kidney injury Assessment & Plan: nephro dialysis monitor bw/lytes Status: Acute (2) DVT prophylaxis Assessment & Plan: scd nad ae hose no anticoag r/t coagulopathy from liver dz Status: Acute (3) Hepatorenal syndrome Assessment & Plan: icu care gi, nephro Status: Acute (4) Liver cirrhosis Assessment & Plan: end stage ?? transfert o liver center when off pressors vs hospice coagulopathy present, pos stool guiac. got vitk, ffp, prbc no further obv bleeding, hgb stable Status: Acute (5) UTI (urinary tract infection) Assessment & Plan: cont all anbx-cefepime, ID ?? sepsis Status: Acute (6) Hypotension Assessment & Plan: ?? r/t sepsis vs hepatorenal levophed down to 22.5, vasopressin titrat prn fluid support 7-anemia-/p prbc, heme/onc, hgb stable 8-abd pain-abd us, pain control, caution w/ somnolence. no pain at present, d/c w/ family via phone
[2017-01-14] MEDS: Cefepime 1 GM in Sodium Chloride 0.9% 100 ML IVPB SCH (08:32)
--- NOTE | 2017-01-14 11:41 | CP.PCM.PN ---
Subjective - Date & Time of Evaluation Date of Evaluation: 01/14/17 Time of Evaluation: 11:30 - Subjective Subjective: more confused today Objective - Vital Signs/Intake and Output Vital Signs (last 24 hours): Temp Pulse Resp BP Pulse Ox 98.5 F 89 13 112/56 L 96 01/14/17 08:00 01/14/17 10:00 01/14/17 10:00 01/14/17 10:00 01/14/17 10:00 Intake and Output: 01/14/17 01/14/17 06:59 18:59 Intake Total 270 88 Output Total 350 Balance -80 88 - Medications Medications: Current Medications Hydroxyzine HCl (Atarax) 25 mg PO Q6 PRN PRN Reason: Itching / Pruritus Vasopressin 100 units/ Sodium (Chloride) 105 mls @ 1.89 mls/hr IV .Q24H [facility]; 0.03 UNITS/MIN PRN Reason: Protocol Last Admin: 01/11/17 21:20 Dose: 0.03 units/min, 1.89 mls/hr Cefepime HCl 1 gm/ Sodium (Chloride) 100 mls @ 100 mls/hr IVPB DAILY [facility] PRN Reason: Protocol Last Admin: 01/14/17 08:32 Dose: 100 mls/hr Norepinephrine Bitartrate 8 mg (/ Dextrose) 258 mls @ 43.53 mls/hr IV .Q5H56M ONE PRN Reason: 22.5 MCG/MIN Stop: 01/14/17 13:53 Last Admin: 01/14/17 08:31 Dose: 43.53 mls/hr Lactulose (Enulose) 20 gm PO QID [facility] Midodrine (Proamatine) 7.5 mg PO TID [facility] Last Admin: 01/14/17 10:00 Dose: 7.5 mg Octreotide Acetate (Sandostatin) 100 mcg SC Q8 [facility] Last Admin: 01/14/17 09:58 Dose: 100 mcg Rifaximin (Xifaxan) 550 mg PO BID [facility] PRN Reason: Protocol Last Admin: 01/14/17 09:59 Dose: 550 mg Zinc Sulfate (Zinc Sulfate 220 Mg Cap) 220 mg PO DAILY [facility] Last Admin: 01/14/17 10:01 Dose: 220 mg - Labs Labs: 01/14/17 06:00 01/14/17 06:00 PT 19.2 Seconds (9.8-13.1) H 01/13/17 04:20 INR 1.7 (0.9-1.2) H 01/13/17 04:20 APTT 41.6 Seconds (25.6-37.1) H 01/13/17 04:20 - Respiratory Exam Respiratory Exam: NORMAL BREATHING PATTERN - Cardiovascular Exam Cardiovascular Exam: REGULAR RHYTHM - GI/Abdominal Exam GI & Abdominal Exam: Soft, Normal Bowel Sounds Assessment and Plan - Assessment and Plan (Free Text) Assessment: 56 yo female with hepatic encephalopathy increase lactulose to qid cont xifaxan
--- NOTE | 2017-01-14 12:32 | CP.PCM.PN ---
Subjective - Date & Time of Evaluation Date of Evaluation: 01/14/17 Time of Evaluation: 12:29 - Subjective Subjective: Dialysis note Patient is partially confused although she is responding to some questions. Daughter at the bedside She recognized her daughter. Vital sign noted with blood pressure still low. Dialysis nurse at the bedside I discussed the order with her as follow Sodium bath 138 Potassium bath 2 mEq Bicarbonate 34 Ultrafiltration about 1500 if she is tolerating. Support blood pressure with albumin 25% 50 mL twice. Objective - Vital Signs/Intake and Output Vital Signs (last 24 hours): Temp Pulse Resp BP Pulse Ox 98.5 F 89 13 112/56 L 96 01/14/17 08:00 01/14/17 10:00 01/14/17 10:00 01/14/17 10:00 01/14/17 10:00 Intake and Output: 01/14/17 01/14/17 06:59 18:59 Intake Total 270 88 Output Total 350 Balance -80 88 - Medications Medications: Current Medications Hydroxyzine HCl (Atarax) 25 mg PO Q6 PRN PRN Reason: Itching / Pruritus Vasopressin 100 units/ Sodium (Chloride) 105 mls @ 1.89 mls/hr IV .Q24H [facility]; 0.03 UNITS/MIN PRN Reason: Protocol Last Admin: 01/11/17 21:20 Dose: 0.03 units/min, 1.89 mls/hr Cefepime HCl 1 gm/ Sodium (Chloride) 100 mls @ 100 mls/hr IVPB DAILY [facility] PRN Reason: Protocol Last Admin: 01/14/17 08:32 Dose: 100 mls/hr Norepinephrine Bitartrate 8 mg (/ Dextrose) 258 mls @ 43.53 mls/hr IV .Q5H56M ONE PRN Reason: 22.5 MCG/MIN Stop: 01/14/17 13:53 Last Admin: 01/14/17 08:31 Dose: 43.53 mls/hr Lactulose (Enulose) 20 gm PO QID [facility] Midodrine (Proamatine) 7.5 mg PO TID [facility] Last Admin: 01/14/17 10:00 Dose: 7.5 mg Octreotide Acetate (Sandostatin) 100 mcg SC Q8 [facility] Last Admin: 01/14/17 09:58 Dose: 100 mcg Rifaximin (Xifaxan) 550 mg PO BID [facility] PRN Reason: Protocol Last Admin: 01/14/17 09:59 Dose: 550 mg Zinc Sulfate (Zinc Sulfate 220 Mg Cap) 220 mg PO DAILY [facility] Last Admin: 01/14/17 10:01 Dose: 220 mg - Labs Labs: 01/14/17 06:00 01/14/17 06:00 PT 19.2 Seconds (9.8-13.1) H 01/13/17 04:20 INR 1.7 (0.9-1.2) H 01/13/17 04:20 APTT 41.6 Seconds (25.6-37.1) H 01/13/17 04:20 - Constitutional Appears: No Acute Distress - Eye Exam Eye Exam: Scleral icterus - ENT Exam ENT Exam: Mucous Membranes Moist - Neck Exam Neck Exam: absent: Lymphadenopathy - Respiratory Exam Respiratory Exam: NORMAL BREATHING PATTERN. absent: Chest Wall Tenderness, Wheezes - Cardiovascular Exam Cardiovascular Exam: REGULAR RHYTHM. absent: JVD, Rubs - GI/Abdominal Exam GI & Abdominal Exam: Soft, Normal Bowel Sounds - Extremities Exam Extremities Exam: absent: Calf Tenderness - Back Exam Back Exam: absent: CVA tenderness (L), CVA tenderness (R) - Neurological Exam Neurological Exam: Altered Assessment and Plan (1) DM2 (diabetes mellitus, type 2) Status: Acute (2) Hypotension Status: Acute (3) Mjqbh-ze-rnbqsfe kidney injury Assessment & Plan: Hepatorenal syndrome with acute kidney injury patient became dialysis dependent. Severe anemia suggested blood transfusion patient is being follow-up by [employer] . Coagulopathy related to liver disease Hypotension Continue dialysis as scheduled TTS again, I am waiting for transfer of the femoral catheter to subclavian when is coordinated with the hematologists because of the coagulopathy Status: Acute (4) Hepatorenal syndrome Status: Acute (5) Liver cirrhosis Status: Acute
--- NOTE | 2017-01-14 17:09 | CP.PCM.PN ---
Subjective - Date & Time of Evaluation Date of Evaluation: 01/14/17 Time of Evaluation: 15:00 - Subjective Subjective: Appears comfortable Objective - Vital Signs/Intake and Output Vital Signs (last 24 hours): Temp Pulse Resp BP Pulse Ox 97.8 F 82 14 111/52 L 98 01/14/17 16:00 01/14/17 16:00 01/14/17 16:00 01/14/17 16:00 01/14/17 16:00 Intake and Output: 01/14/17 01/14/17 06:59 18:59 Intake Total 270 452 Output Total 350 Balance -80 452 - Medications Medications: Current Medications Hydroxyzine HCl (Atarax) 25 mg PO Q6 PRN PRN Reason: Itching / Pruritus Vasopressin 100 units/ Sodium (Chloride) 105 mls @ 1.89 mls/hr IV .Q24H [facility]; 0.03 UNITS/MIN PRN Reason: Protocol Last Admin: 01/11/17 21:20 Dose: 0.03 units/min, 1.89 mls/hr Cefepime HCl 1 gm/ Sodium (Chloride) 100 mls @ 100 mls/hr IVPB DAILY [facility] PRN Reason: Protocol Last Admin: 01/14/17 08:32 Dose: 100 mls/hr Lactulose (Enulose) 20 gm PO QID [facility] Midodrine (Proamatine) 7.5 mg PO TID [facility] Last Admin: 01/14/17 15:51 Dose: Not Given Octreotide Acetate (Sandostatin) 100 mcg SC Q8 [facility] Last Admin: 01/14/17 09:58 Dose: 100 mcg Rifaximin (Xifaxan) 550 mg PO BID [facility] PRN Reason: Protocol Last Admin: 01/14/17 12:00 Dose: 550 mg Zinc Sulfate (Zinc Sulfate 220 Mg Cap) 220 mg PO DAILY [facility] Last Admin: 01/14/17 12:00 Dose: 220 mg - Labs Labs: 01/14/17 06:00 01/14/17 06:00 PT 19.2 Seconds (9.8-13.1) H 01/13/17 04:20 INR 1.7 (0.9-1.2) H 01/13/17 04:20 APTT 41.6 Seconds (25.6-37.1) H 01/13/17 04:20 - Head Exam Head Exam: ATRAUMATIC - Eye Exam Eye Exam: Normal appearance - ENT Exam ENT Exam: Mucous Membranes Dry - Respiratory Exam Respiratory Exam: NORMAL BREATHING PATTERN - Cardiovascular Exam Cardiovascular Exam: +S1, +S2 - GI/Abdominal Exam GI & Abdominal Exam: Normal Bowel Sounds - Extremities Exam Extremities Exam: Pedal Edema Assessment and Plan (1) Coagulopathy Assessment & Plan: secondary to liver disease improved s/p FFP Status: Acute (2) Anemia Assessment & Plan: GI blood loss, anemia of CKD EPO per renal s/p transfusion support H/H fairly stable Status: Acute (3) Thrombocytopenia Assessment & Plan: liver disease Status: Acute (4) Leukocytosis Assessment & Plan: on antibiotics Status: Acute
--- NOTE | 2017-01-14 23:31 | PN ---
DATE: 01/14/2017 CRITICAL CARE PROGRESS NOTE LOCATION: Patient in ICU, bed 426. TIME SPENT: 35 minutes. SUBJECTIVE: Patient is seen and evaluated at the bedside. Past medical, surgical, and social history reviewed. Nursing and other physician documents noted. Overnight, on vasopressin and Levophed. Blood pressure improved on midodrine. This morning, remains alert, awake, oriented to name, says in hospital, but not to time. Able to recognize some family members. Denies headache, shortness of breath, chest pain, palpitation. No abdominal discomfort. PHYSICAL EXAMINATION: VITAL SIGNS: Temperature 98.1, heart rate 91, blood pressure of 99/73, mean arterial pressure 81, respiratory rate of 14, saturation 96% on 2 liters nasal cannula. Intake 954, output 551, positive balance 403. Status post hemodialysis now. CHEST: Bilateral breath sounds, diminished in intensity. HEART: Rhythm regular. S1, S2 normal. No audible murmur. ABDOMEN: Bowel sounds present and soft. Mild distention. No tenderness. EXTREMITIES: Edema. NEUROLOGIC: No flapping tremor. Oriented to name and somewhat to place, but not to time. CURRENT MEDICATIONS: Cefepime 1 g IV daily, Atarax 25 g q. 6 p.r.n., lactulose 20 g p.o. q.i.d., midodrine 7.5 mg three times daily, Sandostatin 100 mcg subcu q. 8, Xifaxan 550 mg p.o. b.i.d., vasopressin 100 units in 105 mL at 1.89 mL every day, zinc sulfate 220 mg p.o. daily. LABORATORY DATA: WBC 13.4, hemoglobin 7.7, hematocrit 21.8, platelet count 84; neutrophils 76, lymphocytes 9.8, monocytes 14.1. PT 19, INR 1.7, PTT 41.6. SMA-7: Sodium 134, potassium 4.3, chloride 96, CO2 of 21, blood urea nitrogen 59, creatinine 7.2, random glucose 204, calcium is 9.1, total bilirubin 41.2, AST 154, ALT 58, alkaline phosphatase 184, total protein 8.6, albumin 3.5. Vancomycin trough level 23.9. Serology: Hepatitis B surface antigen negative, antibody positive. Microbiology: Urine positive for E. coli. Blood culture, no growth reported. IMPRESSION: 1. Neurological: Altered mental status secondary to septic metabolic encephalopathy. 2. Urine culture positive for Escherichia coli. Hepatorenal syndrome/end-stage renal disease, on hemodialysis. 3. Pulmonary: Bilateral infiltrates, suspected volume overload versus pneumonia, currently on oxygen 2 liters nasal cannula saturating over 94%. Monitor respiratory status. 4. Cardiac: Hypotension, improved, currently on Levophed and vasopressin, added midodrine, off IV hydration. 5. Gastrointestinal: Hepatitis C infection related cirrhosis, mild ascites with abdominal distention. No evidence of spontaneous bacterial peritonitis. 6. Infection: Urinary tract infection with Escherichia coli, suspected pneumonia, right middle lobe, on antibiotic as noted. 7. Renal: On hemodialysis status post dialysis today. BUN and creatinine stable. Continue deep venous thrombosis and gastrointestinal prophylaxis. Family declined from the do not resuscitate and hospice care and further discussion in progress between primary and the family members. Chico Vazquez MD
[2017-01-15 01:05] LABS: BASO % 0.1 % (0.0-2.0); HEMATOCRIT 21.8 % (34.0-47.0); LYMPH # 0.8 K/uL (1.0-4.3); LYMPH % 6.4 % (20.0-40.0); MEAN CELL VOLUME 95.9 fl (81.0-99.0); MEAN CORPUSCULAR HEMOGLOBIN 32.2 pg (27.0-31.0); MEAN CORPUSCULAR HGB CONC 33.6 g/dL (33.0-37.0); MEAN PLATELET VOLUME 10.6 fl (7.2-11.7); MONO # 2.2 K/uL (0.0-0.8); MONO % 17.2 % (0.0-10.0); NEUT # 9.6 K/uL (1.8-7.0); NEUT % 76.3 % (50.0-75.0); NRBC % 2.4 % (0.0-0.0); RED CELL DISTRIBUTION WIDTH 20.5 % (11.5-14.5); WHITE BLOOD COUNT 12.6 K/uL (4.8-10.8)
[2017-01-15 04:56] LABS: BASO % 0.1 % (0.0-2.0); EOS % 0.3 % (0.0-4.0); HEMATOCRIT 21.1 % (34.0-47.0); LYMPH # 0.9 K/uL (1.0-4.3); LYMPH % 6.9 % (20.0-40.0); MEAN CORPUSCULAR HEMOGLOBIN 32.7 pg (27.0-31.0); MEAN CORPUSCULAR HGB CONC 34.1 g/dL (33.0-37.0); MONO # 2.1 K/uL (0.0-0.8); MONO % 16.2 % (0.0-10.0); NEUT # 9.9 K/uL (1.8-7.0); NEUT % 76.5 % (50.0-75.0); NRBC % 2.3 % (0.0-0.0); RED CELL DISTRIBUTION WIDTH 20.1 % (11.5-14.5)
[2017-01-15 05:12] LABS: ALB/GLOB RATIO 0.6 (1.0-2.1); CALCIUM 8.7 mg/dL (8.4-10.2); POTASSIUM 4.1 MMOL/L (3.6-5.0); TOTAL PROTEIN 8.1 G/DL (6.3-8.2)
[2017-01-15 06:14] LABS: BILIRUBIN,TOTAL 39.6 mg/dl (0.2-1.3)
--- NOTE | 2017-01-15 08:16 | CP.PCM.PN ---
Subjective - Date & Time of Evaluation Date of Evaluation: 01/15/17 Time of Evaluation: 08:14 - Subjective Subjective: pt remains confused and lethargic. moaning. family-son at bedside. updated on all re: pts case hgb and bloody stools noted prbc and ffp have been ordered. hospice eval pending Objective - Vital Signs/Intake and Output Vital Signs (last 24 hours): Temp Pulse Resp BP Pulse Ox 98.3 F 93 H 17 89/63 L 95 01/15/17 04:00 01/15/17 05:00 01/15/17 05:00 01/15/17 05:00 01/15/17 05:00 Intake and Output: 01/15/17 01/15/17 06:59 18:59 Intake Total 225 Output Total 310 Balance -85 - Medications Medications: Current Medications Hydroxyzine HCl (Atarax) 25 mg PO Q6 PRN PRN Reason: Itching / Pruritus Vasopressin 100 units/ Sodium (Chloride) 105 mls @ 1.89 mls/hr IV .Q24H [facility]; 0.03 UNITS/MIN PRN Reason: Protocol Last Admin: 01/11/17 21:20 Dose: 0.03 units/min, 1.89 mls/hr Cefepime HCl 1 gm/ Sodium (Chloride) 100 mls @ 100 mls/hr IVPB DAILY [facility] PRN Reason: Protocol Last Admin: 01/14/17 08:32 Dose: 100 mls/hr Vasopressin 100 units/ Sodium (Chloride) 105 mls @ 1.89 mls/hr IV .Q24H [facility]; 0.03 UNITS/MIN PRN Reason: Protocol Last Admin: 01/14/17 22:14 Dose: Not Given Norepinephrine Bitartrate 8 mg (/ Dextrose) 258 mls @ 43.53 mls/hr IV .Q5H56M ONE; 22.5 MCG/MIN PRN Reason: Protocol Stop: 01/15/17 09:49 Last Admin: 01/15/17 04:15 Dose: 22.5 mcg/min, 43.53 mls/hr Lactulose (Enulose) 20 gm PO QID [facility] Last Admin: 01/14/17 21:36 Dose: Not Given Midodrine (Proamatine) 7.5 mg PO TID [facility] Last Admin: 01/14/17 17:50 Dose: 7.5 mg Octreotide Acetate (Sandostatin) 100 mcg SC Q8 [facility] Last Admin: 01/15/17 01:00 Dose: 100 mcg Rifaximin (Xifaxan) 550 mg PO BID [facility] PRN Reason: Protocol Last Admin: 01/14/17 17:52 Dose: 550 mg Zinc Sulfate (Zinc Sulfate 220 Mg Cap) 220 mg PO DAILY [facility] Last Admin: 01/14/17 12:00 Dose: 220 mg - Labs Labs: 01/15/17 04:20 01/15/17 04:20 PT 19.2 Seconds (9.8-13.1) H 01/13/17 04:20 INR 1.7 (0.9-1.2) H 01/13/17 04:20 APTT 41.6 Seconds (25.6-37.1) H 01/13/17 04:20 - Constitutional Appears: No Acute Distress, Chronically Ill - Head Exam Head Exam: ATRAUMATIC, NORMAL INSPECTION, NORMOCEPHALIC - Eye Exam Eye Exam: EOMI, Normal appearance, PERRL Pupil Exam: NORMAL ACCOMODATION, PERRL - ENT Exam ENT Exam: Mucous Membranes Moist, Normal Exam - Neck Exam Neck Exam: Full ROM, Normal Inspection. absent: Lymphadenopathy - Respiratory Exam Respiratory Exam: Clear to Ausculation Bilateral, NORMAL BREATHING PATTERN - Cardiovascular Exam Cardiovascular Exam: REGULAR RHYTHM, RRR, +S1, +S2. absent: Murmur - GI/Abdominal Exam GI & Abdominal Exam: Soft, Normal Bowel Sounds. absent: Tenderness - Extremities Exam Extremities Exam: Full ROM, Normal Capillary Refill, Normal Inspection. absent : Joint Swelling, Pedal Edema - Back Exam Back Exam: NORMAL INSPECTION - Neurological Exam Neurological Exam: Abnormal Gait, CN II-XII Intact - Psychiatric Exam Psychiatric exam: Normal Affect, Normal Mood - Skin Skin Exam: Dry, Intact, Normal Color, Warm Assessment and Plan (1) Nxytl-rj-ginzdpf kidney injury Status: Acute (2) DVT prophylaxis Status: Acute (3) Hepatorenal syndrome Status: Acute (4) Liver cirrhosis Status: Acute (5) UTI (urinary tract infection) Status: Acute (6) Hypotension Status: Acute - Assessment and Plan (Free Text) Assessment: (1) Lzujo-ka-ekxijvt kidney injury Assessment & Plan: nephro dialysis monitor bw/lytes Status: Acute (2) DVT prophylaxis Assessment & Plan: scd nad ae hose no anticoag r/t coagulopathy from liver dz Status: Acute (3) Hepatorenal syndrome Assessment & Plan: icu care gi, nephro Status: Acute (4) Liver cirrhosis Assessment & Plan: end stage ?? transfert o liver center when off pressors vs hospice coagulopathy present, pos stool guiac. got vitk, ffp, prbc no further obv bleeding, hgb stable Status: Acute (5) UTI (urinary tract infection) Assessment & Plan: cont all anbx-cefepime, ID ?? sepsis Status: Acute (6) Hypotension Assessment & Plan: ?? r/t sepsis vs hepatorenal levophed down to 22.5, vasopressin titrat prn fluid support 7-anemia-/p prbc, heme/onc, hgb stable 8-abd pain-abd us noted, pain control, caution w/ somnolence. no pain at present , d/c w/ family
[2017-01-15] MEDS: Cefepime 1 GM in Sodium Chloride 0.9% 100 ML IVPB SCH (09:24)
--- NOTE | 2017-01-15 11:30 | CP.PCM.PN ---
Subjective - Date & Time of Evaluation Date of Evaluation: 01/15/17 Time of Evaluation: 11:28 - Subjective Subjective: Patient wassignificant changes mentally she is responding but partially confused. patient not eating well Objective - Vital Signs/Intake and Output Vital Signs (last 24 hours): Temp Pulse Resp BP Pulse Ox 97.8 F 91 H 15 108/54 L 95 01/15/17 08:00 01/15/17 10:00 01/15/17 10:00 01/15/17 10:00 01/15/17 10:00 Intake and Output: 01/15/17 01/15/17 06:59 18:59 Intake Total 225 100 Output Total 310 Balance -85 100 - Medications Medications: Current Medications Hydroxyzine HCl (Atarax) 25 mg PO Q6 PRN PRN Reason: Itching / Pruritus Last Admin: 01/15/17 09:22 Dose: 25 mg Vasopressin 100 units/ Sodium (Chloride) 105 mls @ 1.89 mls/hr IV .Q24H [facility]; 0.03 UNITS/MIN PRN Reason: Protocol Last Admin: 01/11/17 21:20 Dose: 0.03 units/min, 1.89 mls/hr Cefepime HCl 1 gm/ Sodium (Chloride) 100 mls @ 100 mls/hr IVPB DAILY [facility] PRN Reason: Protocol Last Admin: 01/15/17 09:24 Dose: 100 mls/hr Vasopressin 100 units/ Sodium (Chloride) 105 mls @ 1.89 mls/hr IV .Q24H [facility]; 0.03 UNITS/MIN PRN Reason: Protocol Last Admin: 01/14/17 22:14 Dose: Not Given Lactulose (Enulose) 20 gm PO QID [facility] Last Admin: 01/15/17 09:22 Dose: 20 gm Midodrine (Proamatine) 7.5 mg PO TID [facility] Last Admin: 01/15/17 09:24 Dose: 7.5 mg Morphine Sulfate (Morphine) 2 mg IVP Q4 PRN PRN Reason: Pain, moderate (4-7) Octreotide Acetate (Sandostatin) 100 mcg SC Q8 [facility] Last Admin: 01/15/17 09:26 Dose: 100 mcg Rifaximin (Xifaxan) 550 mg PO BID [facility] PRN Reason: Protocol Last Admin: 12/06/17 09:24 Dose: 550 mg Zinc Sulfate (Zinc Sulfate 220 Mg Cap) 220 mg PO DAILY [facility] Last Admin: 01/15/17 09:25 Dose: 220 mg - Labs Labs: 01/15/17 04:20 01/15/17 04:20 PT 19.2 Seconds (9.8-13.1) H 01/13/17 04:20 INR 1.7 (0.9-1.2) H 01/13/17 04:20 APTT 41.6 Seconds (25.6-37.1) H 01/13/17 04:20 - Constitutional Appears: No Acute Distress - Eye Exam Eye Exam: Scleral icterus - ENT Exam ENT Exam: Mucous Membranes Moist - Respiratory Exam Respiratory Exam: absent: Chest Wall Tenderness - Cardiovascular Exam Cardiovascular Exam: REGULAR RHYTHM. absent: JVD, Rubs - GI/Abdominal Exam GI & Abdominal Exam: Soft, Normal Bowel Sounds - Extremities Exam Extremities Exam: absent: Calf Tenderness - Back Exam Back Exam: absent: CVA tenderness (L), CVA tenderness (R) - Neurological Exam Neurological Exam: Altered - Skin Skin Exam: absent: Cyanosis Assessment and Plan (1) DM2 (diabetes mellitus, type 2) Status: Acute (2) Hypotension Status: Acute (3) [id number] kidney injury Assessment & Plan: Hepatorenal syndrome with chronic kidney disease dialysis dependent Serum bilirubin remained high in the range of 39. Abnormal liver function test Anemia Hyperphosphatemia Continue hemodialysis Status: Acute (4) Hepatorenal syndrome Status: Acute (5) Liver cirrhosis Status: Acute
--- NOTE | 2017-01-15 13:04 | CP.PCM.PN ---
Subjective - Date & Time of Evaluation Date of Evaluation: 01/15/17 Time of Evaluation: 08:00 - Subjective Subjective: events noted hospice eval pending Objective - Vital Signs/Intake and Output Vital Signs (last 24 hours): Temp Pulse Resp BP Pulse Ox 96.9 F L 81 14 102/33 L 96 01/15/17 12:00 01/15/17 12:00 01/15/17 12:00 01/15/17 12:00 01/15/17 12:00 Intake and Output: 01/15/17 01/15/17 06:59 18:59 Intake Total 225 100 Output Total 310 Balance -85 100 - Medications Medications: Current Medications Hydroxyzine HCl (Atarax) 25 mg PO Q6 PRN PRN Reason: Itching / Pruritus Last Admin: 01/15/17 09:22 Dose: 25 mg Vasopressin 100 units/ Sodium (Chloride) 105 mls @ 1.89 mls/hr IV .Q24H [facility]; 0.03 UNITS/MIN PRN Reason: Protocol Last Admin: 01/11/17 21:20 Dose: 0.03 units/min, 1.89 mls/hr Cefepime HCl 1 gm/ Sodium (Chloride) 100 mls @ 100 mls/hr IVPB DAILY [facility] PRN Reason: Protocol Last Admin: 01/15/17 09:24 Dose: 100 mls/hr Vasopressin 100 units/ Sodium (Chloride) 105 mls @ 1.89 mls/hr IV .Q24H [facility]; 0.03 UNITS/MIN PRN Reason: Protocol Last Admin: 01/14/17 22:14 Dose: Not Given Norepinephrine Bitartrate 8 mg (/ Dextrose) 258 mls @ 43.53 mls/hr IV .Q5H56M ONE PRN Reason: 22.5 MCG/MIN Stop: 01/15/17 18:05 Last Admin: 01/15/17 12:34 Dose: 43.53 mls/hr Lactulose (Enulose) 20 gm PO QID [facility] Last Admin: 01/15/17 12:25 Dose: Not Given Midodrine (Proamatine) 7.5 mg PO TID [facility] Last Admin: 01/15/17 12:26 Dose: Not Given Morphine Sulfate (Morphine) 2 mg IVP Q4 PRN PRN Reason: Pain, moderate (4-7) Last Admin: 01/15/17 12:28 Dose: 2 mg Octreotide Acetate (Sandostatin) 100 mcg SC Q8 [facility] Last Admin: 01/15/17 09:26 Dose: 100 mcg Rifaximin (Xifaxan) 550 mg PO BID [facility] PRN Reason: Protocol Last Admin: 01/15/17 09:24 Dose: 550 mg Zinc Sulfate (Zinc Sulfate 220 Mg Cap) 220 mg PO DAILY [facility] Last Admin: 01/15/17 09:25 Dose: 220 mg - Labs Labs: 01/15/17 04:20 01/15/17 04:20 PT 19.2 Seconds (9.8-13.1) H 01/13/17 04:20 INR 1.7 (0.9-1.2) H 01/13/17 04:20 APTT 41.6 Seconds (25.6-37.1) H 01/13/17 04:20 - Constitutional Appears: Non-toxic, Confused - Head Exam Head Exam: ATRAUMATIC, NORMAL INSPECTION, NORMOCEPHALIC - Eye Exam Eye Exam: PERRL. absent: Scleral icterus - ENT Exam ENT Exam: Mucous Membranes Dry - Neck Exam Neck Exam: absent: Lymphadenopathy - Respiratory Exam Respiratory Exam: Decreased Breath Sounds - Cardiovascular Exam Cardiovascular Exam: REGULAR RHYTHM - GI/Abdominal Exam GI & Abdominal Exam: Distended, Soft - Rectal Exam Rectal Exam: Deferred - Exam Exam: NORMAL INSPECTION - Extremities Exam Extremities Exam: Pedal Edema - Back Exam Back Exam: absent: CVA tenderness (L), CVA tenderness (R) Assessment and Plan (1) DM2 (diabetes mellitus, type 2) Status: Acute (2) Hypotension Status: Acute (3) UTI (urinary tract infection) Status: Acute (4) [id number] kidney injury Status: Acute (5) Hepatorenal syndrome Status: Acute (6) Liver cirrhosis Status: Acute
--- NOTE | 2017-01-15 15:58 | CP.PCM.PN ---
Subjective - Date & Time of Evaluation Date of Evaluation: 01/15/17 Time of Evaluation: 15:50 - Subjective Subjective: still lethargic Objective - Vital Signs/Intake and Output Vital Signs (last 24 hours): Temp Pulse Resp BP Pulse Ox 96.9 F L 86 14 100/40 L 98 01/15/17 12:00 01/15/17 14:00 01/15/17 14:00 01/15/17 14:00 01/15/17 14:00 Intake and Output: 01/15/17 01/15/17 06:59 18:59 Intake Total 225 100 Output Total 310 Balance -85 100 - Medications Medications: Current Medications Hydroxyzine HCl (Atarax) 25 mg PO Q6 PRN PRN Reason: Itching / Pruritus Last Admin: 01/15/17 09:22 Dose: 25 mg Vasopressin 100 units/ Sodium (Chloride) 105 mls @ 1.89 mls/hr IV .Q24H [facility]; 0.03 UNITS/MIN PRN Reason: Protocol Last Admin: 01/14/17 22:14 Dose: Not Given Norepinephrine Bitartrate 8 mg (/ Dextrose) 258 mls @ 43.53 mls/hr IV .Q5H56M ONE PRN Reason: 22.5 MCG/MIN Stop: 01/15/17 18:05 Last Admin: 01/15/17 12:34 Dose: 43.53 mls/hr Ceftriaxone Sodium (Rocephin Iv 1 Gm Duplex) 50 mls @ 100 mls/hr IVPB DAILY [facility] PRN Reason: Protocol Lactulose (Enulose) 20 gm PO QID [facility] Last Admin: 01/15/17 12:25 Dose: Not Given Midodrine (Proamatine) 7.5 mg PO TID [facility] Last Admin: 01/15/17 12:26 Dose: Not Given Morphine Sulfate (Morphine) 2 mg IVP Q4 PRN PRN Reason: Pain, moderate (4-7) Last Admin: 01/15/17 12:28 Dose: 2 mg Octreotide Acetate (Sandostatin) 100 mcg SC Q8 [facility] Last Admin: 01/15/17 09:26 Dose: 100 mcg Rifaximin (Xifaxan) 550 mg PO BID [facility] PRN Reason: Protocol Last Admin: 01/15/17 09:24 Dose: 550 mg Zinc Sulfate (Zinc Sulfate 220 Mg Cap) 220 mg PO DAILY [facility] Last Admin: 01/15/17 09:25 Dose: 220 mg - Labs Labs: 01/15/17 04:20 01/15/17 04:20 PT 19.2 Seconds (9.8-13.1) H 01/13/17 04:20 INR 1.7 (0.9-1.2) H 01/13/17 04:20 APTT 41.6 Seconds (25.6-37.1) H 01/13/17 04:20 - Eye Exam Eye Exam: Scleral icterus - Neck Exam Neck Exam: Normal Inspection - Respiratory Exam Respiratory Exam: Rhonchi - Cardiovascular Exam Cardiovascular Exam: REGULAR RHYTHM - GI/Abdominal Exam GI & Abdominal Exam: Soft, Normal Bowel Sounds Assessment and Plan - Assessment and Plan (Free Text) Assessment: 56 yo female with decompensated cirrhosis secondary to infection needs more lactulose rec: NGT if not taking PO
--- NOTE | 2017-01-15 17:23 | CP.CCUPN ---
CCU Subjective - Physician Review Subjective (Free Text): Dramatic difference in neuromental status today, less responsive after lactulose reduced over the past 1-2 days. There has been no active bleeding, she did receive 1 unit PRBNCs overnight. Remains on Levophed and Vasopressin- dosage requirements of Levophed not significantly reduced. Other vitals and I/O's reviewed. No fever spikes overnight. No urine output noted. Fluid balance 1.1L positive. ROS: No other pertinent negs or positives on 10+ system review. PMSFH: All Nursing and physician documentation reviewed to date; no new pertinent info noted relevant to current medical problems. IMPRESSION / MAJOR PROBLEMS NOW: 1. Acute Resp insuff 2 RML Pneumonia 2. Cirrhosis with hepatic encephalopathy 3. GEGE 2 ATN / Hepatorenal syndrome, now HD-dependent 4. Chronic disease Anemia / Thrombocytopenia/ Coagulopathy PLAN: 1. Slow tolerance with weans from vasopressors. Levophed weans as BP tolerates. Stop vasopressin and increased Midodrine. 2. May need NGT replacement for full dose lactulose again. 3. Empiric abx coverage noted with Cefepime / Zosyn / Vanco. So far, urine growth with E.coli. 4. Await familys decision regarding Hospice. CCU Objective - Vital Signs / Intake & Output Vital Signs (Last 4 hours): Vital Signs Temp Pulse Resp BP Pulse Ox 01/15/17 16:00 97.8 F 90 12 101/53 L 95 01/15/17 15:00 73 16 100/40 L 96 01/15/17 14:00 86 14 100/40 L 98 Intake and Output (Last 8hrs): Intake & Output 01/15/17 01/15/17 01/15/17 06:59 14:59 22:59 Intake Total 135 100 530 Output Total 210 Balance -75 100 530 Weight 270 lb Intake: IV 135 530 Intake, Piggyback 100 Output: Stool 210 Other: # Bowel Movements 1 1 - Physical Exam Physical Exam Limitations: Positive for: Altered Mental Status Head: Positive for: Atraumatic, Normocephalic Pupils: Positive for: PERRL Conjunctiva: Positive for: Normal, Icteric Mouth: Positive for: Moist Mucous Membranes Nose (External): Positive for: Atraumatic Nose (Internal): Positive for: Normal Inspection Neck: Positive for: Normal Range of Motion. Negative for: JVD Respiratory/Chest: Positive for: Clear to Auscultation, Decreased Breath Sounds Cardiovascular: Positive for: Regular Rate and Rhythm Abdomen: Positive for: Distention, Normal Bowel Sounds. Negative for: Tenderness, Mass/Organomegaly Upper Extremity: Positive for: Normal Inspection Lower Extremity: Positive for: NORMAL PULSES. Negative for: CALF TENDERNESS, Cyanosis Neurological: Positive for: Motor Func Grossly Intact, Normal Sensory Function Skin: Positive for: Warm, Dry. Negative for: Rashes Psychiatric: Positive for: Lethargic - Medications Active Medications: Active Medications Generic Name Dose Route Start Last Admin Trade Name Freq PRN Reason Stop Dose Admin Hydroxyzine HCl 25 mg 01/04/17 18:38 01/15/17 09:22 Atarax PO 25 mg Q6 PRN Administration Itching / Pruritus Vasopressin 100 units/ Sodium 105 mls @ 1.89 mls/hr 01/14/17 21:15 01/14/17 22:14 Chloride IV Not Given .Q24H [facility] Protocol 0.03 UNITS/MIN Norepinephrine Bitartrate 8 mg 258 mls @ 43.53 mls/hr 01/15/17 12:10 12:34 / Dextrose IV 01/15/17 18:05 43.53 mls/hr .Q5H56M ONE Administration 22.5 MCG/MIN Ceftriaxone Sodium 50 mls @ 100 mls/hr 01/16/17 09:00 Rocephin Iv 1 Gm Duplex IVPB DAILY [facility] Protocol Lactulose 20 gm 01/14/17 13:00 01/15/17 12:25 Enulose PO Not Given QID [facility] Midodrine 7.5 mg 01/08/17 17:00 01/15/17 16:41 Proamatine PO 7.5 mg TID [facility] Administration Morphine Sulfate 2 mg 01/15/17 09:33 01/15/17 12:28 Morphine IVP 2 mg Q4 PRN Administration Pain, moderate (4-7) Octreotide Acetate 100 mcg 01/08/17 14:45 01/15/17 16:42 Sandostatin SC 100 mcg Q8 [facility] Administration Rifaximin 550 mg 01/05/17 09:00 01/15/17 16:43 Xifaxan PO 550 mg BID [facility] Administration Protocol Zinc Sulfate 220 mg 01/05/17 09:00 01/15/17 09:25 Zinc Sulfate 220 Mg Cap PO 220 mg DAILY [facility] Administration - Patient Studies Lab Studies: Lab Studies 01/15/17 01/15/17 01/15/17 Range/Units 16:29 11:13 05:55 WBC (4.8-10.8) K/uL RBC (3.80-5.20) Mil/uL Hgb (12.0-16.0) g/dL Hct (34.0-47.0) % MCV (81.0-99.0) fl MCH (27.0-31.0) pg MCHC (33.0-37.0) g/dL RDW (11.5-14.5) % Plt Count (130-400) K/uL MPV (7.2-11.7) fl Neut % (Auto) (50.0-75.0) % Lymph % (Auto) (20.0-40.0) % [place] % (Auto) (0.0-10.0) % Eos % (Auto) (0.0-4.0) % Baso % (Auto) (0.0-2.0) % Neut # (1.8-7.0) K/uL Lymph # (1.0-4.3) K/uL [place] # (0.0-0.8) K/uL Eos # (0.0-0.7) K/uL Baso # (0.0-0.2) K/uL Sodium (132-148) mmol/l Potassium (3.6-5.0) MMOL/L Chloride (98-107) mmol/L Carbon Dioxide (22-30) mmol/L Anion Gap (10-20) BUN (7-17) mg/dl Creatinine (0.7-1.2) mg/dl Est GFR ( Amer) Est GFR (Non-Af Amer) POC Glucose (mg/dL) 239 H 250 H 215 H (65-110) mg/dL Random Glucose (65-105) mg/dL Calcium (8.4-10.2) mg/dL Total Bilirubin (0.2-1.3) mg/dl AST (14-36) U/L ALT (9-52) U/L Alkaline Phosphatase (38-126) U/L Total Protein (6.3-8.2) G/DL Albumin (3.5-5.0) g/dL Globulin (2.2-3.9) gm/dL Albumin/Globulin Ratio (1.0-2.1) Blood Type Antibody Screen Crossmatch BBK History Checked 01/15/17 01/15/17 01/15/17 Range/Units 04:20 04:20 01:50 WBC 13.0 H (4.8-10.8) K/uL RBC 2.20 L (3.80-5.20) Mil/uL Hgb 7.2 L (12.0-16.0) g/dL Hct 21.1 L (34.0-47.0) % MCV 96.0 (81.0-99.0) fl MCH 32.7 H (27.0-31.0) pg MCHC 34.1 (33.0-37.0) g/dL RDW 20.1 H (11.5-14.5) % Plt Count 83 L (130-400) K/uL MPV 11.0 (7.2-11.7) fl Neut % (Auto) 76.5 H (50.0-75.0) % Lymph % (Auto) 6.9 L (20.0-40.0) % [place] % (Auto) 16.2 H (0.0-10.0) % Eos % (Auto) 0.3 (0.0-4.0) % Baso % (Auto) 0.1 (0.0-2.0) % Neut # 9.9 H (1.8-7.0) K/uL Lymph # 0.9 L (1.0-4.3) K/uL [place] # 2.1 H (0.0-0.8) K/uL Eos # 0.0 (0.0-0.7) K/uL Baso # 0.0 (0.0-0.2) K/uL Sodium 135 (132-148) mmol/l Potassium 4.1 (3.6-5.0) MMOL/L Chloride 98 (98-107) mmol/L Carbon Dioxide 22 (22-30) mmol/L Anion Gap 19 (10-20) BUN 45 H (7-17) mg/dl Creatinine 5.7 H (0.7-1.2) mg/dl Est GFR ( Amer) 9 Est GFR (Non-Af Amer) 8 POC Glucose (mg/dL) (65-110) mg/dL Random Glucose 205 H (65-105) mg/dL Calcium 8.7 (8.4-10.2) mg/dL Total Bilirubin 39.6 H (0.2-1.3) mg/dl AST 215 H D (14-36) U/L ALT 77 H D (9-52) U/L Alkaline Phosphatase 174 H (38-126) U/L Total Protein 8.1 (6.3-8.2) G/DL Albumin 3.2 L (3.5-5.0) g/dL Globulin 5.0 H (2.2-3.9) gm/dL Albumin/Globulin Ratio 0.6 L (1.0-2.1) Blood Type A POSITIVE Antibody Screen Negative Crossmatch See Detail BBK History Checked Patient has bt 01/15/17 01/14/17 01/14/17 Range/Units 01:00 21:05 17:27 WBC 12.6 H (4.8-10.8) K/uL RBC 2.27 L (3.80-5.20) Mil/uL Hgb 7.3 L (12.0-16.0) g/dL Hct 21.8 L (34.0-47.0) % MCV 95.9 (81.0-99.0) fl MCH 32.2 H (27.0-31.0) pg MCHC 33.6 (33.0-37.0) g/dL RDW 20.5 H (11.5-14.5) % Plt Count 77 L (130-400) K/uL MPV 10.6 (7.2-11.7) fl Neut % (Auto) 76.3 H (50.0-75.0) % Lymph % (Auto) 6.4 L (20.0-40.0) % [place] % (Auto) 17.2 H (0.0-10.0) % Eos % (Auto) 0.0 (0.0-4.0) % Baso % (Auto) 0.1 (0.0-2.0) % Neut # 9.6 H (1.8-7.0) K/uL Lymph # 0.8 L (1.0-4.3) K/uL [place] # 2.2 H (0.0-0.8) K/uL Eos # 0.0 (0.0-0.7) K/uL Baso # 0.0 (0.0-0.2) K/uL Sodium (132-148) mmol/l Potassium (3.6-5.0) MMOL/L Chloride (98-107) mmol/L Carbon Dioxide (22-30) mmol/L Anion Gap (10-20) BUN (7-17) mg/dl Creatinine (0.7-1.2) mg/dl Est GFR ( Amer) Est GFR (Non-Af Amer) POC Glucose (mg/dL) 216 H 189 H (65-110) mg/dL Random Glucose (65-105) mg/dL Calcium (8.4-10.2) mg/dL Total Bilirubin (0.2-1.3) mg/dl AST (14-36) U/L ALT (9-52) U/L Alkaline Phosphatase (38-126) U/L Total Protein (6.3-8.2) G/DL Albumin (3.5-5.0) g/dL Globulin (2.2-3.9) gm/dL Albumin/Globulin Ratio (1.0-2.1) Blood Type Antibody Screen Crossmatch BBK History Checked Laboratory Results - last 24 hr 01/14/17 01/14/17 01/15/17 17:27 21:05 01:00 WBC 12.6 H RBC 2.27 L Hgb 7.3 L Hct 21.8 L MCV 95.9 MCH 32.2 H MCHC 33.6 RDW 20.5 H Plt Count 77 L MPV 10.6 Neut % (Auto) 76.3 H Lymph % (Auto) 6.4 L [place] % (Auto) 17.2 H Eos % (Auto) 0.0 Baso % (Auto) 0.1 Neut # 9.6 H Lymph # 0.8 L [place] # 2.2 H Eos # 0.0 Baso # 0.0 Sodium Potassium Chloride Carbon Dioxide Anion Gap BUN Creatinine Est GFR ( Amer) Est GFR (Non-Af Amer) POC Glucose (mg/dL) 189 H 216 H Random Glucose Calcium Total Bilirubin AST ALT Alkaline Phosphatase Total Protein Albumin Globulin Albumin/Globulin Ratio Blood Type Antibody Screen Crossmatch BBK History Checked 01/15/17 01/15/17 01/15/17 01:50 04:20 04:20 WBC 13.0 H RBC 2.20 L Hgb 7.2 L Hct 21.1 L MCV 96.0 MCH 32.7 H MCHC 34.1 RDW 20.1 H Plt Count 83 L MPV 11.0 Neut % (Auto) 76.5 H Lymph % (Auto) 6.9 L [place] % (Auto) 16.2 H Eos % (Auto) 0.3 Baso % (Auto) 0.1 Neut # 9.9 H Lymph # 0.9 L [place] # 2.1 H Eos # 0.0 Baso # 0.0 Sodium 135 Potassium 4.1 Chloride 98 Carbon Dioxide 22 Anion Gap 19 BUN 45 H Creatinine 5.7 H Est GFR ( Amer) 9 Est GFR (Non-Af Amer) 8 POC Glucose (mg/dL) Random Glucose 205 H Calcium 8.7 Total Bilirubin 39.6 H AST 215 H D ALT 77 H D Alkaline Phosphatase 174 H Total Protein 8.1 Albumin 3.2 L Globulin 5.0 H Albumin/Globulin Ratio 0.6 L Blood Type A POSITIVE Antibody Screen Negative Crossmatch See Detail BBK History Checked Patient has bt 01/15/17 01/15/17 01/15/17 05:55 11:13 16:29 WBC RBC Hgb Hct MCV MCH MCHC RDW Plt Count MPV Neut % (Auto) Lymph % (Auto) [place] % (Auto) Eos % (Auto) Baso % (Auto) Neut # Lymph # [place] # Eos # Baso # Sodium Potassium Chloride Carbon Dioxide Anion Gap BUN Creatinine Est GFR ( Amer) Est GFR (Non-Af Amer) POC Glucose (mg/dL) 215 H 250 H 239 H Random Glucose Calcium Total Bilirubin AST ALT Alkaline Phosphatase Total Protein Albumin Globulin Albumin/Globulin Ratio Blood Type Antibody Screen Crossmatch BBK History Checked Fingerstick Blood Sugar Results: 239 Review of Systems - Review of Systems Systems not reviewed;Unavailable: Altered Mental Status All systems: reviewed and no additional remarkable complaints except (as above) Critical Care Progress Note - Nutrition Nutrition: Nutrition Category Date Time Status Renal Diet [DIET] Diets 01/09/17 Lunch Active
--- NOTE | 2017-01-15 22:17 | CP.PCM.PN ---
Subjective - Date & Time of Evaluation Date of Evaluation: 01/15/17 Time of Evaluation: 18:00 - Subjective Subjective: More lethargic Objective - Vital Signs/Intake and Output Vital Signs (last 24 hours): Temp Pulse Resp BP Pulse Ox 97.8 F 89 16 121/70 99 01/15/17 16:00 01/15/17 18:00 01/15/17 18:00 01/15/17 18:00 01/15/17 18:00 Intake and Output: 01/15/17 01/16/17 18:59 06:59 Intake Total 630 Balance 630 - Medications Medications: Current Medications Hydroxyzine HCl (Atarax) 25 mg PO Q6 PRN PRN Reason: Itching / Pruritus Last Admin: 01/15/17 09:22 Dose: 25 mg Vasopressin 100 units/ Sodium (Chloride) 105 mls @ 1.89 mls/hr IV .Q24H [facility]; 0.03 UNITS/MIN PRN Reason: Protocol Last Admin: 01/14/17 22:14 Dose: Not Given Ceftriaxone Sodium (Rocephin Iv 1 Gm Duplex) 50 mls @ 100 mls/hr IVPB DAILY [facility] PRN Reason: Protocol Norepinephrine Bitartrate 8 mg (/ Dextrose) 258 mls @ 43.53 mls/hr IV .Q5H56M ONE; 22.5 MCG/MIN PRN Reason: Protocol Stop: 01/16/17 00:21 Last Admin: 01/15/17 20:05 Dose: 43.53 mls/hr Lactulose (Enulose) 20 gm PO QID [facility] Last Admin: 01/15/17 17:12 Dose: 20 gm Midodrine (Proamatine) 10 mg PO TID [facility] Last Admin: 01/15/17 20:07 Dose: 10 mg Morphine Sulfate (Morphine) 2 mg IVP Q4 PRN PRN Reason: Pain, moderate (4-7) Last Admin: 01/15/17 12:28 Dose: 2 mg Octreotide Acetate (Sandostatin) 100 mcg SC Q8 [facility] Last Admin: 01/15/17 16:42 Dose: 100 mcg Rifaximin (Xifaxan) 550 mg PO BID [facility] PRN Reason: Protocol Last Admin: 01/15/17 16:43 Dose: 550 mg Zinc Sulfate (Zinc Sulfate 220 Mg Cap) 220 mg PO DAILY [facility] Last Admin: 01/15/17 09:25 Dose: 220 mg - Labs Labs: 01/15/17 04:20 01/15/17 04:20 PT 19.2 Seconds (9.8-13.1) H 01/13/17 04:20 INR 1.7 (0.9-1.2) H 01/13/17 04:20 APTT 41.6 Seconds (25.6-37.1) H 01/13/17 04:20 - Head Exam Head Exam: ATRAUMATIC - Eye Exam Eye Exam: Scleral icterus - ENT Exam ENT Exam: Mucous Membranes Dry - Respiratory Exam Respiratory Exam: NORMAL BREATHING PATTERN - Cardiovascular Exam Cardiovascular Exam: +S1, +S2 - GI/Abdominal Exam GI & Abdominal Exam: Normal Bowel Sounds Assessment and Plan (1) Coagulopathy Assessment & Plan: liver disease improved, s/p FFP and vit k Status: Acute (2) Anemia Assessment & Plan: chronic GI bleeding transfusion support PRN Status: Acute (3) Thrombocytopenia Assessment & Plan: secondary to liver disease Status: Acute (4) Leukocytosis Assessment & Plan: on antibiotics Status: Acute
[2017-01-16 05:27] LABS: HEMATOCRIT 22.6 % (34.0-47.0); LYMPH # 1.1 K/uL (1.0-4.3); LYMPH % 7.8 % (20.0-40.0); MEAN CORPUSCULAR HEMOGLOBIN 33.1 pg (27.0-31.0); MEAN CORPUSCULAR HGB CONC 34.5 g/dL (33.0-37.0); MEAN PLATELET VOLUME 10.5 fl (7.2-11.7); MONO # 2.3 K/uL (0.0-0.8); MONO % 16.2 % (0.0-10.0); NEUT # 10.8 K/uL (1.8-7.0); NRBC % 3.1 % (0.0-0.0); RED CELL DISTRIBUTION WIDTH 19.4 % (11.5-14.5); WHITE BLOOD COUNT 14.2 K/uL (4.8-10.8)
[2017-01-16 05:52] LABS: ALB/GLOB RATIO 0.6 (1.0-2.1); BILIRUBIN,TOTAL 40.5 mg/dl (0.2-1.3); POTASSIUM 4.1 MMOL/L (3.6-5.0); TOTAL PROTEIN 7.9 G/DL (6.3-8.2)
--- NOTE | 2017-01-16 08:00 | CP.PCM.PN ---
Subjective - Date & Time of Evaluation Date of Evaluation: 01/16/17 Time of Evaluation: 07:58 - Subjective Subjective: pt status remains unchanged, alertered nad confused. answered to name bt closes eyes immediately. bp about the same but levophed now 12.5mcg. vasopressin remains. no f/c, n/v/d. case d/c w/ son. Objective - Vital Signs/Intake and Output Vital Signs (last 24 hours): Temp Pulse Resp BP Pulse Ox 97.6 F 74 17 101/54 L 97 01/16/17 04:00 01/16/17 06:00 01/16/17 06:00 01/16/17 06:00 01/16/17 06:00 Intake and Output: 01/16/17 01/16/17 06:59 18:59 Intake Total 188 Output Total 275 Balance -87 - Medications Medications: Current Medications Hydroxyzine HCl (Atarax) 25 mg PO Q6 PRN PRN Reason: Itching / Pruritus Last Admin: 01/15/17 09:22 Dose: 25 mg Vasopressin 100 units/ Sodium (Chloride) 105 mls @ 1.89 mls/hr IV .Q24H [facility]; 0.03 UNITS/MIN PRN Reason: Protocol Last Admin: 01/14/17 22:14 Dose: Not Given Ceftriaxone Sodium (Rocephin Iv 1 Gm Duplex) 50 mls @ 100 mls/hr IVPB DAILY [facility] PRN Reason: Protocol Lactulose (Enulose) 20 gm PO QID [facility] Last Admin: 01/16/17 00:33 Dose: Not Given Midodrine (Proamatine) 10 mg PO TID [facility] Last Admin: 01/15/17 20:07 Dose: 10 mg Morphine Sulfate (Morphine) 2 mg IVP Q4 PRN PRN Reason: Pain, moderate (4-7) Last Admin: 01/15/17 12:28 Dose: 2 mg Octreotide Acetate (Sandostatin) 100 mcg SC Q8 [facility] Last Admin: 01/16/17 00:35 Dose: 100 mcg Rifaximin (Xifaxan) 550 mg PO BID [facility] PRN Reason: Protocol Last Admin: 01/15/17 16:43 Dose: 550 mg Zinc Sulfate (Zinc Sulfate 220 Mg Cap) 220 mg PO DAILY [facility] Last Admin: 01/15/17 09:25 Dose: 220 mg - Labs Labs: 01/16/17 04:20 01/16/17 04:20 PT 19.2 Seconds (9.8-13.1) H 01/13/17 04:20 INR 1.7 (0.9-1.2) H 01/13/17 04:20 APTT 41.6 Seconds (25.6-37.1) H 01/13/17 04:20 - Constitutional Appears: No Acute Distress, Chronically Ill - Head Exam Head Exam: ATRAUMATIC, NORMAL INSPECTION, NORMOCEPHALIC - Eye Exam Eye Exam: EOMI, Normal appearance, PERRL Pupil Exam: NORMAL ACCOMODATION, PERRL - ENT Exam ENT Exam: Mucous Membranes Moist, Normal Exam - Neck Exam Neck Exam: Full ROM, Normal Inspection. absent: Lymphadenopathy - Respiratory Exam Respiratory Exam: Clear to Ausculation Bilateral, NORMAL BREATHING PATTERN - Cardiovascular Exam Cardiovascular Exam: REGULAR RHYTHM, RRR, +S1, +S2. absent: Murmur - GI/Abdominal Exam GI & Abdominal Exam: Soft, Normal Bowel Sounds. absent: Tenderness - Extremities Exam Extremities Exam: Full ROM, Normal Capillary Refill, Normal Inspection. absent : Joint Swelling, Pedal Edema - Back Exam Back Exam: NORMAL INSPECTION - Neurological Exam Neurological Exam: Abnormal Gait, Altered, CN II-XII Intact - Psychiatric Exam Psychiatric exam: Normal Affect, Normal Mood - Skin Skin Exam: Dry, Intact, Normal Color, Warm Assessment and Plan (1) [id number] kidney injury Status: Acute (2) DVT prophylaxis Status: Acute (3) Hepatorenal syndrome Status: Acute (4) Liver cirrhosis Status: Acute (5) UTI (urinary tract infection) Status: Acute (6) Hypotension Status: Acute - Assessment and Plan (Free Text) Assessment: (1) [id number] kidney injury Assessment & Plan: nephro dialysis monitor bw/lytes Status: Acute (2) DVT prophylaxis Assessment & Plan: scd nad ae hose no anticoag r/t coagulopathy from liver dz Status: Acute (3) Hepatorenal syndrome Assessment & Plan: icu care gi, nephro Status: Acute (4) Liver cirrhosis Assessment & Plan: end stage ?? transfert o liver center when off pressors vs hospice coagulopathy present, pos stool guiac. got vitk, ffp, prbc no further obv bleeding, hgb stable bili cont to rise Status: Acute (5) UTI (urinary tract infection) Assessment & Plan: cont all anbx-cefepime, ID ?? sepsis minimal urine outpt r/t renal failure Status: Acute (6) Hypotension Assessment & Plan: ?? r/t sepsis vs hepatorenal levophed down to 22.5, vasopressin titrat prn fluid support 7-anemia-/p prbc, heme/onc, hgb stable 8-abd pain-abd us noted, pain control, caution w/ somnolence. no pain at present , d/c w/ family hospice eval pending
--- NOTE | 2017-01-16 08:01 | CP.CCUPN ---
CCU Subjective - Physician Review Subjective (Free Text): Moaning in bed, but does not appear distressed, not follwoing any simple commands this AM. There has been no active bleeding. Remains on Levophed and Vasopressin- down to 12 mcg/min Levophed. Other vitals and I/O's reviewed. No fever spikes overnight. No urine output noted. Fluid balance 0.5 L positive. ROS: No other pertinent negs or positives on 10+ system review. PMSFH: All Nursing and physician documentation reviewed to date; no new pertinent info noted relevant to current medical problems. IMPRESSION / MAJOR PROBLEMS NOW: 1. Acute Resp insuff 2 RML Pneumonia 2. Cirrhosis with hepatic encephalopathy 3. GEGE 2 ATN / Hepatorenal syndrome, now HD-dependent 4. Chronic disease Anemia / Thrombocytopenia/ Coagulopathy PLAN: 1. Ongoing Levophed weans as BP tolerates. Stop vasopressin and increased Midodrine. May increase up to 15 mg TID if used for HRS purposes. 2. May need NGT replacement for full dose lactulose again. 3. Empiric abx coverage noted with Cefepime / Zosyn / Vanco. So far, urine growth with E.coli. 4. HGB levels are stable over the last 24-36H. 5. Await familys decision regarding Hospice. CCU Objective - Vital Signs / Intake & Output Vital Signs (Last 4 hours): Vital Signs Temp Pulse Resp BP Pulse Ox 01/16/17 06:00 74 17 101/54 L 97 01/16/17 05:00 79 17 97/51 L 100 01/16/17 04:00 97.6 F 81 14 106/53 L 100 Intake and Output (Last 8hrs): Intake & Output 01/15/17 01/16/17 01/16/17 22:59 06:59 14:59 Intake Total 608 110 Output Total 100 175 Balance 508 -65 Intake: IV 608 110 Output: Stool 100 175 - Physical Exam Physical Exam Limitations: Positive for: Altered Mental Status Head: Positive for: Atraumatic, Normocephalic Pupils: Positive for: PERRL Conjunctiva: Positive for: Normal, Icteric Mouth: Positive for: Moist Mucous Membranes Nose (External): Positive for: Atraumatic Nose (Internal): Positive for: Normal Inspection Neck: Positive for: Normal Range of Motion. Negative for: JVD Respiratory/Chest: Positive for: Clear to Auscultation, Decreased Breath Sounds Cardiovascular: Positive for: Regular Rate and Rhythm Abdomen: Positive for: Distention, Normal Bowel Sounds. Negative for: Tenderness, Mass/Organomegaly Upper Extremity: Positive for: Normal Inspection Lower Extremity: Positive for: NORMAL PULSES. Negative for: CALF TENDERNESS, Cyanosis Neurological: Positive for: Motor Func Grossly Intact, Normal Sensory Function Skin: Positive for: Warm, Dry. Negative for: Rashes Psychiatric: Positive for: Lethargic - Medications Active Medications: Active Medications Generic Name Dose Route Start Last Admin Trade Name Freq PRN Reason Stop Dose Admin Hydroxyzine HCl 25 mg 01/04/17 18:38 01/15/17 09:22 Atarax PO 25 mg Q6 PRN Administration Itching / Pruritus Vasopressin 100 units/ Sodium 105 mls @ 1.89 mls/hr 01/14/17 21:15 01/14/17 22:14 Chloride IV Not Given .Q24H [facility] Protocol 0.03 UNITS/MIN Ceftriaxone Sodium 50 mls @ 100 mls/hr 01/16/17 09:00 Rocephin Iv 1 Gm Duplex IVPB DAILY [facility] Protocol Lactulose 20 gm 01/14/17 13:00 01/16/17 00:33 Enulose PO Not Given QID [facility] Midodrine 10 mg 01/15/17 19:00 01/15/17 20:07 Proamatine PO 10 mg TID [facility] Administration Morphine Sulfate 2 mg 01/15/17 09:33 01/15/17 12:28 Morphine IVP 2 mg Q4 PRN Administration Pain, moderate (4-7) Octreotide Acetate 100 mcg 01/08/17 14:45 01/16/17 00:35 Sandostatin SC 100 mcg Q8 [facility] Administration Rifaximin 550 mg 01/05/17 09:00 01/15/17 16:43 Xifaxan PO 550 mg BID [facility] Administration Protocol Zinc Sulfate 220 mg 01/05/17 09:00 01/15/17 09:25 Zinc Sulfate 220 Mg Cap PO 220 mg DAILY [facility] Administration - Patient Studies Lab Studies: Lab Studies 01/16/17 01/16/17 01/15/17 Range/Units 04:20 04:20 21:24 WBC 14.2 H (4.8-10.8) K/uL RBC 2.35 L (3.80-5.20) Mil/uL Hgb 7.8 L (12.0-16.0) g/dL Hct 22.6 L (34.0-47.0) % MCV 96.0 (81.0-99.0) fl MCH 33.1 H (27.0-31.0) pg MCHC 34.5 (33.0-37.0) g/dL RDW 19.4 H (11.5-14.5) % Plt Count 81 L (130-400) K/uL MPV 10.5 (7.2-11.7) fl Neut % (Auto) 76.0 H (50.0-75.0) % Lymph % (Auto) 7.8 L (20.0-40.0) % [place] % (Auto) 16.2 H (0.0-10.0) % Eos % (Auto) 0.0 (0.0-4.0) % Baso % (Auto) 0.0 (0.0-2.0) % Neut # 10.8 H (1.8-7.0) K/uL Lymph # 1.1 (1.0-4.3) K/uL [place] # 2.3 H (0.0-0.8) K/uL Eos # 0.0 (0.0-0.7) K/uL Baso # 0.0 (0.0-0.2) K/uL Sodium 136 (132-148) mmol/l Potassium 4.1 (3.6-5.0) MMOL/L Chloride 99 (98-107) mmol/L Carbon Dioxide 20 L (22-30) mmol/L Anion Gap 21 H (10-20) BUN 61 H (7-17) mg/dl Creatinine 6.7 H (0.7-1.2) mg/dl Est GFR ( Amer) 8 Est GFR (Non-Af Amer) 6 POC Glucose (mg/dL) 235 H (65-110) mg/dL Random Glucose 236 H (65-105) mg/dL Calcium 9.0 (8.4-10.2) mg/dL Total Bilirubin 40.5 H (0.2-1.3) mg/dl AST 250 H (14-36) U/L ALT 96 H D (9-52) U/L Alkaline Phosphatase 167 H (38-126) U/L Total Protein 7.9 (6.3-8.2) G/DL Albumin 3.0 L (3.5-5.0) g/dL Globulin 4.9 H (2.2-3.9) gm/dL Albumin/Globulin Ratio 0.6 L (1.0-2.1) Blood Type Antibody Screen Crossmatch BBK History Checked 01/15/17 01/15/17 01/15/17 Range/Units 16:29 11:13 01:50 WBC (4.8-10.8) K/uL RBC (3.80-5.20) Mil/uL Hgb (12.0-16.0) g/dL Hct (34.0-47.0) % MCV (81.0-99.0) fl MCH (27.0-31.0) pg MCHC (33.0-37.0) g/dL RDW (11.5-14.5) % Plt Count (130-400) K/uL MPV (7.2-11.7) fl Neut % (Auto) (50.0-75.0) % Lymph % (Auto) (20.0-40.0) % [place] % (Auto) (0.0-10.0) % Eos % (Auto) (0.0-4.0) % Baso % (Auto) (0.0-2.0) % Neut # (1.8-7.0) K/uL Lymph # (1.0-4.3) K/uL [place] # (0.0-0.8) K/uL Eos # (0.0-0.7) K/uL Baso # (0.0-0.2) K/uL Sodium (132-148) mmol/l Potassium (3.6-5.0) MMOL/L Chloride (98-107) mmol/L Carbon Dioxide (22-30) mmol/L Anion Gap (10-20) BUN (7-17) mg/dl Creatinine (0.7-1.2) mg/dl Est GFR ( Amer) Est GFR (Non-Af Amer) POC Glucose (mg/dL) 239 H 250 H (65-110) mg/dL Random Glucose (65-105) mg/dL Calcium (8.4-10.2) mg/dL Total Bilirubin (0.2-1.3) mg/dl AST (14-36) U/L ALT (9-52) U/L Alkaline Phosphatase (38-126) U/L Total Protein (6.3-8.2) G/DL Albumin (3.5-5.0) g/dL Globulin (2.2-3.9) gm/dL Albumin/Globulin Ratio (1.0-2.1) Blood Type A POSITIVE Antibody Screen Negative Crossmatch See Detail BBK History Checked Patient has bt Laboratory Results - last 24 hr 01/15/17 01/15/17 01/15/17 01:50 11:13 16:29 WBC RBC Hgb Hct MCV MCH MCHC RDW Plt Count MPV Neut % (Auto) Lymph % (Auto) [place] % (Auto) Eos % (Auto) Baso % (Auto) Neut # Lymph # [place] # Eos # Baso # Sodium Potassium Chloride Carbon Dioxide Anion Gap BUN Creatinine Est GFR ( Amer) Est GFR (Non-Af Amer) POC Glucose (mg/dL) 250 H 239 H Random Glucose Calcium Total Bilirubin AST ALT Alkaline Phosphatase Total Protein Albumin Globulin Albumin/Globulin Ratio Blood Type A POSITIVE Antibody Screen Negative Crossmatch See Detail BBK History Checked Patient has bt 01/15/17 01/16/17 01/16/17 21:24 04:20 04:20 WBC 14.2 H RBC 2.35 L Hgb 7.8 L Hct 22.6 L MCV 96.0 MCH 33.1 H MCHC 34.5 RDW 19.4 H Plt Count 81 L MPV 10.5 Neut % (Auto) 76.0 H Lymph % (Auto) 7.8 L [place] % (Auto) 16.2 H Eos % (Auto) 0.0 Baso % (Auto) 0.0 Neut # 10.8 H Lymph # 1.1 [place] # 2.3 H Eos # 0.0 Baso # 0.0 Sodium 136 Potassium 4.1 Chloride 99 Carbon Dioxide 20 L Anion Gap 21 H BUN 61 H Creatinine 6.7 H Est GFR ( Amer) 8 Est GFR (Non-Af Amer) 6 POC Glucose (mg/dL) 235 H Random Glucose 236 H Calcium 9.0 Total Bilirubin 40.5 H AST 250 H ALT 96 H D Alkaline Phosphatase 167 H Total Protein 7.9 Albumin 3.0 L Globulin 4.9 H Albumin/Globulin Ratio 0.6 L Blood Type Antibody Screen Crossmatch BBK History Checked Fingerstick Blood Sugar Results: 239 Review of Systems - Review of Systems Systems not reviewed;Unavailable: Altered Mental Status Critical Care Progress Note - Nutrition Nutrition: Nutrition Category Date Time Status Renal Diet [DIET] Diets 01/09/17 Lunch Active
[2017-01-16] MEDS: cefTRIAXone IV 1 gm in Dextros 50 ML IVPB SCH (09:29)
--- NOTE | 2017-01-16 09:39 | CP.PCM.PN ---
Subjective - Date & Time of Evaluation Date of Evaluation: 01/16/17 Time of Evaluation: 09:30 - Subjective Subjective: more alert Objective - Vital Signs/Intake and Output Vital Signs (last 24 hours): Temp Pulse Resp BP Pulse Ox 96.3 F L 80 18 91/44 L 100 01/16/17 08:00 01/16/17 09:00 01/16/17 09:00 01/16/17 09:00 01/16/17 09:00 Intake and Output: 01/16/17 01/16/17 06:59 18:59 Intake Total 188 50 Output Total 275 Balance -87 50 - Medications Medications: Current Medications Hydroxyzine HCl (Atarax) 25 mg PO Q6 PRN PRN Reason: Itching / Pruritus Last Admin: 01/15/17 09:22 Dose: 25 mg Vasopressin 100 units/ Sodium (Chloride) 105 mls @ 1.89 mls/hr IV .Q24H [facility]; 0.03 UNITS/MIN PRN Reason: Protocol Last Admin: 01/14/17 22:14 Dose: Not Given Ceftriaxone Sodium (Rocephin Iv 1 Gm Duplex) 50 mls @ 100 mls/hr IVPB DAILY [facility] PRN Reason: Protocol Last Admin: 01/16/17 09:29 Dose: 100 mls/hr Lactulose (Enulose) 20 gm PO QID [facility] Last Admin: 01/16/17 09:28 Dose: 20 gm Midodrine (Proamatine) 10 mg PO TID [facility] Last Admin: 01/16/17 09:29 Dose: 10 mg Morphine Sulfate (Morphine) 2 mg IVP Q4 PRN PRN Reason: Pain, moderate (4-7) Last Admin: 01/15/17 12:28 Dose: 2 mg Octreotide Acetate (Sandostatin) 100 mcg SC Q8 [facility] Last Admin: 01/16/17 09:30 Dose: 100 mcg Rifaximin (Xifaxan) 550 mg PO BID [facility] PRN Reason: Protocol Last Admin: 01/16/17 09:31 Dose: 550 mg Zinc Sulfate (Zinc Sulfate 220 Mg Cap) 220 mg PO DAILY [facility] Last Admin: 01/16/17 09:31 Dose: 220 mg - Labs Labs: 01/16/17 04:20 01/16/17 04:20 PT 19.2 Seconds (9.8-13.1) H 01/13/17 04:20 INR 1.7 (0.9-1.2) H 01/13/17 04:20 APTT 41.6 Seconds (25.6-37.1) H 01/13/17 04:20 - Eye Exam Eye Exam: Scleral icterus - Respiratory Exam Respiratory Exam: NORMAL BREATHING PATTERN - Cardiovascular Exam Cardiovascular Exam: REGULAR RHYTHM - GI/Abdominal Exam GI & Abdominal Exam: Soft, Normal Bowel Sounds Assessment and Plan - Assessment and Plan (Free Text) Assessment: 56 yo female with decompensated cirrhosis doing better continue lactulose and xifaxan
--- NOTE | 2017-01-16 10:22 | CP.PCM.PN ---
Subjective - Date & Time of Evaluation Date of Evaluation: 01/16/17 Time of Evaluation: 10:20 - Subjective Subjective: Dialysis note Patient seen on hemodialysis. Older daughter has been discussed with the dialysis nurse at the bedside. Sodium bath 138 Potassium bath 2 mEq Bicarbonate bath 34 Ultrafiltration 1500 mL as tolerated. Patient remains jaundice Although she is awake but she is confused. Objective - Vital Signs/Intake and Output Vital Signs (last 24 hours): Temp Pulse Resp BP Pulse Ox 96.3 F L 80 18 91/44 L 100 01/16/17 08:00 01/16/17 09:00 01/16/17 09:00 01/16/17 09:00 01/16/17 09:00 Intake and Output: 01/16/17 01/16/17 06:59 18:59 Intake Total 188 50 Output Total 275 Balance -87 50 - Medications Medications: Current Medications Hydroxyzine HCl (Atarax) 25 mg PO Q6 PRN PRN Reason: Itching / Pruritus Last Admin: 01/15/17 09:22 Dose: 25 mg Vasopressin 100 units/ Sodium (Chloride) 105 mls @ 1.89 mls/hr IV .Q24H [facility]; 0.03 UNITS/MIN PRN Reason: Protocol Last Admin: 01/14/17 22:14 Dose: Not Given Ceftriaxone Sodium (Rocephin Iv 1 Gm Duplex) 50 mls @ 100 mls/hr IVPB DAILY [facility] PRN Reason: Protocol Last Admin: 01/16/17 09:29 Dose: 100 mls/hr Lactulose (Enulose) 20 gm PO QID [facility] Last Admin: 01/16/17 09:28 Dose: 20 gm Midodrine (Proamatine) 10 mg PO TID [facility] Last Admin: 01/16/17 09:29 Dose: 10 mg Morphine Sulfate (Morphine) 2 mg IVP Q4 PRN PRN Reason: Pain, moderate (4-7) Last Admin: 01/15/17 12:28 Dose: 2 mg Octreotide Acetate (Sandostatin) 100 mcg SC Q8 [facility] Last Admin: 01/16/17 09:30 Dose: 100 mcg Rifaximin (Xifaxan) 550 mg PO BID [facility] PRN Reason: Protocol Last Admin: 01/16/17 09:31 Dose: 550 mg Zinc Sulfate (Zinc Sulfate 220 Mg Cap) 220 mg PO DAILY [facility] Last Admin: 01/16/17 09:31 Dose: 220 mg - Labs Labs: 01/16/17 04:20 01/16/17 04:20 PT 19.2 Seconds (9.8-13.1) H 01/13/17 04:20 INR 1.7 (0.9-1.2) H 01/13/17 04:20 APTT 41.6 Seconds (25.6-37.1) H 01/13/17 04:20 - Constitutional Appears: No Acute Distress - ENT Exam ENT Exam: Mucous Membranes Moist - Neck Exam Neck Exam: absent: Lymphadenopathy - Respiratory Exam Respiratory Exam: absent: Chest Wall Tenderness - Cardiovascular Exam Cardiovascular Exam: REGULAR RHYTHM. absent: JVD, Rubs - GI/Abdominal Exam GI & Abdominal Exam: Soft, Normal Bowel Sounds - Extremities Exam Extremities Exam: absent: Calf Tenderness - Back Exam Back Exam: absent: CVA tenderness (L), CVA tenderness (R) - Neurological Exam Neurological Exam: Altered - Psychiatric Exam Psychiatric exam: Flat Affect - Skin Skin Exam: absent: Cyanosis Assessment and Plan (1) DM2 (diabetes mellitus, type 2) Status: Acute (2) Hypotension Status: Acute (3) [id number]-lizsszf kidney injury Status: Acute (4) Hepatorenal syndrome Assessment & Plan: Hepatorenal syndrome with end stage renal disease. Dialysis dependent. Patient is on hemodialysis now on vasopressor because of the low blood pressure. Albumin to be given. Severe anemia as noted hemoglobin 7+ again I suggested give 1 unit of packed cells. Very high total bilirubin in the range of 40. Abnormal liver enzyme. continue hemodialysis patient supposed to go to [facility] for the liver issue Status: Acute (5) Liver cirrhosis Status: Acute
[2017-01-16] MEDS ORDERED: Albumin Human 25% (12.5 gm/50 ml) IV ONE (10:28)
--- NOTE | 2017-01-16 23:45 | CP.PCM.PN ---
Subjective - Date & Time of Evaluation Date of Evaluation: 01/16/17 Time of Evaluation: 11:00 - Subjective Subjective: Lethargic, jaundiced Objective - Vital Signs/Intake and Output Vital Signs (last 24 hours): Temp Pulse Resp BP Pulse Ox 97.1 F L 81 17 74/41 L 100 01/16/17 20:00 01/16/17 21:00 01/16/17 21:00 01/16/17 21:00 01/16/17 21:00 Intake and Output: 01/16/17 01/17/17 18:59 06:59 Intake Total 624 0 Output Total 1500 Balance -876 0 - Medications Medications: Current Medications Hydroxyzine HCl (Atarax) 25 mg PO Q6 PRN PRN Reason: Itching / Pruritus Last Admin: 01/15/17 09:22 Dose: 25 mg Ceftriaxone Sodium (Rocephin Iv 1 Gm Duplex) 50 mls @ 100 mls/hr IVPB DAILY [facility] PRN Reason: Protocol Last Admin: 01/16/17 09:29 Dose: 100 mls/hr Norepinephrine Bitartrate 8 mg (/ Dextrose) 258 mls @ 4.83 mls/hr IV .Q24H [facility] ; 2.5 MCG/MIN PRN Reason: Protocol Stop: 01/17/17 17:03 Last Titration: 01/16/17 22:25 Dose: 15 mcg/min, 29.02 mls/hr Lactulose (Enulose) 20 gm PO QID [facility] Last Admin: 01/16/17 21:24 Dose: 20 gm Midodrine (Proamatine) 10 mg PO TID [facility] Last Admin: 01/16/17 16:30 Dose: 10 mg Morphine Sulfate (Morphine) 2 mg IVP Q4 PRN PRN Reason: Pain, moderate (4-7) Last Admin: 01/15/17 12:28 Dose: 2 mg Rifaximin (Xifaxan) 550 mg PO BID [facility] PRN Reason: Protocol Last Admin: 01/16/17 16:31 Dose: 550 mg Zinc Sulfate (Zinc Sulfate 220 Mg Cap) 220 mg PO DAILY [facility] Last Admin: 01/16/17 09:31 Dose: 220 mg - Labs Labs: 01/16/17 04:20 01/16/17 04:20 PT 19.2 Seconds (9.8-13.1) H 01/13/17 04:20 INR 1.7 (0.9-1.2) H 01/13/17 04:20 APTT 41.6 Seconds (25.6-37.1) H 01/13/17 04:20 - Head Exam Head Exam: ATRAUMATIC - Eye Exam Eye Exam: Scleral icterus - ENT Exam ENT Exam: Mucous Membranes Dry - Respiratory Exam Respiratory Exam: NORMAL BREATHING PATTERN - Cardiovascular Exam Cardiovascular Exam: +S1, +S2 - GI/Abdominal Exam GI & Abdominal Exam: Normal Bowel Sounds Assessment and Plan (1) Coagulopathy Assessment & Plan: liver disease Status: Acute (2) Anemia Assessment & Plan: GI blood loss anemia of CKD transfusion support EPO per renal Status: Acute (3) Thrombocytopenia Assessment & Plan: liver disease Status: Acute (4) Leukocytosis Assessment & Plan: on antibiotics Status: Acute
[2017-01-17 05:23] LABS: HEMATOCRIT 21.3 % (34.0-47.0); MEAN CELL VOLUME 97.8 fl (81.0-99.0); MEAN CORPUSCULAR HEMOGLOBIN 33.5 pg (27.0-31.0); MEAN CORPUSCULAR HGB CONC 34.3 g/dL (33.0-37.0); RED CELL DISTRIBUTION WIDTH 19.8 % (11.5-14.5); WHITE BLOOD COUNT 13.7 K/uL (4.8-10.8)
[2017-01-17 05:53] LABS: CALCIUM 9.7 mg/dL (8.4-10.2)
--- NOTE | 2017-01-17 06:55 | CP.CCUPN ---
CCU Subjective - Physician Review Subjective (Free Text): Waxing and waning imporvements in mental status, more responsive this AM than yesterday. There has been no active bleeding. Remains on Levophed and Vasopressin off , down to 7.5 mcg/min Levophed. No further bradycardia since Octreotide stopped. Other vitals and I/O's reviewed. No fever spikes overnight. No urine output noted. Fluid balance 0.87 L negative. ROS: No other pertinent negs or positives on 10+ system review. PMSFH: All Nursing and physician documentation reviewed to date; no new pertinent info noted relevant to current medical problems. IMPRESSION / MAJOR PROBLEMS NOW: 1. Acute Resp insuff 2 RML Pneumonia 2. Cirrhosis with hepatic encephalopathy 3. GEGE 2 ATN / Hepatorenal syndrome, now HD-dependent 4. Chronic disease Anemia / Thrombocytopenia/ Coagulopathy PLAN: 1. Ongoing Levophed weans Stopped vasopressin and increased Midodrine. May increase up to 15 mg TID if used for HRS purposes. 2. May need NGT replacement for full dose lactulose again and enteral nutriton support. No real appreciable PO intake for past 2 weeks. except for PO meds. 3. Empiric abx coverage noted with Cefepime / Zosyn / Vanco. 4. Consider PRBCs today to help with vasopressor weans. 5. Octreotide discontinued, may have been the cause of recent bradycardia. 6. Await familys decision regarding Hospice. CCU Objective - Vital Signs / Intake & Output Vital Signs (Last 4 hours): Vital Signs Temp Pulse Resp BP 01/17/17 05:00 78 15 101/57 L 01/17/17 04:00 97.5 F L 81 14 91/39 L 01/17/17 03:00 82 14 84/41 L Intake and Output (Last 8hrs): Intake & Output 01/16/17 01/16/17 01/17/17 14:59 22:59 06:59 Intake Total 100 524 Output Total 1500 Balance -1400 524 Weight 270 lb Intake: IV 524 Intake, Piggyback 50 Oral 50 Output: Ultrafiltrate 1500 - Physical Exam Head: Positive for: Atraumatic, Normocephalic Pupils: Positive for: PERRL Conjunctiva: Positive for: Normal, Icteric Mouth: Positive for: Moist Mucous Membranes Nose (External): Positive for: Atraumatic Nose (Internal): Positive for: Normal Inspection Neck: Positive for: Normal Range of Motion. Negative for: JVD Respiratory/Chest: Positive for: Clear to Auscultation, Decreased Breath Sounds Cardiovascular: Positive for: Regular Rate and Rhythm Abdomen: Positive for: Distention, Normal Bowel Sounds. Negative for: Tenderness, Mass/Organomegaly Upper Extremity: Positive for: Normal Inspection Lower Extremity: Positive for: Edema, NORMAL PULSES. Negative for: CALF TENDERNESS, Cyanosis Neurological: Positive for: Motor Func Grossly Intact, Normal Sensory Function Skin: Positive for: Warm, Dry. Negative for: Rashes Psychiatric: Positive for: Lethargic - Medications Active Medications: Active Medications Generic Name Dose Route Start Last Admin Trade Name Freq PRN Reason Stop Dose Admin Hydroxyzine HCl 25 mg 01/04/17 18:38 01/15/17 09:22 Atarax PO 25 mg Q6 PRN Administration Itching / Pruritus Ceftriaxone Sodium 50 mls @ 100 mls/hr 01/16/17 09:00 01/16/17 09:29 Rocephin Iv 1 Gm Duplex IVPB 100 mls/hr DAILY [facility] Administration Protocol Norepinephrine Bitartrate 8 mg 258 mls @ 4.83 mls/hr 01/16/17 17:04 01/16/17 22:25 / Dextrose IV 01/17/17 17:03 15 mcg/min .Q24H ONE 29.02 mls/hr Protocol Titration 2.5 MCG/MIN Lactulose 20 gm 01/14/17 13:00 01/16/17 21:24 Enulose PO 20 gm QID [facility] Administration Midodrine 10 mg 01/15/17 19:00 01/16/17 16:30 Proamatine PO 10 mg TID [facility] Administration Morphine Sulfate 2 mg 01/15/17 09:33 01/15/17 12:28 Morphine IVP 2 mg Q4 PRN Administration Pain, moderate (4-7) Rifaximin 550 mg 01/05/17 09:00 01/16/17 16:31 Xifaxan PO 550 mg BID [facility] Administration Protocol Zinc Sulfate 220 mg 01/05/17 09:00 01/16/17 09:31 Zinc Sulfate 220 Mg Cap PO 220 mg DAILY [facility] Administration - Patient Studies Lab Studies: Lab Studies 01/17/17 01/17/17 01/17/17 Range/Units 05:30 04:30 04:30 WBC 13.7 H (4.8-10.8) K/uL RBC 2.18 L (3.80-5.20) Mil/uL Hgb 7.3 L (12.0-16.0) g/dL Hct 21.3 L (34.0-47.0) % MCV 97.8 (81.0-99.0) fl MCH 33.5 H (27.0-31.0) pg MCHC 34.3 (33.0-37.0) g/dL RDW 19.8 H (11.5-14.5) % Plt Count 65 L (130-400) K/uL Sodium 136 (132-148) mmol/l Potassium 4.0 (3.6-5.0) MMOL/L Chloride 97 L (98-107) mmol/L Carbon Dioxide 16 L (22-30) mmol/L Anion Gap 27 H (10-20) BUN 39 H (7-17) mg/dl Creatinine 5.1 H (0.7-1.2) mg/dl Est GFR ( Amer) 11 Est GFR (Non-Af Amer) 9 POC Glucose (mg/dL) 102 (65-110) mg/dL Random Glucose 108 H (65-105) mg/dL Calcium 9.7 (8.4-10.2) mg/dL Total Bilirubin (0.2-1.3) mg/dl AST (14-36) U/L ALT (9-52) U/L Alkaline Phosphatase (38-126) U/L Total Protein (6.3-8.2) G/DL Albumin (3.5-5.0) g/dL Globulin (2.2-3.9) gm/dL Albumin/Globulin Ratio (1.0-2.1) Stool Occult Blood (NEGATIVE) 01/16/17 01/16/17 01/16/17 Range/Units 21:13 16:24 11:35 WBC (4.8-10.8) K/uL RBC (3.80-5.20) Mil/uL Hgb (12.0-16.0) g/dL Hct (34.0-47.0) % MCV (81.0-99.0) fl MCH (27.0-31.0) pg MCHC (33.0-37.0) g/dL RDW (11.5-14.5) % Plt Count (130-400) K/uL Sodium (132-148) mmol/l Potassium (3.6-5.0) MMOL/L Chloride (98-107) mmol/L Carbon Dioxide (22-30) mmol/L Anion Gap (10-20) BUN (7-17) mg/dl Creatinine (0.7-1.2) mg/dl Est GFR ( Amer) Est GFR (Non-Af Amer) POC Glucose (mg/dL) 170 H 208 H 160 H (65-110) mg/dL Random Glucose (65-105) mg/dL Calcium (8.4-10.2) mg/dL Total Bilirubin (0.2-1.3) mg/dl AST (14-36) U/L ALT (9-52) U/L Alkaline Phosphatase (38-126) U/L Total Protein (6.3-8.2) G/DL Albumin (3.5-5.0) g/dL Globulin (2.2-3.9) gm/dL Albumin/Globulin Ratio (1.0-2.1) Stool Occult Blood (NEGATIVE) 01/16/17 01/15/17 Range/Units 04:20 08:16 WBC (4.8-10.8) K/uL RBC (3.80-5.20) Mil/uL Hgb (12.0-16.0) g/dL Hct (34.0-47.0) % MCV (81.0-99.0) fl MCH (27.0-31.0) pg MCHC (33.0-37.0) g/dL RDW (11.5-14.5) % Plt Count (130-400) K/uL Sodium 136 (132-148) mmol/l Potassium 4.1 (3.6-5.0) MMOL/L Chloride 99 (98-107) mmol/L Carbon Dioxide 20 L (22-30) mmol/L Anion Gap 21 H (10-20) BUN 61 H (7-17) mg/dl Creatinine 6.7 H (0.7-1.2) mg/dl Est GFR ( Amer) 8 Est GFR (Non-Af Amer) 6 POC Glucose (mg/dL) (65-110) mg/dL Random Glucose 236 H (65-105) mg/dL Calcium 9.0 (8.4-10.2) mg/dL Total Bilirubin 40.5 H (0.2-1.3) mg/dl AST 250 H (14-36) U/L ALT 96 H D (9-52) U/L Alkaline Phosphatase 167 H (38-126) U/L Total Protein 7.9 (6.3-8.2) G/DL Albumin 3.0 L (3.5-5.0) g/dL Globulin 4.9 H (2.2-3.9) gm/dL Albumin/Globulin Ratio 0.6 L (1.0-2.1) Stool Occult Blood Positive H (NEGATIVE) Laboratory Results - last 24 hr 01/15/17 01/16/17 01/16/17 08:16 04:20 11:35 WBC RBC Hgb Hct MCV MCH MCHC RDW Plt Count Sodium 136 Potassium 4.1 Chloride 99 Carbon Dioxide 20 L Anion Gap 21 H BUN 61 H Creatinine 6.7 H Est GFR ( Amer) 8 Est GFR (Non-Af Amer) 6 POC Glucose (mg/dL) 160 H Random Glucose 236 H Calcium 9.0 Total Bilirubin 40.5 H AST 250 H ALT 96 H D Alkaline Phosphatase 167 H Total Protein 7.9 Albumin 3.0 L Globulin 4.9 H Albumin/Globulin Ratio 0.6 L Stool Occult Blood Positive H 01/16/17 01/16/17 01/17/17 16:24 21:13 04:30 WBC 13.7 H RBC 2.18 L Hgb 7.3 L Hct 21.3 L MCV 97.8 MCH 33.5 H MCHC 34.3 RDW 19.8 H Plt Count 65 L Sodium Potassium Chloride Carbon Dioxide Anion Gap BUN Creatinine Est GFR ( Amer) Est GFR (Non-Af Amer) POC Glucose (mg/dL) 208 H 170 H Random Glucose Calcium Total Bilirubin AST ALT Alkaline Phosphatase Total Protein Albumin Globulin Albumin/Globulin Ratio Stool Occult Blood 01/17/17 01/17/17 04:30 05:30 WBC RBC Hgb Hct MCV MCH MCHC RDW Plt Count Sodium 136 Potassium 4.0 Chloride 97 L Carbon Dioxide 16 L Anion Gap 27 H BUN 39 H Creatinine 5.1 H Est GFR ( Amer) 11 Est GFR (Non-Af Amer) 9 POC Glucose (mg/dL) 102 Random Glucose 108 H Calcium 9.7 Total Bilirubin AST ALT Alkaline Phosphatase Total Protein Albumin Globulin Albumin/Globulin Ratio Stool Occult Blood Fingerstick Blood Sugar Results: 208 Review of Systems - Review of Systems Systems not reviewed;Unavailable: Altered Mental Status Critical Care Progress Note - Nutrition Nutrition: Nutrition Category Date Time Status Renal Diet [DIET] Diets 01/09/17 Lunch Active
[2017-01-17] MEDS: cefTRIAXone IV 1 gm in Dextros 50 ML IVPB SCH (08:38)
--- NOTE | 2017-01-17 09:32 | CP.PCM.PN ---
Subjective - Date & Time of Evaluation Date of Evaluation: 01/17/17 Time of Evaluation: 09:32 - Subjective Subjective: pt remians lethagic. vomited small amt of fluid. very poor po intake. spoke at length w/ duaghter and son who states full code for now but will ikely sign on to hospice early next week. gerda ruby sw aware. extensive time approx 45 min spent w/ pt/family bw noted 2 units prbc ordered. ngt and tube feeding ordered as per pastry cook recommendations Objective - Vital Signs/Intake and Output Vital Signs (last 24 hours): Temp Pulse Resp BP Pulse Ox 96.0 F L 61 20 85/40 L 100 01/17/17 08:00 01/17/17 08:00 01/17/17 08:00 01/17/17 08:00 01/17/17 08:00 Intake and Output: 01/17/17 01/17/17 06:59 18:59 Intake Total 0 50 Balance 0 50 - Medications Medications: Current Medications Hydroxyzine HCl (Atarax) 25 mg PO Q6 PRN PRN Reason: Itching / Pruritus Last Admin: 01/15/17 09:22 Dose: 25 mg Norepinephrine Bitartrate 8 mg (/ Dextrose) 258 mls @ 4.83 mls/hr IV .Q24H ONE ; 2.5 MCG/MIN PRN Reason: Protocol Stop: 01/17/17 17:03 Last Titration: 01/16/17 22:25 Dose: 15 mcg/min, 29.02 mls/hr Ceftriaxone Sodium 1 gm/ (Sodium Chloride) 100 mls @ 200 mls/hr IVPB DAILY [facility] PRN Reason: Protocol Lactulose (Enulose) 20 gm PO QID [facility] Last Admin: 01/17/17 08:38 Dose: 20 gm Midodrine (Proamatine) 10 mg PO TID [facility] Last Admin: 01/17/17 08:38 Dose: 10 mg Morphine Sulfate (Morphine) 2 mg IVP Q4 PRN PRN Reason: Pain, moderate (4-7) Last Admin: 01/15/17 12:28 Dose: 2 mg Rifaximin (Xifaxan) 550 mg PO BID [facility] PRN Reason: Protocol Last Admin: 01/17/17 08:39 Dose: 550 mg Zinc Sulfate (Zinc Sulfate 220 Mg Cap) 220 mg PO DAILY [facility] Last Admin: 01/17/17 08:39 Dose: 220 mg - Labs Labs: 01/17/17 04:30 01/17/17 04:30 PT 19.2 Seconds (9.8-13.1) H 01/13/17 04:20 INR 1.7 (0.9-1.2) H 01/13/17 04:20 APTT 41.6 Seconds (25.6-37.1) H 01/13/17 04:20 - Constitutional Appears: No Acute Distress, Chronically Ill - Head Exam Head Exam: ATRAUMATIC, NORMAL INSPECTION, NORMOCEPHALIC - Eye Exam Eye Exam: EOMI, Normal appearance, PERRL Pupil Exam: NORMAL ACCOMODATION, PERRL - ENT Exam ENT Exam: Mucous Membranes Moist, Normal Exam - Neck Exam Neck Exam: Full ROM, Normal Inspection. absent: Lymphadenopathy - Respiratory Exam Respiratory Exam: Clear to Ausculation Bilateral, NORMAL BREATHING PATTERN - Cardiovascular Exam Cardiovascular Exam: REGULAR RHYTHM, RRR, +S1, +S2. absent: Murmur - GI/Abdominal Exam GI & Abdominal Exam: Soft, Normal Bowel Sounds. absent: Tenderness - Extremities Exam Extremities Exam: Full ROM, Normal Capillary Refill, Normal Inspection. absent : Joint Swelling, Pedal Edema - Back Exam Back Exam: NORMAL INSPECTION - Neurological Exam Neurological Exam: Abnormal Gait, CN II-XII Intact - Psychiatric Exam Psychiatric exam: Normal Affect, Normal Mood - Skin Skin Exam: Dry, Intact, Normal Color, Warm Assessment and Plan (1) Obguj-cg-xyszixs kidney injury Status: Acute (2) DVT prophylaxis Status: Acute (3) Hepatorenal syndrome Status: Acute (4) Liver cirrhosis Status: Acute (5) UTI (urinary tract infection) Status: Acute (6) Hypotension Status: Acute - Assessment and Plan (Free Text) Assessment: (1) Axtoq-or-mnwqgpo kidney injury Assessment & Plan: nephro dialysis monitor bw/lytes Status: Acute (2) DVT prophylaxis Assessment & Plan: scd nad ae hose no anticoag r/t coagulopathy from liver dz Status: Acute (3) Hepatorenal syndrome Assessment & Plan: icu care gi, nephro Status: Acute (4) Liver cirrhosis Assessment & Plan: end stage ?? transfert o liver center when off pressors vs hospice coagulopathy present, pos stool guiac. got vitk, ffp, prbc no further obv bleeding, hgb stable bili/lft cont to rise Status: Acute (5) UTI (urinary tract infection) Assessment & Plan: cont all anbx-cefepime, ID ?? sepsis minimal urine outpt r/t renal failure Status: Acute (6) Hypotension Assessment & Plan: ?? r/t sepsis vs hepatorenal levophed down to 22.5, vasopressin titrat prn fluid support 7-anemia-/p prbc, heme/onc, hgb stable 8-abd pain-abd us noted, pain control, caution w/ somnolence. no pain at present , d/c w/ family hospice eval pending likely hospice at home early next week ngt feedings started w/ nepro 20 to be incr by 10 to rate of 55 gi ppx-pepcid, zofran prn nausea
[2017-01-17] MEDS ORDERED: Chlorhexidine Gluconate 1 APPL/PKT TP ONE (10:09)
[2017-01-17 11:11] LABS: PARTIAL THROMBOPLASTIN TIME 49.8 Seconds (25.6-37.1)
--- NOTE | 2017-01-17 12:31 | CP.PCM.PN ---
Subjective - Date & Time of Evaluation Date of Evaluation: 01/17/17 Time of Evaluation: 10:00 - Subjective Subjective: Seen sleeping, family at bedside Objective - Vital Signs/Intake and Output Vital Signs (last 24 hours): Temp Pulse Resp BP Pulse Ox 96.0 F L 74 13 68/43 L 100 01/17/17 08:00 01/17/17 11:00 01/17/17 11:00 01/17/17 11:00 01/17/17 11:00 Intake and Output: 01/17/17 01/17/17 06:59 18:59 Intake Total 0 375 Balance 0 375 - Medications Medications: Current Medications Famotidine (Pepcid) 20 mg IVP Q12 [facility] Last Admin: 01/17/17 10:10 Dose: 20 mg Hydroxyzine HCl (Atarax) 25 mg PO Q6 PRN PRN Reason: Itching / Pruritus Last Admin: 01/15/17 09:22 Dose: 25 mg Norepinephrine Bitartrate 8 mg (/ Dextrose) 258 mls @ 4.83 mls/hr IV .Q24H ONE ; 2.5 MCG/MIN PRN Reason: Protocol Stop: 01/17/17 17:03 Last Titration: 01/16/17 22:25 Dose: 15 mcg/min, 29.02 mls/hr Ceftriaxone Sodium 1 gm/ (Sodium Chloride) 100 mls @ 200 mls/hr IVPB DAILY [facility] PRN Reason: Protocol Lactulose (Enulose) 20 gm PO QID [facility] Last Admin: 01/17/17 08:38 Dose: 20 gm Midodrine (Proamatine) 10 mg PO TID [facility] Last Admin: 01/17/17 08:38 Dose: 10 mg Morphine Sulfate (Morphine) 2 mg IVP Q4 PRN PRN Reason: Pain, moderate (4-7) Last Admin: 01/15/17 12:28 Dose: 2 mg Ondansetron HCl (Zofran Inj) 4 mg IVP Q6 PRN PRN Reason: Nausea/Vomiting Last Admin: 01/17/17 10:10 Dose: 4 mg Rifaximin (Xifaxan) 550 mg PO BID [facility] PRN Reason: Protocol Last Admin: 01/17/17 08:39 Dose: 550 mg Zinc Sulfate (Zinc Sulfate 220 Mg Cap) 220 mg PO DAILY [facility] Last Admin: 01/17/17 08:39 Dose: 220 mg - Labs Labs: 01/17/17 04:30 01/17/17 04:30 PT 30.6 Seconds (9.8-13.1) H 01/17/17 10:40 INR 2.7 (0.9-1.2) H 01/17/17 10:40 APTT 49.8 Seconds (25.6-37.1) H 01/17/17 10:40 - Head Exam Head Exam: ATRAUMATIC - Eye Exam Eye Exam: Scleral icterus - ENT Exam ENT Exam: Mucous Membranes Dry - Respiratory Exam Respiratory Exam: Decreased Breath Sounds - Cardiovascular Exam Cardiovascular Exam: +S1, +S2 - GI/Abdominal Exam GI & Abdominal Exam: Normal Bowel Sounds Assessment and Plan (1) Coagulopathy Assessment & Plan: liver disease PT/PTT slowly prolonging s/p FFP Status: Acute (2) Anemia Assessment & Plan: GI bleeding anemia of CKD transfusion support PRN Status: Acute (3) Thrombocytopenia Assessment & Plan: secondary to liver cirrhosis Status: Acute (4) Leukocytosis Assessment & Plan: on antibiotics Status: Acute
--- NOTE | 2017-01-17 13:22 | CP.PCM.PN ---
Subjective - Date & Time of Evaluation Date of Evaluation: 01/17/17 Time of Evaluation: 07:00 - Subjective Subjective: rx in progress remains weak and bedridden Objective - Vital Signs/Intake and Output Vital Signs (last 24 hours): Temp Pulse Resp BP Pulse Ox 96.0 F L 66 20 111/68 99 01/17/17 12:00 01/17/17 12:00 01/17/17 12:00 01/17/17 12:00 01/17/17 12:00 Intake and Output: 01/17/17 01/17/17 06:59 18:59 Intake Total 0 375 Balance 0 375 - Medications Medications: Current Medications Famotidine (Pepcid) 20 mg IVP Q12 [facility] Last Admin: 01/17/17 10:10 Dose: 20 mg Hydroxyzine HCl (Atarax) 25 mg PO Q6 PRN PRN Reason: Itching / Pruritus Last Admin: 01/15/17 09:22 Dose: 25 mg Norepinephrine Bitartrate 8 mg (/ Dextrose) 258 mls @ 4.83 mls/hr IV .Q24H ONE ; 2.5 MCG/MIN PRN Reason: Protocol Stop: 01/17/17 17:03 Last Titration: 01/16/17 22:25 Dose: 15 mcg/min, 29.02 mls/hr Ceftriaxone Sodium 1 gm/ (Sodium Chloride) 100 mls @ 200 mls/hr IVPB DAILY [facility] PRN Reason: Protocol Lactulose (Enulose) 20 gm PO QID [facility] Last Admin: 01/17/17 12:51 Dose: 20 gm Midodrine (Proamatine) 10 mg PO TID [facility] Last Admin: 01/17/17 12:52 Dose: 10 mg Morphine Sulfate (Morphine) 2 mg IVP Q4 PRN PRN Reason: Pain, moderate (4-7) Last Admin: 01/15/17 12:28 Dose: 2 mg Ondansetron HCl (Zofran Inj) 4 mg IVP Q6 PRN PRN Reason: Nausea/Vomiting Last Admin: 01/17/17 10:10 Dose: 4 mg Rifaximin (Xifaxan) 550 mg PO BID [facility] PRN Reason: Protocol Last Admin: 01/17/17 08:39 Dose: 550 mg Zinc Sulfate (Zinc Sulfate 220 Mg Cap) 220 mg PO DAILY [facility] Last Admin: 01/17/17 08:39 Dose: 220 mg - Labs Labs: 01/17/17 04:30 01/17/17 04:30 PT 30.6 Seconds (9.8-13.1) H 01/17/17 10:40 INR 2.7 (0.9-1.2) H 01/17/17 10:40 APTT 49.8 Seconds (25.6-37.1) H 01/17/17 10:40 - Constitutional Appears: Non-toxic, Chronically Ill - Head Exam Head Exam: NORMOCEPHALIC - Eye Exam Eye Exam: PERRL - ENT Exam ENT Exam: Mucous Membranes Dry - Neck Exam Neck Exam: absent: Lymphadenopathy - Respiratory Exam Respiratory Exam: Decreased Breath Sounds - Cardiovascular Exam Cardiovascular Exam: REGULAR RHYTHM - GI/Abdominal Exam GI & Abdominal Exam: Distended, Soft - Rectal Exam Rectal Exam: Deferred - Exam Exam: NORMAL INSPECTION - Extremities Exam Extremities Exam: absent: Pedal Edema - Back Exam Back Exam: absent: CVA tenderness (L), CVA tenderness (R) - Neurological Exam Neurological Exam: Altered Assessment and Plan (1) DM2 (diabetes mellitus, type 2) Status: Acute (2) Hypotension Status: Acute (3) UTI (urinary tract infection) Status: Acute (4) Gqgez-va-wesuygl kidney injury Status: Acute (5) Hepatorenal syndrome Status: Acute (6) Liver cirrhosis Status: Acute
--- NOTE | 2017-01-17 14:04 | CP.PCM.PN ---
Subjective - Date & Time of Evaluation Date of Evaluation: 01/17/17 Time of Evaluation: 13:51 - Subjective Subjective: Patient remained bedridden. Jaundice. Family at the bedside Bleeding from the mouth after putting NG tube. Objective - Vital Signs/Intake and Output Vital Signs (last 24 hours): Temp Pulse Resp BP Pulse Ox 96.0 F L 66 20 111/68 99 01/17/17 12:00 01/17/17 12:00 01/17/17 12:00 01/17/17 12:00 01/17/17 12:00 Intake and Output: 01/17/17 01/17/17 06:59 18:59 Intake Total 0 375 Balance 0 375 - Medications Medications: Current Medications Famotidine (Pepcid) 20 mg IVP Q12 [facility] Last Admin: 01/17/17 10:10 Dose: 20 mg Hydroxyzine HCl (Atarax) 25 mg PO Q6 PRN PRN Reason: Itching / Pruritus Last Admin: 01/15/17 09:22 Dose: 25 mg Norepinephrine Bitartrate 8 mg (/ Dextrose) 258 mls @ 4.83 mls/hr IV .Q24H ONE ; 2.5 MCG/MIN PRN Reason: Protocol Stop: 01/17/17 17:03 Last Titration: 01/16/17 22:25 Dose: 15 mcg/min, 29.02 mls/hr Ceftriaxone Sodium 1 gm/ (Sodium Chloride) 100 mls @ 200 mls/hr IVPB DAILY [facility] PRN Reason: Protocol Lactulose (Enulose) 20 gm PO QID [facility] Last Admin: 01/17/17 12:51 Dose: 20 gm Midodrine (Proamatine) 10 mg PO TID [facility] Last Admin: 01/17/17 12:52 Dose: 10 mg Morphine Sulfate (Morphine) 2 mg IVP Q4 PRN PRN Reason: Pain, moderate (4-7) Last Admin: 01/15/17 12:28 Dose: 2 mg Ondansetron HCl (Zofran Inj) 4 mg IVP Q6 PRN PRN Reason: Nausea/Vomiting Last Admin: 01/17/17 10:10 Dose: 4 mg Rifaximin (Xifaxan) 550 mg PO BID [facility] PRN Reason: Protocol Last Admin: 01/17/17 08:39 Dose: 550 mg Zinc Sulfate (Zinc Sulfate 220 Mg Cap) 220 mg PO DAILY [facility] Last Admin: 01/17/17 08:39 Dose: 220 mg - Labs Labs: 01/17/17 04:30 01/17/17 04:30 PT 30.6 Seconds (9.8-13.1) H 01/17/17 10:40 INR 2.7 (0.9-1.2) H 01/17/17 10:40 APTT 49.8 Seconds (25.6-37.1) H 01/17/17 10:40 - Constitutional Appears: No Acute Distress - ENT Exam ENT Exam: Mucous Membranes Moist - Respiratory Exam Respiratory Exam: NORMAL BREATHING PATTERN. absent: Chest Wall Tenderness, Rales - GI/Abdominal Exam GI & Abdominal Exam: Soft, Normal Bowel Sounds - Extremities Exam Extremities Exam: absent: Calf Tenderness - Back Exam Back Exam: absent: CVA tenderness (L), CVA tenderness (R) - Neurological Exam Neurological Exam: Altered - Skin Skin Exam: absent: Cyanosis Assessment and Plan (1) DM2 (diabetes mellitus, type 2) Status: Acute (2) Hypotension Status: Acute (3) Koyca-uz-jorcgej kidney injury Assessment & Plan: Hepatorenal syndrome with chronic kidney disease dialysis dependent. Patient is very jaundice. Hemoglobin dropping more severe anemia Coagulopathy. Patient did receive 2 units of packed cells and 2 units of fresh frozen plasma therefore we will do dialysis this p.m. so she could have all this blood product on hemodialysis. Arrangement has been done. Discussed with the dialysis nurse at the bedside. Dialysis order has been given. Status: Acute (4) Hepatorenal syndrome Status: Acute (5) Liver cirrhosis Status: Acute
[2017-01-17] MEDS ORDERED: Phytonadione 10 mg/ml Inj (Adult) IV ONE (14:30)
[2017-01-17] MEDS ORDERED: Phytonadione 10 MG in Sodium Chloride 0.9% 50 ML IV ONE (15:00)
[2017-01-17] MEDS ORDERED: Phytonadione 10 mg/ml Inj (Adult) ONE (16:12)
[2017-01-18] MEDS ORDERED: Dextrose 50% SYRINGE Inj (50 ml) IVP ONE ×4 (05:10→16:41)
[2017-01-18] MEDS ORDERED: Dextrose 5%/0.45% NS 1,000 ML IV SCH (07:15)
[2017-01-18 07:27] LABS: MEAN CELL VOLUME 96.9 fl (81.0-99.0); MEAN CORPUSCULAR HEMOGLOBIN 32.4 pg (27.0-31.0); MEAN CORPUSCULAR HGB CONC 33.5 g/dL (33.0-37.0); RED CELL DISTRIBUTION WIDTH 19.8 % (11.5-14.5); WHITE BLOOD COUNT 17.1 K/uL (4.8-10.8)
[2017-01-18 07:38] LABS: ALB/GLOB RATIO 0.8 (1.0-2.1); CALCIUM 10.2 mg/dL (8.4-10.2); POTASSIUM 4.6 MMOL/L (3.6-5.0); TOTAL PROTEIN 8.3 G/DL (6.3-8.2)
--- NOTE | 2017-01-18 08:04 | CP.PCM.PN ---
Subjective - Date & Time of Evaluation Date of Evaluation: 01/18/17 Time of Evaluation: 08:02 - Subjective Subjective: pt still lethargic. no f/c, n/v/d. hgb now 8. had bleeding w/ ngt insertion. required prbc and ffp yesterday. daughter at bedside and updated on care. rise in lft noted. bw noted. resps more showallow. fsbg low and required d50, started on d5 ivf. no obv distress. levophed now 17.5 up from 12. 5mcg yesterday Objective - Vital Signs/Intake and Output Vital Signs (last 24 hours): Temp Pulse Resp BP Pulse Ox 97.7 F 76 23 88/66 L 98 01/18/17 04:00 01/18/17 06:00 01/18/17 06:00 01/18/17 06:00 01/18/17 06:00 Intake and Output: 01/18/17 01/18/17 06:59 18:59 Intake Total 1256 Output Total 700 Balance 556 - Medications Medications: Current Medications Famotidine (Pepcid) 20 mg IVP Q12 [facility] Last Admin: 01/17/17 21:29 Dose: 20 mg Hydroxyzine HCl (Atarax) 25 mg PO Q6 PRN PRN Reason: Itching / Pruritus Last Admin: 01/15/17 09:22 Dose: 25 mg Ceftriaxone Sodium 1 gm/ (Sodium Chloride) 100 mls @ 200 mls/hr IVPB DAILY [facility] PRN Reason: Protocol Dextrose/Sodium Chloride (Dextrose 5%/0.45% Ns 1000 Ml) 1,000 mls @ 100 mls/hr IV .Q10H [facility] Stop: 01/18/17 17:14 Last Admin: 01/18/17 07:15 Dose: 100 mls/hr Lactulose (Enulose) 20 gm PO QID [facility] Last Admin: 01/17/17 21:29 Dose: 20 gm Midodrine (Proamatine) 10 mg PO TID [facility] Last Admin: 01/17/17 16:10 Dose: 10 mg Morphine Sulfate (Morphine) 2 mg IVP Q4 PRN PRN Reason: Pain, moderate (4-7) Last Admin: 01/15/17 12:28 Dose: 2 mg Ondansetron HCl (Zofran Inj) 4 mg IVP Q6 PRN PRN Reason: Nausea/Vomiting Last Admin: 01/18/17 06:55 Dose: 4 mg Rifaximin (Xifaxan) 550 mg PO BID [facility] PRN Reason: Protocol Last Admin: 01/17/17 16:13 Dose: 550 mg Zinc Sulfate (Zinc Sulfate 220 Mg Cap) 220 mg PO DAILY [facility] Last Admin: 01/17/17 08:39 Dose: 220 mg - Labs Labs: 01/18/17 07:18 01/18/17 07:18 PT 30.6 Seconds (9.8-13.1) H 01/17/17 10:40 INR 2.7 (0.9-1.2) H 01/17/17 10:40 APTT 49.8 Seconds (25.6-37.1) H 01/17/17 10:40 - Constitutional Appears: No Acute Distress, Confused, Chronically Ill - Head Exam Head Exam: ATRAUMATIC, NORMAL INSPECTION, NORMOCEPHALIC - Eye Exam Eye Exam: EOMI, Normal appearance, PERRL Pupil Exam: NORMAL ACCOMODATION, PERRL - ENT Exam ENT Exam: Mucous Membranes Moist, Normal Exam - Neck Exam Neck Exam: Full ROM, Normal Inspection. absent: Lymphadenopathy - Respiratory Exam Respiratory Exam: Clear to Ausculation Bilateral, NORMAL BREATHING PATTERN - Cardiovascular Exam Cardiovascular Exam: REGULAR RHYTHM, RRR, +S1, +S2. absent: Murmur - GI/Abdominal Exam GI & Abdominal Exam: Soft, Normal Bowel Sounds. absent: Tenderness - Extremities Exam Extremities Exam: Full ROM, Normal Capillary Refill, Normal Inspection. absent : Joint Swelling, Pedal Edema - Back Exam Back Exam: NORMAL INSPECTION - Psychiatric Exam Psychiatric exam: Normal Affect, Normal Mood - Skin Skin Exam: Dry, Intact, Normal Color, Warm Assessment and Plan (1) [id number] kidney injury Status: Acute (2) DVT prophylaxis Status: Acute (3) Hepatorenal syndrome Status: Acute (4) Liver cirrhosis Status: Acute (5) UTI (urinary tract infection) Status: Acute (6) Hypotension Status: Acute - Assessment and Plan (Free Text) Assessment: (1) [id number] kidney injury Assessment & Plan: nephro dialysis monitor bw/lytes Status: Acute (2) DVT prophylaxis Assessment & Plan: scd nad ae hose no anticoag r/t coagulopathy from liver dz Status: Acute (3) Hepatorenal syndrome Assessment & Plan: icu care gi, nephro Status: Acute (4) Liver cirrhosis Assessment & Plan: end stage ?? transfert o liver center when off pressors vs hospice coagulopathy present, pos stool guiac. got vitk, ffp, prbc bleeding after ngt, ffp given yesterday bili/lft cont to rise Status: Acute (5) UTI (urinary tract infection) Assessment & Plan: cont all anbx-[id number], ID ?? sepsis minimal urine outpt r/t renal failure Status: Acute (6) Hypotension Assessment & Plan: ?? r/t sepsis vs hepatorenal levophed down to 22.5, vasopressin titrat prn fluid support 7-anemia-/p prbc, heme/onc, hgb stable 8-abd pain-abd us noted, pain control, caution w/ somnolence. no pain at present , d/c w/ family hospice eval pending likely home hospice early next week
[2017-01-18 08:33] LABS: ABG ALLEN TEST YES; ARTERIAL BLOOD GAS HCO3 13.7 mmol/L (21-28); ARTERIAL BLOOD GAS O2 CONTENT 10.8 ML/dL (15-23); ARTERIAL BLOOD GAS PH 7.25 (7.35-7.45); ARTERIAL BLOOD GAS PO2 76 mm/Hg (80-100); ARTERIAL BLOOD HGB O2 SAT 93.9 % (95.0-98.0); CARBOXYHEMOGLOBIN 2.2 % (0.5-1.5); HHB 1.8 % (0.0-5.0); METHEMOGLOBIN 2.1 % (0.0-3.0)
--- NOTE | 2017-01-18 08:36 | CP.CCUPN ---
CCU Subjective - Physician Review Events Since Last Encounter (Free Text): 01/18/17 08:31 Patient lethargic, on O2 supplement, NG tube in place, on levophed, no fever, events reviewed CCU Objective - Vital Signs / Intake & Output Vital Signs (Last 4 hours): Vital Signs Pulse Resp BP Pulse Ox 01/18/17 07:00 72 91/35 L 01/18/17 06:00 76 23 88/66 L 98 01/18/17 05:00 66 19 96/41 L 97 Intake and Output (Last 8hrs): Intake & Output 01/17/17 01/18/17 01/18/17 22:59 06:59 14:59 Intake Total 1427 816 Output Total 700 Balance 1427 116 Intake: IV 548 186 Intake, Piggyback 50 Tube Feeding 20 Blood Product 809 630 Output: Stool 300 Ultrafiltrate 400 - Physical Exam Head: Positive for: Atraumatic, Normocephalic Pupils: Positive for: PERRL Conjunctiva: Positive for: Normal, Icteric Mouth: Positive for: Moist Mucous Membranes Nose (External): Positive for: Atraumatic Nose (Internal): Positive for: Normal Inspection Neck: Positive for: Normal Range of Motion. Negative for: JVD Respiratory/Chest: Positive for: Clear to Auscultation, Decreased Breath Sounds Cardiovascular: Positive for: Regular Rate and Rhythm Abdomen: Positive for: Distention, Normal Bowel Sounds. Negative for: Tenderness, Mass/Organomegaly Upper Extremity: Positive for: Normal Inspection Lower Extremity: Positive for: Edema, NORMAL PULSES. Negative for: CALF TENDERNESS, Cyanosis Neurological: Positive for: Other (lethergic) Skin: Positive for: Warm, Dry. Negative for: Rashes Psychiatric: Positive for: Lethargic - Medications Active Medications: Active Medications Generic Name Dose Route Start Last Admin Trade Name Freq PRN Reason Stop Dose Admin Famotidine 20 mg 01/17/17 09:45 01/17/17 21:29 Pepcid IVP 20 mg Q12 [facility] Administration Hydroxyzine HCl 25 mg 01/04/17 18:38 01/15/17 09:22 Atarax PO 25 mg Q6 PRN Administration Itching / Pruritus Ceftriaxone Sodium 1 gm/ 100 mls @ 200 mls/hr 01/18/17 09:00 Sodium Chloride IVPB DAILY [facility] Protocol Dextrose/Sodium Chloride 1,000 mls @ 100 mls/hr 01/18/17 07:15 01/18/17 07:15 Dextrose 5%/0.45% Ns 1000 Ml IV 01/18/17 17:14 100 mls/hr .Q10H [facility] Administration Lactulose 20 gm 01/14/17 13:00 01/17/17 21:29 Enulose PO 20 gm QID [facility] Administration Midodrine 10 mg 01/15/17 19:00 01/17/17 16:10 Proamatine PO 10 mg TID [facility] Administration Morphine Sulfate 2 mg 01/15/17 09:33 01/15/17 12:28 Morphine IVP 2 mg Q4 PRN Administration Pain, moderate (4-7) Ondansetron HCl 4 mg 01/17/17 09:33 01/18/17 06:55 Zofran Inj IVP 4 mg Q6 PRN Administration Nausea/Vomiting Rifaximin 550 mg 01/05/17 09:00 01/17/17 16:13 Xifaxan PO 550 mg BID [facility] Administration Protocol Zinc Sulfate 220 mg 01/05/17 09:00 01/17/17 08:39 Zinc Sulfate 220 Mg Cap PO 220 mg DAILY [facility] Administration - Patient Studies Lab Studies: Lab Studies 01/18/17 01/18/17 01/18/17 Range/Units 07:18 07:18 07:00 WBC 17.1 H (4.8-10.8) K/uL RBC 2.48 L (3.80-5.20) Mil/uL Hgb 8.0 L (12.0-16.0) g/dL Hct 24.0 L (34.0-47.0) % MCV 96.9 (81.0-99.0) fl MCH 32.4 H (27.0-31.0) pg MCHC 33.5 (33.0-37.0) g/dL RDW 19.8 H (11.5-14.5) % Plt Count 70 L (130-400) K/uL PT (9.8-13.1) Seconds INR (0.9-1.2) APTT (25.6-37.1) Seconds Sodium 136 (132-148) mmol/l Potassium 4.6 (3.6-5.0) MMOL/L Chloride 96 L (98-107) mmol/L Carbon Dioxide 12 L (22-30) mmol/L Anion Gap 33 H (10-20) BUN 27 H (7-17) mg/dl Creatinine 4.1 H (0.7-1.2) mg/dl Est GFR ( Amer) 14 Est GFR (Non-Af Amer) 11 POC Glucose (mg/dL) 48 L (65-110) mg/dL Random Glucose 59 L (65-105) mg/dL Calcium 10.2 (8.4-10.2) mg/dL Total Bilirubin 41.0 H (0.2-1.3) mg/dl AST 2233 H (14-36) U/L ALT 499 H D (9-52) U/L Alkaline Phosphatase 172 H (38-126) U/L Total Protein 8.3 H (6.3-8.2) G/DL Albumin 3.7 (3.5-5.0) g/dL Globulin 4.6 H (2.2-3.9) gm/dL Albumin/Globulin Ratio 0.8 L (1.0-2.1) Blood Type Antibody Screen Crossmatch BBK History Checked 01/18/17 01/17/17 01/17/17 Range/Units 05:09 21:18 16:55 WBC (4.8-10.8) K/uL RBC (3.80-5.20) Mil/uL Hgb (12.0-16.0) g/dL Hct (34.0-47.0) % MCV (81.0-99.0) fl MCH (27.0-31.0) pg MCHC (33.0-37.0) g/dL RDW (11.5-14.5) % Plt Count (130-400) K/uL PT (9.8-13.1) Seconds INR (0.9-1.2) APTT (25.6-37.1) Seconds Sodium (132-148) mmol/l Potassium (3.6-5.0) MMOL/L Chloride (98-107) mmol/L Carbon Dioxide (22-30) mmol/L Anion Gap (10-20) BUN (7-17) mg/dl Creatinine (0.7-1.2) mg/dl Est GFR ( Amer) Est GFR (Non-Af Amer) POC Glucose (mg/dL) 30 L* 64 L 75 (65-110) mg/dL Random Glucose (65-105) mg/dL Calcium (8.4-10.2) mg/dL Total Bilirubin (0.2-1.3) mg/dl AST (14-36) U/L ALT (9-52) U/L Alkaline Phosphatase (38-126) U/L Total Protein (6.3-8.2) G/DL Albumin (3.5-5.0) g/dL Globulin (2.2-3.9) gm/dL Albumin/Globulin Ratio (1.0-2.1) Blood Type Antibody Screen Crossmatch BBK History Checked 01/17/17 01/17/17 01/15/17 Range/Units 10:49 10:40 01:50 WBC (4.8-10.8) K/uL RBC (3.80-5.20) Mil/uL Hgb (12.0-16.0) g/dL Hct (34.0-47.0) % MCV (81.0-99.0) fl MCH (27.0-31.0) pg MCHC (33.0-37.0) g/dL RDW (11.5-14.5) % Plt Count (130-400) K/uL PT 30.6 H (9.8-13.1) Seconds INR 2.7 H (0.9-1.2) APTT 49.8 H (25.6-37.1) Seconds Sodium (132-148) mmol/l Potassium (3.6-5.0) MMOL/L Chloride (98-107) mmol/L Carbon Dioxide (22-30) mmol/L Anion Gap (10-20) BUN (7-17) mg/dl Creatinine (0.7-1.2) mg/dl Est GFR ( Amer) Est GFR (Non-Af Amer) POC Glucose (mg/dL) 87 (65-110) mg/dL Random Glucose (65-105) mg/dL Calcium (8.4-10.2) mg/dL Total Bilirubin (0.2-1.3) mg/dl AST (14-36) U/L ALT (9-52) U/L Alkaline Phosphatase (38-126) U/L Total Protein (6.3-8.2) G/DL Albumin (3.5-5.0) g/dL Globulin (2.2-3.9) gm/dL Albumin/Globulin Ratio (1.0-2.1) Blood Type A POSITIVE Antibody Screen Negative Crossmatch See Detail BBK History Checked Patient has bt Laboratory Results - last 24 hr 01/15/17 01/17/17 01/17/17 01:50 10:40 10:49 WBC RBC Hgb Hct MCV MCH MCHC RDW Plt Count PT 30.6 H INR 2.7 H APTT 49.8 H Sodium Potassium Chloride Carbon Dioxide Anion Gap BUN Creatinine Est GFR ( Amer) Est GFR (Non-Af Amer) POC Glucose (mg/dL) 87 Random Glucose Calcium Total Bilirubin AST ALT Alkaline Phosphatase Total Protein Albumin Globulin Albumin/Globulin Ratio Blood Type A POSITIVE Antibody Screen Negative Crossmatch See Detail BBK History Checked Patient has bt 01/17/17 01/17/17 01/18/17 16:55 21:18 05:09 WBC RBC Hgb Hct MCV MCH MCHC RDW Plt Count PT INR APTT Sodium Potassium Chloride Carbon Dioxide Anion Gap BUN Creatinine Est GFR ( Amer) Est GFR (Non-Af Amer) POC Glucose (mg/dL) 75 64 L 30 L* Random Glucose Calcium Total Bilirubin AST ALT Alkaline Phosphatase Total Protein Albumin Globulin Albumin/Globulin Ratio Blood Type Antibody Screen Crossmatch BBK History Checked 01/18/17 01/18/17 01/18/17 07:00 07:18 07:18 WBC 17.1 H RBC 2.48 L Hgb 8.0 L Hct 24.0 L MCV 96.9 MCH 32.4 H MCHC 33.5 RDW 19.8 H Plt Count 70 L PT INR APTT Sodium 136 Potassium 4.6 Chloride 96 L Carbon Dioxide 12 L Anion Gap 33 H BUN 27 H Creatinine 4.1 H Est GFR ( Amer) 14 Est GFR (Non-Af Amer) 11 POC Glucose (mg/dL) 48 L Random Glucose 59 L Calcium 10.2 Total Bilirubin 41.0 H AST 2233 H ALT 499 H D Alkaline Phosphatase 172 H Total Protein 8.3 H Albumin 3.7 Globulin 4.6 H Albumin/Globulin Ratio 0.8 L Blood Type Antibody Screen Crossmatch BBK History Checked Fingerstick Blood Sugar Results: 75 Critical Care Progress Note - Nutrition Nutrition: Nutrition Category Date Time Status Renal Diet [DIET] Diets 01/09/17 Lunch Active Assessment/Plan - Assessment and Plan (Free Text) Assessment: A/P Respiratory insufficiency, pneumonia, liver cirrhosis, hepatic encephalopathy, renal failure, anemia, thrombocytopenia, coagulopathy - O2 supplement - Continue meds - Pulmonary toilets - Dialysis as per renal - GI follow up - Extremely poor prognosis Critical care 40 min
--- NOTE | 2017-01-18 09:11 | CP.PCM.PN ---
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 also d/c d5/0.45% and will start bicarb drip at 50 ml/hr to help with hypoglycemia and may be with acidosis too No ACEI/ARB due to GEGE. maintain hemodynamics stable Monitor Input/Output, daily weights and renal function with basic metabolic panel off octreotide SQ due to bradycardia, on midodrine Dose meds/antibiotics for reduced GFR<10. Avoid fleets enema/magnesium based laxatives. Avoid nephrotoxins/NSAIDs/ iodinated contrast (unless needed emergently) Glycemic control Further work up/management as per primary team prognosis poor Thanks for allowing me to participate in care of your patient. Will follow patient with you. Please call if any Qs. d/w family and team Dr Narayan Sanchez Office: [phone] Chief Complaint; AMS HPI: Pt is a 56 y/o F with hx of hypertension, chronic liver disease and cirrhosis, recently admitted for hepatic enceph also found to have cr 2.5-2.8 was brought back to hospital for AMS x couple of days and found to have severe GEGE and hepatic dysfunction with bilirubin 21 pt unable to provide any hx. ROS: unable to obtain from pt Physical Examination: General Appearance: ill appearing, AMS Vitals reviewed and noted as below Head; Atraumatic, normocephalic ENT: no ulcers no thrush. Tongue is midline/dry. Oropharynx: no rash or ulcers. EYES: Pupils are equal, round and sluggish to light accommodation. Eye muscles and extraocular movement intact. Sclera is anicteric. Neck; supple no lymphadenopathy, no thyromegaly or bruit Lungs: Normal respiratory rate/effort. Breath sounds bilateral equal and clear anteriorly Heart: Normal rate. s1s2 normal. No rub or gallop. Extremities: no edema. No varicose veins Neurological: Patient is not communicating and comatose Skin: Warm and dry. Normal turgor. No rash. Palpitation: Normal elasticity for age Abdomen: Abdomen is soft. Bowel sounds +. There is no abdominal tenderness, no guarding/rigidity no organomegaly appreciated as she is obese Psych: unable MSK: no joint tenderness or swelling. Digits and nails normal, no deformity : kidney or bladder not palpable access: femoral Labs/imaging/EKG reviewed. Past medical history, past surgical history, family history, social history, allergy reviewed and noted as below Family hx: no hx of CKD. Rest non-contributory ABG 7. with lactic acid 15 Objective - Vital Signs/Intake and Output Vital Signs (last 24 hours): Temp Pulse Resp BP Pulse Ox 97.7 F 72 23 91/35 L 98 01/18/17 04:00 01/18/17 07:00 01/18/17 06:00 01/18/17 07:00 01/18/17 06:00 Intake and Output: 01/18/17 01/18/17 06:59 18:59 Intake Total 1256 Output Total 700 Balance 556 - Medications Medications: Current Medications Famotidine (Pepcid) 20 mg IVP Q12 [facility] Last Admin: 01/18/17 08:54 Dose: 20 mg Hydroxyzine HCl (Atarax) 25 mg PO Q6 PRN PRN Reason: Itching / Pruritus Last Admin: 01/15/17 09:22 Dose: 25 mg Ceftriaxone Sodium 1 gm/ (Sodium Chloride) 100 mls @ 200 mls/hr IVPB DAILY [facility] PRN Reason: Protocol Last Admin: 01/18/17 08:52 Dose: 200 mls/hr Sodium Bicarbonate 150 meq/ (Dextrose) 1,150 mls @ 50 mls/hr IV .Q23H [facility] Stop: 01/19/17 09:05 Lactulose (Enulose) 20 gm PO QID [facility] Last Admin: 01/17/17 21:29 Dose: 20 gm Midodrine (Proamatine) 10 mg PO TID [facility] Last Admin: 01/17/17 16:10 Dose: 10 mg Morphine Sulfate (Morphine) 2 mg IVP Q4 PRN PRN Reason: Pain, moderate (4-7) Last Admin: 01/15/17 12:28 Dose: 2 mg Ondansetron HCl (Zofran Inj) 4 mg IVP Q6 PRN PRN Reason: Nausea/Vomiting Last Admin: 01/18/17 06:55 Dose: 4 mg Rifaximin (Xifaxan) 550 mg PO BID [facility] PRN Reason: Protocol Last Admin: 01/17/17 16:13 Dose: 550 mg Zinc Sulfate (Zinc Sulfate 220 Mg Cap) 220 mg PO DAILY [facility] Last Admin: 01/17/17 08:39 Dose: 220 mg - Labs Labs: 01/18/17 07:18 01/18/17 07:18 PT 30.6 Seconds (9.8-13.1) H 01/17/17 10:40 INR 2.7 (0.9-1.2) H 01/17/17 10:40 APTT 49.8 Seconds (25.6-37.1) H 01/17/17 10:40
[2017-01-18] MEDS ORDERED: Sodium Bicarbonate 8.4% 150 MEQ in Dextrose 5% In Water 1,000 ML IV SCH (09:15)
[2017-01-18 09:24] LABS: ABG ALLEN TEST YES; ARTERIAL BLOOD GAS HCO3 13.7 mmol/L (21-28); ARTERIAL BLOOD GAS PH 7.25 (7.35-7.45); ARTERIAL BLOOD GAS PO2 76 mm/Hg (80-100)
--- NOTE | 2017-01-18 14:18 | CP.CCUPN ---
CCU Subjective - Physician Review Events Since Last Encounter (Free Text): 01/18/17 14:16 Patient developed cardiopulmonary arrest, CPR and ACLS done as protocol, patient intubated, patient regained pulse and blood pressure, chest x ray, EG, ABG ordered. Patient with multiorgan failure, extremely poor prognosis CCU Objective - Vital Signs / Intake & Output Vital Signs (Last 4 hours): Vital Signs Temp Pulse Resp BP Pulse Ox 01/18/17 13:00 71 25 H 75/18 L 90 L 01/18/17 12:00 98.7 F 72 34 H 98/57 L 95 01/18/17 11:00 91 H 33 H 72/27 L 100 Intake and Output (Last 8hrs): Intake & Output 01/17/17 01/18/17 01/18/17 22:59 06:59 14:59 Intake Total 1427 816 680 Output Total 700 Balance 1427 116 680 Weight 282 lb Intake: IV 548 186 580 Intake, Piggyback 50 100 Tube Feeding 20 0 Blood Product 809 630 Output: Stool 300 Ultrafiltrate 400 - Medications Active Medications: Active Medications Generic Name Dose Route Start Last Admin Trade Name Freq PRN Reason Stop Dose Admin Famotidine 20 mg 01/17/17 09:45 01/18/17 08:54 Pepcid IVP 20 mg Q12 HUDSON Administration Hydroxyzine HCl 25 mg 01/04/17 18:38 01/15/17 09:22 Atarax PO 25 mg Q6 PRN Administration Itching / Pruritus Ceftriaxone Sodium 1 gm/ 100 mls @ 200 mls/hr 01/18/17 09:00 01/18/17 08:52 Sodium Chloride IVPB 200 mls/hr DAILY HUDSON Administration Protocol Sodium Bicarbonate 150 meq/ 1,150 mls @ 50 mls/hr 01/18/17 09:15 01/18/17 12: 07 Dextrose IV 01/19/17 09:05 50 mls/hr .Q23H HUDSON Administration Lactulose 20 gm 01/14/17 13:00 01/18/17 12:10 Enulose PO 20 gm QID HU[facility]ON Administration Midodrine 10 mg 01/15/17 19:00 01/18/17 12:10 Proamatine PO 10 mg TID HUDSON Administration Morphine Sulfate 2 mg 01/15/17 09:33 01/15/17 12:28 Morphine IVP 2 mg Q4 PRN Administration Pain, moderate (4-7) Ondansetron HCl 4 mg 01/17/17 09:33 01/18/17 06:55 Zofran Inj IVP 4 mg Q6 PRN Administration Nausea/Vomiting Rifaximin 550 mg 01/05/17 09:00 01/18/17 09:09 Xifaxan PO 550 mg BID [facility] Administration Protocol Zinc Sulfate 220 mg 01/05/17 09:00 01/18/17 09:09 Zinc Sulfate 220 Mg Cap PO 220 mg DAILY HUDSON Administration - Patient Studies Lab Studies: Lab Studies 01/18/17 01/18/17 01/18/17 Range/Units 10:38 09:01 07:59 WBC (4.8-10.8) K/uL RBC (3.80-5.20) Mil/uL Hgb (12.0-16.0) g/dL Hct (34.0-47.0) % MCV (81.0-99.0) fl MCH (27.0-31.0) pg MCHC (33.0-37.0) g/dL RDW (11.5-14.5) % Plt Count (130-400) K/uL pCO2 26 L 26 L (35-45) mm/Hg pO2 76 L 76 L (80-100) mm/Hg HCO3 13.7 L 13.7 L (21-28) mmol/L ABG pH 7.25 L 7.25 L (7.35-7.45) ABG Total CO2 12.2 L 12.2 L (22-28) mmol/L ABG O2 Saturation 98.1 H 98.1 H (95-98) % ABG O2 Content 10.8 L (15-23) ML/dL ABG Base Excess -14.4 L -14.4 L (-2.0-3.0) mmol/L ABG Hemoglobin 8.1 L (11.7-17.4) g/dL ABG Carboxyhemoglobin 2.2 H (0.5-1.5) % POC ABG HHb (Measured) 1.8 (0.0-5.0) % ABG Methemoglobin 2.1 (0.0-3.0) % ABG O2 Capacity 11.0 L (16-24) mL/dL [place] Test Yes Yes ABG Potassium 4.6 (3.6-5.2) mmol/L A-a O2 Difference 91.0 91.0 mm/Hg Hgb O2 Saturation 93.9 L (95.0-98.0) % Glucose 61 L (65-105) mg/dL Lactate 15.7 H* (0.7-2.1) mmol/L FiO2 28.0 28.0 % Crit Value Called To Andry bello msn,rn Andry bello msn,rn Crit Value Called By 15 15 Crit Value Read Back Y Y Blood Gas Notified Time 833 833 Sodium 132.0 (132-148) mmol/l Potassium (3.6-5.0) MMOL/L Chloride 94.0 L (98-107) mmol/L Carbon Dioxide (22-30) mmol/L Anion Gap (10-20) BUN (7-17) mg/dl Creatinine (0.7-1.2) mg/dl Est GFR ( Amer) Est GFR (Non-Af Amer) POC Glucose (mg/dL) 43 L (65-110) mg/dL Random Glucose (65-105) mg/dL Calcium (8.4-10.2) mg/dL Total Bilirubin (0.2-1.3) mg/dl AST (14-36) U/L ALT (9-52) U/L Alkaline Phosphatase (38-126) U/L Total Protein (6.3-8.2) G/DL Albumin (3.5-5.0) g/dL Globulin (2.2-3.9) gm/dL Albumin/Globulin Ratio (1.0-2.1) Arterial Blood Potassium 4.6 (3.6-5.2) mmol/L Blood Type Antibody Screen Crossmatch BBK History Checked 01/18/17 01/18/17 01/18/17 Range/Units 07:18 07:18 07:00 WBC 17.1 H (4.8-10.8) K/uL RBC 2.48 L (3.80-5.20) Mil/uL Hgb 8.0 L (12.0-16.0) g/dL Hct 24.0 L (34.0-47.0) % MCV 96.9 (81.0-99.0) fl MCH 32.4 H (27.0-31.0) pg MCHC 33.5 (33.0-37.0) g/dL RDW 19.8 H (11.5-14.5) % Plt Count 70 L (130-400) K/uL pCO2 (35-45) mm/Hg pO2 (80-100) mm/Hg HCO3 (21-28) mmol/L ABG pH (7.35-7.45) ABG Total CO2 (22-28) mmol/L ABG O2 Saturation (95-98) % ABG O2 Content (15-23) ML/dL ABG Base Excess (-2.0-3.0) mmol/L ABG Hemoglobin (11.7-17.4) g/dL ABG Carboxyhemoglobin (0.5-1.5) % POC ABG HHb (Measured) (0.0-5.0) % ABG Methemoglobin (0.0-3.0) % ABG O2 Capacity (16-24) mL/dL [place] Test ABG Potassium (3.6-5.2) mmol/L A-a O2 Difference mm/Hg Hgb O2 Saturation (95.0-98.0) % Glucose (65-105) mg/dL Lactate (0.7-2.1) mmol/L FiO2 % Crit Value Called To Crit Value Called By Crit Value Read Back Blood Gas Notified Time Sodium 136 (132-148) mmol/l Potassium 4.6 (3.6-5.0) MMOL/L Chloride 96 L (98-107) mmol/L Carbon Dioxide 12 L (22-30) mmol/L Anion Gap 33 H (10-20) BUN 27 H (7-17) mg/dl Creatinine 4.1 H (0.7-1.2) mg/dl Est GFR ( Amer) 14 Est GFR (Non-Af Amer) 11 POC Glucose (mg/dL) 48 L (65-110) mg/dL Random Glucose 59 L (65-105) mg/dL Calcium 10.2 (8.4-10.2) mg/dL Total Bilirubin 41.0 H (0.2-1.3) mg/dl AST 2233 H (14-36) U/L ALT 499 H D (9-52) U/L Alkaline Phosphatase 172 H (38-126) U/L Total Protein 8.3 H (6.3-8.2) G/DL Albumin 3.7 (3.5-5.0) g/dL Globulin 4.6 H (2.2-3.9) gm/dL Albumin/Globulin Ratio 0.8 L (1.0-2.1) Arterial Blood Potassium (3.6-5.2) mmol/L Blood Type Antibody Screen Crossmatch BBK History Checked 01/18/17 01/17/17 01/17/17 Range/Units 05:09 21:18 16:55 WBC (4.8-10.8) K/uL RBC (3.80-5.20) Mil/uL Hgb (12.0-16.0) g/dL Hct (34.0-47.0) % MCV (81.0-99.0) fl MCH (27.0-31.0) pg MCHC (33.0-37.0) g/dL RDW (11.5-14.5) % Plt Count (130-400) K/uL pCO2 (35-45) mm/Hg pO2 (80-100) mm/Hg HCO3 (21-28) mmol/L ABG pH (7.35-7.45) ABG Total CO2 (22-28) mmol/L ABG O2 Saturation (95-98) % ABG O2 Content (15-23) ML/dL ABG Base Excess (-2.0-3.0) mmol/L ABG Hemoglobin (11.7-17.4) g/dL ABG Carboxyhemoglobin (0.5-1.5) % POC ABG HHb (Measured) (0.0-5.0) % ABG Methemoglobin (0.0-3.0) % ABG O2 Capacity (16-24) mL/dL [place] Test ABG Potassium (3.6-5.2) mmol/L A-a O2 Difference mm/Hg Hgb O2 Saturation (95.0-98.0) % Glucose (65-105) mg/dL Lactate (0.7-2.1) mmol/L FiO2 % Crit Value Called To Crit Value Called By Crit Value Read Back Blood Gas Notified Time Sodium (132-148) mmol/l Potassium (3.6-5.0) MMOL/L Chloride (98-107) mmol/L Carbon Dioxide (22-30) mmol/L Anion Gap (10-20) BUN (7-17) mg/dl Creatinine (0.7-1.2) mg/dl Est GFR ( Amer) Est GFR (Non-Af Amer) POC Glucose (mg/dL) 30 L* 64 L 75 (65-110) mg/dL Random Glucose (65-105) mg/dL Calcium (8.4-10.2) mg/dL Total Bilirubin (0.2-1.3) mg/dl AST (14-36) U/L ALT (9-52) U/L Alkaline Phosphatase (38-126) U/L Total Protein (6.3-8.2) G/DL Albumin (3.5-5.0) g/dL Globulin (2.2-3.9) gm/dL Albumin/Globulin Ratio (1.0-2.1) Arterial Blood Potassium (3.6-5.2) mmol/L Blood Type Antibody Screen Crossmatch BBK History Checked 01/15/17 Range/Units 01:50 WBC (4.8-10.8) K/uL RBC (3.80-5.20) Mil/uL Hgb (12.0-16.0) g/dL Hct (34.0-47.0) % MCV (81.0-99.0) fl MCH (27.0-31.0) pg MCHC (33.0-37.0) g/dL RDW (11.5-14.5) % Plt Count (130-400) K/uL pCO2 (35-45) mm/Hg pO2 (80-100) mm/Hg HCO3 (21-28) mmol/L ABG pH (7.35-7.45) ABG Total CO2 (22-28) mmol/L ABG O2 Saturation (95-98) % ABG O2 Content (15-23) ML/dL ABG Base Excess (-2.0-3.0) mmol/L ABG Hemoglobin (11.7-17.4) g/dL ABG Carboxyhemoglobin (0.5-1.5) % POC ABG HHb (Measured) (0.0-5.0) % ABG Methemoglobin (0.0-3.0) % ABG O2 Capacity (16-24) mL/dL [place] Test ABG Potassium (3.6-5.2) mmol/L A-a O2 Difference mm/Hg Hgb O2 Saturation (95.0-98.0) % Glucose (65-105) mg/dL Lactate (0.7-2.1) mmol/L FiO2 % Crit Value Called To Crit Value Called By Crit Value Read Back Blood Gas Notified Time Sodium (132-148) mmol/l Potassium (3.6-5.0) MMOL/L Chloride (98-107) mmol/L Carbon Dioxide (22-30) mmol/L Anion Gap (10-20) BUN (7-17) mg/dl Creatinine (0.7-1.2) mg/dl Est GFR ( Amer) Est GFR (Non-Af Amer) POC Glucose (mg/dL) (65-110) mg/dL Random Glucose (65-105) mg/dL Calcium (8.4-10.2) mg/dL Total Bilirubin (0.2-1.3) mg/dl AST (14-36) U/L ALT (9-52) U/L Alkaline Phosphatase (38-126) U/L Total Protein (6.3-8.2) G/DL Albumin (3.5-5.0) g/dL Globulin (2.2-3.9) gm/dL Albumin/Globulin Ratio (1.0-2.1) Arterial Blood Potassium (3.6-5.2) mmol/L Blood Type A POSITIVE Antibody Screen Negative Crossmatch See Detail BBK History Checked Patient has bt Laboratory Results - last 24 hr 01/15/17 01/17/17 01/17/17 01:50 16:55 21:18 WBC RBC Hgb Hct MCV MCH MCHC RDW Plt Count pCO2 pO2 HCO3 ABG pH ABG Total CO2 ABG O2 Saturation ABG O2 Content ABG Base Excess ABG Hemoglobin ABG Carboxyhemoglobin POC ABG HHb (Measured) ABG Methemoglobin ABG O2 Capacity [place] Test ABG Potassium A-a O2 Difference Hgb O2 Saturation Glucose Lactate FiO2 Crit Value Called To Crit Value Called By Crit Value Read Back Blood Gas Notified Time Sodium Potassium Chloride Carbon Dioxide Anion Gap BUN Creatinine Est GFR ( Amer) Est GFR (Non-Af Amer) POC Glucose (mg/dL) 75 64 L Random Glucose Calcium Total Bilirubin AST ALT Alkaline Phosphatase Total Protein Albumin Globulin Albumin/Globulin Ratio Arterial Blood Potassium Blood Type A POSITIVE Antibody Screen Negative Crossmatch See Detail BBK History Checked Patient has bt 01/18/17 01/18/17 01/18/17 05:09 07:00 07:18 WBC 17.1 H RBC 2.48 L Hgb 8.0 L Hct 24.0 L MCV 96.9 MCH 32.4 H MCHC 33.5 RDW 19.8 H Plt Count 70 L pCO2 pO2 HCO3 ABG pH ABG Total CO2 ABG O2 Saturation ABG O2 Content ABG Base Excess ABG Hemoglobin ABG Carboxyhemoglobin POC ABG HHb (Measured) ABG Methemoglobin ABG O2 Capacity [place] Test ABG Potassium A-a O2 Difference Hgb O2 Saturation Glucose Lactate FiO2 Crit Value Called To Crit Value Called By Crit Value Read Back Blood Gas Notified Time Sodium Potassium Chloride Carbon Dioxide Anion Gap BUN Creatinine Est GFR ( Amer) Est GFR (Non-Af Amer) POC Glucose (mg/dL) 30 L* 48 L Random Glucose Calcium Total Bilirubin AST ALT Alkaline Phosphatase Total Protein Albumin Globulin Albumin/Globulin Ratio Arterial Blood Potassium Blood Type Antibody Screen Crossmatch BBK History Checked 01/18/17 01/18/17 01/18/17 07:18 07:59 09:01 WBC RBC Hgb Hct MCV MCH MCHC RDW Plt Count pCO2 26 L 26 L pO2 76 L 76 L HCO3 13.7 L 13.7 L ABG pH 7.25 L 7.25 L ABG Total CO2 12.2 L 12.2 L ABG O2 Saturation 98.1 H 98.1 H ABG O2 Content 10.8 L ABG Base Excess -14.4 L -14.4 L ABG Hemoglobin 8.1 L ABG Carboxyhemoglobin 2.2 H POC ABG HHb (Measured) 1.8 ABG Methemoglobin 2.1 ABG O2 Capacity 11.0 L [place] Test Yes Yes ABG Potassium 4.6 A-a O2 Difference 91.0 91.0 Hgb O2 Saturation 93.9 L Glucose 61 L Lactate 15.7 H* FiO2 28.0 28.0 Crit Value Called To Andry bello msn,rn Andry bello msn,rn Crit Value Called By 15 15 Crit Value Read Back Y Y Blood Gas Notified Time 833 833 Sodium 136 132.0 Potassium 4.6 Chloride 96 L 94.0 L Carbon Dioxide 12 L Anion Gap 33 H BUN 27 H Creatinine 4.1 H Est GFR ( Amer) 14 Est GFR (Non-Af Amer) 11 POC Glucose (mg/dL) Random Glucose 59 L Calcium 10.2 Total Bilirubin 41.0 H AST 2233 H ALT 499 H D Alkaline Phosphatase 172 H Total Protein 8.3 H Albumin 3.7 Globulin 4.6 H Albumin/Globulin Ratio 0.8 L Arterial Blood Potassium 4.6 Blood Type Antibody Screen Crossmatch BBK History Checked 01/18/17 10:38 WBC RBC Hgb Hct MCV MCH MCHC RDW Plt Count pCO2 pO2 HCO3 ABG pH ABG Total CO2 ABG O2 Saturation ABG O2 Content ABG Base Excess ABG Hemoglobin ABG Carboxyhemoglobin POC ABG HHb (Measured) ABG Methemoglobin ABG O2 Capacity [place] Test ABG Potassium A-a O2 Difference Hgb O2 Saturation Glucose Lactate FiO2 Crit Value Called To Crit Value Called By Crit Value Read Back Blood Gas Notified Time Sodium Potassium Chloride Carbon Dioxide Anion Gap BUN Creatinine Est GFR ( Amer) Est GFR (Non-Af Amer) POC Glucose (mg/dL) 43 L Random Glucose Calcium Total Bilirubin AST ALT Alkaline Phosphatase Total Protein Albumin Globulin Albumin/Globulin Ratio Arterial Blood Potassium Blood Type Antibody Screen Crossmatch BBK History Checked Fingerstick Blood Sugar Results: 43 Critical Care Progress Note - Nutrition Nutrition: Nutrition Category Date Time Status Renal Diet [DIET] Diets 01/09/17 Lunch Active
[2017-01-18 14:35] LABS: ABG ALLEN TEST YES; ABG MECHANICAL RATE 16; ARTERIAL BLOOD GAS MODE PRVC/AC; ARTERIAL BLOOD GAS O2 CAPACITY 9.6 mL/dL (16-24); ARTERIAL BLOOD GAS O2 CONTENT 7.6 ML/dL (15-23); ARTERIAL BLOOD GAS PH 6.95 (7.35-7.45); ARTERIAL BLOOD GAS PO2 48 mm/Hg (80-100); ARTERIAL BLOOD HGB O2 SAT 74.8 % (95.0-98.0); ATERIAL BLOOD GAS PEEP 5; CARBOXYHEMOGLOBIN 4.9 % (0.5-1.5); HHB 19.6 % (0.0-5.0); METHEMOGLOBIN 0.7 % (0.0-3.0)
[2017-01-18 16:16] VITALS: O2SAT 84
--- NOTE | 2017-01-19 07:30 | CP.CCUPN ---
CCU Subjective - Physician Review Events Since Last Encounter (Free Text): 01/19/17 07:29 Patient on ventilator, no response to verbal stimuli, NG tube in place, on levophed, no fever, events reviewed CCU Objective - Vital Signs / Intake & Output Vital Signs (Last 4 hours): Vital Signs Temp Pulse Resp BP 01/19/17 06:00 59 L 6 L 87/34 L 01/19/17 05:00 63 4 L 86/64 L 01/19/17 04:00 97.0 F L 59 L 4 L 88/45 L Intake and Output (Last 8hrs): Intake & Output 01/18/17 01/19/17 01/19/17 22:59 06:59 14:59 Intake Total 652 596 Output Total 300 Balance 652 296 Intake: IV 652 596 Tube Feeding 0 Output: Stool 300 - Physical Exam Head: Positive for: Atraumatic, Normocephalic Pupils: Positive for: PERRL Conjunctiva: Positive for: Normal, Icteric Mouth: Positive for: Moist Mucous Membranes Nose (External): Positive for: Atraumatic Nose (Internal): Positive for: Normal Inspection Neck: Positive for: Normal Range of Motion. Negative for: JVD Respiratory/Chest: Positive for: Clear to Auscultation, Decreased Breath Sounds Cardiovascular: Positive for: Regular Rate and Rhythm Abdomen: Positive for: Distention, Normal Bowel Sounds. Negative for: Tenderness, Mass/Organomegaly Upper Extremity: Positive for: Normal Inspection Lower Extremity: Positive for: Edema, NORMAL PULSES. Negative for: CALF TENDERNESS, Cyanosis Neurological: Positive for: Other (on ventilator) Skin: Positive for: Warm, Dry. Negative for: Rashes - Medications Active Medications: Active Medications Generic Name Dose Route Start Last Admin Trade Name Freq PRN Reason Stop Dose Admin Famotidine 20 mg 01/17/17 09:45 01/18/17 21:30 Pepcid IVP 20 mg Q12 HUDSON Administration Hydroxyzine HCl 25 mg 01/04/17 18:38 01/15/17 09:22 Atarax PO 25 mg Q6 PRN Administration Itching / Pruritus Ceftriaxone Sodium 1 gm/ 100 mls @ 200 mls/hr 01/18/17 09:00 01/18/17 08:52 Sodium Chloride IVPB 200 mls/hr DAILY [facility]ON Administration Protocol Sodium Bicarbonate 150 meq/ 1,150 mls @ 50 mls/hr 01/18/17 09:15 01/18/17 12: 07 Dextrose IV 01/19/17 09:05 50 mls/hr .Q23H HUDSON Administration Norepinephrine Bitartrate 8 mg 258 mls @ 4.83 mls/hr 01/19/17 02:34 / Dextrose IV 01/20/17 02:33 .Q24H ONE Protocol 2.5 MCG/MIN Lactulose 20 gm 01/14/17 13:00 01/18/17 21:48 Enulose PO Not Given QID [facility] Midodrine 10 mg 01/15/17 19:00 01/18/17 16:17 Proamatine PO Not Given TID [facility] Morphine Sulfate 2 mg 01/15/17 09:33 01/15/17 12:28 Morphine IVP 2 mg Q4 PRN Administration Pain, moderate (4-7) Ondansetron HCl 4 mg 01/17/17 09:33 01/18/17 06:55 Zofran Inj IVP 4 mg Q6 PRN Administration Nausea/Vomiting Rifaximin 550 mg 01/05/17 09:00 01/18/17 16:17 Xifaxan PO Not Given BID [facility] Protocol Zinc Sulfate 220 mg 01/05/17 09:00 01/18/17 09:09 Zinc Sulfate 220 Mg Cap PO 220 mg DAILY [facility] Administration - Patient Studies Lab Studies: Lab Studies 01/18/17 01/18/17 01/18/17 Range/Units 21:59 16:37 14:13 WBC (4.8-10.8) K/uL RBC (3.80-5.20) Mil/uL Hgb (12.0-16.0) g/dL Hct (34.0-47.0) % MCV (81.0-99.0) fl MCH (27.0-31.0) pg MCHC (33.0-37.0) g/dL RDW (11.5-14.5) % Plt Count (130-400) K/uL pCO2 48 H (35-45) mm/Hg pO2 48 L (80-100) mm/Hg HCO3 9.0 L* (21-28) mmol/L ABG pH 6.95 L* (7.35-7.45) ABG Total CO2 12.0 L (22-28) mmol/L ABG O2 Saturation 79.2 L (95-98) % ABG O2 Content 7.6 L (15-23) ML/dL ABG Base Excess -20.1 L (-2.0-3.0) mmol/L ABG Hemoglobin 7.2 L (11.7-17.4) g/dL ABG Carboxyhemoglobin 4.9 H (0.5-1.5) % POC ABG HHb (Measured) 19.6 H (0.0-5.0) % ABG Methemoglobin 0.7 (0.0-3.0) % ABG O2 Capacity 9.6 L (16-24) mL/dL [place] Test Yes ABG Potassium (3.6-5.2) mmol/L A-a O2 Difference 605.0 mm/Hg Hgb O2 Saturation 74.8 L (95.0-98.0) % Glucose (65-105) mg/dL Lactate (0.7-2.1) mmol/L Vent Mode Prvc/ac Mechanical Rate 16 FiO2 100.0 % Tidal Volume 500 PEEP 5 Crit Value Called To Andry bello msn Crit Value Called By 15 Crit Value Read Back Y Blood Gas Notified Time 1435 Sodium (132-148) mmol/l Potassium (3.6-5.0) MMOL/L Chloride (98-107) mmol/L Carbon Dioxide (22-30) mmol/L Anion Gap (10-20) BUN (7-17) mg/dl Creatinine (0.7-1.2) mg/dl Est GFR ( Amer) Est GFR (Non-Af Amer) POC Glucose (mg/dL) 76 32 L* (65-110) mg/dL Random Glucose (65-105) mg/dL Calcium (8.4-10.2) mg/dL Total Bilirubin (0.2-1.3) mg/dl AST (14-36) U/L ALT (9-52) U/L Alkaline Phosphatase (38-126) U/L Total Protein (6.3-8.2) G/DL Albumin (3.5-5.0) g/dL Globulin (2.2-3.9) gm/dL Albumin/Globulin Ratio (1.0-2.1) Arterial Blood Potassium (3.6-5.2) mmol/L 01/18/17 01/18/17 01/18/17 Range/Units 10:38 09:01 07:59 WBC (4.8-10.8) K/uL RBC (3.80-5.20) Mil/uL Hgb (12.0-16.0) g/dL Hct (34.0-47.0) % MCV (81.0-99.0) fl MCH (27.0-31.0) pg MCHC (33.0-37.0) g/dL RDW (11.5-14.5) % Plt Count (130-400) K/uL pCO2 26 L 26 L (35-45) mm/Hg pO2 76 L 76 L (80-100) mm/Hg HCO3 13.7 L 13.7 L (21-28) mmol/L ABG pH 7.25 L 7.25 L (7.35-7.45) ABG Total CO2 12.2 L 12.2 L (22-28) mmol/L ABG O2 Saturation 98.1 H 98.1 H (95-98) % ABG O2 Content 10.8 L (15-23) ML/dL ABG Base Excess -14.4 L -14.4 L (-2.0-3.0) mmol/L ABG Hemoglobin 8.1 L (11.7-17.4) g/dL ABG Carboxyhemoglobin 2.2 H (0.5-1.5) % POC ABG HHb (Measured) 1.8 (0.0-5.0) % ABG Methemoglobin 2.1 (0.0-3.0) % ABG O2 Capacity 11.0 L (16-24) mL/dL [place] Test Yes Yes ABG Potassium 4.6 (3.6-5.2) mmol/L A-a O2 Difference 91.0 91.0 mm/Hg Hgb O2 Saturation 93.9 L (95.0-98.0) % Glucose 61 L (65-105) mg/dL Lactate 15.7 H* (0.7-2.1) mmol/L Vent Mode Mechanical Rate FiO2 28.0 28.0 % Tidal Volume PEEP Crit Value Called To Andry bello msn,rn Andry bello msn,rn Crit Value Called By 15 15 Crit Value Read Back Y Y Blood Gas Notified Time 833 833 Sodium 132.0 (132-148) mmol/l Potassium (3.6-5.0) MMOL/L Chloride 94.0 L (98-107) mmol/L Carbon Dioxide (22-30) mmol/L Anion Gap (10-20) BUN (7-17) mg/dl Creatinine (0.7-1.2) mg/dl Est GFR ( Amer) Est GFR (Non-Af Amer) POC Glucose (mg/dL) 43 L (65-110) mg/dL Random Glucose (65-105) mg/dL Calcium (8.4-10.2) mg/dL Total Bilirubin (0.2-1.3) mg/dl AST (14-36) U/L ALT (9-52) U/L Alkaline Phosphatase (38-126) U/L Total Protein (6.3-8.2) G/DL Albumin (3.5-5.0) g/dL Globulin (2.2-3.9) gm/dL Albumin/Globulin Ratio (1.0-2.1) Arterial Blood Potassium 4.6 (3.6-5.2) mmol/L 01/18/17 01/18/17 Range/Units 07:18 07:18 WBC 17.1 H (4.8-10.8) K/uL RBC 2.48 L (3.80-5.20) Mil/uL Hgb 8.0 L (12.0-16.0) g/dL Hct 24.0 L (34.0-47.0) % MCV 96.9 (81.0-99.0) fl MCH 32.4 H (27.0-31.0) pg MCHC 33.5 (33.0-37.0) g/dL RDW 19.8 H (11.5-14.5) % Plt Count 70 L (130-400) K/uL pCO2 (35-45) mm/Hg pO2 (80-100) mm/Hg HCO3 (21-28) mmol/L ABG pH (7.35-7.45) ABG Total CO2 (22-28) mmol/L ABG O2 Saturation (95-98) % ABG O2 Content (15-23) ML/dL ABG Base Excess (-2.0-3.0) mmol/L ABG Hemoglobin (11.7-17.4) g/dL ABG Carboxyhemoglobin (0.5-1.5) % POC ABG HHb (Measured) (0.0-5.0) % ABG Methemoglobin (0.0-3.0) % ABG O2 Capacity (16-24) mL/dL [place] Test ABG Potassium (3.6-5.2) mmol/L A-a O2 Difference mm/Hg Hgb O2 Saturation (95.0-98.0) % Glucose (65-105) mg/dL Lactate (0.7-2.1) mmol/L Vent Mode Mechanical Rate FiO2 % Tidal Volume PEEP Crit Value Called To Crit Value Called By Crit Value Read Back Blood Gas Notified Time Sodium 136 (132-148) mmol/l Potassium 4.6 (3.6-5.0) MMOL/L Chloride 96 L (98-107) mmol/L Carbon Dioxide 12 L (22-30) mmol/L Anion Gap 33 H (10-20) BUN 27 H (7-17) mg/dl Creatinine 4.1 H (0.7-1.2) mg/dl Est GFR ( Amer) 14 Est GFR (Non-Af Amer) 11 POC Glucose (mg/dL) (65-110) mg/dL Random Glucose 59 L (65-105) mg/dL Calcium 10.2 (8.4-10.2) mg/dL Total Bilirubin 41.0 H (0.2-1.3) mg/dl AST 2233 H (14-36) U/L ALT 499 H D (9-52) U/L Alkaline Phosphatase 172 H (38-126) U/L Total Protein 8.3 H (6.3-8.2) G/DL Albumin 3.7 (3.5-5.0) g/dL Globulin 4.6 H (2.2-3.9) gm/dL Albumin/Globulin Ratio 0.8 L (1.0-2.1) Arterial Blood Potassium (3.6-5.2) mmol/L Laboratory Results - last 24 hr 01/18/17 01/18/17 01/18/17 07:18 07:18 07:59 WBC 17.1 H RBC 2.48 L Hgb 8.0 L Hct 24.0 L MCV 96.9 MCH 32.4 H MCHC 33.5 RDW 19.8 H Plt Count 70 L pCO2 26 L pO2 76 L HCO3 13.7 L ABG pH 7.25 L ABG Total CO2 12.2 L ABG O2 Saturation 98.1 H ABG O2 Content 10.8 L ABG Base Excess -14.4 L ABG Hemoglobin 8.1 L ABG Carboxyhemoglobin 2.2 H POC ABG HHb (Measured) 1.8 ABG Methemoglobin 2.1 ABG O2 Capacity 11.0 L [place] Test Yes ABG Potassium A-a O2 Difference 91.0 Hgb O2 Saturation 93.9 L Glucose Lactate Vent Mode Mechanical Rate FiO2 28.0 Tidal Volume PEEP Crit Value Called To Andry bello msn,rn Crit Value Called By 15 Crit Value Read Back Y Blood Gas Notified Time 833 Sodium 136 Potassium 4.6 Chloride 96 L Carbon Dioxide 12 L Anion Gap 33 H BUN 27 H Creatinine 4.1 H Est GFR ( Amer) 14 Est GFR (Non-Af Amer) 11 POC Glucose (mg/dL) Random Glucose 59 L Calcium 10.2 Total Bilirubin 41.0 H AST 2233 H ALT 499 H D Alkaline Phosphatase 172 H Total Protein 8.3 H Albumin 3.7 Globulin 4.6 H Albumin/Globulin Ratio 0.8 L Arterial Blood Potassium 01/18/17 01/18/17 01/18/17 09:01 10:38 14:13 WBC RBC Hgb Hct MCV MCH MCHC RDW Plt Count pCO2 26 L 48 H pO2 76 L 48 L HCO3 13.7 L 9.0 L* ABG pH 7.25 L 6.95 L* ABG Total CO2 12.2 L 12.0 L ABG O2 Saturation 98.1 H 79.2 L ABG O2 Content 7.6 L ABG Base Excess -14.4 L -20.1 L ABG Hemoglobin 7.2 L ABG Carboxyhemoglobin 4.9 H POC ABG HHb (Measured) 19.6 H ABG Methemoglobin 0.7 ABG O2 Capacity 9.6 L [place] Test Yes Yes ABG Potassium 4.6 A-a O2 Difference 91.0 605.0 Hgb O2 Saturation 74.8 L Glucose 61 L Lactate 15.7 H* Vent Mode Prvc/ac Mechanical Rate 16 FiO2 28.0 100.0 Tidal Volume 500 PEEP 5 Crit Value Called To Andry bello msn,rn Andry bello msn Crit Value Called By 15 15 Crit Value Read Back Y Y Blood Gas Notified Time 833 1435 Sodium 132.0 Potassium Chloride 94.0 L Carbon Dioxide Anion Gap BUN Creatinine Est GFR ( Amer) Est GFR (Non-Af Amer) POC Glucose (mg/dL) 43 L Random Glucose Calcium Total Bilirubin AST ALT Alkaline Phosphatase Total Protein Albumin Globulin Albumin/Globulin Ratio Arterial Blood Potassium 4.6 01/18/17 01/18/17 16:37 21:59 WBC RBC Hgb Hct MCV MCH MCHC RDW Plt Count pCO2 pO2 HCO3 ABG pH ABG Total CO2 ABG O2 Saturation ABG O2 Content ABG Base Excess ABG Hemoglobin ABG Carboxyhemoglobin POC ABG HHb (Measured) ABG Methemoglobin ABG O2 Capacity [place] Test ABG Potassium A-a O2 Difference Hgb O2 Saturation Glucose Lactate Vent Mode Mechanical Rate FiO2 Tidal Volume PEEP Crit Value Called To Crit Value Called By Crit Value Read Back Blood Gas Notified Time Sodium Potassium Chloride Carbon Dioxide Anion Gap BUN Creatinine Est GFR ( Amer) Est GFR (Non-Af Amer) POC Glucose (mg/dL) 32 L* 76 Random Glucose Calcium Total Bilirubin AST ALT Alkaline Phosphatase Total Protein Albumin Globulin Albumin/Globulin Ratio Arterial Blood Potassium Fingerstick Blood Sugar Results: 32 Critical Care Progress Note - Nutrition Nutrition: Nutrition Category Date Time Status Renal Diet [DIET] Diets 01/09/17 Lunch Active Assessment/Plan - Assessment and Plan (Free Text) Assessment: A/P S/P cardiopulmonary arrest, Respiratory failure, pneumonia, liver cirrhosis, hepatic encephalopathy, renal failure, hepato-renal syndrome, anemia, thrombocytopenia, coagulopathy - Ventilatory support - Continue meds - Pulmonary toilets - Dialysis as per renal - GI follow up - Extremely poor prognosis Critical care 40 min
--- NOTE | 2017-01-19 07:54 | CP.PCM.PN ---
Subjective - Date & Time of Evaluation Date of Evaluation: 01/19/17 Time of Evaluation: 07:54 - Subjective Subjective: pt unresponsive, faint central pulses, hr 60 nsr on monitor. bp low on levophed. s/p cardiac arrest w/ return of pulses yesterday. pt was made DNR by family. At present pts sister, perri valenzuela at bedside. states they are planning on waiting for a family members flight to land and that person to arrive then the will most likely ask for terminal extubation. support offered Objective - Vital Signs/Intake and Output Vital Signs (last 24 hours): Temp Pulse Resp BP Pulse Ox 97.0 F L 58 L 5 L 91/34 L 84 L 01/19/17 04:00 01/19/17 07:00 01/19/17 07:00 01/19/17 07:00 01/18/17 16:00 Intake and Output: 01/19/17 01/19/17 06:59 18:59 Intake Total 884 Output Total 300 Balance 584 - Medications Medications: Current Medications Famotidine (Pepcid) 20 mg IVP Q12 [facility] Last Admin: 01/18/17 21:30 Dose: 20 mg Hydroxyzine HCl (Atarax) 25 mg PO Q6 PRN PRN Reason: Itching / Pruritus Last Admin: 01/15/17 09:22 Dose: 25 mg Ceftriaxone Sodium 1 gm/ (Sodium Chloride) 100 mls @ 200 mls/hr IVPB DAILY [facility] PRN Reason: Protocol Last Admin: 01/18/17 08:52 Dose: 200 mls/hr Sodium Bicarbonate 150 meq/ (Dextrose) 1,150 mls @ 50 mls/hr IV .Q23H [facility] Stop: 01/19/17 09:05 Last Admin: 01/18/17 12:07 Dose: 50 mls/hr Norepinephrine Bitartrate 8 mg (/ Dextrose) 258 mls @ 4.83 mls/hr IV .Q24H ONE ; 2.5 MCG/MIN PRN Reason: Protocol Stop: 01/20/17 02:33 Lactulose (Enulose) 20 gm PO QID [facility] Last Admin: 01/18/17 21:48 Dose: Not Given Midodrine (Proamatine) 10 mg PO TID [facility] Last Admin: 01/18/17 16:17 Dose: Not Given Morphine Sulfate (Morphine) 2 mg IVP Q4 PRN PRN Reason: Pain, moderate (4-7) Last Admin: 01/15/17 12:28 Dose: 2 mg Ondansetron HCl (Zofran Inj) 4 mg IVP Q6 PRN PRN Reason: Nausea/Vomiting Last Admin: 01/18/17 06:55 Dose: 4 mg Rifaximin (Xifaxan) 550 mg PO BID [facility] PRN Reason: Protocol Last Admin: 01/18/17 16:17 Dose: Not Given Zinc Sulfate (Zinc Sulfate 220 Mg Cap) 220 mg PO DAILY [facility] Last Admin: 01/18/17 09:09 Dose: 220 mg - Labs Labs: 01/18/17 07:18 01/18/17 07:18 PT 30.6 Seconds (9.8-13.1) H 01/17/17 10:40 INR 2.7 (0.9-1.2) H 01/17/17 10:40 APTT 49.8 Seconds (25.6-37.1) H 01/17/17 10:40 - Constitutional Appears: Non-toxic, No Acute Distress, Chronically Ill - Head Exam Head Exam: ATRAUMATIC, NORMAL INSPECTION, NORMOCEPHALIC - Eye Exam Eye Exam: EOMI, Normal appearance, PERRL Pupil Exam: NORMAL ACCOMODATION, PERRL - ENT Exam ENT Exam: Mucous Membranes Moist, Normal Exam - Neck Exam Neck Exam: Full ROM, Normal Inspection. absent: Lymphadenopathy - Respiratory Exam Respiratory Exam: Clear to Ausculation Bilateral, NORMAL BREATHING PATTERN - Cardiovascular Exam Cardiovascular Exam: Bradycardia, REGULAR RHYTHM, RRR, +S1, +S2. absent: Murmur - GI/Abdominal Exam GI & Abdominal Exam: Soft, Hypoactive Bowel Sounds. absent: Tenderness - Exam Bimanual exam: NORMAL BIMANUAL EXAM - Extremities Exam Extremities Exam: Full ROM, Normal Capillary Refill, Normal Inspection. absent : Joint Swelling, Pedal Edema - Back Exam Back Exam: NORMAL INSPECTION - Psychiatric Exam Psychiatric exam: Normal Affect, Normal Mood - Skin Skin Exam: Dry, Intact, Normal Color, Warm Assessment and Plan (1) [id number] kidney injury Status: Acute (2) DVT prophylaxis Status: Acute (3) Hepatorenal syndrome Status: Acute (4) Liver cirrhosis Status: Acute (5) UTI (urinary tract infection) Status: Acute (6) Hypotension Status: Acute - Assessment and Plan (Free Text) Assessment: condition extremely poor/terminal support offered to family will keep pressors for now. tube feedings on hold per family at bedside will most likely terminally extubate today. daniel fajardo rn and dr brennan made aware of families wishes. pt is DNR after cardiac arrest yesterday. will cont levophed and meds until family decides otherwise
[2017-01-19 08:32] VITALS: RESP 16; TEMP 97.6
[2017-01-19 09:59] VITALS: BP 65/33; PULSE 69
--- NOTE | 2017-01-19 10:26 | CP.CCUPN ---
CCU Subjective - Physician Review Events Since Last Encounter (Free Text): 01/19/17 10:24 Patient has no pulse, no blood pressure, asystoly, patient DNR, patient pronounced at 10.17 AM 01/19/2017 CCU Objective - Vital Signs / Intake & Output Vital Signs (Last 4 hours): Vital Signs Temp Pulse Resp BP 01/19/17 09:59 69 16 65/33 L 01/19/17 09:00 63 16 85/43 L 01/19/17 08:00 97.6 F 55 L 16 88/41 L 01/19/17 07:00 58 L 5 L 91/34 L Intake and Output (Last 8hrs): Intake & Output 01/18/17 01/19/17 01/19/17 22:59 06:59 14:59 Intake Total 652 596 200 Output Total 300 Balance 652 296 200 Intake: IV 652 596 200 Tube Feeding 0 0 Output: Stool 300 - Medications Active Medications: Active Medications Generic Name Dose Route Start Last Admin Trade Name Freq PRN Reason Stop Dose Admin Famotidine 20 mg 01/17/17 09:45 01/19/17 08:53 Pepcid IVP 20 mg Q12 [facility] Administration Hydroxyzine HCl 25 mg 01/04/17 18:38 01/15/17 09:22 Atarax PO 25 mg Q6 PRN Administration Itching / Pruritus Ceftriaxone Sodium 1 gm/ 100 mls @ 200 mls/hr 01/18/17 09:00 01/18/17 08:52 Sodium Chloride IVPB 200 mls/hr DAILY [facility] Administration Protocol Norepinephrine Bitartrate 8 mg 258 mls @ 4.83 mls/hr 01/19/17 02:34 / Dextrose IV 01/20/17 02:33 .Q24H ONE Protocol 2.5 MCG/MIN Lactulose 20 gm 01/14/17 13:00 01/19/17 08:51 Enulose PO Not Given QID [facility] Midodrine 10 mg 01/15/17 19:00 01/19/17 08:51 Proamatine PO Not Given TID [facility] Morphine Sulfate 2 mg 01/15/17 09:33 01/15/17 12:28 Morphine IVP 2 mg Q4 PRN Administration Pain, moderate (4-7) Ondansetron HCl 4 mg 01/17/17 09:33 01/18/17 06:55 Zofran Inj IVP 4 mg Q6 PRN Administration Nausea/Vomiting Rifaximin 550 mg 01/05/17 09:00 01/19/17 08:51 Xifaxan PO Not Given BID [facility] Protocol Zinc Sulfate 220 mg 01/05/17 09:00 01/19/17 08:51 Zinc Sulfate 220 Mg Cap PO Not Given DAILY [facility] - Patient Studies Lab Studies: Lab Studies 01/18/17 01/18/17 01/18/17 Range/Units 21:59 16:37 14:13 pCO2 48 H (35-45) mm/Hg pO2 48 L (80-100) mm/Hg HCO3 9.0 L* (21-28) mmol/L ABG pH 6.95 L* (7.35-7.45) ABG Total CO2 12.0 L (22-28) mmol/L ABG O2 Saturation 79.2 L (95-98) % ABG O2 Content 7.6 L (15-23) ML/dL ABG Base Excess -20.1 L (-2.0-3.0) mmol/L ABG Hemoglobin 7.2 L (11.7-17.4) g/dL ABG Carboxyhemoglobin 4.9 H (0.5-1.5) % POC ABG HHb (Measured) 19.6 H (0.0-5.0) % ABG Methemoglobin 0.7 (0.0-3.0) % ABG O2 Capacity 9.6 L (16-24) mL/dL [place] Test Yes A-a O2 Difference 605.0 mm/Hg Hgb O2 Saturation 74.8 L (95.0-98.0) % Vent Mode Prvc/ac Mechanical Rate 16 FiO2 100.0 % Tidal Volume 500 PEEP 5 Crit Value Called To Andry bello msn Crit Value Called By 15 Crit Value Read Back Y Blood Gas Notified Time 1435 POC Glucose (mg/dL) 76 32 L* (65-110) mg/dL 01/18/17 Range/Units 10:38 pCO2 (35-45) mm/Hg pO2 (80-100) mm/Hg HCO3 (21-28) mmol/L ABG pH (7.35-7.45) ABG Total CO2 (22-28) mmol/L ABG O2 Saturation (95-98) % ABG O2 Content (15-23) ML/dL ABG Base Excess (-2.0-3.0) mmol/L ABG Hemoglobin (11.7-17.4) g/dL ABG Carboxyhemoglobin (0.5-1.5) % POC ABG HHb (Measured) (0.0-5.0) % ABG Methemoglobin (0.0-3.0) % ABG O2 Capacity (16-24) mL/dL [place] Test A-a O2 Difference mm/Hg Hgb O2 Saturation (95.0-98.0) % Vent Mode Mechanical Rate FiO2 % Tidal Volume PEEP Crit Value Called To Crit Value Called By Crit Value Read Back Blood Gas Notified Time POC Glucose (mg/dL) 43 L (65-110) mg/dL Laboratory Results - last 24 hr 01/18/17 01/18/17 01/18/17 10:38 14:13 16:37 pCO2 48 H pO2 48 L HCO3 9.0 L* ABG pH 6.95 L* ABG Total CO2 12.0 L ABG O2 Saturation 79.2 L ABG O2 Content 7.6 L ABG Base Excess -20.1 L ABG Hemoglobin 7.2 L ABG Carboxyhemoglobin 4.9 H POC ABG HHb (Measured) 19.6 H ABG Methemoglobin 0.7 ABG O2 Capacity 9.6 L [place] Test Yes A-a O2 Difference 605.0 Hgb O2 Saturation 74.8 L Vent Mode Prvc/ac Mechanical Rate 16 FiO2 100.0 Tidal Volume 500 PEEP 5 Crit Value Called To Andry chao Crit Value Called By 15 Crit Value Read Back Y Blood Gas Notified Time 1435 POC Glucose (mg/dL) 43 L 32 L* 01/18/17 21:59 pCO2 pO2 HCO3 ABG pH ABG Total CO2 ABG O2 Saturation ABG O2 Content ABG Base Excess ABG Hemoglobin ABG Carboxyhemoglobin POC ABG HHb (Measured) ABG Methemoglobin ABG O2 Capacity [place] Test A-a O2 Difference Hgb O2 Saturation Vent Mode Mechanical Rate FiO2 Tidal Volume PEEP Crit Value Called To Crit Value Called By Crit Value Read Back Blood Gas Notified Time POC Glucose (mg/dL) 76 Fingerstick Blood Sugar Results: 32 Critical Care Progress Note - Nutrition Nutrition: Nutrition Category Date Time Status NPO Diet [DIET] Diets 01/19/17 Breakfast Active
--- NOTE | 2017-01-19 11:33 | RAD ---
PROCEDURE: CHEST RADIOGRAPH, 1 VIEW HISTORY: post intubation COMPARISON: 01/07/2017 FINDINGS: LUNGS: Bilateral interstitial infiltrates. PLEURA: No pneumothorax or pleural fluid seen. CARDIOVASCULAR: Normal. OSSEOUS STRUCTURES: No significant abnormalities. VISUALIZED UPPER ABDOMEN: Normal. OTHER FINDINGS: ETT above the eddie. NG tube below the diaphragm. IMPRESSION: As above.
--- NOTE | 2017-01-19 11:58 | CARD ---
APPROVED REPORT EKG Measurement Heart [id number] <Conclusion> Sinus tachycardia Left axis deviation Pulmonary disease pattern Nonspecific ST abnormality Abnormal ECG
--- NOTE | 2017-01-19 15:35 | CP.PCM.DIS ---
Provider - Provider Date of Admission: 01/04/17 19:16 Attending physician: Emelyn Veras MD Primary care physician: Provider TBD Time Spent in preparation of Discharge (in minutes): 15 Diagnosis - Discharge Diagnosis (1) Wyjpi-by-njeszes kidney injury Status: Acute (2) DVT prophylaxis Status: Acute (3) Hepatorenal syndrome Status: Acute (4) Liver cirrhosis Status: Acute (5) UTI (urinary tract infection) Status: Acute (6) Hypotension Status: Acute Hospital Course - Lab Results Lab Results: Micro Results 01/09/17 Unknown Blood-Thru Central Line Blood Culture - Final NO GROWTH AFTER 5 DAYS 01/09/17 Unknown Blood-Thru Central Line Gram Stain - Final TEST NOT PERFORMED 01/05/17 10:30 Blood Blood Culture - Final NO GROWTH AFTER 5 DAYS 01/05/17 10:30 Blood Gram Stain - Final TEST NOT PERFORMED 01/05/17 10:10 Urine,Mcgregor Urine Culture - Final Escherichia Coli Most Recent Lab Values WBC 17.1 K/uL (4.8-10.8) H 01/18/17 07:18 RBC 2.48 Mil/uL (3.80-5.20) L 01/18/17 07:18 Hgb 8.0 g/dL (12.0-16.0) L 01/18/17 07:18 Hct 24.0 % (34.0-47.0) L 01/18/17 07:18 MCV 96.9 fl (81.0-99.0) 01/18/17 07:18 MCH 32.4 pg (27.0-31.0) H 01/18/17 07:18 MCHC 33.5 g/dL (33.0-37.0) 01/18/17 07:18 RDW 19.8 % (11.5-14.5) H 01/18/17 07:18 Plt Count 70 K/uL (130-400) L 01/18/17 07:18 MPV 10.5 fl (7.2-11.7) 01/16/17 04:20 Neut % (Auto) 76.0 % (50.0-75.0) H 01/16/17 04:20 Lymph % (Auto) 7.8 % (20.0-40.0) L 01/16/17 04:20 [place] % (Auto) 16.2 % (0.0-10.0) H 01/16/17 04:20 Eos % (Auto) 0.0 % (0.0-4.0) 01/16/17 04:20 Baso % (Auto) 0.0 % (0.0-2.0) 01/16/17 04:20 Neut # 10.8 K/uL (1.8-7.0) H 01/16/17 04:20 Lymph # 1.1 K/uL (1.0-4.3) 01/16/17 04:20 [place] # 2.3 K/uL (0.0-0.8) H 01/16/17 04:20 Eos # 0.0 K/uL (0.0-0.7) 01/16/17 04:20 Baso # 0.0 K/uL (0.0-0.2) 01/16/17 04:20 Neutrophils % (Manual) 91 % (42-75) H 01/13/17 04:20 Lymphocytes % (Manual) 3 % (20-50) L 01/13/17 04:20 Monocytes % (Manual) 6 % (0-10) 01/13/17 04:20 Eosinophils % (Manual) 1 % (0-7) 01/08/17 05:10 Nucleated RBC % 6 % (0-0) H 01/08/17 05:10 Hypersegmented Polys Present 01/13/17 04:20 Toxic Granulation Present 01/13/17 04:20 Platelet Estimate Decreased (NORMAL) L 01/13/17 04:20 Hypochromasia (manual) Slight 01/13/17 04:20 Anisocytosis (manual) Moderate 01/13/17 04:20 Ovalocytes Slight 01/13/17 04:20 PT 30.6 Seconds (9.8-13.1) H 01/17/17 10:40 INR 2.7 (0.9-1.2) H 01/17/17 10:40 APTT 49.8 Seconds (25.6-37.1) H 01/17/17 10:40 pCO2 48 mm/Hg (35-45) H 01/18/17 14:13 pO2 48 mm/Hg (80-100) L 01/18/17 14:13 HCO3 9.0 mmol/L (21-28) L* 01/18/17 14:13 ABG pH 6.95 (7.35-7.45) L* 01/18/17 14:13 ABG Total CO2 12.0 mmol/L (22-28) L 01/18/17 14:13 ABG O2 Saturation 79.2 % (95-98) L 01/18/17 14:13 ABG O2 Content 7.6 ML/dL (15-23) L 01/18/17 14:13 ABG Base Excess -20.1 mmol/L (-2.0-3.0) L 01/18/17 14:13 ABG Hemoglobin 7.2 g/dL (11.7-17.4) L 01/18/17 14:13 ABG Carboxyhemoglobin 4.9 % (0.5-1.5) H 01/18/17 14:13 POC ABG HHb (Measured) 19.6 % (0.0-5.0) H 01/18/17 14:13 ABG Methemoglobin 0.7 % (0.0-3.0) 01/18/17 14:13 ABG O2 Capacity 9.6 mL/dL (16-24) L 01/18/17 14:13 [place] Test Yes 01/18/17 14:13 ABG Potassium 4.6 mmol/L (3.6-5.2) 01/18/17 09:01 A-a O2 Difference 605.0 mm/Hg 01/18/17 14:13 Hgb O2 Saturation 74.8 % (95.0-98.0) L 01/18/17 14:13 Sodium 132.0 mmol/L (132-148) 01/18/17 09:01 Chloride 94.0 mmol/L (98-107) L 01/18/17 09:01 Glucose 61 mg/dL (65-105) L 01/18/17 09:01 Lactate 15.7 mmol/L (0.7-2.1) H* 01/18/17 09:01 Vent Mode Prvc/ac 01/18/17 14:13 Mechanical Rate 16 01/18/17 14:13 FiO2 100.0 % 01/18/17 14:13 Tidal Volume 500 01/18/17 14:13 PEEP 5 01/18/17 14:13 Crit Value Called To Andry bello [facility] [place] 01/18/17 14:13 Crit Value Called By 15 01/18/17 14:13 Crit Value Read Back Y 01/18/17 14:13 Blood Gas Notified Time 1435 01/18/17 14:13 Sodium 136 mmol/l (132-148) 01/18/17 07:18 Potassium 4.6 MMOL/L (3.6-5.0) 01/18/17 07:18 Chloride 96 mmol/L (98-107) L 01/18/17 07:18 Carbon Dioxide 12 mmol/L (22-30) L 01/18/17 07:18 Anion Gap 33 (10-20) H 01/18/17 07:18 BUN 27 mg/dl (7-17) H 01/18/17 07:18 Creatinine 4.1 mg/dl (0.7-1.2) H 01/18/17 07:18 Est GFR ( Amer) 14 01/18/17 07:18 Est GFR (Non-Af Amer) 11 01/18/17 07:18 POC Glucose (mg/dL) 76 mg/dL (65-110) 01/18/17 21:59 Random Glucose 59 mg/dL (65-105) L 01/18/17 07:18 Serum Osmolality 284 mosm/kg (272-300) 01/09/17 05:00 Lactic Acid 3.2 MMOL/L (0.7-2.1) H 01/06/17 04:30 Uric Acid 11.8 mg/Dl (2.2-7.5) H 01/04/17 23:10 Calcium 10.2 mg/dL (8.4-10.2) 01/18/17 07:18 Phosphorus 5.3 mg/dl (2.5-4.5) H 01/09/17 05:00 Magnesium 1.9 MG/DL (1.6-2.3) 01/09/17 05:00 Total Bilirubin 41.0 mg/dl (0.2-1.3) H 01/18/17 07:18 AST 2233 U/L (14-36) H 01/18/17 07:18 ALT 499 U/L (9-52) H D 01/18/17 07:18 Alkaline Phosphatase 172 U/L (38-126) H 01/18/17 07:18 Ammonia 33 umo/L (11-51) D 01/13/17 04:20 Total Creatine Kinase 500 U/L (30-135) H 01/04/17 23:10 Troponin I 0.0280 ng/mL (0.00-0.120) 01/04/17 15:15 Total Protein 8.3 G/DL (6.3-8.2) H 01/18/17 07:18 Albumin 3.7 g/dL (3.5-5.0) 01/18/17 07:18 Globulin 4.6 gm/dL (2.2-3.9) H 01/18/17 07:18 Albumin/Globulin Ratio 0.8 (1.0-2.1) L 01/18/17 07:18 Arterial Blood Potassium 4.6 mmol/L (3.6-5.2) 01/18/17 09:01 Urine Color Red (YELLOW) 01/04/17 21:48 Urine Clarity Turbid (Clear) 01/04/17 21:48 Urine pH 5.0 (5.0-8.0) 01/04/17 21:48 Ur Specific [place] 1.015 (1.003-1.030) 01/04/17 21:48 Urine Protein 100 mg/dL (NEGATIVE) 01/04/17 21:48 Urine Glucose (UA) Neg mg/dL (Normal) 01/04/17 21:48 Urine Ketones Negative mg/dL (NEGATIVE) 01/04/17 21:48 Urine Blood Large (NEGATIVE) 01/04/17 21:48 Urine Nitrate Negative (NEGATIVE) 01/04/17 21:48 Urine Bilirubin Moderate (NEGATIVE) 01/04/17 21:48 Urine Urobilinogen 4.0 mg/dL (0.2-1.0) H 01/04/17 21:48 Ur Leukocyte Esterase Large Jorge/uL (Negative) 01/04/17 21:48 Urine RBC (Auto) 547 /hpf (0-3) H 01/04/17 21:48 Urine WBC Clumps (Auto) Many /hpf (NONE) H 01/04/17 21:48 Urine Microscopic WBC 3534 /hpf (0-5) H 01/04/17 21:48 Ur Squamous Epith Cells 2 /hpf (0-5) 01/04/17 21:48 Ur Transition Epith Cell 7 /hpf (0-3) H 01/04/17 21:48 Urine Bacteria Many (<OCC) H 01/04/17 21:48 Urine Osmolality 286 mosm/kg (300-1000) L 01/09/17 08:40 Ur Random Sodium 36 meq/L 01/09/17 10:35 Ur Random Potassium 47.7 mmol/L 01/09/17 10:35 Stool Occult Blood Positive (NEGATIVE) H 01/15/17 08:16 Vancomycin Trough 23.9 ug/mL (5.0-10.0) H 01/11/17 12:10 Random Vancomycin 27.1 ug/mL 01/11/17 05:20 Hep Bs Antigen Negative (NEGATIVE) 01/04/17 23:10 Hep Bs Antibody Positive (NEGATIVE) 01/05/17 11:15 Blood Type A POSITIVE 01/15/17 01:50 Antibody Screen Negative 01/15/17 01:50 Crossmatch See Detail 01/15/17 01:50 BBK History Checked Patient has bt 01/15/17 01:50 Discharge Exam - Head Exam Head Exam: ATRAUMATIC, NORMAL INSPECTION, NORMOCEPHALIC Discharge Plan - Follow Up Plan Condition: CRITICAL Disposition: WITH WITHOUT AUTOPSY Additional Instructions: informed of pts cardiac arrest and pronouncement. DNR as per family. fikathyl dx-cardiopulm arrest, hepatorenal failure Referrals: Provider TBD, [Primary Care Provider] -
--- NOTE | 2017-01-19 17:00 | CP.PCM.PN ---
Subjective - Date & Time of Evaluation Date of Evaluation: 01/18/17 Time of Evaluation: 16:20 - Subjective Subjective: Vented, family at bedside Objective - Vital Signs/Intake and Output Vital Signs (last 24 hours): Temp Pulse Resp BP Pulse Ox 97.6 F 69 16 65/33 L 84 L 01/19/17 08:00 01/19/17 09:59 01/19/17 09:59 01/19/17 09:59 01/18/17 16:00 Intake and Output: 01/19/17 01/19/17 06:59 18:59 Intake Total 884 200 Output Total 300 Balance 584 200 - Labs Labs: 01/18/17 07:18 01/18/17 07:18 PT 30.6 Seconds (9.8-13.1) H 01/17/17 10:40 INR 2.7 (0.9-1.2) H 01/17/17 10:40 APTT 49.8 Seconds (25.6-37.1) H 01/17/17 10:40 - Head Exam Head Exam: ATRAUMATIC - Eye Exam Eye Exam: Scleral icterus - ENT Exam ENT Exam: Mucous Membranes Dry - Respiratory Exam Respiratory Exam: Decreased Breath Sounds - Cardiovascular Exam Cardiovascular Exam: +S1, +S2 - GI/Abdominal Exam GI & Abdominal Exam: Normal Bowel Sounds - Extremities Exam Extremities Exam: Pedal Edema Assessment and Plan (1) Coagulopathy Assessment & Plan: liver disease s/p FFP Status: Acute (2) Anemia Assessment & Plan: 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
== END 2017-01-19 10:17 | DRG 584 ==
LOC: SUPCPDRO 14:12 → H.ER 14:12 → H.ERHOLD 19:16 → H.ICU/CCU 21:33
PROVIDERS: ADMIT Family Medicine; ATTEND Family Medicine
PROC: 06HM33Z Insertion of Infusion Device into Right Femoral Vein, Percutaneous Approach (ICD-10-PCS; 2017-01-04)
PROC: 5A1D70Z Performance of Urinary Filtration, Intermittent, Less than 6 Hours Per Day (ICD-10-PCS; 2017-01-05)
PROC: 06HN33Z Insertion of Infusion Device into Left Femoral Vein, Percutaneous Approach (ICD-10-PCS; 2017-01-07)
PROC: B54CZZA Ultrasonography of Left Lower Extremity Veins, Guidance (ICD-10-PCS; 2017-01-07)
PROC: 30233K1 Transfusion of Nonautologous Frozen Plasma into Peripheral Vein, Percutaneous Approach (ICD-10-PCS; principal; 2017-01-09)
PROC: 30233N1 Transfusion of Nonautologous Red Blood Cells into Peripheral Vein, Percutaneous Approach (ICD-10-PCS; 2017-01-09)
DX: A41.9 Sepsis, unspecified organism (principal); N17.0 Acute kidney failure with tubular necrosis; K76.7 Hepatorenal syndrome; J96.90 Respiratory failure, unspecified, unspecified whether with hypoxia or hypercapnia; B19.21 Unspecified viral hepatitis C with hepatic coma; G93.41 Metabolic encephalopathy; D68.4 Acquired coagulation factor deficiency; J18.9 Pneumonia, unspecified organism; K92.2 Gastrointestinal hemorrhage, unspecified; R57.9 Shock, unspecified; E11.22 Type 2 diabetes mellitus with diabetic chronic kidney disease; D69.6 Thrombocytopenia, unspecified; E11.65 Type 2 diabetes mellitus with hyperglycemia; N39.0 Urinary tract infection, site not specified; K74.60 Unspecified cirrhosis of liver; E87.6 Hypokalemia; E87.1 Hypo-osmolality and hyponatremia; I46.9 Cardiac arrest, cause unspecified; J44.0 Chronic obstructive pulmonary disease with (acute) lower respiratory infection; N18.6 End stage renal disease; I12.0 Hypertensive chronic kidney disease with stage 5 chronic kidney disease or end stage renal disease; E11.649 Type 2 diabetes mellitus with hypoglycemia without coma; R16.2 Hepatomegaly with splenomegaly, not elsewhere classified; E66.9 Obesity, unspecified; Z68.42 Body mass index [BMI] 45.0-49.9, adult; E86.0 Dehydration; E78.00 Pure hypercholesterolemia, unspecified; D63.1 Anemia in chronic kidney disease; B96.20 Unspecified Escherichia coli [E. coli] as the cause of diseases classified elsewhere; Z66 Do not resuscitate; Z74.01 Bed confinement status; R65.20 Severe sepsis without septic shock; E27.8 Other specified disorders of adrenal gland